=== PATIENT | male | born 1975 | race Caucasian/White ===

== ENCOUNTER 2017-02-19 14:55 | Emergency (ER) | payer OTHER ==
--- NOTE | 2017-02-19 15:26 | ED ---
General Adult HPI - General Chief complaint: Psychiatric Symptoms Stated complaint: mental health Time Seen by Provider: 02/19/17 15:09 Source: patient, police, RN notes reviewed Mode of arrival: ambulatory Limitations: no limitations - History of Present Illness Initial comments: Patient is a 41-year-old male who presents emergency room today in the custody of the [place] [employer]. Patient does admit that he was trying to hurt himself earlier. He states he was trying to jump in front of car. He states he was upset because he missed his mother and his brother. States his brother . He states mother in another town. States that he was upset earlier today after no one wanted to play pool with him. Patient denies any other complaints. Denies any thoughts of hurting anyone else. States currently not having thoughts of hurting himself. Patient denies any recent fever, chills, shortness of breath, chest pain, back pain, abdominal pain, nausea or vomiting, numbness or tingling, dysuria or hematuria, constipation or diarrhea, headaches or visual changes, or any other complaints. - Related Data Home Medications Medication Instructions Recorded Confirmed Loratadine [Claritin] 10 mg PO DAILY 08/08/14 02/19/17 Simvastatin [Zocor] 20 mg PO HS 08/08/14 02/19/17 metFORMIN HCL [Glucophage] 500 mg PO BID 08/08/14 02/19/17 Benztropine Mesylate [Cogentin] 2 mg PO BID 02/19/17 02/19/17 Chlorthalidone [Hygroton] 25 mg PO DAILY 02/19/17 02/19/17 Cholecalciferol [Vitamin D3] 2,000 unit PO DAILY 02/19/17 02/19/17 Cyanocobalamin (Vitamin B-12) 1,000 mcg PO DAILY 02/19/17 02/19/17 [Vitamin B-12] Divalproex ER [Depakote ER] 1,000 mg PO BID 02/19/17 02/19/17 Glimepiride [Amaryl] 1 mg PO DAILY 02/19/17 02/19/17 Levothyroxine Sodium [Synthroid] 100 mcg PO DAILY 02/19/17 02/19/17 Lisinopril 30 mg PO DAILY 02/19/17 02/19/17 Sertraline [Zoloft] 200 mg PO DAILY 02/19/17 02/19/17 fluPHENAZine DECANOATE [Prolixin 25 mg IM Q7D 02/19/17 02/19/17 Decanoate] traZODone HCL [Desyrel] 200 mg PO HS 02/19/17 02/19/17 Allergies Allergy/AdvReac Type Severity Reaction Status Date / Time diphenhydramine HCl Allergy Rash/Hives Verified 02/19/17 15:35 [From Benadryl] Review of Systems ROS Statement: Those systems with pertinent positive or pertinent negative responses have been documented in the HPI. ROS Other: All systems not noted in ROS Statement are negative. Past Medical History Past Medical History: Diabetes Mellitus, Seizure Disorder History of Any Multi-Drug Resistant Organisms: None Reported Past Surgical History: Orthopedic Surgery Additional Past Surgical History / Comment(s): right ankle Past Psychological History: Bipolar, Depression Smoking Status: Current every day smoker Past Alcohol Use History: None Reported Past Drug Use History: None Reported General Exam - General Exam Comments Initial Comments: General: The patient is awake and alert, in no distress, and does not appear acutely ill. Eye: Pupils are equal, round and reactive to light, extra-ocular movements are intact. No nystagmus. There is normal conjunctiva bilaterally. No signs of icterus. Ears, nose, mouth and throat: There are moist mucous membranes and no oral lesions. Neck: The neck is supple, there is no tenderness or JVD. Cardiovascular: There is a regular rate and rhythm. No murmur, rub or gallop is appreciated. Respiratory: Lungs are clear to auscultation, respirations are non-labored, breath sounds are equal. No wheezes, stridor, rales, or rhonchi. Musculoskeletal: Normal ROM, no tenderness. Strength 5/5. Sensation intact. Pulses equal bilaterally 2+. Neurological: A&O x 3. CN II-XII intact, There are no obvious motor or sensory deficits. Coordination appears grossly intact. Speech is normal. Skin: Skin is warm and dry and no rashes or lesions are noted. Psychiatric: Cooperative, appropriate mood & affect, normal judgment. Limitations: no limitations Course Vital Signs 02/19/17 02/19/17 15:02 16:13 Temperature 97.3 F L 97.0 F L Pulse Rate 67 58 L Respiratory 18 16 Rate Blood Pressure 156/92 119/69 O2 Sat by Pulse 97 96 Oximetry Medical Decision Making - Medical Decision Making Patient has been seen here in the emergency room by mental health. Patient denies any thoughts of homicidal or suicidal thoughts. Patient states he has no intentions of hurting himself. Mental health discussed with guardian who states feels comfortable taking patient home. They state they'll be able to follow up with an outpatient. Is also agreement with this plan at bedside. - Lab Data Lab Results 02/19/17 Range/Units 15:33 Urine Opiates Screen Not Detected (NotDetected) Ur Oxycodone Screen Not Detected (NotDetected) Urine Methadone Screen Not Detected (NotDetected) Ur Propoxyphene Screen Not Detected (NotDetected) Ur Barbiturates Screen Not Detected (NotDetected) U Tricyclic Antidepress Not Detected (NotDetected) Ur Phencyclidine Scrn Not Detected (NotDetected) Ur Amphetamines Screen Not Detected (NotDetected) U Methamphetamines Scrn Not Detected (NotDetected) U Benzodiazepines Scrn Not Detected (NotDetected) Urine Cocaine Screen Not Detected (NotDetected) U Marijuana (THC) Screen Not Detected (NotDetected) Disposition Clinical Impression: Depression Disposition: HOME SELF-CARE Condition: Stable Instructions: Depression (ED) Additional Instructions: Please follow-up mental health outpatient as discussed here in the emergency room. Please return to emergency room if any symptoms increase. Concerns. Time of Disposition: 17:23
[2017-02-19 16:15] VITALS: RESP 16
[2017-02-19 17:40] VITALS: BP 144/76; PULSE 67; TEMP 97.9
== END 2017-02-19 17:49 | disposition home or self-care (01) ==
LOC: EC 14:55
DX: F32.9 Major depressive disorder, single episode, unspecified (principal); E11.9 Type 2 diabetes mellitus without complications; G40.909 Epilepsy, unspecified, not intractable, without status epilepticus; Z79.84 Long term (current) use of oral hypoglycemic drugs; Z79.899 Other long term (current) drug therapy; Z88.8 Allergy status to other drugs, medicaments and biological substances
CPT/HCPCS: 80306; 82075; 99284

== ENCOUNTER 2017-07-17 20:43 | Observation (INO) | payer OTHER ==
[2017-07-17 21:00] VITALS: RESP 18
[2017-07-17 21:27] LABS: Basophils # (A) 0.1 k/uL (0-0.2); Basophils % (A) 1 %; CH 30.9; CHCM 36.3; Eosinophils # (A) 0.1 k/uL (0-0.7); Eosinophils % (A) 1 %; HCT 45.2 % (39.0-53.0); HDW 2.92; HGB 15.3 gm/dL (13.0-17.5); Luc % (Auto) 1; Lymphocytes # (A) 2.8 k/uL (1.0-4.8); Lymphocytes % (A) 34 %; MCH 28.9 pg (25.0-35.0); MCHC 33.9 g/dL (31.0-37.0); MCV 85.3 fL (80.0-100.0); Mean Platelet Volume 7.7; Monocytes # (A) 0.4 k/uL (0-1.0); Monocytes % (A) 5 %; Neutrophils # (A) 4.9 k/uL (1.3-7.7); Neutrophils % (A) 59 %; RDW 15.4 % (11.5-15.5); WBC 8.4 k/uL (3.8-10.6); WBC (Perox) 7.99
[2017-07-17] MEDS ORDERED: NITROGLYCERIN OINT 1 INCH/GM PACKET TOPICAL STA (21:39)
[2017-07-17] MEDS ORDERED: ASPIRIN 81 MG PO STA (21:39)
[2017-07-17 21:41] LABS: INR 1.2 (<1.2); Partial Thromboplastin Time 26.2 sec (22.0-30.0); Prothrombin Time 12.3 sec (9.0-12.0)
--- NOTE | 2017-07-17 21:43 | ED ---
General Adult HPI - General Chief complaint: Chest Pain Stated complaint: Chest Pain Time Seen by Provider: 07/17/17 21:22 Source: patient, EMS, RN notes reviewed Mode of arrival: EMS Limitations: no limitations, physical limitation - History of Present Illness Initial comments: Patient is a pleasant 41-year-old male presenting to the emergency department complaining of chest discomfort. Onset of symptoms was around 745. Discomfort was moderate. Discomfort is somewhat improved with aspirin and nitroglycerin by EMS. Discomfort feels sharp. Discomfort is midsternal. No history of similar symptoms previously. No shortness of breath, nausea, or diaphoresis. No leg pain or swelling. No radiation of pain. - Related Data Home Medications Medication Instructions Recorded Confirmed Loratadine [Claritin] 10 mg PO DAILY 08/08/14 07/17/17 Simvastatin [Zocor] 20 mg PO HS 08/08/14 07/17/17 metFORMIN HCL [Glucophage] 500 mg PO BID 08/08/14 07/17/17 Benztropine Mesylate [Cogentin] 2 mg PO BID 02/19/17 07/17/17 Chlorthalidone [Hygroton] 25 mg PO DAILY 02/19/17 07/17/17 Cholecalciferol [Vitamin D3] 2,000 unit PO DAILY 02/19/17 07/17/17 Divalproex ER [Depakote ER] 1,000 mg PO BID 02/19/17 07/17/17 Glimepiride [Amaryl] 1 mg PO DAILY 02/19/17 07/17/17 Levothyroxine Sodium [Synthroid] 100 mcg PO DAILY 02/19/17 07/17/17 Lisinopril 30 mg PO DAILY 02/19/17 07/17/17 Sertraline [Zoloft] 200 mg PO DAILY 02/19/17 07/17/17 fluPHENAZine DECANOATE [Prolixin 25 mg IM Q14D 02/19/17 07/17/17 Decanoate] traZODone HCL [Desyrel] 200 mg PO HS 02/19/17 07/17/17 Allergies Allergy/AdvReac Type Severity Reaction Status Date / Time diphenhydramine HCl Allergy Rash/Hives Verified 07/17/17 21:18 [From [place]it] Review of Systems ROS Statement: Those systems with pertinent positive or pertinent negative responses have been documented in the HPI. ROS Other: All systems not noted in ROS Statement are negative. Constitutional: Denies: fever Eyes: Denies: eye pain ENT: Denies: ear pain Respiratory: Denies: cough, dyspnea Cardiovascular: Reports: chest pain. Denies: palpitations Endocrine: Denies: fatigue Gastrointestinal: Denies: abdominal pain Genitourinary: Denies: urgency Musculoskeletal: Denies: back pain Skin: Denies: rash Neurological: Denies: weakness Past Medical History Past Medical History: Diabetes Mellitus, Hypertension, Seizure Disorder History of Any Multi-Drug Resistant Organisms: None Reported Past Surgical History: Orthopedic Surgery Additional Past Surgical History / Comment(s): right ankle Past Psychological History: Bipolar, Depression Smoking Status: Current every day smoker Past Alcohol Use History: None Reported Past Drug Use History: None Reported General Exam Limitations: no limitations, physical limitation General appearance: alert, in no apparent distress Head exam: Present: atraumatic Eye exam: Present: normal appearance, PERRL ENT exam: Present: normal oropharynx Neck exam: Present: normal inspection Respiratory exam: Present: normal lung sounds bilaterally, chest wall tenderness Cardiovascular Exam: Present: regular rate, normal rhythm Expanded Peripheral pulses: 2+: Radial (R), Radial (L), Dorsalis Pedis (R), Dorsalis Pedis (L) GI/Abdominal exam: Present: soft. Absent: tenderness Extremities exam: Present: normal inspection. Absent: pedal edema, calf tenderness Neurological exam: Present: alert Psychiatric exam: Present: normal affect, normal mood Skin exam: Present: normal color Course Vital Signs 07/17/17 07/17/17 07/17/17 20:54 21:05 21:57 Temperature 99.1 F Pulse Rate 58 L 57 L Pulse Rate [ 59 L [employer] ] Respiratory 18 18 Rate Blood Pressure 149/73 138/80 O2 Sat by Pulse 99 97 Oximetry EKG Findings - EKG Comments: EKG Findings:: Normal sinus rhythm 63. NM 164. QRS 88. QT 386. QTc 395. Left axis. Normal QRS. No acute ST change. Medical Decision Making - Medical Decision Making Patient reevaluated and improved however not completely resolved. Patient and friend were updated on results and plan. Case was discussed with practitioner Katherine ortiz who will admit for Dr. Mosley, covering for hospital call. - Lab Data Result diagrams: 07/17/17 21:15 07/17/17 21:15 Lab Results 07/17/17 07/17/17 07/17/17 Range/Units 21:15 21:15 21:15 WBC 8.4 (3.8-10.6) k/uL RBC 5.30 (4.30-5.90) m/uL Hgb 15.3 (13.0-17.5) gm/dL Hct 45.2 (39.0-53.0) % MCV 85.3 (80.0-100.0) fL MCH 28.9 (25.0-35.0) pg MCHC 33.9 (31.0-37.0) g/dL RDW 15.4 (11.5-15.5) % Plt Count 205 (150-450) k/uL Neutrophils % 59 % Lymphocytes % 34 % Monocytes % 5 % Eosinophils % 1 % Basophils % 1 % Neutrophils # 4.9 (1.3-7.7) k/uL Lymphocytes # 2.8 (1.0-4.8) k/uL Monocytes # 0.4 (0-1.0) k/uL Eosinophils # 0.1 (0-0.7) k/uL Basophils # 0.1 (0-0.2) k/uL PT (9.0-12.0) sec INR (<1.2) APTT (22.0-30.0) sec Sodium 137 (137-145) mmol/L Potassium 4.0 (3.5-5.1) mmol/L Chloride 104 (98-107) mmol/L Carbon Dioxide 23 (22-30) mmol/L Anion Gap 10 mmol/L BUN 13 (9-20) mg/dL Creatinine 0.60 L (0.66-1.25) mg/dL Est GFR (MDRD) Af Amer >60 (>60 ml/min/1.73 sqM) Est GFR (MDRD) Non-Af >60 (>60 ml/min/1.73 sqM) Glucose 119 H (74-99) mg/dL Calcium 9.2 (8.4-10.2) mg/dL Magnesium 1.5 L (1.6-2.3) mg/dL Total Bilirubin 0.3 (0.2-1.3) mg/dL AST 16 L (17-59) U/L ALT 37 (21-72) U/L Alkaline Phosphatase 100 (38-126) U/L Total Creatine Kinase 47 L (55-170) U/L CK-MB (CK-2) 0.6 (0.0-2.4) ng/mL CK-MB (CK-2) Rel Index 1.3 Troponin I <0.012 (0.000-0.034) ng/mL Total Protein 6.4 (6.3-8.2) g/dL Albumin 4.2 (3.5-5.0) g/dL 07/17/17 Range/Units 21:15 WBC (3.8-10.6) k/uL RBC (4.30-5.90) m/uL Hgb (13.0-17.5) gm/dL Hct (39.0-53.0) % MCV (80.0-100.0) fL MCH (25.0-35.0) pg MCHC (31.0-37.0) g/dL RDW (11.5-15.5) % Plt Count (150-450) k/uL Neutrophils % % Lymphocytes % % Monocytes % % Eosinophils % % Basophils % % Neutrophils # (1.3-7.7) k/uL Lymphocytes # (1.0-4.8) k/uL Monocytes # (0-1.0) k/uL Eosinophils # (0-0.7) k/uL Basophils # (0-0.2) k/uL PT 12.3 H (9.0-12.0) sec INR 1.2 H (<1.2) APTT 26.2 (22.0-30.0) sec Sodium (137-145) mmol/L Potassium (3.5-5.1) mmol/L Chloride (98-107) mmol/L Carbon Dioxide (22-30) mmol/L Anion Gap mmol/L BUN (9-20) mg/dL Creatinine (0.66-1.25) mg/dL Est GFR (MDRD) Af Amer (>60 ml/min/1.73 sqM) Est GFR (MDRD) Non-Af (>60 ml/min/1.73 sqM) Glucose (74-99) mg/dL Calcium (8.4-10.2) mg/dL Magnesium (1.6-2.3) mg/dL Total Bilirubin (0.2-1.3) mg/dL AST (17-59) U/L ALT (21-72) U/L Alkaline Phosphatase (38-126) U/L Total Creatine Kinase (55-170) U/L CK-MB (CK-2) (0.0-2.4) ng/mL CK-MB (CK-2) Rel Index Troponin I (0.000-0.034) ng/mL Total Protein (6.3-8.2) g/dL Albumin (3.5-5.0) g/dL - Radiology Data Radiology results: image reviewed (Chest x-ray shows no acute process) Disposition Clinical Impression: Chest pain Disposition: ADMITTED IP TO THIS [facility] Referrals: None,Stated [Primary Care Provider] - 1-2 days Decision Time: 22:25
[2017-07-17 21:45] LABS: ALT 37 U/L (21-72); AST 16 U/L (17-59); Alkaline Phosphatase 100 U/L (38-126); Anion Gap 10 mmol/L; Blood Urea Nitrogen 13 mg/dL (9-20); Calcium 9.2 mg/dL (8.4-10.2); Carbon Dioxide 23 mmol/L (22-30); Chloride 104 mmol/L (98-107); Glucose 119 mg/dL (74-99); Magnesium 1.5 mg/dL (1.6-2.3); Non-African American GFR(MDRD) >60 (>60 ml/min/1.73 sqM); Sodium 137 mmol/L (137-145); Total Bilirubin 0.3 mg/dL (0.2-1.3); Total Protein 6.4 g/dL (6.3-8.2)
[2017-07-17 21:48] LABS: Creatine Kinase 47 U/L (55-170)
[2017-07-17 21:58] VITALS: TEMP 99.1
--- NOTE | 2017-07-17 21:59 | XR ---
EXAMINATION TYPE: XR chest 2V DATE OF EXAM: 07/17/2017 COMPARISON: 02/06/2015 HISTORY: Pain TECHNIQUE: Frontal and lateral views of the chest are obtained. FINDINGS: There is no focal air space opacity, pleural effusion, or pneumothorax seen. The cardiac silhouette size is within normal limits. The osseous structures are intact. IMPRESSION: No acute cardiopulmonary process.
[2017-07-17 22:00] LABS: Creatine Kinase MB 0.6 ng/mL (0.0-2.4); Troponin I <0.012 ng/mL (0.000-0.034)
[2017-07-17] MEDS ORDERED: MAGNESIUM OXIDE 400 MG TAB PO STA (22:05)
[2017-07-17] MEDS ORDERED: NITROGLYCERIN SL TABS 0.4 MG TAB SUBLINGUAL PRN (22:25)
[2017-07-18 03:57] LABS: Cholesterol 120 mg/dL (<200); HDL Cholesterol 27 mg/dL (40-60)
[2017-07-18 04:07] LABS: Creatine Kinase 33 U/L (55-170)
[2017-07-18 04:20] LABS: Creatine Kinase MB 0.4 ng/mL (0.0-2.4); Troponin I <0.012 ng/mL (0.000-0.034)
[2017-07-18] MEDS ORDERED: NITROGLYCERIN OINT 1 INCH/GM PACKET TOPICAL SCH (06:00)
[2017-07-18 06:56] VITALS: BP 121/75; PULSE 54
[2017-07-18] MEDS ORDERED: ASPIRIN 325 MG TAB PO SCH (09:00)
[2017-07-18] MEDS ORDERED: LISINOPRIL 10 MG TAB PO SCH (09:00)
[2017-07-18 09:37] LABS: Creatine Kinase 27 U/L (55-170)
[2017-07-18 09:50] LABS: Creatine Kinase MB 0.3 ng/mL (0.0-2.4); Troponin I <0.012 ng/mL (0.000-0.034)
--- NOTE | 2017-07-18 12:32 | ECHOS ---
STRESS ECHOCARDIOGRAM INDICATIONS:: Chest pain. MEDICATIONS:: - BASELINE HEART RATE:: 46 BASELINE BLOOD PRESSURE:: 121/60 MAXIMUM HEART RATE:: 110 MAXIMUM BLOOD PRESSURE:: 174/64 85% MPHR:: 154 100% MPHR:: 181 METS:: 7.0 MAXIMUM STAGE REACHED:: 2 TOTAL EXERCISE TIME:: 5:00 CLINICAL INFORMATION:: Baseline EKG revealed a normal sinus rhythm, without significant ST-T changes. Patient walked for 5 minutes on standard Guicho protocol, developed fatigue and shortness of breath. His maximal heart rate was 110 beats per minute. The stress test was stopped because of fatigue. He did not have any angina, there were no EKG changes to indicate ischemia. This is an inconclusive stress test with limited exercise capacity. Baseline echo images revealed normal wall motion, wall thickening of all segments. At peak exercise, at a heart rate of 110 beats per minute, which is less than 85% of predicted maximum, there was good augmentation of left ventricular wall motion and wall thickening of all segments suggesting that there is no evidence of stress-induced ischemia on this study. However, the stress test is inconclusive given the adequate chronotropic response. FINAL IMPRESSION: Limited exercise capacity with inconclusive stress test by EKG criteria AND inconclusive stress echocardiogram but at the above-mentioned heart rate, there was no evidence of ischemia. MMODL / IJN: [id number] /
--- NOTE | 2017-07-18 12:55 | P.CRDCN ---
History of Present Illness Consult date: 07/18/17 History of present illness: This is a 41-year-old male. Past medical history significant for diabetes mellitus, hypertension and seizure disorder. Patient presents with complaints of midsternal chest pain described as sharp and stabbing. This pain came on while he was sleeping and woke him up out of asleep. He states that the pain persisted all night long and subsided on its own early this morning. He denies any radiation of the pain to his neck jaw shoulders back or arms. He denies any associated shortness of breath, palpitations, diaphoresis, dizziness , nausea or vomiting. The pain has subsided at this time. But he states earlier in the evening when he was having this pain and was worse with palpation and movement. Patient states he has never seen a tool rental technician for any reason. He denies any history of coronary artery disease or myocardial infarction. He states he follows regularly with [facility] for his prescription refills. Home medications include Zocor 20 mg and lisinopril 30 mg daily. EKG done shows normal sinus mechanism, rate of 63 beats per minute with no T- wave abnormality. When compared with old EKG this appears consistent. Troponins are normal x 2. Magnesium 1.5 on admission was replaced. Potassium 4.0, BUS and 13, creatinine 0.60, hemoglobin 15.3, total cholesterol 120, LDL 64 , HDL 27 and triglycerides 145. Chest x-ray showed no acute cardiopulmonary process. The patient had a regular walking exercise stress test 08/2016 that was suboptimal due to poor exercise tolerance but was essentially negative for ischemic changes on ekg and pt was asymptomatic. Review of Systems Extensive review of systems performed, negative except mentioned in HPI. Past Medical History Past Medical History: Diabetes Mellitus, Hypertension, Seizure Disorder History of Any Multi-Drug Resistant Organisms: None Reported Past Surgical History: Orthopedic Surgery Additional Past Surgical History / Comment(s): right ankle Past Psychological History: Bipolar, Depression Smoking Status: Current every day smoker Past Alcohol Use History: None Reported Past Drug Use History: None Reported Medications and Allergies Home Medications Medication Instructions Recorded Confirmed Type Loratadine [Claritin] 10 mg PO DAILY 08/08/14 07/17/17 History Simvastatin [Zocor] 20 mg PO HS 08/08/14 07/17/17 History metFORMIN HCL [Glucophage] 500 mg PO BID 08/08/14 07/17/17 History Benztropine Mesylate [Cogentin] 2 mg PO BID 02/19/17 07/17/17 History Chlorthalidone [Hygroton] 25 mg PO DAILY 02/19/17 07/17/17 History Cholecalciferol [Vitamin D3] 2,000 unit PO DAILY 02/19/17 07/17/17 History Divalproex ER [Depakote ER] 1,000 mg PO BID 02/19/17 07/17/17 History Glimepiride [Amaryl] 1 mg PO DAILY 02/19/17 07/17/17 History Levothyroxine Sodium [Synthroid] 100 mcg PO DAILY 02/19/17 07/17/17 History Lisinopril 30 mg PO DAILY 02/19/17 07/17/17 History Sertraline [Zoloft] 200 mg PO DAILY 02/19/17 07/17/17 History fluPHENAZine DECANOATE [Prolixin 25 mg IM Q14D 02/19/17 07/17/17 History Decanoate] traZODone HCL [Desyrel] 200 mg PO HS 02/19/17 07/17/17 History Allergies Allergy/AdvReac Type Severity Reaction Status Date / Time diphenhydramine HCl Allergy Rash/Hives Verified 07/17/17 21:18 [From [place]] Physical Exam Vitals: Vital Signs Temp Pulse Pulse Resp BP Pulse Ox 07/18/17 06:55 54 L 18 121/75 95 07/18/17 05:55 55 L 18 111/64 95 07/18/17 03:55 67 18 117/72 07/18/17 02:55 66 18 108/55 96 07/18/17 00:55 72 18 112/68 95 07/17/17 23:55 58 L 18 125/72 96 07/17/17 22:54 52 L 18 130/74 96 07/17/17 21:57 99.1 F 57 L 18 138/80 97 07/17/17 21:05 59 L 07/17/17 20:54 58 L 18 149/73 99 Intake and Output 07/17/17 07/18/17 07/18/17 22:59 06:59 14:59 Other: Weight 106.594 kg GENERAL: This is a 41-year-old male in no apparent distress at the time of my examination. Obese. HEENT: Head is atraumatic, normocephalic. Pupils are equal, round. Sclerae anicteric. Conjunctivae are clear. Mucous membranes of the mouth are moist. Neck is supple. There is no jugular venous distention. No carotid bruit is heard. LUNGS: Clear to auscultation no wheezes, rales or rhonchi. No chest wall tenderness is noted on palpation or with deep breathing. HEART: Regular rate and rhythm without murmurs, rubs or gallops. S1 and S2 heard. ABDOMEN: Soft, nontender. Bowel sounds are heard. No organomegaly noted. EXTREMITIES: 2+ peripheral pulses with no evidence of peripheral edema and no calf tenderness noted. NEUROLOGIC: Patient is awake, alert and oriented x3. Results 07/17/17 21:15 07/17/17 21:15 Cardiac Enzymes 07/17/17 07/17/17 07/18/17 Range/Units 21:15 21:15 03:06 AST 16 L (17-59) U/L CK-MB (CK-2) 0.6 0.4 (0.0-2.4) ng/mL Troponin I <0.012 <0.012 (0.000-0.034) ng/mL Coagulation 07/17/17 Range/Units 21:15 PT 12.3 H (9.0-12.0) sec APTT 26.2 (22.0-30.0) sec Lipids 07/18/17 Range/Units 03:06 Triglycerides 145 (<150) mg/dL Cholesterol 120 (<200) mg/dL HDL Cholesterol 27 L (40-60) mg/dL CBC 07/17/17 Range/Units 21:15 WBC 8.4 (3.8-10.6) k/uL RBC 5.30 (4.30-5.90) m/uL Hgb 15.3 (13.0-17.5) gm/dL Hct 45.2 (39.0-53.0) % Plt Count 205 (150-450) k/uL Comprehensive Metabolic Panel 07/17/17 Range/Units 21:15 Sodium 137 (137-145) mmol/L Potassium 4.0 (3.5-5.1) mmol/L Chloride 104 (98-107) mmol/L Carbon Dioxide 23 (22-30) mmol/L BUN 13 (9-20) mg/dL Creatinine 0.60 L (0.66-1.25) mg/dL Glucose 119 H (74-99) mg/dL Calcium 9.2 (8.4-10.2) mg/dL AST 16 L (17-59) U/L ALT 37 (21-72) U/L Alkaline Phosphatase 100 (38-126) U/L Total Protein 6.4 (6.3-8.2) g/dL Albumin 4.2 (3.5-5.0) g/dL Current Medications Generic Name Dose Route Start Last Admin Trade Name Freq PRN Reason Stop Dose Admin Aspirin 325 mg 07/18/17 09:00 Aspirin PO DAILY VELMA Atorvastatin Calcium 10 mg 07/18/17 21:00 Lipitor PO HS VELMA Lisinopril 30 mg 07/18/17 09:00 Zestril PO DAILY VELMA Nitroglycerin 1 inch 07/18/17 06:00 07/18/17 06:49 Nitro-Bid Oint TOPICAL 1 inch Q6HR VELMA Administration Nitroglycerin 0.4 mg 07/17/17 22:25 Nitrostat SUBLINGUAL Q5M PRN Chest Pain Sodium Chloride 10 ml 07/18/17 09:00 Saline Flush IV BID VELMA Intake and Output 07/17/17 07/18/17 07/18/17 22:59 06:59 14:59 Other: Weight 106.594 kg 07/17/17 21:15 07/17/17 21:15 EKG Interpretations (text) EKG indicates a normal sinus mechanism with no acute ST or T-wave abnormalities. Assessment and Plan Plan: ASSESSMENT 1. Chest pain, atypical. Musculoskeletal in nature. 2. Hypertension 3. Dyslipidemia 4. Diabetes mellitus PLAN Stress echocardiogram ordered and completed. Although it was ultimately inconclusive due to poor exercise tolerance, given the clinical presentation the pt is stable for discharge home from a cardiac standpoint. He should follow up with his PCP. Thank you kindly for this consultation. Nurse Practitioner note has been reviewed, I agree with a documented findings and plan of care. Patient was seen and examined.
--- NOTE | 2017-07-18 19:27 | P.HPIM ---
History of Present Illness H&P Date: 07/18/17 (dc summary as well) Chief Complaint: Chest pain 1 this is a 41-year-old gentleman with some developmental disorder and underlying psychiatric illness comes in the hospital with sudden onset chest in the local up at night. Patient stated that the chest pain is midsternal radiated to his shoulders and arms. The pain lasted the for short period of time hence came in to the hospital for further evaluation Patient name emergency room was noted to have an EKG with the sinus rhythm without any ST-T wave changes and no conduction delays Cardiac enzymes 3 have been negative Patient currently has had a stress test in the past in 2016 without any reproducible ischemia that was noted At the time of admission patient blood pressure was stable Patient's symptoms were resolved during my evaluation Patient denies having any headaches blurry vision nausea vomiting chest pain difficulty breathing abdominal pain diarrhea This is a 14 point review of systems was done nonpertinent all as mentioned above Physical exam Gen. appearance oriented 3 in no distress Neck is supple no JVD Lungs good air entry clear to auscultation no rhonchi or wheezing Heart S1-S2 heard regular rate and rhythm no murmurs appreciated Abdomen is soft nontender no organomegaly bowel sounds are intact Neurologically cranial nerves II-12 grossly intact no focal motor or sensory deficits noted Skin no abnormalities appreciated #1 atypical chest pain ACS is ruled out negative stress test #2 diabetes most type II #3 essential hypertension #4 hypothyroidism. #5 developmental disorder #6 underlying psychiatric illness. #7 dyslipidemia Plan Patient underwent a stress is which is negative is discharged home in stable condition patient is recommended to continue monitoring his blood pressures Follow-up with cardiology No change in medications home medications were all continued Past Medical History Past Medical History: Diabetes Mellitus, Hypertension, Seizure Disorder History of Any Multi-Drug Resistant Organisms: None Reported Past Surgical History: Orthopedic Surgery Additional Past Surgical History / Comment(s): right ankle Past Psychological History: Bipolar, Depression Smoking Status: Current every day smoker Past Alcohol Use History: None Reported Past Drug Use History: None Reported Medications and Allergies Home Medications Medication Instructions Recorded Confirmed Type Loratadine [Claritin] 10 mg PO DAILY 08/08/14 07/17/17 History Simvastatin [Zocor] 20 mg PO HS 08/08/14 07/17/17 History metFORMIN HCL [Glucophage] 500 mg PO BID 08/08/14 07/17/17 History Benztropine Mesylate [Cogentin] 2 mg PO BID 02/19/17 07/17/17 History Chlorthalidone [Hygroton] 25 mg PO DAILY 02/19/17 07/17/17 History Cholecalciferol [Vitamin D3] 2,000 unit PO DAILY 02/19/17 07/17/17 History Divalproex ER [Depakote ER] 1,000 mg PO BID 02/19/17 07/17/17 History Glimepiride [Amaryl] 1 mg PO DAILY 02/19/17 07/17/17 History Levothyroxine Sodium [Synthroid] 100 mcg PO DAILY 02/19/17 07/17/17 History Lisinopril 30 mg PO DAILY 02/19/17 07/17/17 History Sertraline [Zoloft] 200 mg PO DAILY 02/19/17 07/17/17 History fluPHENAZine DECANOATE [Prolixin 25 mg IM Q14D 02/19/17 07/17/17 History Decanoate] traZODone HCL [Desyrel] 200 mg PO HS 02/19/17 07/17/17 History Allergies Allergy/AdvReac Type Severity Reaction Status Date / Time diphenhydramine HCl Allergy Rash/Hives Verified 07/17/17 21:18 [From Dawit] Physical Exam Vitals: Vital Signs Temp Pulse Pulse Resp BP Pulse Ox 07/18/17 06:55 54 L 18 121/75 95 07/18/17 05:55 55 L 18 111/64 95 07/18/17 03:55 67 18 117/72 07/18/17 02:55 66 18 108/55 96 07/18/17 00:55 72 18 112/68 07/17/17 23:55 58 L 18 125/72 96 07/17/17 22:54 52 L 18 130/74 96 07/17/17 21:57 99.1 F 57 L 18 138/80 97 07/17/17 21:05 59 L 07/17/17 20:54 58 L 18 149/73 99 Results CBC & Chem 7: 07/17/17 21:15 07/17/17 21:15 Labs: Abnormal Lab Results - Last 24 Hours (Table) 07/17/17 07/17/17 07/17/17 Range/Units 21:15 21:15 21:15 PT 12.3 H (9.0-12.0) sec INR 1.2 H (<1.2) Creatinine 0.60 L (0.66-1.25) mg/dL Glucose 119 H (74-99) mg/dL Magnesium 1.5 L (1.6-2.3) mg/dL AST 16 L (17-59) U/L Total Creatine Kinase 47 L (55-170) U/L HDL Cholesterol (40-60) mg/dL 07/18/17 07/18/17 07/18/17 Range/Units 03:06 03:06 09:00 PT (9.0-12.0) sec INR (<1.2) Creatinine (0.66-1.25) mg/dL Glucose (74-99) mg/dL Magnesium (1.6-2.3) mg/dL AST (17-59) U/L Total Creatine Kinase 33 L 27 L (55-170) U/L HDL Cholesterol 27 L (40-60) mg/dL
[2017-07-18] MEDS ORDERED: ATORVASTATIN 10 MG TAB PO SCH (21:00)
== END 2017-07-18 14:16 | disposition home or self-care (01) ==
LOC: EC 20:43 → 3OBS 22:25
PROVIDERS: ADMIT Hospitalist; ATTEND Hospitalist
DX: R07.89 Other chest pain (principal); R07.2 Precordial pain; E11.9 Type 2 diabetes mellitus without complications; I10 Essential (primary) hypertension; E03.9 Hypothyroidism, unspecified; E78.5 Hyperlipidemia, unspecified; F89 Unspecified disorder of psychological development; F31.9 Bipolar disorder, unspecified; G40.909 Epilepsy, unspecified, not intractable, without status epilepticus; F17.200 Nicotine dependence, unspecified, uncomplicated; Z79.899 Other long term (current) drug therapy; Z79.84 Long term (current) use of oral hypoglycemic drugs; Z88.8 Allergy status to other drugs, medicaments and biological substances
CPT/HCPCS: 99285; 36415; 93005 ×2; 93017; 93350; 80061; 80053; 82550 ×2; 82553 ×2; 83735; 84484 ×2; 85025; 85610; 85730; 71020; G0378 ×2

== ENCOUNTER 2017-08-07 20:00 | Emergency (ER) | payer OTHER ==
[2017-08-07] MEDS ORDERED: ONDANSETRON 4 MG/2 ML VIAL IVP STA (20:20)
[2017-08-07] MEDS ORDERED: KETOROLAC 30 MG/ML 1 ML VIAL IVP STA (20:20)
[2017-08-07] MEDS ORDERED: SODIUM CHLORIDE 0.9% 1,000 ML IV STA ×2 (20:20)
--- NOTE | 2017-08-07 20:27 | ED ---
Chest Pain HPI - General Chief Complaint: Chest Pain Stated Complaint: chest pains Time Seen by Provider: 08/07/17 20:12 Source: patient, EMS, RN notes reviewed, old records reviewed Mode of arrival: EMS Limitations: no limitations - History of Present Illness Initial Comments: Physical 41-year-old male presenting to emergency Department via EMS chief complaint of chest pain for the past hour and a half. He reports it started at 7 PM. Patient reports he feels like elephant sitting on his chest. Patient was evaluated earlier in the month for similar complaints. Patient states that he also has a difficulty taking a deep breath. Denies any coughing. Denies any abdominal pain or nausea. Denies any headache, changes in vision, shortness of breath. Denies any diaphoresis. Patient reports that he was evaluated one month ago and all of his stress test were normal at that time. - Related Data Home Medications Medication Instructions Recorded Confirmed Loratadine [Claritin] 10 mg PO DAILY 08/08/14 08/07/17 Simvastatin [Zocor] 20 mg PO HS 08/08/14 08/07/17 metFORMIN HCL [Glucophage] 500 mg PO BID 08/08/14 08/07/17 Benztropine Mesylate [Cogentin] 2 mg PO BID 02/19/17 08/07/17 Chlorthalidone [Hygroton] 25 mg PO DAILY 02/19/17 08/07/17 Cholecalciferol [Vitamin D3] 2,000 unit PO DAILY 02/19/17 08/07/17 Divalproex ER [Depakote ER] 1,000 mg PO BID 02/19/17 08/07/17 Glimepiride [Amaryl] 1 mg PO DAILY 02/19/17 08/07/17 Levothyroxine Sodium [Synthroid] 100 mcg PO DAILY 02/19/17 08/07/17 Lisinopril 30 mg PO DAILY 02/19/17 08/07/17 Sertraline [Zoloft] 200 mg PO AC-BRKFST 02/19/17 08/07/17 fluPHENAZine DECANOATE [Prolixin 25 mg IM Q14D 02/19/17 08/07/17 Decanoate] traZODone HCL [Desyrel] 200 mg PO HS 02/19/17 08/07/17 Cyanocobalamin [Vitamin B-12] 500 mcg PO DAILY 08/07/17 08/07/17 Allergies Allergy/AdvReac Type Severity Reaction Status Date / Time diphenhydramine HCl Allergy Rash/Hives Verified 08/07/17 20:53 [From Benadryl] Review of Systems ROS Statement: Those systems with pertinent positive or pertinent negative responses have been documented in the HPI. ROS Other: All systems not noted in ROS Statement are negative. EKG Findings - EKG Comments: EKG Findings:: EKG shows normal sinus rhythm. Ventricular rate 79 bpm. DC interval 166 most seconds. QRS duration 92 ms. QT QTc is 360/412 ms. No evidence of ST elevation or T-wave inversion. No evidence of intraventricular of this. Past Medical History Past Medical History: Diabetes Mellitus, Hypertension, Seizure Disorder History of Any Multi-Drug Resistant Organisms: None Reported Past Surgical History: Orthopedic Surgery Additional Past Surgical History / Comment(s): right ankle Past Psychological History: Bipolar, Depression Smoking Status: Never smoker Past Alcohol Use History: None Reported Past Drug Use History: None Reported General Exam - General Exam Comments Initial Comments: 41-year-old male. Patient is laughing in the exam. No acute distress. Limitations: no limitations General appearance: alert, in no apparent distress Head exam: Present: atraumatic, normocephalic, normal inspection Eye exam: Present: normal appearance, PERRL, EOMI. Absent: scleral icterus, conjunctival injection, periorbital swelling ENT exam: Present: normal exam, normal oropharynx, mucous membranes moist Neck exam: Present: normal inspection. Absent: tenderness, meningismus, lymphadenopathy Respiratory exam: Present: normal lung sounds bilaterally. Absent: respiratory distress, wheezes, rales, rhonchi, stridor Cardiovascular Exam: Present: regular rate, normal rhythm, normal heart sounds. Absent: systolic murmur, diastolic murmur, rubs, gallop, clicks GI/Abdominal exam: Present: soft, normal bowel sounds. Absent: distended, guarding, rebound, rigid Extremities exam: Present: normal inspection, full ROM, normal capillary refill. Absent: tenderness, pedal edema, joint swelling, calf tenderness Back exam: Present: normal inspection Neurological exam: Present: alert, oriented X3, CN II-XII intact Psychiatric exam: Present: normal affect, normal mood Skin exam: Present: warm, dry, intact, normal color. Absent: rash Course Vital Signs 08/07/17 20:03 Temperature 98.1 F Pulse Rate 66 Respiratory 18 Rate Blood Pressure 119/62 O2 Sat by Pulse 94 L Oximetry - Reevaluation(s) Reevaluation #1: 08/07/17 21:51 Patient was reevaluated and is resting Fairly Bed. Patient Is Laughing and Smiling. He Does Not Appear to Be in Any Distress. Patient Reports That He Does Not Have Any Chest Pain at This Time. Patient Reports That It Got Better after Toradol. Chest Pain MDM - MDM Is a 41-year-old male presents emergency Department chief complaint of chest pain. It was reproducible on exam. Patient's EKG was reviewed and negative for any acute process. Cardiac enzymes and all of his labs were within normal limits except a mildly elevated lipase. Discussed that he had no abdominal tenderness as well and this could be chronic. We have no previous lipases to compare to. Patient's guardian was informed of this. Patient advised to follow -up with primary care provider. Discussed that I think his chest pain is muscular skeletal origin as it was reproducible. His x-ray was reviewed and was negative for any acute process. Patient will be discharged at this time with close follow-up. Return parameters were discussed. Chest x-ray was reviewed and shows normal chest. No acute changes. Diaphragm is normal. Pharynx appears normal. Disposition Clinical Impression: Atypical chest pain, Costochondral chest pain Disposition: HOME SELF-CARE Condition: Good Instructions: Costochondritis (ED) Additional Instructions: Patient advised a take Motrin Tylenol for further pain. Follow-up with your primary care provider. Return to emergency department if any alarming signs or symptoms occur. Referrals: Sandee Mendez MD [Primary Care Provider] - 1-2 days Time of Disposition: 21:53
[2017-08-07 20:45] LABS: Basophils # (A) 0.1 k/uL (0-0.2); Basophils % (A) 1 %; CH 30.5; CHCM 35.3; Eosinophils # (A) 0.1 k/uL (0-0.7); Eosinophils % (A) 1 %; HCT 46.8 % (39.0-53.0); HDW 2.79; HGB 15.9 gm/dL (13.0-17.5); Luc % (Auto) 2; Lymphocytes # (A) 2.6 k/uL (1.0-4.8); Lymphocytes % (A) 42 %; MCH 29.4 pg (25.0-35.0); MCHC 33.9 g/dL (31.0-37.0); MCV 86.8 fL (80.0-100.0); Mean Platelet Volume 7.9; Monocytes # (A) 0.4 k/uL (0-1.0); Monocytes % (A) 6 %; Neutrophils % (A) 49 %; RBC 5.39 m/uL (4.30-5.90); WBC 6.1 k/uL (3.8-10.6); WBC (Perox) 5.91
[2017-08-07 20:57] LABS: Creatine Kinase 41 U/L (55-170); INR 1.3 (<1.2); Partial Thromboplastin Time 27.2 sec (22.0-30.0); Prothrombin Time 12.6 sec (9.0-12.0)
[2017-08-07 20:58] LABS: ALT 33 U/L (21-72); AST 19 U/L (17-59); Alkaline Phosphatase 104 U/L (38-126); Anion Gap 12 mmol/L; Blood Urea Nitrogen 13 mg/dL (9-20); Calcium 9.2 mg/dL (8.4-10.2); Carbon Dioxide 22 mmol/L (22-30); Chloride 105 mmol/L (98-107); Glucose 113 mg/dL (74-99); Magnesium 1.5 mg/dL (1.6-2.3); Non-African American GFR(MDRD) >60 (>60 ml/min/1.73 sqM); Sodium 139 mmol/L (137-145); Total Bilirubin 0.2 mg/dL (0.2-1.3); Total Protein 6.1 g/dL (6.3-8.2)
--- NOTE | 2017-08-07 21:02 | XR ---
EXAMINATION TYPE: XR chest 2V DATE OF EXAM: 08/07/2017 COMPARISON: NONE HISTORY: Chest pain TECHNIQUE: Frontal and lateral views of the chest are obtained. FINDINGS: Heart and mediastinum are normal. Lungs are clear. Diaphragm is normal. Bony thorax appear s normal. IMPRESSION: Normal chest. No change.
[2017-08-07 21:11] LABS: Creatine Kinase MB 0.5 ng/mL (0.0-2.4); Troponin I <0.012 ng/mL (0.000-0.034)
[2017-08-07 22:14] VITALS: BP 117/67; PULSE 61; RESP 19; TEMP 98.6
== END 2017-08-07 22:14 | disposition home or self-care (01) ==
LOC: EC 20:00
DX: R07.1 Chest pain on breathing (principal); R74.8 Abnormal levels of other serum enzymes; E11.9 Type 2 diabetes mellitus without complications; I10 Essential (primary) hypertension; G40.909 Epilepsy, unspecified, not intractable, without status epilepticus; F31.9 Bipolar disorder, unspecified; Z88.8 Allergy status to other drugs, medicaments and biological substances; Z79.84 Long term (current) use of oral hypoglycemic drugs; Z79.899 Other long term (current) drug therapy
CPT/HCPCS: 36415; 93005; 85379; 83880; 80053; 82550; 82553; 83690; 83735; 84484; 85025; 85610; 85730; 71020; 99285; 96374; 96375; 96361; J2405; J1885

== ENCOUNTER 2017-09-03 00:36 | Emergency (ER) | payer OTHER ==
[2017-09-03 00:41] VITALS: RESP 18
[2017-09-03] MEDS ORDERED: KETOROLAC 30 MG/ML 1 ML VIAL IVP STA (00:45)
[2017-09-03 00:56] LABS: Basophils % (A) 1 %; CH 29.2; CHCM 34.2; Eosinophils # (A) 0.1 k/uL (0-0.7); Eosinophils % (A) 1 %; HCT 45.3 % (39.0-53.0); HDW 2.82; HGB 15.1 gm/dL (13.0-17.5); Luc # (Auto) 0.09; Luc % (Auto) 1; Lymphocytes # (A) 2.7 k/uL (1.0-4.8); Lymphocytes % (A) 40 %; MCH 28.7 pg (25.0-35.0); MCHC 33.4 g/dL (31.0-37.0); MCV 85.9 fL (80.0-100.0); Monocytes # (A) 0.4 k/uL (0-1.0); Monocytes % (A) 6 %; Neutrophils # (A) 3.4 k/uL (1.3-7.7); Neutrophils % (A) 51 %; RBC 5.28 m/uL (4.30-5.90); RDW 15.1 % (11.5-15.5); WBC 6.7 k/uL (3.8-10.6); WBC (Perox) 6.66
[2017-09-03 01:05] LABS: ALT 39 U/L (21-72); AST 24 U/L (17-59); Alkaline Phosphatase 94 U/L (38-126); Anion Gap 13 mmol/L; Blood Urea Nitrogen 15 mg/dL (9-20); Calcium 9.2 mg/dL (8.4-10.2); Carbon Dioxide 22 mmol/L (22-30); Chloride 105 mmol/L (98-107); Glucose 113 mg/dL (74-99); Magnesium 1.6 mg/dL (1.6-2.3); Non-African American GFR(MDRD) >60 (>60 ml/min/1.73 sqM); Potassium 4.1 mmol/L (3.5-5.1); Sodium 140 mmol/L (137-145); Total Bilirubin 0.4 mg/dL (0.2-1.3); Total Protein 6.6 g/dL (6.3-8.2)
--- NOTE | 2017-09-03 01:07 | ED ---
Chest Pain HPI - General Chief Complaint: Chest Pain Stated Complaint: Chest Pains Time Seen by Provider: 09/03/17 00:36 Source: patient, RN notes reviewed Mode of arrival: EMS Limitations: no limitations - History of Present Illness Initial Comments: This is a 40-year-old male who presents with complaints of chest pain it started just around 2130 tonight. He states that sharp right-sided chest pain raises right arm increases with deep breathing he denies any fevers chills nausea vomiting sweats or other symptoms. He was brought in by EMS. MD Complaint: chest pain - Related Data Home Medications Medication Instructions Recorded Confirmed Loratadine [Claritin] 10 mg PO DAILY 08/08/14 08/07/17 Simvastatin [Zocor] 20 mg PO HS 08/08/14 08/07/17 metFORMIN HCL [Glucophage] 500 mg PO BID 08/08/14 08/07/17 Benztropine Mesylate [Cogentin] 2 mg PO BID 02/19/17 08/07/17 Chlorthalidone [Hygroton] 25 mg PO DAILY 02/19/17 08/07/17 Cholecalciferol [Vitamin D3] 2,000 unit PO DAILY 02/19/17 08/07/17 Divalproex ER [Depakote ER] 1,000 mg PO BID 02/19/17 08/07/17 Glimepiride [Amaryl] 1 mg PO DAILY 02/19/17 08/07/17 Levothyroxine Sodium [Synthroid] 100 mcg PO DAILY 02/19/17 08/07/17 Lisinopril 30 mg PO DAILY 02/19/17 08/07/17 Sertraline [Zoloft] 200 mg PO AC-BRKFST 02/19/17 08/07/17 fluPHENAZine DECANOATE [Prolixin 25 mg IM Q14D 02/19/17 08/07/17 Decanoate] traZODone HCL [Desyrel] 200 mg PO HS 02/19/17 08/07/17 Cyanocobalamin [Vitamin B-12] 500 mcg PO DAILY 08/07/17 08/07/17 Previous Rx's Medication Instructions Recorded Ibuprofen 800 mg PO Q6HR PRN #20 tablet 09/03/17 Allergies Allergy/AdvReac Type Severity Reaction Status Date / Time diphenhydramine HCl Allergy Rash/Hives Verified 09/03/17 00:38 [From Benadryl] Review of Systems ROS Statement: Those systems with pertinent positive or pertinent negative responses have been documented in the HPI. ROS Other: All systems not noted in ROS Statement are negative. EKG Findings - EKG Results: EKG: interpreted by SUKHWINDER, sinus rhythm (Normal sinus rhythm rate 82. Interval 166 QRS 86 daily since QTC of 360/420 this is a normal-appearing EKG.) Past Medical History Past Medical History: Diabetes Mellitus, Hypertension, Seizure Disorder History of Any Multi-Drug Resistant Organisms: None Reported Past Surgical History: Orthopedic Surgery Additional Past Surgical History / Comment(s): right ankle Past Psychological History: Bipolar, Depression Smoking Status: Never smoker Past Alcohol Use History: None Reported Past Drug Use History: None Reported General Exam - General Exam Comments Initial Comments: This is a well-developed well-nourished awake alert oriented 3 male Limitations: no limitations General appearance: alert, in no apparent distress Head exam: Present: atraumatic, normocephalic, normal inspection Eye exam: Present: normal appearance, PERRL, EOMI. Absent: scleral icterus, conjunctival injection, periorbital swelling ENT exam: Present: normal exam, mucous membranes moist Neck exam: Present: normal inspection. Absent: tenderness, meningismus, lymphadenopathy Respiratory exam: Present: normal lung sounds bilaterally, chest wall tenderness (Reproducible tenderness palpation along the costosternal margin especially on the right.). Absent: respiratory distress, wheezes, rales, rhonchi, stridor Cardiovascular Exam: Present: regular rate, normal rhythm, normal heart sounds. Absent: systolic murmur, diastolic murmur, rubs, gallop, clicks GI/Abdominal exam: Present: soft, normal bowel sounds. Absent: distended, tenderness, guarding, rebound, rigid Extremities exam: Present: normal inspection, full ROM, normal capillary refill. Absent: tenderness, pedal edema, joint swelling, calf tenderness Back exam: Present: normal inspection Neurological exam: Present: alert, oriented X3, CN II-XII intact Psychiatric exam: Present: normal affect, normal mood Skin exam: Present: warm, dry, intact, normal color. Absent: rash Course Vital Signs 09/03/17 09/03/17 00:38 01:54 Temperature 98.4 F 98.5 F Pulse Rate 89 62 Respiratory 18 18 Rate Blood Pressure 155/76 127/78 O2 Sat by Pulse 95 98 Oximetry Chest Pain MDM - MDM Review the x-ray and report no acute findings. Patient's pain is improved the presentation is consistent with costochondritis. I did discuss the findings with the patient's family member. He will be discharged on appropriate anti- inflammatory pain medication Disposition Clinical Impression: Chest wall syndrome, Costalchondritis Disposition: HOME SELF-CARE Condition: Good Instructions: Costochondritis (ED) Prescriptions: Ibuprofen 800 mg PO Q6HR PRN #20 tablet PRN Reason: Pain Referrals: Sandee Mendez MD [Primary Care Provider] - 1-2 days
--- NOTE | 2017-09-03 01:09 | XR ---
EXAMINATION TYPE: XR chest 2V DATE OF EXAM: 09/03/2017 COMPARISON: NONE HISTORY: Chest pain TECHNIQUE: Frontal and lateral views of the chest are obtained. FINDINGS: Heart and mediastinum are normal. Lungs are clear. Diaphragm is normal. Bony thorax is int act. There are chest leads. IMPRESSION: Normal chest. No change.
[2017-09-03 01:11] LABS: INR 1.2 (<1.2); Prothrombin Time 12.2 sec (9.0-12.0)
[2017-09-03 01:19] LABS: Creatine Kinase 57 U/L (55-170)
[2017-09-03 01:32] LABS: Creatine Kinase MB 0.9 ng/mL (0.0-2.4); Troponin I <0.012 ng/mL (0.000-0.034)
[2017-09-03 01:55] VITALS: BP 127/78; PULSE 62; TEMP 98.5
== END 2017-09-03 02:09 | disposition home or self-care (01) ==
LOC: EC 00:36
DX: M94.0 Chondrocostal junction syndrome [Tietze] (principal); E11.9 Type 2 diabetes mellitus without complications; I10 Essential (primary) hypertension; F31.9 Bipolar disorder, unspecified; Z88.8 Allergy status to other drugs, medicaments and biological substances; Z79.84 Long term (current) use of oral hypoglycemic drugs; Z79.899 Other long term (current) drug therapy
CPT/HCPCS: 36415; 93005; 85379; 80053; 82550; 82553; 83735; 84484; 85025; 85610; 85730; 71020; 99285; 96374; J1885

== ENCOUNTER 2017-09-24 19:45 | Emergency (ER) | payer OTHER ==
[2017-09-24 21:25] LABS: Basophils # (A) 0.1 k/uL (0-0.2); Basophils % (A) 1 %; CH 29.4; CHCM 33.9; Eosinophils # (A) 0.1 k/uL (0-0.7); Eosinophils % (A) 1 %; HCT 46.3 % (39.0-53.0); HDW 2.86; HGB 15.4 gm/dL (13.0-17.5); Luc # (Auto) 0.07; Luc % (Auto) 1; Lymphocytes # (A) 2.5 k/uL (1.0-4.8); Lymphocytes % (A) 40 %; MCHC 33.3 g/dL (31.0-37.0); MCV 87.1 fL (80.0-100.0); Mean Platelet Volume 7.9; Monocytes # (A) 0.4 k/uL (0-1.0); Monocytes % (A) 6 %; Neutrophils # (A) 3.2 k/uL (1.3-7.7); Neutrophils % (A) 51 %; RBC 5.32 m/uL (4.30-5.90); RDW 15.1 % (11.5-15.5); WBC 6.2 k/uL (3.8-10.6); WBC (Perox) 6.02
[2017-09-24 21:35] LABS: ALT 33 U/L (21-72); AST 18 U/L (17-59); Alkaline Phosphatase 102 U/L (38-126); Anion Gap 11 mmol/L; Blood Urea Nitrogen 14 mg/dL (9-20); Calcium 9.5 mg/dL (8.4-10.2); Carbon Dioxide 23 mmol/L (22-30); Chloride 105 mmol/L (98-107); Glucose 122 mg/dL (74-99); Non-African American GFR(MDRD) >60 (>60 ml/min/1.73 sqM); Potassium 3.8 mmol/L (3.5-5.1); Sodium 139 mmol/L (137-145); Total Bilirubin 0.2 mg/dL (0.2-1.3); Total Protein 6.2 g/dL (6.3-8.2)
[2017-09-24 21:47] LABS: Creatine Kinase 35 U/L (55-170)
--- NOTE | 2017-09-24 21:48 | XR ---
EXAMINATION TYPE: XR chest 2V DATE OF EXAM: 09/24/2017 COMPARISON: Chest x-ray September 03, 2017. HISTORY: Chest and sternal pain. TECHNIQUE: Frontal and lateral views of the chest are obtained. FINDINGS: There is no focal air space opacity, pleural effusion, or pneumothorax seen. The cardiac silhouette size is within normal limits. The osseous structures are intact. IMPRESSION: No acute cardiopulmonary process. No significant change from prior.
[2017-09-24 22:01] LABS: Creatine Kinase MB 0.6 ng/mL (0.0-2.4); Troponin I <0.012 ng/mL (0.000-0.034)
[2017-09-24] MEDS ORDERED: KETOROLAC 30 MG/ML 1 ML VIAL IVP STA (22:14)
[2017-09-24 22:15] VITALS: BP 138/70; PULSE 54; RESP 18; TEMP 97.9
--- NOTE | 2017-09-24 22:34 | ED ---
General Adult HPI - General Chief complaint: Chest Pain Stated complaint: Chest Pain Time Seen by Provider: 09/24/17 21:22 Source: patient, EMS, RN notes reviewed, old records reviewed Mode of arrival: EMS Limitations: no limitations - History of Present Illness Initial comments: This is a 41-year-old male to the ER for evaluation. Patient's positive by caregiver friend for evaluation of testing. Patient is ER visits in the past for chest. Patient's told to be muscle strain. Patient has no cardiac risk factors to not smoke and no trauma. Patient states this pain started before he went to lay down for bed tonight. He denies recent fevers or cough or congestion. Patient did not take anything for pain. Patient stated this point is without pain in his pain is improved only came to the emergency room today - Related Data Home Medications Medication Instructions Recorded Confirmed Loratadine [Claritin] 10 mg PO DAILY 08/08/14 09/24/17 Simvastatin [Zocor] 20 mg PO HS 08/08/14 09/24/17 metFORMIN HCL [Glucophage] 500 mg PO BID 08/08/14 09/24/17 Benztropine Mesylate [Cogentin] 2 mg PO BID 02/19/17 09/24/17 Chlorthalidone [Hygroton] 25 mg PO DAILY 02/19/17 09/24/17 Cholecalciferol [Vitamin D3] 2,000 unit PO DAILY 02/19/17 09/24/17 Divalproex ER [Depakote ER] 1,000 mg PO BID 02/19/17 09/24/17 Glimepiride [Amaryl] 1 mg PO DAILY 02/19/17 09/24/17 Levothyroxine Sodium [Synthroid] 100 mcg PO DAILY 02/19/17 09/24/17 Lisinopril 30 mg PO DAILY 02/19/17 09/24/17 Sertraline [Zoloft] 200 mg PO AC-BRKFST 02/19/17 09/24/17 fluPHENAZine DECANOATE [Prolixin 25 mg IM Q14D 02/19/17 09/24/17 Decanoate] traZODone HCL [Desyrel] 200 mg PO HS 02/19/17 09/24/17 Cyanocobalamin [Vitamin B-12] 500 mcg PO DAILY 08/07/17 09/24/17 Allergies Allergy/AdvReac Type Severity Reaction Status Date / Time diphenhydramine HCl Allergy Rash/Hives Verified 09/24/17 20:13 [From Benadryl] Review of Systems ROS Statement: Those systems with pertinent positive or pertinent negative responses have been documented in the HPI. ROS Other: All systems not noted in ROS Statement are negative. Past Medical History Past Medical History: Diabetes Mellitus, Hypertension, Seizure Disorder History of Any Multi-Drug Resistant Organisms: None Reported Past Surgical History: Orthopedic Surgery Additional Past Surgical History / Comment(s): right ankle Past Psychological History: Bipolar, Depression Smoking Status: Never smoker Past Alcohol Use History: None Reported Past Drug Use History: None Reported General Exam Limitations: no limitations General appearance: alert, in no apparent distress Head exam: Present: atraumatic, normocephalic, normal inspection Eye exam: Present: normal appearance, PERRL, EOMI. Absent: scleral icterus, conjunctival injection, periorbital swelling ENT exam: Present: normal exam, mucous membranes moist Neck exam: Present: normal inspection. Absent: tenderness, meningismus, lymphadenopathy Respiratory exam: Present: normal lung sounds bilaterally. Absent: respiratory distress, wheezes, rales, rhonchi, stridor Cardiovascular Exam: Present: regular rate, normal rhythm, normal heart sounds. Absent: systolic murmur, diastolic murmur, rubs, gallop, clicks GI/Abdominal exam: Present: soft, normal bowel sounds. Absent: distended, tenderness, guarding, rebound, rigid Extremities exam: Present: normal inspection, full ROM, normal capillary refill. Absent: tenderness, pedal edema, joint swelling, calf tenderness Back exam: Present: normal inspection Neurological exam: Present: alert, oriented X3, CN II-XII intact Psychiatric exam: Present: normal affect, normal mood Skin exam: Present: warm, dry, intact, normal color. Absent: rash Course Vital Signs 09/24/17 09/24/17 20:10 22:14 Temperature 98.0 F 97.9 F Pulse Rate 64 54 L Respiratory 16 18 Rate Blood Pressure 136/73 138/70 O2 Sat by Pulse 93 L 99 Oximetry Medical Decision Making - Medical Decision Making 41 male the ER with nonspecific chest pain that further reproducible to touch. EKG chest x-ray labwork is normal. Patient states he feels warm has been without chest pain throughout entire ER stay. Patient will be discharged home - Lab Data Result diagrams: 09/24/17 20:39 09/24/17 20:39 Lab Results 09/24/17 09/24/17 09/24/17 Range/Units 20:39 20:39 20:39 WBC 6.2 (3.8-10.6) k/uL RBC 5.32 (4.30-5.90) m/uL Hgb 15.4 (13.0-17.5) gm/dL Hct 46.3 (39.0-53.0) % MCV 87.1 (80.0-100.0) fL MCH 29.0 (25.0-35.0) pg MCHC 33.3 (31.0-37.0) g/dL RDW 15.1 (11.5-15.5) % Plt Count 195 (150-450) k/uL Neutrophils % 51 % Lymphocytes % 40 % Monocytes % 6 % Eosinophils % 1 % Basophils % 1 % Neutrophils # 3.2 (1.3-7.7) k/uL Lymphocytes # 2.5 (1.0-4.8) k/uL Monocytes # 0.4 (0-1.0) k/uL Eosinophils # 0.1 (0-0.7) k/uL Basophils # 0.1 (0-0.2) k/uL Sodium 139 (137-145) mmol/L Potassium 3.8 (3.5-5.1) mmol/L Chloride 105 (98-107) mmol/L Carbon Dioxide 23 (22-30) mmol/L Anion Gap 11 mmol/L BUN 14 (9-20) mg/dL Creatinine 0.68 (0.66-1.25) mg/dL Est GFR (MDRD) Af Amer >60 (>60 ml/min/1.73 sqM) Est GFR (MDRD) Non-Af >60 (>60 ml/min/1.73 sqM) Glucose 122 H (74-99) mg/dL Calcium 9.5 (8.4-10.2) mg/dL Total Bilirubin 0.2 (0.2-1.3) mg/dL AST 18 (17-59) U/L ALT 33 (21-72) U/L Alkaline Phosphatase 102 (38-126) U/L Total Creatine Kinase 35 L (55-170) U/L CK-MB (CK-2) 0.6 (0.0-2.4) ng/mL CK-MB (CK-2) Rel Index 1.7 Troponin I <0.012 (0.000-0.034) ng/mL Total Protein 6.2 L (6.3-8.2) g/dL Albumin 3.9 (3.5-5.0) g/dL - Radiology Data Radiology results: report reviewed (Chest x-rays negative for acute disease), image reviewed Disposition Clinical Impression: Chest pain, Chest wall syndrome, Costalchondritis Disposition: HOME SELF-CARE Condition: Good Instructions: Costochondritis (ED) Referrals: Sandee Mendez MD [Primary Care Provider] - 1-2 days
== END 2017-09-24 22:49 | disposition home or self-care (01) ==
LOC: EC 19:45
DX: M94.0 Chondrocostal junction syndrome [Tietze] (principal); E11.9 Type 2 diabetes mellitus without complications; I10 Essential (primary) hypertension; F32.9 Major depressive disorder, single episode, unspecified; Z86.69 Personal history of other diseases of the nervous system and sense organs; Z79.84 Long term (current) use of oral hypoglycemic drugs; Z79.899 Other long term (current) drug therapy; Z88.8 Allergy status to other drugs, medicaments and biological substances
CPT/HCPCS: 36415; 71020; 80053; 82550; 82553; 84484; 85025; 93005; 99285

== ENCOUNTER 2018-01-14 22:21 | Emergency (ER) | payer OTHER ==
[2018-01-14 22:27] VITALS: RESP 18
--- NOTE | 2018-01-14 22:53 | ED ---
General Adult HPI - General Chief complaint: Dizziness Stated complaint: Shaky Time Seen by Provider: 01/14/18 22:23 Source: patient Mode of arrival: EMS Limitations: no limitations - History of Present Illness Initial comments: Patient is a 42-year-old man who presents to be evaluated for which she is describing as dizziness. The patient states she is also been feeling shaky. The symptoms came on and it been present for about 2 weeks. He notes that he ran out of some of his medications just prior to the onset of the symptoms. Patient denies any injury or head trauma. He denies syncope. He denies fever or chills, chest pain, dyspnea, diaphoresis. Onset/Timin -: week(s) Consistency: constant Improves with: none Worsens with: none - Related Data Home Medications Medication Instructions Recorded Confirmed Loratadine [Claritin] 10 mg PO DAILY 08/08/14 01/14/18 Simvastatin [Zocor] 20 mg PO HS 08/08/14 01/14/18 metFORMIN HCL [Glucophage] 500 mg PO BID 08/08/14 01/14/18 Benztropine Mesylate [Cogentin] 2 mg PO BID 02/19/17 01/14/18 Chlorthalidone [Hygroton] 25 mg PO DAILY 02/19/17 01/14/18 Cholecalciferol [Vitamin D3] 2,000 unit PO DAILY 02/19/17 01/14/18 Divalproex ER [Depakote ER] 1,000 mg PO BID 02/19/17 01/14/18 Glimepiride [Amaryl] 1 mg PO DAILY 02/19/17 01/14/18 Levothyroxine Sodium [Synthroid] 100 mcg PO DAILY 02/19/17 01/14/18 Lisinopril 30 mg PO DAILY 02/19/17 01/14/18 Sertraline [Zoloft] 200 mg PO AC-BRKFST 02/19/17 01/14/18 fluPHENAZine DECANOATE [Prolixin 25 mg IM Q14D 02/19/17 01/14/18 Decanoate] traZODone HCL [Desyrel] 200 mg PO HS 02/19/17 01/14/18 Cyanocobalamin [Vitamin B-12] 500 mcg PO DAILY 08/07/17 01/14/18 Allergies Allergy/AdvReac Type Severity Reaction Status Date / Time diphenhydramine HCl Allergy Rash/Hives Verified 01/14/18 22:39 [From Benadryl] Review of Systems ROS Statement: Those systems with pertinent positive or pertinent negative responses have been documented in the HPI. ROS Other: All systems not noted in ROS Statement are negative. Constitutional: Denies: fever, chills Eyes: Denies: vision change Respiratory: Denies: cough, dyspnea Cardiovascular: Denies: chest pain, palpitations, edema, syncope Gastrointestinal: Denies: abdominal pain, nausea, vomiting, diarrhea Genitourinary: Denies: dysuria, hematuria Musculoskeletal: Denies: back pain Skin: Denies: rash Neurological: Reports: as per HPI. Denies: headache, weakness, numbness, paresthesias Past Medical History Past Medical History: Diabetes Mellitus, Hypertension, Seizure Disorder History of Any Multi-Drug Resistant Organisms: None Reported Past Surgical History: Orthopedic Surgery Additional Past Surgical History / Comment(s): right ankle Past Psychological History: Bipolar, Depression Smoking Status: Never smoker Past Alcohol Use History: None Reported Past Drug Use History: None Reported General Exam Limitations: no limitations General appearance: alert, in no apparent distress Head exam: Present: atraumatic, normocephalic Eye exam: Present: normal appearance. Absent: scleral icterus, conjunctival injection ENT exam: Present: normal oropharynx Respiratory exam: Present: normal lung sounds bilaterally. Absent: respiratory distress, wheezes, rales, rhonchi, stridor Cardiovascular Exam: Present: regular rate, normal rhythm, normal heart sounds. Absent: systolic murmur, diastolic murmur, rubs, gallop GI/Abdominal exam: Present: soft. Absent: distended, tenderness, guarding, rebound, mass Extremities exam: Present: normal inspection, normal capillary refill. Absent: pedal edema, calf tenderness Neurological exam: Present: alert Skin exam: Present: warm, dry, intact, normal color. Absent: rash Course Vital Signs 01/14/18 01/14/18 22:22 23:21 Temperature 97.9 F Pulse Rate 65 Respiratory 18 Rate Blood Pressure 157/85 Blood Pressure 146/83 [Left Arm Sitting] Blood Pressure 152/88 [Left Arm Standing] Blood Pressure 135/74 [Left Arm Supine] O2 Sat by Pulse 97 Oximetry EKG Findings - EKG Results: EKG: interpreted by ERMD, sinus rhythm (Rate 62 bpm), normal axis, normal ST/T - IA, Pacemaker, Normal: Myocardial infarction: inferior IA (old age indeterminate) (Q wave in leads 3 and aVF consistent with possible old inferior infarct) Medical Decision Making - Lab Data Result diagrams: 01/14/18 23:15 01/14/18 23:15 Lab Results 01/14/18 01/14/18 01/14/18 Range/Units 23:15 23:15 23:15 WBC 7.4 (3.8-10.6) k/uL RBC 5.31 (4.30-5.90) m/uL Hgb 15.2 (13.0-17.5) gm/dL Hct 44.8 (39.0-53.0) % MCV 84.3 (80.0-100.0) fL MCH 28.6 (25.0-35.0) pg MCHC 33.9 (31.0-37.0) g/dL RDW 14.4 (11.5-15.5) % Plt Count 185 (150-450) k/uL Neutrophils % 42 % Lymphocytes % 49 % Monocytes % 5 % Eosinophils % 1 % Basophils % 1 % Neutrophils # 3.1 (1.3-7.7) k/uL Lymphocytes # 3.6 (1.0-4.8) k/uL Monocytes # 0.4 (0-1.0) k/uL Eosinophils # 0.1 (0-0.7) k/uL Basophils # 0.1 (0-0.2) k/uL Sodium 139 (137-145) mmol/L Potassium 3.9 (3.5-5.1) mmol/L Chloride 103 (98-107) mmol/L Carbon Dioxide 25 (22-30) mmol/L Anion Gap 11 mmol/L BUN 12 (9-20) mg/dL Creatinine 0.59 L (0.66-1.25) mg/dL Est GFR (CKD-EPI)AfAm >90 (>60 ml/min/1.73 sqM) Est GFR (CKD-EPI)NonAf >90 (>60 ml/min/1.73 sqM) Glucose 143 H (74-99) mg/dL Calcium 9.2 (8.4-10.2) mg/dL Total Bilirubin 0.3 (0.2-1.3) mg/dL AST 18 (17-59) U/L ALT 35 (21-72) U/L Alkaline Phosphatase 91 (38-126) U/L Troponin I <0.012 (0.000-0.034) ng/mL Total Protein 6.1 L (6.3-8.2) g/dL Albumin 3.9 (3.5-5.0) g/dL Urine Color Urine Appearance (Clear) Urine pH (5.0-8.0) Ur Specific [place] (1.001-1.035) Urine Protein (Negative) Urine Glucose (UA) (Negative) Urine Ketones (Negative) Urine Blood (Negative) Urine Nitrite (Negative) Urine Bilirubin (Negative) Urine Urobilinogen (<2.0) mg/dL Ur Leukocyte Esterase (Negative) 01/14/18 Range/Units 23:15 WBC (3.8-10.6) k/uL RBC (4.30-5.90) m/uL Hgb (13.0-17.5) gm/dL Hct (39.0-53.0) % MCV (80.0-100.0) fL MCH (25.0-35.0) pg MCHC (31.0-37.0) g/dL RDW (11.5-15.5) % Plt Count (150-450) k/uL Neutrophils % % Lymphocytes % % Monocytes % % Eosinophils % % Basophils % % Neutrophils # (1.3-7.7) k/uL Lymphocytes # (1.0-4.8) k/uL Monocytes # (0-1.0) k/uL Eosinophils # (0-0.7) k/uL Basophils # (0-0.2) k/uL Sodium (137-145) mmol/L Potassium (3.5-5.1) mmol/L Chloride (98-107) mmol/L Carbon Dioxide (22-30) mmol/L Anion Gap mmol/L BUN (9-20) mg/dL Creatinine (0.66-1.25) mg/dL Est GFR (CKD-EPI)AfAm (>60 ml/min/1.73 sqM) Est GFR (CKD-EPI)NonAf (>60 ml/min/1.73 sqM) Glucose (74-99) mg/dL Calcium (8.4-10.2) mg/dL Total Bilirubin (0.2-1.3) mg/dL AST (17-59) U/L ALT (21-72) U/L Alkaline Phosphatase (38-126) U/L Troponin I (0.000-0.034) ng/mL Total Protein (6.3-8.2) g/dL Albumin (3.5-5.0) g/dL Urine Color Colorless Urine Appearance Clear (Clear) Urine pH 6.5 (5.0-8.0) Ur Specific [place] 1.002 (1.001-1.035) Urine Protein Negative (Negative) Urine Glucose (UA) Negative (Negative) Urine Ketones Negative (Negative) Urine Blood Negative (Negative) Urine Nitrite Negative (Negative) Urine Bilirubin Negative (Negative) Urine Urobilinogen <2.0 (<2.0) mg/dL Ur Leukocyte Esterase Negative (Negative) Disposition Clinical Impression: Dizziness, Adverse reaction to drug Disposition: HOME SELF-CARE Condition: Good Instructions: Dizziness (ED) Referrals: Ambrose Denton MD [Primary Care Provider] - 1-2 days
[2018-01-14 23:31] LABS: Appearance,Urine Clear (Clear); Bilirubin,Urine Negative (Negative); Blood,Urine Negative (Negative); Color,Urine Colorless; Glucose,Urine (UA) Negative (Negative); Ketones,Urine Negative (Negative); Leukocyte Esterase,Urine Negative (Negative); PH, Urine 6.5 (5.0-8.0); Protein,Urine Negative (Negative); Specific Gravity,Urine 1.002 (1.001-1.035); Urobilinogen,Urine <2.0 mg/dL (<2.0)
[2018-01-14 23:33] LABS: Basophils # (A) 0.1 k/uL (0-0.2); Basophils % (A) 1 %; Eosinophils # (A) 0.1 k/uL (0-0.7); Eosinophils % (A) 1 %; HCT 44.8 % (39.0-53.0); HGB 15.2 gm/dL (13.0-17.5); Lymphocytes # (A) 3.6 k/uL (1.0-4.8); Lymphocytes % (A) 49 %; MCH 28.6 pg (25.0-35.0); MCHC 33.9 g/dL (31.0-37.0); MCV 84.3 fL (80.0-100.0); Mean Platelet Volume 7.7; Monocytes # (A) 0.4 k/uL (0-1.0); Monocytes % (A) 5 %; Neutrophils # (A) 3.1 k/uL (1.3-7.7); Neutrophils % (A) 42 %; Platelet Count 185 k/uL (150-450); RBC 5.31 m/uL (4.30-5.90); RDW 14.4 % (11.5-15.5); WBC 7.4 k/uL (3.8-10.6)
[2018-01-14 23:36] LABS: ALT 35 U/L (21-72); AST 18 U/L (17-59); Albumin 3.9 g/dL (3.5-5.0); Alkaline Phosphatase 91 U/L (38-126); Anion Gap 11 mmol/L; Blood Urea Nitrogen 12 mg/dL (9-20); Calcium 9.2 mg/dL (8.4-10.2); Carbon Dioxide 25 mmol/L (22-30); Chloride 103 mmol/L (98-107); Glucose 143 mg/dL (74-99); Potassium 3.9 mmol/L (3.5-5.1); Sodium 139 mmol/L (137-145); Total Bilirubin 0.3 mg/dL (0.2-1.3); Total Protein 6.1 g/dL (6.3-8.2)
[2018-01-15 00:25] VITALS: BP 152/88; PULSE 66; TEMP 98.2
[2018-01-16 11:13] LABS: Glucose,Whole Blood 119 mg/dL (75-99)
== END 2018-01-15 00:30 | disposition home or self-care (01) ==
LOC: EC 22:21
DX: R42 Dizziness and giddiness (principal); T50.905A Adverse effect of unspecified drugs, medicaments and biological substances, initial encounter; I10 Essential (primary) hypertension; E11.9 Type 2 diabetes mellitus without complications; G40.909 Epilepsy, unspecified, not intractable, without status epilepticus; Z79.84 Long term (current) use of oral hypoglycemic drugs; Z79.899 Other long term (current) drug therapy; Z88.8 Allergy status to other drugs, medicaments and biological substances
CPT/HCPCS: 36415; 80053; 81003; 84484; 85025; 93005; 99284

== ENCOUNTER 2018-02-16 15:46 | Emergency (ER) | payer OTHER ==
[2018-02-16 15:55] VITALS: BP 139/82; PULSE 75; RESP 18; TEMP 98.2
--- NOTE | 2018-02-16 16:35 | ED ---
General Adult HPI - General Chief complaint: Skin/Abscess/Foreign Body Stated complaint: SPIDER BITE LEFT THIGH Time Seen by Provider: 02/16/18 16:21 Source: patient, RN notes reviewed Mode of arrival: ambulatory Limitations: no limitations - History of Present Illness Initial comments: Patient is a 42-year-old male presenting to the emergency room today with a chief complaint of possible spider bite to the left groin. He states he notes that yesterday. It is all swollen red. Patient states it is painful. He denies any other complaints or symptoms. Patient denies any recent fever, chills , shortness of breath, chest pain, back pain, abdominal pain, nausea or vomiting , or any other complaints. - Related Data Home Medications Medication Instructions Recorded Confirmed Loratadine [Claritin] 10 mg PO DAILY 08/08/14 01/14/18 Simvastatin [Zocor] 20 mg PO HS 08/08/14 01/14/18 metFORMIN HCL [Glucophage] 500 mg PO BID 08/08/14 01/14/18 Benztropine Mesylate [Cogentin] 2 mg PO BID 02/19/17 01/14/18 Chlorthalidone [Hygroton] 25 mg PO DAILY 02/19/17 01/14/18 Cholecalciferol [Vitamin D3] 2,000 unit PO DAILY 02/19/17 01/14/18 Divalproex ER [Depakote ER] 1,000 mg PO BID 02/19/17 01/14/18 Glimepiride [Amaryl] 1 mg PO DAILY 02/19/17 01/14/18 Levothyroxine Sodium [Synthroid] 100 mcg PO DAILY 02/19/17 01/14/18 Lisinopril 30 mg PO DAILY 02/19/17 01/14/18 Sertraline [Zoloft] 200 mg PO AC-BRKFST 02/19/17 01/14/18 fluPHENAZine DECANOATE [Prolixin 25 mg IM Q14D 02/19/17 01/14/18 Decanoate] traZODone HCL [Desyrel] 200 mg PO HS 02/19/17 01/14/18 Cyanocobalamin [Vitamin B-12] 500 mcg PO DAILY 08/07/17 01/14/18 Previous Rx's Medication Instructions Recorded Sulfamethox-Tmp 800-160Mg [Bactrim 1 tab PO Q12HR #20 tab 02/16/18 DS 800-160 mg] Allergies Allergy/AdvReac Type Severity Reaction Status Date / Time diphenhydramine HCl Allergy Rash/Hives Verified 02/16/18 15:55 [From Benadryl] Review of Systems ROS Statement: Those systems with pertinent positive or pertinent negative responses have been documented in the HPI. ROS Other: All systems not noted in ROS Statement are negative. Past Medical History Past Medical History: Diabetes Mellitus, Hypertension, Seizure Disorder History of Any Multi-Drug Resistant Organisms: None Reported Past Surgical History: Orthopedic Surgery Additional Past Surgical History / Comment(s): right ankle Past Psychological History: Bipolar, Depression Smoking Status: Current some day smoker Past Alcohol Use History: None Reported Past Drug Use History: None Reported General Exam - General Exam Comments Initial Comments: General: The patient is awake and alert, in no distress, and does not appear acutely ill. Neck: The neck is supple, there is no tenderness or JVD. Musculoskeletal: Full range motion. Sensation intact. Neurological: A&O x 3. CN II-XII intact, There are no obvious motor or sensory deficits. Coordination appears grossly intact. Speech is normal. Skin: Patient does have small abscess to the inside of the left upper thigh. Local redness surrounding the area measures approximately 2 cm across. Psychiatric: Normal mood and affect. Limitations: no limitations Course Vital Signs 02/16/18 15:53 Temperature 98.2 F Pulse Rate 75 Respiratory 18 Rate Blood Pressure 139/82 O2 Sat by Pulse 97 Oximetry Procedures - Procedures Initial comment: Patient did have small white heads centrally in the area of redness. Area was cleaned with ChloraPrep and an 18-gauge needle was used to make small incision. Patient tolerated procedure well. There was some bloody drainage. Disposition Clinical Impression: Abscess Disposition: HOME SELF-CARE Condition: Good Instructions: Abscess (ED) Additional Instructions: Please use warm compresses to the affected area at least 4 times daily for 15- 20 minutes at a time. Please use antibiotic as prescribed. Please return to emergency room for any other concerns Prescriptions: Sulfamethox-Tmp 800-160Mg [Bactrim DS 800-160 mg] 1 tab PO Q12HR #20 tab Referrals: Sandee Mendez MD [Primary Care Provider] - 1-2 days Time of Disposition: 16:35
== END 2018-02-16 16:48 | disposition home or self-care (01) ==
LOC: EC 15:46
DX: L02.416 Cutaneous abscess of left lower limb (principal); F31.9 Bipolar disorder, unspecified; E11.9 Type 2 diabetes mellitus without complications; I10 Essential (primary) hypertension; G40.909 Epilepsy, unspecified, not intractable, without status epilepticus; F17.200 Nicotine dependence, unspecified, uncomplicated; Z79.84 Long term (current) use of oral hypoglycemic drugs; Z79.899 Other long term (current) drug therapy; Z88.8 Allergy status to other drugs, medicaments and biological substances
CPT/HCPCS: 10060; 99282

== ENCOUNTER 2018-02-20 20:03 | Emergency (ER) | payer OTHER ==
[2018-02-20] MEDS ORDERED: NITROGLYCERIN OINT 1 INCH/GM PACKET TOPICAL STA (21:29)
[2018-02-20] MEDS ORDERED: ASPIRIN 81 MG PO STA (21:29)
--- NOTE | 2018-02-20 21:35 | ED ---
General Adult HPI - General Chief complaint: Chest Pain Stated complaint: Chest Pain Time Seen by Provider: 02/20/18 21:00 Source: patient, RN notes reviewed Mode of arrival: EMS - History of Present Illness Initial comments: This is a 42-year-old male who presents emergency Department with left-sided chest pain approximately 2 hours prior to arrival. Patient said it lasted a few seconds. Patient states currently has no chest pain. Patient states the pain was sharp in nature. Patient denies any difficulty breathing or shortness of breat patient denies diaphoresis. patient denies any nausea vomiting diarrhea per patient denies any recent fever chills or cough. Patient states he has had chest pain in the past that was similar to that. Patient states he was admitted before and has been seen multiple times in the past and everything is always normal. Patient is a diabetic with hypertension. Patient denies any abdominal pain. Patient denies any headache patient denies numbness weakness. Patient denies any lightheadedness dizziness or near syncopal episode. - Related Data Home Medications Medication Instructions Recorded Confirmed Loratadine [Claritin] 10 mg PO DAILY 08/08/14 02/20/18 Simvastatin [Zocor] 20 mg PO HS 08/08/14 02/20/18 metFORMIN HCL [Glucophage] 500 mg PO BID 08/08/14 02/20/18 Benztropine Mesylate [Cogentin] 2 mg PO TID 02/19/17 02/20/18 Chlorthalidone [Hygroton] 25 mg PO DAILY 02/19/17 02/20/18 Cholecalciferol [Vitamin D3] 2,000 unit PO DAILY 02/19/17 02/20/18 Divalproex ER [Depakote ER] 1,000 mg PO BID 02/19/17 02/20/18 Glimepiride [Amaryl] 1 mg PO DAILY 02/19/17 02/20/18 Levothyroxine Sodium [Synthroid] 100 mcg PO DAILY 02/19/17 02/20/18 Sertraline [Zoloft] 200 mg PO AC-BRKFST 02/19/17 02/20/18 fluPHENAZine DECANOATE [Prolixin 25 mg IM Q14D 02/19/17 02/20/18 Decanoate] traZODone HCL [Desyrel] 200 mg PO HS 02/19/17 02/20/18 Cyanocobalamin [Vitamin B-12] 500 mcg PO DAILY 08/07/17 02/20/18 Lisinopril 40 mg PO DAILY 02/20/18 02/20/18 Previous Rx's Medication Instructions Recorded Sulfamethox-Tmp 800-160Mg [Bactrim 1 tab PO Q12HR #20 tab 02/16/18 DS 800-160 mg] Allergies Allergy/AdvReac Type Severity Reaction Status Date / Time diphenhydramine HCl Allergy Rash/Hives Verified 02/20/18 21:09 [From Benadryl] Review of Systems ROS Statement: Those systems with pertinent positive or pertinent negative responses have been documented in the HPI. ROS Other: All systems not noted in ROS Statement are negative. Past Medical History Past Medical History: Diabetes Mellitus, Hypertension, Seizure Disorder History of Any Multi-Drug Resistant Organisms: None Reported Past Surgical History: Orthopedic Surgery Additional Past Surgical History / Comment(s): right ankle Past Psychological History: Bipolar, Depression Smoking Status: Current some day smoker Past Alcohol Use History: None Reported Past Drug Use History: None Reported General Exam - General Exam Comments Initial Comments: GENERAL: Patient is well-developed and well-nourished. Patient is nontoxic and well- hydrated and is in no acute distress. ENT: Neck is soft and supple. No significant lymphadenopathy is noted. Oropharynx is clear. Moist mucous membranes. Neck has full range of motion without eliciting any pain. EYES: The sclera were anicteric and conjunctiva were pink and moist. Extraocular movements were intact and pupils were equal round and reactive to light. Eyelids were unremarkable. PULMONARY: Unlabored respirations. Good breath sounds bilaterally. No audible rales rhonchi or wheezing was noted. CARDIOVASCULAR: There is a regular rate and rhythm without any murmurs gallops or rubs. ABDOMEN: Soft and nontender with normal bowel sounds. No palpable organomegaly was noted. There is no palpable pulsatile mass. SKIN: Skin is clear with no lesions or rashes and otherwise unremarkable. NEUROLOGIC: Patient is alert and oriented x3. Cranial nerves II through XII are grossly intact. Motor and sensory are also intact. Normal speech, volume and content. Symmetrical smile. MUSCULOSKELETAL: Normal extremities with adequate strength and full range of motion. LYMPHATICS: No significant lymphadenopathy is noted PSYCHIATRIC: Normal psychiatric evaluation. Course Vital Signs 02/20/18 02/20/18 02/20/18 20:21 21:26 22:00 Temperature 97.5 F L 97.2 F L Pulse Rate 56 L 50 L 62 Respiratory 16 16 18 Rate Blood Pressure 129/79 136/75 130/83 O2 Sat by Pulse 96 97 95 Oximetry Medical Decision Making - Medical Decision Making EKG shows sinus bradycardia 55 bpm WA interval 162 QRS is 112 QTC intervals 32 QTC is 365. Patient's EKG shows no ST segment elevation or depression or T wave abnormalities are noted Patient has had no chest pain in the emergency department. - Lab Data Result diagrams: 02/20/18 20:28 02/20/18 20:28 Lab Results 02/20/18 02/20/18 02/20/18 Range/Units 20:28 20:28 20:28 WBC 6.6 (3.8-10.6) k/uL RBC 5.44 (4.30-5.90) m/uL Hgb 15.4 (13.0-17.5) gm/dL Hct 46.0 (39.0-53.0) % MCV 84.5 (80.0-100.0) fL MCH 28.4 (25.0-35.0) pg MCHC 33.5 (31.0-37.0) g/dL RDW 14.1 (11.5-15.5) % Plt Count 203 (150-450) k/uL Neutrophils % 53 % Lymphocytes % 38 % Monocytes % 6 % Eosinophils % 1 % Basophils % 1 % Neutrophils # 3.5 (1.3-7.7) k/uL Lymphocytes # 2.5 (1.0-4.8) k/uL Monocytes # 0.4 (0-1.0) k/uL Eosinophils # 0.1 (0-0.7) k/uL Basophils # 0.0 (0-0.2) k/uL PT (9.0-12.0) sec INR (<1.2) APTT (22.0-30.0) sec Sodium 140 (137-145) mmol/L Potassium 4.3 (3.5-5.1) mmol/L Chloride 100 (98-107) mmol/L Carbon Dioxide 26 (22-30) mmol/L Anion Gap 14 mmol/L BUN 18 (9-20) mg/dL Creatinine 0.60 L (0.66-1.25) mg/dL Est GFR (CKD-EPI)AfAm >90 (>60 ml/min/1.73 sqM) Est GFR (CKD-EPI)NonAf >90 (>60 ml/min/1.73 sqM) Glucose 102 H (74-99) mg/dL Calcium 9.4 (8.4-10.2) mg/dL Magnesium 1.6 (1.6-2.3) mg/dL Total Bilirubin 0.2 (0.2-1.3) mg/dL AST 19 (17-59) U/L ALT 26 (21-72) U/L Alkaline Phosphatase 92 (38-126) U/L Total Creatine Kinase 50 L (55-170) U/L CK-MB (CK-2) 1.2 (0.0-2.4) ng/mL CK-MB (CK-2) Rel Index 2.4 Troponin I <0.012 (0.000-0.034) ng/mL Total Protein 6.1 L (6.3-8.2) g/dL Albumin 3.9 (3.5-5.0) g/dL 02/20/18 Range/Units 20:28 WBC (3.8-10.6) k/uL RBC (4.30-5.90) m/uL Hgb (13.0-17.5) gm/dL Hct (39.0-53.0) % MCV (80.0-100.0) fL MCH (25.0-35.0) pg MCHC (31.0-37.0) g/dL RDW (11.5-15.5) % Plt Count (150-450) k/uL Neutrophils % % Lymphocytes % % Monocytes % % Eosinophils % % Basophils % % Neutrophils # (1.3-7.7) k/uL Lymphocytes # (1.0-4.8) k/uL Monocytes # (0-1.0) k/uL Eosinophils # (0-0.7) k/uL Basophils # (0-0.2) k/uL PT 11.4 (9.0-12.0) sec INR 1.2 H (<1.2) APTT 25.6 (22.0-30.0) sec Sodium (137-145) mmol/L Potassium (3.5-5.1) mmol/L Chloride (98-107) mmol/L Carbon Dioxide (22-30) mmol/L Anion Gap mmol/L BUN (9-20) mg/dL Creatinine (0.66-1.25) mg/dL Est GFR (CKD-EPI)AfAm (>60 ml/min/1.73 sqM) Est GFR (CKD-EPI)NonAf (>60 ml/min/1.73 sqM) Glucose (74-99) mg/dL Calcium (8.4-10.2) mg/dL Magnesium (1.6-2.3) mg/dL Total Bilirubin (0.2-1.3) mg/dL AST (17-59) U/L ALT (21-72) U/L Alkaline Phosphatase (38-126) U/L Total Creatine Kinase (55-170) U/L CK-MB (CK-2) (0.0-2.4) ng/mL CK-MB (CK-2) Rel Index Troponin I (0.000-0.034) ng/mL Total Protein (6.3-8.2) g/dL Albumin (3.5-5.0) g/dL Disposition Clinical Impression: Chest pain Disposition: HOME SELF-CARE Instructions: Chest Pain (ED) Referrals: Sandee Mendez MD [Primary Care Provider] - 1-2 days Time of Disposition: 22:35
[2018-02-20 21:42] LABS: Basophils % (A) 1 %; Eosinophils # (A) 0.1 k/uL (0-0.7); Eosinophils % (A) 1 %; HGB 15.4 gm/dL (13.0-17.5); Lymphocytes # (A) 2.5 k/uL (1.0-4.8); Lymphocytes % (A) 38 %; MCH 28.4 pg (25.0-35.0); MCHC 33.5 g/dL (31.0-37.0); MCV 84.5 fL (80.0-100.0); Mean Platelet Volume 7.8; Monocytes # (A) 0.4 k/uL (0-1.0); Monocytes % (A) 6 %; Neutrophils # (A) 3.5 k/uL (1.3-7.7); Neutrophils % (A) 53 %; Platelet Count 203 k/uL (150-450); RBC 5.44 m/uL (4.30-5.90); RDW 14.1 % (11.5-15.5); WBC 6.6 k/uL (3.8-10.6)
[2018-02-20 21:50] VITALS: TEMP 97.2
[2018-02-20 21:51] LABS: ALT 26 U/L (21-72); AST 19 U/L (17-59); Albumin 3.9 g/dL (3.5-5.0); Alkaline Phosphatase 92 U/L (38-126); Anion Gap 14 mmol/L; Blood Urea Nitrogen 18 mg/dL (9-20); Calcium 9.4 mg/dL (8.4-10.2); Carbon Dioxide 26 mmol/L (22-30); Chloride 100 mmol/L (98-107); Glucose 102 mg/dL (74-99); Magnesium 1.6 mg/dL (1.6-2.3); Potassium 4.3 mmol/L (3.5-5.1); Sodium 140 mmol/L (137-145); Total Bilirubin 0.2 mg/dL (0.2-1.3); Total Protein 6.1 g/dL (6.3-8.2)
[2018-02-20 21:52] LABS: INR 1.2 (<1.2); Partial Thromboplastin Time 25.6 sec (22.0-30.0); Prothrombin Time 11.4 sec (9.0-12.0)
--- NOTE | 2018-02-20 21:56 | XR ---
EXAMINATION TYPE: XR chest 2V DATE OF EXAM: 02/20/2018 COMPARISON: 09/24/2017 HISTORY: Chest pain TECHNIQUE: Frontal and lateral views of the chest are obtained. FINDINGS: Heart and mediastinum are normal. Lungs are clear. Diaphragm is normal. There are chest le ads. Bony thorax is intact. IMPRESSION: Normal chest. No change.
[2018-02-20 22:03] LABS: Creatine Kinase 50 U/L (55-170)
[2018-02-20 22:12] VITALS: BP 130/83
[2018-02-20 22:16] LABS: Creatine Kinase MB 1.2 ng/mL (0.0-2.4); Troponin I <0.012 ng/mL (0.000-0.034)
[2018-02-20 22:52] VITALS: PULSE 79; RESP 19
== END 2018-02-20 22:53 | disposition home or self-care (01) ==
LOC: EC 20:03
DX: R07.9 Chest pain, unspecified (principal); E11.9 Type 2 diabetes mellitus without complications; I10 Essential (primary) hypertension; G40.909 Epilepsy, unspecified, not intractable, without status epilepticus; F32.9 Major depressive disorder, single episode, unspecified; F17.200 Nicotine dependence, unspecified, uncomplicated; Z79.84 Long term (current) use of oral hypoglycemic drugs; Z79.899 Other long term (current) drug therapy; Z88.8 Allergy status to other drugs, medicaments and biological substances
CPT/HCPCS: 36415; 71046; 80053; 82550; 82553; 83735; 84484; 85025; 85610; 85730; 93005; 99285

== ENCOUNTER 2018-04-08 20:06 | Emergency (ER) | payer OTHER ==
[2018-04-08 20:20] VITALS: BP 146/85; PULSE 87; RESP 20; TEMP 97.8
[2018-04-08] MEDS ORDERED: ACETAMINOPHEN TAB 500 MG TAB PO STA (20:36)
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
--- NOTE | 2018-04-08 21:14 | XR ---
EXAMINATION TYPE: XR shoulder complete LT DATE OF EXAM: 04/08/2018 COMPARISON: NONE HISTORY: Pain TECHNIQUE: Shoulder examined in 3 views FINDINGS: The humeral head articulates with the glenoid. The acromio-clavicular junction is normal. No acute fractures or dislocations are evident. A follow up study can be performed 7-10 days from acute trauma for continued pain. IMPRESSION: 1. Normal Shoulder
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
[2018-04-08] MEDS ORDERED: DIPH,PERTUS(ACELL)TETVAC-LF 0.5 ML VIAL IM ONE (21:33)
== END 2018-04-08 22:15 | disposition home or self-care (01) ==
LOC: EC 20:06
DX: S40.012A Contusion of left shoulder, initial encounter (principal); S00.211A Abrasion of right eyelid and periocular area, initial encounter; S80.211A Abrasion, right knee, initial encounter; E11.9 Type 2 diabetes mellitus without complications; I10 Essential (primary) hypertension; G40.909 Epilepsy, unspecified, not intractable, without status epilepticus; F31.9 Bipolar disorder, unspecified; F17.200 Nicotine dependence, unspecified, uncomplicated; Z23 Encounter for immunization; Z79.84 Long term (current) use of oral hypoglycemic drugs; Z79.899 Other long term (current) drug therapy; V17.0XXA Pedal cycle driver injured in collision with fixed or stationary object in nontraffic accident, initial encounter; Y93.89 Activity, other specified; Y92.69 Other specified industrial and construction area as the place of occurrence of the external cause
CPT/HCPCS: 70200; 90471; 90715; 99284

== ENCOUNTER 2018-04-27 | Observation (INO) | payer OTHER ==
[2018-04-27 00:18] LABS: Basophils % (A) 1 %; Eosinophils # (A) 0.1 k/uL (0-0.7); Eosinophils % (A) 1 %; HCT 46.1 % (39.0-53.0); HGB 15.5 gm/dL (13.0-17.5); Lymphocytes # (A) 3.3 k/uL (1.0-4.8); Lymphocytes % (A) 43 %; MCH 28.3 pg (25.0-35.0); MCHC 33.6 g/dL (31.0-37.0); MCV 84.1 fL (80.0-100.0); Mean Platelet Volume 7.3; Monocytes # (A) 0.4 k/uL (0-1.0); Monocytes % (A) 5 %; Neutrophils # (A) 3.7 k/uL (1.3-7.7); Neutrophils % (A) 49 %; Platelet Count 218 k/uL (150-450); RBC 5.48 m/uL (4.30-5.90); RDW 14.1 % (11.5-15.5); WBC 7.5 k/uL (3.8-10.6)
[2018-04-27 00:39] LABS: D-Dimer <0.17 mg/L FEU (<0.60); INR 1.2 (<1.2); Prothrombin Time 11.8 sec (9.0-12.0)
--- NOTE | 2018-04-27 00:41 | ED ---
Syncope HPI - General Source: patient Mode of arrival: EMS Limitations: no limitations - History of Present Illness MD Complaint: felt faint, almost passed out -: minutes(s) Prodromal Symptoms: lightheaded -: second(s) Witnessed: yes - by bystander Injuries Sustained Associated with Event: None Current Symptoms: lightheaded Context: standing up Treatments Prior to Arrival: none <Michael Pittman - Last Filed: 04/27/18 00:49> <Salomon Reyes - Last Filed: 04/27/18 03:50> - General Chief Complaint: Syncope Stated Complaint: Syncope Time Seen by Provider: 04/27/18 00:08 - History of Present Illness Initial Comments: This patient is a 42-year-old man who presents after having become lightheaded and having a near syncopal episode. The patient states that he had gotten up to use the bathroom and was feeling very lightheaded. He states that he did go down to the ground but did not actually lose consciousness or collapse. He was feeling too lightheaded to stand for number seconds, and then was a little bit better. He is not however back to baseline, continued feel lightheaded and a little bit weak. The patient notes that he had not been taking much in way of fluids and that his place residence was very hot today. (Michael Pittman) - Related Data Home Medications Medication Instructions Recorded Confirmed Loratadine [Claritin] 10 mg PO DAILY 08/08/14 04/27/18 Simvastatin [Zocor] 20 mg PO HS 08/08/14 04/27/18 metFORMIN HCL [Glucophage] 500 mg PO BID 08/08/14 04/27/18 Benztropine Mesylate [Cogentin] 2 mg PO TID 02/19/17 04/27/18 Chlorthalidone [Hygroton] 25 mg PO DAILY 02/19/17 04/27/18 Cholecalciferol [Vitamin D3] 2,000 unit PO DAILY 02/19/17 04/27/18 Divalproex ER [Depakote ER] 1,000 mg PO BID 02/19/17 04/27/18 Glimepiride [Amaryl] 1 mg PO DAILY 02/19/17 04/27/18 Levothyroxine Sodium [Synthroid] 100 mcg PO DAILY 02/19/17 04/27/18 Sertraline [Zoloft] 200 mg PO AC-BRKFST 02/19/17 04/27/18 fluPHENAZine DECANOATE [Prolixin 25 mg IM Q14D 02/19/17 04/27/18 Decanoate] traZODone HCL [Desyrel] 200 mg PO HS 02/19/17 04/27/18 Cyanocobalamin [Vitamin B-12] 500 mcg PO DAILY 08/07/17 04/27/18 Lisinopril 40 mg PO DAILY 02/20/18 04/27/18 Allergies Allergy/AdvReac Type Severity Reaction Status Date / Time diphenhydramine HCl Allergy Rash/Hives Verified 04/08/18 20:15 [From Benadryl] Review of Systems ROS Other: All systems not noted in ROS Statement are negative. Constitutional: Reports: weakness. Denies: fever, chills Eyes: Denies: vision change Respiratory: Denies: cough, dyspnea Cardiovascular: Reports: syncope (Near syncope). Denies: chest pain, palpitations, orthopnea, edema Gastrointestinal: Denies: abdominal pain, vomiting, diarrhea Genitourinary: Denies: dysuria, hematuria Musculoskeletal: Denies: back pain Skin: Denies: rash Neurological: Denies: headache, weakness, numbness, paresthesias <Michael Pittman - Last Filed: 04/27/18 00:49> ROS Other: All systems not noted in ROS Statement are negative. <Salomon Reyes - Last Filed: 04/27/18 03:50> ROS Statement: Those systems with pertinent positive or pertinent negative responses have been documented in the HPI. Past Medical History Past Medical History: Diabetes Mellitus, Hypertension, Seizure Disorder History of Any Multi-Drug Resistant Organisms: None Reported Past Surgical History: Orthopedic Surgery Additional Past Surgical History / Comment(s): right ankle Past Psychological History: Bipolar, Depression Smoking Status: Current some day smoker Past Alcohol Use History: None Reported Past Drug Use History: None Reported <Michael Pittman - Last Filed: 04/27/18 00:49> General Exam Limitations: no limitations General appearance: alert, in no apparent distress Head exam: Present: atraumatic, normocephalic Eye exam: Present: normal appearance. Absent: scleral icterus, conjunctival injection ENT exam: Present: mucous membranes dry Neck exam: Present: normal inspection, full ROM Respiratory exam: Present: normal lung sounds bilaterally. Absent: respiratory distress, wheezes, rales, rhonchi, stridor Cardiovascular Exam: Present: regular rate, normal rhythm, normal heart sounds. Absent: systolic murmur, diastolic murmur, rubs, gallop GI/Abdominal exam: Present: soft. Absent: distended, tenderness, guarding, rebound, mass Extremities exam: Present: normal inspection, normal capillary refill. Absent: pedal edema, calf tenderness Back exam: Present: normal inspection. Absent: CVA tenderness (R), CVA tenderness (L) Neurological exam: Present: alert Skin exam: Present: warm, dry, intact, normal color. Absent: rash <Michael Pittman - Last Filed: 04/27/18 00:49> Vital Signs 04/27/18 04/27/18 04/27/18 00:03 01:06 01:50 Temperature 97.6 F Pulse Rate 83 87 61 Respiratory 20 20 20 Rate Blood Pressure 87/56 81/47 87/57 O2 Sat by Pulse 91 L 96 Oximetry 04/27/18 04/27/18 02:50 03:10 Temperature Pulse Rate 66 104 H Respiratory 18 20 Rate Blood Pressure 92/52 103/62 O2 Sat by Pulse 99 99 Oximetry EKG Findings - EKG Comments: EKG Findings:: Similar to previous (02/2018) - EKG Results: EKG: interpreted by ERMD, sinus rhythm (Rate 78 bpm), normal axis, normal ST/T <Michael Pittman - Last Filed: 04/27/18 00:49> Medical Decision Making - Lab Data Result diagrams: 04/27/18 00:04 <Michael Pittman - Last Filed: 04/27/18 00:49> - Lab Data Result diagrams: 04/27/18 00:04 04/27/18 00:04 <Salomon Reyes - Last Filed: 04/27/18 03:50> - Medical Decision Making Patient remained hypotensive throughout his stay even after 3 L of fluid though he stopped having symptoms his blood pressure was to load him go home. (Salomon Reyes) - Lab Data Lab Results 04/27/18 04/27/18 04/27/18 Range/Units 00:04 00:04 00:04 WBC 7.5 (3.8-10.6) k/uL RBC 5.48 (4.30-5.90) m/uL Hgb 15.5 (13.0-17.5) gm/dL Hct 46.1 (39.0-53.0) % MCV 84.1 (80.0-100.0) fL MCH 28.3 (25.0-35.0) pg MCHC 33.6 (31.0-37.0) g/dL RDW 14.1 (11.5-15.5) % Plt Count 218 (150-450) k/uL Neutrophils % 49 % Lymphocytes % 43 % Monocytes % 5 % Eosinophils % 1 % Basophils % 1 % Neutrophils # 3.7 (1.3-7.7) k/uL Lymphocytes # 3.3 (1.0-4.8) k/uL Monocytes # 0.4 (0-1.0) k/uL Eosinophils # 0.1 (0-0.7) k/uL Basophils # 0.0 (0-0.2) k/uL PT (9.0-12.0) sec INR (<1.2) APTT (22.0-30.0) sec D-Dimer (<0.60) mg/L FEU Sodium 142 (137-145) mmol/L Potassium 4.4 (3.5-5.1) mmol/L Chloride 104 (98-107) mmol/L Carbon Dioxide 24 (22-30) mmol/L Anion Gap 14 mmol/L BUN 17 (9-20) mg/dL Creatinine 1.00 (0.66-1.25) mg/dL Est GFR (CKD-EPI)AfAm >90 (>60 ml/min/1.73 sqM) Est GFR (CKD-EPI)NonAf >90 (>60 ml/min/1.73 sqM) Glucose 108 H (74-99) mg/dL Calcium 8.9 (8.4-10.2) mg/dL Total Bilirubin 0.3 (0.2-1.3) mg/dL AST 26 (17-59) U/L ALT 43 (21-72) U/L Alkaline Phosphatase 99 (38-126) U/L Total Creatine Kinase 53 L (55-170) U/L CK-MB (CK-2) 0.7 (0.0-2.4) ng/mL CK-MB (CK-2) Rel Index 1.3 Troponin I <0.012 (0.000-0.034) ng/mL Total Protein 6.0 L (6.3-8.2) g/dL Albumin 3.8 (3.5-5.0) g/dL Urine Color Urine Appearance (Clear) Urine pH (5.0-8.0) Ur Specific [place] (1.001-1.035) Urine Protein (Negative) Urine Glucose (UA) (Negative) Urine Ketones (Negative) Urine Blood (Negative) Urine Nitrite (Negative) Urine Bilirubin (Negative) Urine Urobilinogen (<2.0) mg/dL Ur Leukocyte Esterase (Negative) Urine WBC (0-5) /hpf Hyaline Casts (0-2) /lpf Granular Casts (0) /lpf Urine Mucus (None) /hpf Urine Opiates Screen (NotDetected) Ur Oxycodone Screen (NotDetected) Urine Methadone Screen (NotDetected) Ur Propoxyphene Screen (NotDetected) Ur Barbiturates Screen (NotDetected) Valproic Acid ug/mL U Tricyclic Antidepress (NotDetected) Ur Phencyclidine Scrn (NotDetected) Ur Amphetamines Screen (NotDetected) U Methamphetamines Scrn (NotDetected) U Benzodiazepines Scrn (NotDetected) Urine Cocaine Screen (NotDetected) U Marijuana (THC) Screen (NotDetected) 04/27/18 04/27/18 04/27/18 Range/Units 00:04 00:04 01:01 WBC (3.8-10.6) k/uL RBC (4.30-5.90) m/uL Hgb (13.0-17.5) gm/dL Hct (39.0-53.0) % MCV (80.0-100.0) fL MCH (25.0-35.0) pg MCHC (31.0-37.0) g/dL RDW (11.5-15.5) % Plt Count (150-450) k/uL Neutrophils % % Lymphocytes % % Monocytes % % Eosinophils % % Basophils % % Neutrophils # (1.3-7.7) k/uL Lymphocytes # (1.0-4.8) k/uL Monocytes # (0-1.0) k/uL Eosinophils # (0-0.7) k/uL Basophils # (0-0.2) k/uL PT 11.8 (9.0-12.0) sec INR 1.2 H (<1.2) APTT 22.0 (22.0-30.0) sec D-Dimer <0.17 (<0.60) mg/L FEU Sodium (137-145) mmol/L Potassium (3.5-5.1) mmol/L Chloride (98-107) mmol/L Carbon Dioxide (22-30) mmol/L Anion Gap mmol/L BUN (9-20) mg/dL Creatinine (0.66-1.25) mg/dL Est GFR (CKD-EPI)AfAm (>60 ml/min/1.73 sqM) Est GFR (CKD-EPI)NonAf (>60 ml/min/1.73 sqM) Glucose (74-99) mg/dL Calcium (8.4-10.2) mg/dL Total Bilirubin (0.2-1.3) mg/dL AST (17-59) U/L ALT (21-72) U/L Alkaline Phosphatase (38-126) U/L Total Creatine Kinase (55-170) U/L CK-MB (CK-2) (0.0-2.4) ng/mL CK-MB (CK-2) Rel Index Troponin I (0.000-0.034) ng/mL Total Protein (6.3-8.2) g/dL Albumin (3.5-5.0) g/dL Urine Color Yellow Urine Appearance Cloudy (Clear) Urine pH 5.5 (5.0-8.0) Ur Specific [place] 1.026 (1.001-1.035) Urine Protein 1+ H (Negative) Urine Glucose (UA) Negative (Negative) Urine Ketones 1+ H (Negative) Urine Blood Negative (Negative) Urine Nitrite Negative (Negative) Urine Bilirubin 1+ H (Negative) Urine Urobilinogen 3.0 (<2.0) mg/dL Ur Leukocyte Esterase Negative (Negative) Urine WBC 1 (0-5) /hpf Hyaline Casts 17 H (0-2) /lpf Granular Casts 4 (0) /lpf Urine Mucus Many H (None) /hpf Urine Opiates Screen (NotDetected) Ur Oxycodone Screen (NotDetected) Urine Methadone Screen (NotDetected) Ur Propoxyphene Screen (NotDetected) Ur Barbiturates Screen (NotDetected) Valproic Acid 41.0 ug/mL U Tricyclic Antidepress (NotDetected) Ur Phencyclidine Scrn (NotDetected) Ur Amphetamines Screen (NotDetected) U Methamphetamines Scrn (NotDetected) U Benzodiazepines Scrn (NotDetected) Urine Cocaine Screen (NotDetected) U Marijuana (THC) Screen (NotDetected) 04/27/18 Range/Units 01:01 WBC (3.8-10.6) k/uL RBC (4.30-5.90) m/uL Hgb (13.0-17.5) gm/dL Hct (39.0-53.0) % MCV (80.0-100.0) fL MCH (25.0-35.0) pg MCHC (31.0-37.0) g/dL RDW (11.5-15.5) % Plt Count (150-450) k/uL Neutrophils % % Lymphocytes % % Monocytes % % Eosinophils % % Basophils % % Neutrophils # (1.3-7.7) k/uL Lymphocytes # (1.0-4.8) k/uL Monocytes # (0-1.0) k/uL Eosinophils # (0-0.7) k/uL Basophils # (0-0.2) k/uL PT (9.0-12.0) sec INR (<1.2) APTT (22.0-30.0) sec D-Dimer (<0.60) mg/L FEU Sodium (137-145) mmol/L Potassium (3.5-5.1) mmol/L Chloride (98-107) mmol/L Carbon Dioxide (22-30) mmol/L Anion Gap mmol/L BUN (9-20) mg/dL Creatinine (0.66-1.25) mg/dL Est GFR (CKD-EPI)AfAm (>60 ml/min/1.73 sqM) Est GFR (CKD-EPI)NonAf (>60 ml/min/1.73 sqM) Glucose (74-99) mg/dL Calcium (8.4-10.2) mg/dL Total Bilirubin (0.2-1.3) mg/dL AST (17-59) U/L ALT (21-72) U/L Alkaline Phosphatase (38-126) U/L Total Creatine Kinase (55-170) U/L CK-MB (CK-2) (0.0-2.4) ng/mL CK-MB (CK-2) Rel Index Troponin I (0.000-0.034) ng/mL Total Protein (6.3-8.2) g/dL Albumin (3.5-5.0) g/dL Urine Color Urine Appearance (Clear) Urine pH (5.0-8.0) Ur Specific [place] (1.001-1.035) Urine Protein (Negative) Urine Glucose (UA) (Negative) Urine Ketones (Negative) Urine Blood (Negative) Urine Nitrite (Negative) Urine Bilirubin (Negative) Urine Urobilinogen (<2.0) mg/dL Ur Leukocyte Esterase (Negative) Urine WBC (0-5) /hpf Hyaline Casts (0-2) /lpf Granular Casts (0) /lpf Urine Mucus (None) /hpf Urine Opiates Screen Not Detected (NotDetected) Ur Oxycodone Screen Not Detected (NotDetected) Urine Methadone Screen Not Detected (NotDetected) Ur Propoxyphene Screen Not Detected (NotDetected) Ur Barbiturates Screen Not Detected (NotDetected) Valproic Acid ug/mL U Tricyclic Antidepress Not Detected (NotDetected) Ur Phencyclidine Scrn Not Detected (NotDetected) Ur Amphetamines Screen Not Detected (NotDetected) U Methamphetamines Scrn Not Detected (NotDetected) U Benzodiazepines Scrn Not Detected (NotDetected) Urine Cocaine Screen Not Detected (NotDetected) U Marijuana (THC) Screen Not Detected (NotDetected) Disposition <Michael Pittman - Last Filed: 04/27/18 00:49> Time of Disposition: 03:50 <Salomon Reyes - Last Filed: 04/27/18 03:50> Clinical Impression: Syncope and collapse, Hypotension Disposition: ADMITTED IP TO THIS HOSP Referrals: Sandee Mendez MD [Primary Care Provider] - 1-2 days
[2018-04-27] MEDS: SODIUM CHLORIDE 0.9% 1,000 ML IV ONE ×2 (00:45→01:40)
[2018-04-27 00:47] LABS: Albumin 3.8 g/dL (3.5-5.0); Anion Gap 14 mmol/L; Calcium 8.9 mg/dL (8.4-10.2); Carbon Dioxide 24 mmol/L (22-30); Chloride 104 mmol/L (98-107); Glucose 108 mg/dL (74-99); Sodium 142 mmol/L (137-145); Total Bilirubin 0.3 mg/dL (0.2-1.3)
--- NOTE | 2018-04-27 00:49 | XR ---
EXAMINATION TYPE: XR chest 1V portable DATE OF EXAM: 04/27/2018 COMPARISON: 02/20/2018 HISTORY: Dizziness TECHNIQUE: Single frontal view of the chest is obtained. FINDINGS: Heart and mediastinum are normal. Lungs are clear. Diaphragm is normal. There are chest le ads. Bony thorax appears normal. IMPRESSION: Normal chest. No change.
[2018-04-27 00:50] LABS: Creatine Kinase 53 U/L (55-170)
[2018-04-27 00:54] LABS: ALT 43 U/L (21-72); AST 26 U/L (17-59); Alkaline Phosphatase 99 U/L (38-126); Blood Urea Nitrogen 17 mg/dL (9-20); Potassium 4.4 mmol/L (3.5-5.1)
[2018-04-27 01:03] LABS: Creatine Kinase MB 0.7 ng/mL (0.0-2.4); Troponin I <0.012 ng/mL (0.000-0.034)
[2018-04-27 01:32] LABS: Amphetamine Screen,Urine Not Detected (NotDetected); Barbiturate Screen,Urine Not Detected (NotDetected); Benzodiazepines Screen,Urine Not Detected (NotDetected); Cocaine Screen,Urine Not Detected (NotDetected); Methadone Screen, Urine Not Detected (NotDetected); Opiate Screen,Urine Not Detected (NotDetected); Oxycodone Screen, Urine Not Detected (NotDetected); Phencyclidine Screen,Urine Not Detected (NotDetected); Tricyclic Antidepressant,Urine Not Detected (NotDetected); Urn Cannabinoid Scrn Not Detected (NotDetected)
[2018-04-27 01:44] LABS: Appearance,Urine Cloudy (Clear); Bilirubin,Urine 1+ (Negative); Blood,Urine Negative (Negative); Color,Urine Yellow; Glucose,Urine (UA) Negative (Negative); Granular Casts,Urine 4 /lpf (0); Hyaline Casts,Urine 17 /lpf (0-2); Ketones,Urine 1+ (Negative); Leukocyte Esterase,Urine Negative (Negative); Mucus,Urine Many /hpf; Nitrite,Urine Negative (Negative); PH, Urine 5.5 (5.0-8.0); Protein,Urine 1+ (Negative); Specific Gravity,Urine 1.026 (1.001-1.035); WBC,Urine 1 /hpf (0-5)
[2018-04-27] MEDS ORDERED: SODIUM CHLORIDE 0.9% 1,000 ML IV ONE ×2 (02:24→03:50)
[2018-04-27 04:56] VITALS: BMI 29.5
[2018-04-27 09:06] VITALS: RESP 16; TEMP 97
[2018-04-27 09:51] LABS: Cholesterol 117 mg/dL (<200); HDL Cholesterol 25 mg/dL (40-60); LDL Cholesterol,Calculated 54 mg/dL (0-99); Triglycerides 192 mg/dL (<150)
--- NOTE | 2018-04-27 10:07 | CONS ---
CONSULTATION A 42-year-old male patient who follows with [facility], who presented with being very dizzy, lightheaded and almost collapsed. His blood pressure was found to be quite low in the 80s. His initial blood pressure was about 81 mmHg systolic. He states it was very hot and he had not had anything to drink for about 24 hours. He was fine on Friday. He denied any chest discomfort or breathing trouble or palpitations. Past history of diabetes and he is on medications for this. He has past history of hypertension. He is also on simvastatin. He has not had any heart issues. He states that he went up to go to the bathroom, felt very lightheaded and did collapsed, but did not actually lose consciousness completely. He felt very weak. MEDICATIONS: Medications at home include Claritin, Zocor, Glucophage, Cogentin, chlorthalidone, vitamin D3, Depakote, glimepiride, Synthroid, sertraline, cyanocobalamin, lisinopril. ALLERGIES: A reaction, he gets a rash and hives with BENADRYL. REVIEW OF SYSTEMS: No fever, chills, or rigors. No cough or expectoration. No nausea, vomiting, or diarrhea. No hematuria or dysuria. No recent strokes or seizures. He presented with collapse. PAST MEDICAL HISTORY: Past medical history of diabetes, hypertension, seizure disorder. PAST SURGERIES: Orthopedic surgery in the right ankle. SOCIAL HISTORY: Current smoker. No alcohol use. PHYSICAL EXAMINATION: On examination, his blood pressure now is better. After receiving IV fluids, his blood pressure is 115/78 mmHg. He is not orthostatic anymore. Pulse rate in the 50s to 70s beats per minute. No bradyarrhythmias on the monitor. He is afebrile, 97 degree Fahrenheit, pulse ox 94% on room air. Head and neck examination is normal. Heart sounds S1, S2 are normal. No murmurs, no gallops, no rub. Breath sounds are clear. No rhonchi, no crackles. Abdomen is soft, nontender. Extremities are warm. No edema. A 12-lead ECG shows sinus rhythm with normal ID and normal QRS and normal ST segments. LABS: Labs are reviewed. White count is normal. Hemoglobin is 15.5. D-dimer is normal. Electrolytes are normal. Renal function was normal. IMPRESSION: 1. Episode of presyncope associated with hypotension, probably from heat exhaustion. 2. Known diabetes on medication. 3. Hypertension on medication. 4. Dyslipidemia, on statins. SUGGEST: IV fluids and once his blood pressure is better, restart his home medications and consider a 2D echo and Doppler study. Tilt-table test not indicated. MMODL / IJN: [id number] /
[2018-04-27 11:37] LABS: Glucose,Whole Blood 98 mg/dL (75-99)
--- NOTE | 2018-04-27 12:08 | P.DS ---
Providers Date of admission: 04/27/18 03:50 Attending physician: Grabiel Mosley Consults: 04/27/18 03:50 Consult Physician Urgent Consulting Provider: [facility] Reason/Comments: Syncope, hypotension Do you want consulting provider notified?: Yes Primary care physician: Sandee [place] [facility] Course: Please refer to my HPI Plan - Discharge Summary New Discharge Prescriptions: New Lisinopril [Zestril] 10 mg PO DAILY #30 tab Continue Simvastatin [Zocor] 20 mg PO HS metFORMIN HCL [Glucophage] 500 mg PO BID Loratadine [Claritin] 10 mg PO DAILY Cholecalciferol [Vitamin D3] 2,000 unit PO DAILY traZODone HCL [Desyrel] 200 mg PO HS Benztropine Mesylate [Cogentin] 2 mg PO TID fluPHENAZine DECANOATE [Prolixin Decanoate] 25 mg IM Q14D Glimepiride [Amaryl] 1 mg PO DAILY Divalproex ER [Depakote ER] 1,000 mg PO BID Sertraline [Zoloft] 200 mg PO AC-BRKFST Levothyroxine Sodium [Synthroid] 100 mcg PO DAILY Cyanocobalamin [Vitamin B-12] 500 mcg PO DAILY Discontinued Chlorthalidone [Hygroton] 25 mg PO DAILY Lisinopril 40 mg PO DAILY Discharge Medication List Loratadine [Claritin] 10 mg PO DAILY 08/08/14 [History] Simvastatin [Zocor] 20 mg PO HS 08/08/14 [History] metFORMIN HCL [Glucophage] 500 mg PO BID 08/08/14 [History] Benztropine Mesylate [Cogentin] 2 mg PO TID 02/19/17 [History] Cholecalciferol [Vitamin D3] 2,000 unit PO DAILY 02/19/17 [History] Divalproex ER [Depakote ER] 1,000 mg PO BID 02/19/17 [History] Glimepiride [Amaryl] 1 mg PO DAILY 02/19/17 [History] Levothyroxine Sodium [Synthroid] 100 mcg PO DAILY 02/19/17 [History] Sertraline [Zoloft] 200 mg PO AC-BRKFST 02/19/17 [History] fluPHENAZine DECANOATE [Prolixin Decanoate] 25 mg IM Q14D 02/19/17 [History] traZODone HCL [Desyrel] 200 mg PO HS 02/19/17 [History] Cyanocobalamin [Vitamin B-12] 500 mcg PO DAILY 08/07/17 [History] Lisinopril [Zestril] 10 mg PO DAILY #30 tab 04/27/18 [Rx] Follow up Appointment(s)/Referral(s): [facility] [NON-STAFF] - 05/05/18 1:00 pm (Please keep previous follow up appointment.) Patient Instructions/Handouts: Dehydration (DC), Syncope (DC), Hypotension (DC) Discharge Disposition: HOME SELF-CARE
--- NOTE | 2018-04-27 12:08 | P.HPIM ---
History of Present Illness 42-year-old pleasant gentleman came in with the severe dizziness and near syncopal episode and patient is found to have orthostatic hypotension on admission. Patient received 2 L of IV fluid and receiving the third liter and it is in 100 mL of normal saline. Patient has been in he then has been drinking beer all day yesterday. Which led to dehydration. Echocardiac exam is being obtained patient was monitored overnight on phototypesetting equipment monitor. Patient 's EKG did not show any acute ST-T wave changes. Patient is on chlorthalidone which will be discontinued upon discharge patient is also on 40 mg of lisinopril which will be changed to 10 mg and will ask him to take that medication tomorrow morning if his blood pressures stay stable 1 30 x 90. Patient will be discharged once we get the echocardiogram results. Patient denied any fever chills patient and dysuria cough runny nose. Review of Systems REVIEW OF SYSTEMS: CONSTITUTIONAL: No fever, no malaise, no fatigue. HEENT: No recent visual problems or hearing problems. Denied any sore throat. CARDIOVASCULAR: No chest pain, orthopnea, PND, no palpitations, no syncope. PULMONARY: No shortness of breath, no cough, no hemoptysis. GASTROINTESTINAL: No diarrhea, no nausea, no vomiting, no abdominal pain. Normoactive bowel sounds. NEUROLOGICAL: No headaches, no weakness, no numbness. HEMATOLOGICAL: Denies any bleeding or petechiae. GENITOURINARY: Denies any burning micturition, frequency, or urgency. MUSCULOSKELETAL/RHEUMATOLOGICAL: Denies any joint pain, swelling, or any muscle pain. ENDOCRINE: Denies any polyuria or polydipsia. The rest of the 14-point review of systems is negative. Past Medical History Past Medical History: Diabetes Mellitus, Hypertension, Seizure Disorder History of Any Multi-Drug Resistant Organisms: None Reported Past Surgical History: Orthopedic Surgery Additional Past Surgical History / Comment(s): right ankle Past Psychological History: Bipolar, Depression Smoking Status: Never smoker Past Alcohol Use History: None Reported Past Drug Use History: None Reported Medications and Allergies Home Medications Medication Instructions Recorded Confirmed Type Loratadine [Claritin] 10 mg PO DAILY 08/08/14 04/27/18 History Simvastatin [Zocor] 20 mg PO HS 08/08/14 04/27/18 History metFORMIN HCL [Glucophage] 500 mg PO BID 08/08/14 04/27/18 History Benztropine Mesylate [Cogentin] 2 mg PO TID 02/19/17 04/27/18 History Cholecalciferol [Vitamin D3] 2,000 unit PO DAILY 02/19/17 04/27/18 History Divalproex ER [Depakote ER] 1,000 mg PO BID 02/19/17 04/27/18 History Glimepiride [Amaryl] 1 mg PO DAILY 02/19/17 04/27/18 History Levothyroxine Sodium [Synthroid] 100 mcg PO DAILY 02/19/17 04/27/18 History Sertraline [Zoloft] 200 mg PO AC-BRKFST 02/19/17 04/27/18 History fluPHENAZine DECANOATE [Prolixin 25 mg IM Q14D 02/19/17 04/27/18 History Decanoate] traZODone HCL [Desyrel] 200 mg PO HS 02/19/17 04/27/18 History Cyanocobalamin [Vitamin B-12] 500 mcg PO DAILY 08/07/17 04/27/18 History Lisinopril [Zestril] 10 mg PO DAILY #30 tab 04/27/18 Rx Allergies Allergy/AdvReac Type Severity Reaction Status Date / Time diphenhydramine HCl Allergy Rash/Hives Verified 04/08/18 20:15 [From Benadryl] Physical Exam Vitals: Vital Signs Temp Pulse Pulse Resp BP BP BP 04/27/18 09:21 115/78 117/77 04/27/18 08:00 97 F L 57 L 16 04/27/18 04:35 97.3 F L 55 L 20 04/27/18 04:09 68 20 88/52 04/27/18 03:51 83 20 103/72 04/27/18 03:10 104 H 20 103/62 04/27/18 02:50 66 18 92/52 04/27/18 01:50 61 20 87/57 04/27/18 01:06 87 20 81/47 04/27/18 00:03 97.6 F 83 20 87/56 BP BP Pulse Ox 04/27/18 09:21 110/62 04/27/18 08:00 102/64 94 L 04/27/18 04:35 112/67 96 04/27/18 04:09 98 04/27/18 03:51 98 04/27/18 03:10 99 04/27/18 02:50 99 04/27/18 01:50 96 04/27/18 01:06 04/27/18 00:03 91 L Intake and Output 04/26/18 04/27/18 04/27/18 22:59 06:59 14:59 Intake Total 3050 320 Balance 3050 320 Intake: Amount of Fluid Infused ( 3050 ml) Intake, IV Titration 200 Amount Sodium Chloride 0.9% 1, 200 000 ml @ 100 mls/hr IV . Q10H ONE Rx#:[id number] Oral 120 Other: # Voids 0 Weight 110.4 kg PHYSICAL EXAMINATION: GENERAL: The patient is alert and oriented x3, not in any acute distress. Well developed, well nourished. HEENT: Pupils are round and equally reacting to light. EOMI. No scleral icterus. No conjunctival pallor. Normocephalic, atraumatic. No pharyngeal erythema. No thyromegaly. CARDIOVASCULAR: S1 and S2 present. No murmurs, rubs, or gallops. PULMONARY: Chest is clear to auscultation, no wheezing or crackles. ABDOMEN: Soft, nontender, nondistended, normoactive bowel sounds. No palpable organomegaly. MUSCULOSKELETAL: No joint swelling or deformity. EXTREMITIES: No cyanosis, clubbing, or pedal edema. NEUROLOGICAL: Gross neurological examination did not reveal any focal deficits. SKIN: No rashes. Results CBC & Chem 7: 04/27/18 00:04 04/27/18 00:04 Labs: Abnormal Lab Results - Last 24 Hours (Table) 04/27/18 04/27/18 04/27/18 Range/Units 00:04 00:04 00:04 INR 1.2 H (<1.2) Glucose 108 H (74-99) mg/dL Total Creatine Kinase 53 L (55-170) U/L Total Protein 6.0 L (6.3-8.2) g/dL Triglycerides (<150) mg/dL HDL Cholesterol (40-60) mg/dL Urine Protein (Negative) Urine Ketones (Negative) Urine Bilirubin (Negative) Hyaline Casts (0-2) /lpf Urine Mucus (None) /hpf 04/27/18 04/27/18 Range/Units 00:04 01:01 INR (<1.2) Glucose (74-99) mg/dL Total Creatine Kinase (55-170) U/L Total Protein (6.3-8.2) g/dL Triglycerides 192 H (<150) mg/dL HDL Cholesterol 25 L (40-60) mg/dL Urine Protein 1+ H (Negative) Urine Ketones 1+ H (Negative) Urine Bilirubin 1+ H (Negative) Hyaline Casts 17 H (0-2) /lpf Urine Mucus Many H (None) /hpf Assessment and Plan Plan: -Lightheadedness, near syncopal episode: Patient is severely dehydrated and had a comment of heat exhaustion because of which patient received IV fluids and patient will be discharged today later in the day. Patient lightheadedness computed resolved now. -Hypertension further management as mentioned in HPI -Type 2 diabetes mellitus since the patient is well-hydrated can resume on his metformin. -Seizure disorder: Valproic acid levels are within normal limits -Bipolar and depression
[2018-04-27] MEDS ORDERED: DIVALPROEX 500 MG TABLET.DR PO STA (12:21)
[2018-04-27] MEDS ORDERED: DIVALPROEX ER 500 MG TAB.ER.24H PO SCH (12:30)
[2018-04-27 12:46] VITALS: BP 119/77; PULSE 70
[2018-04-27] MEDS ORDERED: BENZTROPINE MESYLATE 1 MG TAB PO SCH (16:00)
[2018-04-27 18:33] LABS: Hemoglobin A1C 5.9 % (4.0-6.0)
[2018-04-27] MEDS ORDERED: ATORVASTATIN 10 MG TAB PO SCH (21:00)
[2018-04-28] MEDS ORDERED: LEVOTHYROXINE 100 MCG TAB PO SCH (06:30)
[2018-04-28] MEDS ORDERED: SERTRALINE 100 MG TAB PO SCH (07:30)
[2018-04-28] MEDS ORDERED: GLIMEPIRIDE 1 MG TAB PO SCH (09:00)
--- NOTE | 2018-04-28 13:17 | ECHOF ---
Referral Reason:near syncope MEASUREMENTS -------- HEIGHT: 188.0 cm WEIGHT: 110.2 kg BP: RVIDd: 2.2 cm (< 3.3) IVSd: 1.1 cm (0.6 - 1.1) LVIDd: 5.0 cm (3.9 - 5.3) LVPWd: 1.0 cm (0.6 - 1.1) IVSs: 1.7 cm LVIDs: 2.7 cm LVPWs: 1.5 cm LAESV Index (A-L): 24.24 ml/m Ao Diam: 3.4 cm (2.0 - 3.7) AV Cusp: 2.2 cm (1.5 - 2.6) LA Diam: 3.0 cm (2.7 - 3.8) EPSS: 0.3 cm MV E Reuben: 0.66 m/s MV DecT: 125 ms MV A Reuben: 0.52 m/s MV E/A Ratio: 1.28 RAP: 5.00 mmHg RVSP: 9.63 mmHg MV EF SLOPE: 143.57 mm/s (70 - 150) MV EXCURSION: 2.35 cm (> 18.000) FINDINGS -------- Sinus rhythm. This was a technically adequate study. The left ventricular size is normal. Left ventricular wall thickness is normal. Overall left vent ricular systolic function is normal with, an EF between 55 - 60 %. The right ventricle is normal in size and function. Normal LA size by volume 22+/-6 ml/m2. The right atrium is normal in size. The aortic valve is trileaflet, and appears structurally normal. No aortic stenosis or regurgitation. The mitral valve is normal. There is trace mitral regurgitation. Trace tricuspid regurgitation present. Right ventricular systolic pressure is normal at < 35 mmHg. There is no evidence of pulmonary hypertension. Trace/mild (physiologic) pulmonic regurgitation. The aortic root size is normal. Normal inferior vena cava with normal inspiratory collapse consistent with estimated right atrial pre ssure of 5 mmHg. There is no pericardial effusion. CONCLUSIONS -------- 1. Sinus rhythm. 2. This was a technically adequate study. 3. The left ventricular size is normal. 4. Left ventricular wall thickness is normal. 5. Overall left ventricular systolic function is normal with, an EF between 55 - 60 %. 6. Normal LA size by volume 22+/-6 ml/m2. 7. The aortic valve is trileaflet, and appears structurally normal. No aortic stenosis or regurgitati on. 8. There is trace mitral regurgitation. 9. Trace tricuspid regurgitation present. 10. Right ventricular systolic pressure is normal at < 35 mmHg. 11. There is no evidence of pulmonary hypertension. 12. Trace/mild (physiologic) pulmonic regurgitation. 13. The aortic root size is normal. 14. There is no pericardial effusion. PUBLIC ADDRESS SYSTEM OPERATOR: Earl May RDCS
[2018-05-07] MEDS ORDERED: fluPHENAZine DECANOATE 25 MG/ML 5ML MDV IM SCH (09:00)
== END 2018-04-27 15:45 | disposition home or self-care (01) ==
LOC: EC → 6SEL 03:50 → INTOOBSV 03:50 → UNDODISIN 15:45
PROVIDERS: ADMIT Hospitalist; ATTEND Hospitalist
DX: I95.1 Orthostatic hypotension (principal); E86.0 Dehydration; E11.9 Type 2 diabetes mellitus without complications; F17.200 Nicotine dependence, unspecified, uncomplicated; G40.909 Epilepsy, unspecified, not intractable, without status epilepticus; I10 Essential (primary) hypertension; E78.5 Hyperlipidemia, unspecified; F31.9 Bipolar disorder, unspecified; T67.5XXA Heat exhaustion, unspecified, initial encounter; X30.XXXA Exposure to excessive natural heat, initial encounter; Z79.84 Long term (current) use of oral hypoglycemic drugs; Z79.890 Hormone replacement therapy; Z79.899 Other long term (current) drug therapy; Z88.8 Allergy status to other drugs, medicaments and biological substances
CPT/HCPCS: 96360; 96361; 99285; 36415; 93005; 93306; 85379; 80164; 80053; 80061; 82550; 82553; 84484; 85025; 85610; 85730; 81001; 80306; 83036; 71045; G0378

== ENCOUNTER 2018-06-03 20:39 | Emergency (ER) | payer OTHER ==
[2018-06-03 21:17] VITALS: BP 114/72; PULSE 68; RESP 18; TEMP 99.3
[2018-06-03] MEDS ORDERED: SODIUM CHLORIDE 0.9% 1,000 ML BAG ONE (23:00)
[2018-06-03] MEDS ORDERED: SODIUM CHLORIDE 0.9% 500 ML BAG ONE (23:00)
[2018-06-04 06:28] LABS: ALT 33 U/L (21-72); AST 19 U/L (17-59); Albumin 4.1 g/dL (3.5-5.0); Alkaline Phosphatase 87 U/L (38-126); Anion Gap 11 mmol/L; Blood Urea Nitrogen 12 mg/dL (9-20); Calcium 9.4 mg/dL (8.4-10.2); Carbon Dioxide 29 mmol/L (22-30); Chloride 97 mmol/L (98-107); Glucose 102 mg/dL (74-99); Magnesium 1.7 mg/dL (1.6-2.3); Potassium 3.7 mmol/L (3.5-5.1); Sodium 137 mmol/L (137-145); T4, Free (Free Thyroxine) 1.02 ng/dL (0.78-2.19); Total Bilirubin 0.2 mg/dL (0.2-1.3); Total Protein 6.3 g/dL (6.3-8.2)
[2018-06-04 06:35] LABS: Basophils % (A) 1 %; Eosinophils # (A) 0.1 k/uL (0-0.7); Eosinophils % (A) 1 %; HCT 47.4 % (39.0-53.0); Lymphocytes # (A) 2.9 k/uL (1.0-4.8); Lymphocytes % (A) 40 %; MCH 27.9 pg (25.0-35.0); MCHC 33.7 g/dL (31.0-37.0); MCV 82.8 fL (80.0-100.0); Mean Platelet Volume 7.2; Monocytes # (A) 0.5 k/uL (0-1.0); Monocytes % (A) 6 %; Neutrophils # (A) 3.6 k/uL (1.3-7.7); Neutrophils % (A) 50 %; Platelet Count 197 k/uL (150-450); RBC 5.73 m/uL (4.30-5.90); RDW 14.1 % (11.5-15.5); WBC 7.2 k/uL (3.8-10.6)
--- NOTE | 2018-06-05 08:28 | CDI ---
Documentation Clarification OP Dear Cl West D, DO Please do addendum to ED report that provides Need Clinical impression for visit. Thank you, Irene Hubbard Supervisor [employer] If you have any questions, please contact Conference Planning Manager at [phone] [facility]
== END 2018-06-04 01:30 | disposition home or self-care (01) ==
LOC: EC 20:39
DX: G25.0 Essential tremor (principal)
CPT/HCPCS: 36415; 80053; 83735; 84439; 84443; 85025; 93005; 99284

== ENCOUNTER 2018-06-10 13:28 | Emergency (ER) | payer OTHER ==
[2018-06-10 13:34] VITALS: PULSE 89
--- NOTE | 2018-06-10 13:49 | ED ---
General Adult HPI - General Chief complaint: Psychiatric Symptoms Stated complaint: Mental Health Time Seen by Provider: 06/10/18 13:37 Source: patient, EMS, RN notes reviewed Mode of arrival: EMS Limitations: no limitations - History of Present Illness Initial comments: Patient 42-year-old male presented to the emergency room today with a chief complaint of needing a mental health evaluation. Patient was seen at [facility] earlier today and advised compared to the emergency room. Patient does admit that he is having suicidal thoughts. He states he thought about jumping in front of a train, hanging himself, or cutting his throat. He does admit that his had thoughts in the past has after once in the past by running out into traffic. Patient denies any homicidal thoughts or plans. Denies any visual auditory hallucinations. Patient does admit that over the last week he has not been taking his medications. He states he stopped taking them because he feels that they do not work. Patient denies any other complaints. - Related Data Home Medications Medication Instructions Recorded Confirmed Loratadine [Claritin] 10 mg PO DAILY 08/08/14 06/10/18 Simvastatin [Zocor] 20 mg PO HS 08/08/14 06/10/18 Benztropine Mesylate [Cogentin] 2 mg PO TID 02/19/17 06/10/18 Cholecalciferol [Vitamin D3] 5,000 unit PO DAILY 02/19/17 06/10/18 Glimepiride [Amaryl] 1 mg PO DAILY 02/19/17 06/10/18 Levothyroxine Sodium [Synthroid] 100 mcg PO DAILY 02/19/17 06/10/18 Sertraline [Zoloft] 200 mg PO AC-BRKFST 02/19/17 06/10/18 fluPHENAZine DECANOATE [Prolixin 25 mg IM Q14D 02/19/17 06/10/18 Decanoate] traZODone HCL [Desyrel] 200 mg PO HS 02/19/17 06/10/18 Chlorthalidone 25 mg PO DAILY 06/10/18 06/10/18 Divalproex ER [Depakote ER] 1,000 mg PO BID 06/10/18 06/10/18 Lisinopril [Zestril] 20 mg PO DAILY 06/10/18 06/10/18 metFORMIN HCL [Glucophage] 1,000 mg PO BID 06/10/18 06/10/18 Allergies Allergy/AdvReac Type Severity Reaction Status Date / Time diphenhydramine HCl Allergy Rash/Hives Verified 06/10/18 13:53 [From Bentirsol] Review of Systems ROS Statement: Those systems with pertinent positive or pertinent negative responses have been documented in the HPI. ROS Other: All systems not noted in ROS Statement are negative. Past Medical History Past Medical History: Diabetes Mellitus, Hypertension, Seizure Disorder History of Any Multi-Drug Resistant Organisms: None Reported Past Surgical History: Orthopedic Surgery Additional Past Surgical History / Comment(s): right ankle Past Psychological History: Bipolar, Depression Smoking Status: Current every day smoker Past Alcohol Use History: Occasional Past Drug Use History: None Reported General Exam - General Exam Comments Initial Comments: General: The patient is awake and alert, in no distress, and does not appear acutely ill. Eye: Pupils are equal, round and reactive to light, extra-ocular movements are intact. No nystagmus. There is normal conjunctiva bilaterally. No signs of icterus. Ears, nose, mouth and throat: There are moist mucous membranes and no oral lesions. Neck: The neck is supple, there is no tenderness or JVD. Cardiovascular: There is a regular rate and rhythm. No murmur, rub or gallop is appreciated. Respiratory: Lungs are clear to auscultation, respirations are non-labored, breath sounds are equal. No wheezes, stridor, rales, or rhonchi. Musculoskeletal: Normal ROM, no tenderness. Strength 5/5. Sensation intact. Neurological: A&O x 3. CN II-XII intact, There are no obvious motor or sensory deficits. Coordination appears grossly intact. Speech is normal. Skin: Skin is warm and dry and no rashes or lesions are noted. Psychiatric: Cooperative Limitations: no limitations Course Vital Signs 06/10/18 13:31 Temperature 98.5 F Pulse Rate 89 Respiratory 16 Rate Blood Pressure 131/66 O2 Sat by Pulse 95 Oximetry Medical Decision Making - Medical Decision Making Patient's been seen here the emergency room by [facility]. There has evaluated and talked to his deck cadet over at [facility]. Patient was not seen at [facility] she was outside of the building and became upset when some friends were there. Magnetic Doctor states that he is very behavioral attitude. This that the visual field to see him in the office today. Patient contracts for safety stating that he has no intentions of hurting himself at this time. Patient will be discharged going to [facility] for his evaluation and medications. - Lab Data Lab Results 06/10/18 Range/Units 15:26 Urine Opiates Screen Not Detected (NotDetected) Ur Oxycodone Screen Not Detected (NotDetected) Urine Methadone Screen Not Detected (NotDetected) Ur Propoxyphene Screen Not Detected (NotDetected) Ur Barbiturates Screen Not Detected (NotDetected) U Tricyclic Antidepress Not Detected (NotDetected) Ur Phencyclidine Scrn Not Detected (NotDetected) Ur Amphetamines Screen Not Detected (NotDetected) U Methamphetamines Scrn Not Detected (NotDetected) U Benzodiazepines Scrn Not Detected (NotDetected) Urine Cocaine Screen Not Detected (NotDetected) U Marijuana (THC) Screen Not Detected (NotDetected) Disposition Clinical Impression: Depression Disposition: HOME SELF-CARE Condition: Good Instructions: Depression (ED) Additional Instructions: Please go directly to [facility] for evaluation of medications. Please return to emergency room if the symptoms increase or worsen or for any other concerns. Is patient prescribed a controlled substance at d/c from ED?: No Referrals: [facility] [Primary Care Provider] - 1-2 days Time of Disposition: 16:06
[2018-06-10 15:45] LABS: Amphetamine Screen,Urine Not Detected (NotDetected); Barbiturate Screen,Urine Not Detected (NotDetected); Benzodiazepines Screen,Urine Not Detected (NotDetected); Cocaine Screen,Urine Not Detected (NotDetected); Methadone Screen, Urine Not Detected (NotDetected); Opiate Screen,Urine Not Detected (NotDetected); Oxycodone Screen, Urine Not Detected (NotDetected); Phencyclidine Screen,Urine Not Detected (NotDetected); Tricyclic Antidepressant,Urine Not Detected (NotDetected); Urn Cannabinoid Scrn Not Detected (NotDetected)
[2018-06-10 16:12] VITALS: BP 141/60; RESP 18; TEMP 98
== END 2018-06-10 16:11 | disposition home or self-care (01) ==
LOC: EC 13:28
DX: F31.30 Bipolar disorder, current episode depressed, mild or moderate severity, unspecified (principal); R45.851 Suicidal ideations; I10 Essential (primary) hypertension; E11.9 Type 2 diabetes mellitus without complications; G40.909 Epilepsy, unspecified, not intractable, without status epilepticus; F17.200 Nicotine dependence, unspecified, uncomplicated; Z79.84 Long term (current) use of oral hypoglycemic drugs; Z79.899 Other long term (current) drug therapy; Z88.8 Allergy status to other drugs, medicaments and biological substances
CPT/HCPCS: 80306; 82075; 99285

== ENCOUNTER 2018-06-12 00:36 | Emergency (ER) | payer OTHER ==
[2018-06-12 00:45] VITALS: RESP 18
[2018-06-12 01:27] LABS: Basophils % (A) 1 %; Eosinophils # (A) 0.1 k/uL (0-0.7); Eosinophils % (A) 1 %; Lymphocytes # (A) 2.9 k/uL (1.0-4.8); Lymphocytes % (A) 46 %; MCH 28.6 pg (25.0-35.0); MCV 84.1 fL (80.0-100.0); Mean Platelet Volume 6.8; Monocytes # (A) 0.3 k/uL (0-1.0); Monocytes % (A) 5 %; Neutrophils # (A) 2.9 k/uL (1.3-7.7); Neutrophils % (A) 46 %; Platelet Count 188 k/uL (150-450); RBC 5.23 m/uL (4.30-5.90); RDW 14.5 % (11.5-15.5); WBC 6.4 k/uL (3.8-10.6)
[2018-06-12 01:33] LABS: INR 1.3 (<1.2); Partial Thromboplastin Time 26.6 sec (22.0-30.0)
[2018-06-12 01:35] LABS: ALT 34 U/L (21-72); AST 17 U/L (17-59); Alkaline Phosphatase 87 U/L (38-126); Anion Gap 11 mmol/L; Blood Urea Nitrogen 13 mg/dL (9-20); Calcium 8.9 mg/dL (8.4-10.2); Carbon Dioxide 24 mmol/L (22-30); Chloride 106 mmol/L (98-107); Glucose 95 mg/dL (74-99); Magnesium 1.5 mg/dL (1.6-2.3); Sodium 141 mmol/L (137-145); Total Bilirubin 0.3 mg/dL (0.2-1.3); Total Protein 6.1 g/dL (6.3-8.2)
[2018-06-12 01:44] LABS: Creatine Kinase 57 U/L (55-170)
--- NOTE | 2018-06-12 01:53 | XR ---
EXAMINATION TYPE: XR chest 2V DATE OF EXAM: 06/12/2018 COMPARISON: 04/27/2018 HISTORY: Chest pain TECHNIQUE: Frontal and lateral views of the chest are obtained. FINDINGS: Heart and mediastinum are normal. Lungs are clear. Diaphragm is normal. There is mild thor acic dextroscoliosis. There are chest leads. IMPRESSION: No active cardiopulmonary disease. Heart and lungs unchanged compared to old exam.
[2018-06-12 01:57] LABS: Creatine Kinase MB 0.6 ng/mL (0.0-2.4); Troponin I <0.012 ng/mL (0.000-0.034)
[2018-06-12] MEDS ORDERED: MAGNESIUM OXIDE 400 MG TAB PO STA (02:42)
--- NOTE | 2018-06-12 02:43 | ED ---
General Adult HPI - General Chief complaint: Chest Pain Stated complaint: Chest Pain Time Seen by Provider: 06/12/18 00:51 Source: patient Mode of arrival: EMS Limitations: no limitations - History of Present Illness Initial comments: Zaid Carlson is a pleasant 42-year-old gentleman with past medical history listed below who presents the ED today via EMS for evaluation of chest pain. Patient reports that he is currently homeless, today he missed dinner at the [employer] kitchen. He spent the evening visiting with a friend but didn't have any dinner. He states that he was then walking around town and around midnight he began to feel some discomfort in his epigastrium so he called 911. Patient denies any exertional symptoms, palpitations, lightheadedness or near-syncope. He's been evaluated in the past her chest pain with negative workup. Upon arrival patient states that he feels like it because of the he would feel better. She does have some underlying psychiatric issues as well as some apparent cognitive delay which limits his ability to provide a thorough history however upon arrival he has only complaints of being hungry. - Related Data Home Medications Medication Instructions Recorded Confirmed Loratadine [Claritin] 10 mg PO DAILY 08/08/14 06/10/18 Simvastatin [Zocor] 20 mg PO HS 08/08/14 06/10/18 Benztropine Mesylate [Cogentin] 2 mg PO TID 02/19/17 06/10/18 Cholecalciferol [Vitamin D3] 5,000 unit PO DAILY 02/19/17 06/10/18 Glimepiride [Amaryl] 1 mg PO DAILY 02/19/17 06/10/18 Levothyroxine Sodium [Synthroid] 100 mcg PO DAILY 02/19/17 06/10/18 Sertraline [Zoloft] 200 mg PO AC-BRKFST 02/19/17 06/10/18 fluPHENAZine DECANOATE [Prolixin 25 mg IM Q14D 02/19/17 06/10/18 Decanoate] traZODone HCL [Desyrel] 200 mg PO HS 02/19/17 06/10/18 Chlorthalidone 25 mg PO DAILY 06/10/18 06/10/18 Divalproex ER [Depakote ER] 1,000 mg PO BID 06/10/18 06/10/18 Lisinopril [Zestril] 20 mg PO DAILY 06/10/18 06/10/18 metFORMIN HCL [Glucophage] 1,000 mg PO BID 06/10/18 06/10/18 Allergies Allergy/AdvReac Type Severity Reaction Status Date / Time diphenhydramine HCl Allergy Rash/Hives Verified 06/12/18 00:45 [From Benadryl] Review of Systems ROS Statement: Those systems with pertinent positive or pertinent negative responses have been documented in the HPI. ROS Other: All systems not noted in ROS Statement are negative. Past Medical History Past Medical History: Diabetes Mellitus, Hypertension, Seizure Disorder History of Any Multi-Drug Resistant Organisms: None Reported Past Surgical History: Orthopedic Surgery Additional Past Surgical History / Comment(s): right ankle Past Psychological History: Bipolar, Depression Smoking Status: Current every day smoker Past Alcohol Use History: None Reported Past Drug Use History: None Reported General Exam Limitations: no limitations General appearance: alert, in no apparent distress Head exam: Present: atraumatic, normocephalic Eye exam: Present: normal appearance, PERRL ENT exam: Present: normal exam Neck exam: Present: normal inspection Respiratory exam: Present: normal lung sounds bilaterally. Absent: respiratory distress Cardiovascular Exam: Present: regular rate, normal rhythm GI/Abdominal exam: Present: soft. Absent: distended, tenderness Rectal exam: Present: deferred Extremities exam: Present: normal inspection, full ROM Back exam: Present: normal inspection Neurological exam: Present: alert, oriented X3, normal gait Psychiatric exam: Present: normal mood Skin exam: Present: warm, dry Course Vital Signs 06/12/18 06/12/18 06/12/18 00:42 01:05 01:59 Temperature 98.0 F Pulse Rate 81 80 Pulse Rate [ 95 Traffic Observer ] Respiratory 18 18 Rate Blood Pressure 110/59 101/54 O2 Sat by Pulse 93 L 96 Oximetry 06/12/18 03:15 Temperature 97.8 F Pulse Rate 69 Pulse Rate [ Traffic Observer ] Respiratory 18 Rate Blood Pressure 101/57 O2 Sat by Pulse 97 Oximetry EKG Findings - EKG Comments: EKG Findings:: EKG obtained at 12:54 AM, rate is 82, rhythm is sinus, there is normal axis, intervals, UT is 158, QRS 90, QTC 436, there are no acute ST elevations or depressions. There is no evidence of acute ischemia or infarction. Medical Decision Making - Medical Decision Making The patient was seen and evaluated, history was obtained from the patient and EMS. Patient reportedly called EMS for a period chest pain that occurred while he was walking around the city. Upon arrival patient's primary complaint is that he is hungry. EKG was unremarkable Labs and imaging with no acute findings Patient was given food, he ate and then was sleeping comfortably. I advised the patient of his negative workup. He expressed relief and was eager for discharge home. - Lab Data Result diagrams: 06/12/18 00:50 06/12/18 00:50 Lab Results 06/12/18 06/12/18 06/12/18 Range/Units 00:50 00:50 00:50 WBC 6.4 (3.8-10.6) k/uL RBC 5.23 (4.30-5.90) m/uL Hgb 15.0 (13.0-17.5) gm/dL Hct 44.0 (39.0-53.0) % MCV 84.1 (80.0-100.0) fL MCH 28.6 (25.0-35.0) pg MCHC 34.0 (31.0-37.0) g/dL RDW 14.5 (11.5-15.5) % Plt Count 188 (150-450) k/uL Neutrophils % 46 % Lymphocytes % 46 % Monocytes % 5 % Eosinophils % 1 % Basophils % 1 % Neutrophils # 2.9 (1.3-7.7) k/uL Lymphocytes # 2.9 (1.0-4.8) k/uL Monocytes # 0.3 (0-1.0) k/uL Eosinophils # 0.1 (0-0.7) k/uL Basophils # 0.0 (0-0.2) k/uL PT (9.0-12.0) sec INR (<1.2) APTT (22.0-30.0) sec Sodium 141 (137-145) mmol/L Potassium 4.0 (3.5-5.1) mmol/L Chloride 106 (98-107) mmol/L Carbon Dioxide 24 (22-30) mmol/L Anion Gap 11 mmol/L BUN 13 (9-20) mg/dL Creatinine 0.70 (0.66-1.25) mg/dL Est GFR (CKD-EPI)AfAm >90 (>60 ml/min/1.73 sqM) Est GFR (CKD-EPI)NonAf >90 (>60 ml/min/1.73 sqM) Glucose 95 (74-99) mg/dL Calcium 8.9 (8.4-10.2) mg/dL Magnesium 1.5 L (1.6-2.3) mg/dL Total Bilirubin 0.3 (0.2-1.3) mg/dL AST 17 (17-59) U/L ALT 34 (21-72) U/L Alkaline Phosphatase 87 (38-126) U/L Total Creatine Kinase 57 (55-170) U/L CK-MB (CK-2) 0.6 (0.0-2.4) ng/mL CK-MB (CK-2) Rel Index 1.1 Troponin I <0.012 (0.000-0.034) ng/mL Total Protein 6.1 L (6.3-8.2) g/dL Albumin 4.0 (3.5-5.0) g/dL 06/12/18 Range/Units 00:50 WBC (3.8-10.6) k/uL RBC (4.30-5.90) m/uL Hgb (13.0-17.5) gm/dL Hct (39.0-53.0) % MCV (80.0-100.0) fL MCH (25.0-35.0) pg MCHC (31.0-37.0) g/dL RDW (11.5-15.5) % Plt Count (150-450) k/uL Neutrophils % % Lymphocytes % % Monocytes % % Eosinophils % % Basophils % % Neutrophils # (1.3-7.7) k/uL Lymphocytes # (1.0-4.8) k/uL Monocytes # (0-1.0) k/uL Eosinophils # (0-0.7) k/uL Basophils # (0-0.2) k/uL PT 12.0 (9.0-12.0) sec INR 1.3 H (<1.2) APTT 26.6 (22.0-30.0) sec Sodium (137-145) mmol/L Potassium (3.5-5.1) mmol/L Chloride (98-107) mmol/L Carbon Dioxide (22-30) mmol/L Anion Gap mmol/L BUN (9-20) mg/dL Creatinine (0.66-1.25) mg/dL Est GFR (CKD-EPI)AfAm (>60 ml/min/1.73 sqM) Est GFR (CKD-EPI)NonAf (>60 ml/min/1.73 sqM) Glucose (74-99) mg/dL Calcium (8.4-10.2) mg/dL Magnesium (1.6-2.3) mg/dL Total Bilirubin (0.2-1.3) mg/dL AST (17-59) U/L ALT (21-72) U/L Alkaline Phosphatase (38-126) U/L Total Creatine Kinase (55-170) U/L CK-MB (CK-2) (0.0-2.4) ng/mL CK-MB (CK-2) Rel Index Troponin I (0.000-0.034) ng/mL Total Protein (6.3-8.2) g/dL Albumin (3.5-5.0) g/dL Disposition Clinical Impression: Atypical chest pain Disposition: HOME SELF-CARE Condition: Good Instructions: Costochondritis (ED) Is patient prescribed a controlled substance at d/c from ED?: No Referrals: [facility] [Primary Care Provider] - 1-2 days Time of Disposition: 02:45
[2018-06-12 03:16] VITALS: BP 101/57; PULSE 69; TEMP 97.8
== END 2018-06-12 03:18 | disposition home or self-care (01) ==
LOC: EC 00:36
DX: R07.89 Other chest pain (principal); I10 Essential (primary) hypertension; E11.9 Type 2 diabetes mellitus without complications; G40.909 Epilepsy, unspecified, not intractable, without status epilepticus; F31.9 Bipolar disorder, unspecified; F17.200 Nicotine dependence, unspecified, uncomplicated; Z79.84 Long term (current) use of oral hypoglycemic drugs; Z79.899 Other long term (current) drug therapy; Z88.8 Allergy status to other drugs, medicaments and biological substances; Z59.0 Homelessness
CPT/HCPCS: 36415; 71046; 80053; 82550; 82553; 83735; 84484; 85025; 85610; 85730; 99285

== ENCOUNTER 2018-06-27 18:19 | Emergency (ER) | payer OTHER ==
--- NOTE | 2018-06-27 19:08 | ED ---
General Adult HPI - General Chief complaint: Psychiatric Symptoms Stated complaint: Mental Health Source: patient, police, EMS Mode of arrival: EMS Limitations: no limitations - History of Present Illness Initial comments: Dictation was produced using [employer] dictation software. please excuse any grammatical, word or spelling errors. Chief Complaint: 42-year-old male with past medical history bipolar disease, diabetes and hypertension and seizures presents with suicidal ideation. History of Present Illness: Patient presents here with his friend. He states he 's been feeling suicidal. He has a history of bipolar disease. Patient states he wanted to slit his throat. Denies any suicidal attempts or ideation in the past. Patient is well-known to emergency department for multiple visitations for similar complaints. Patient states he does not have glucometer and hasn't checked his sugar in several months. Patient denies any auditory or visual hallucinations. The ROS documented in this emergency department record has been reviewed and confirmed by me. Those systems with pertinent positive or negative responses have been documented in the HPI. All other systems are other negative and/or noncontributory. - Related Data Home Medications Medication Instructions Recorded Confirmed Loratadine [Claritin] 10 mg PO DAILY 08/08/14 06/10/18 Simvastatin [Zocor] 20 mg PO HS 08/08/14 06/10/18 Benztropine Mesylate [Cogentin] 2 mg PO TID 02/19/17 06/10/18 Cholecalciferol [Vitamin D3] 5,000 unit PO DAILY 02/19/17 06/10/18 Glimepiride [Amaryl] 1 mg PO DAILY 02/19/17 06/10/18 Levothyroxine Sodium [Synthroid] 100 mcg PO DAILY 02/19/17 06/10/18 Sertraline [Zoloft] 200 mg PO AC-BRKFST 02/19/17 06/10/18 fluPHENAZine DECANOATE [Prolixin 25 mg IM Q14D 02/19/17 06/10/18 Decanoate] traZODone HCL [Desyrel] 200 mg PO HS 02/19/17 06/10/18 Chlorthalidone 25 mg PO DAILY 06/10/18 06/10/18 Divalproex ER [Depakote ER] 1,000 mg PO BID 06/10/18 06/10/18 Lisinopril [Zestril] 20 mg PO DAILY 06/10/18 06/10/18 metFORMIN HCL [Glucophage] 1,000 mg PO BID 06/10/18 06/10/18 Allergies Allergy/AdvReac Type Severity Reaction Status Date / Time diphenhydramine HCl Allergy Rash/Hives Verified 06/12/18 00:45 [From Benadryl] Review of Systems ROS Statement: Those systems with pertinent positive or pertinent negative responses have been documented in the HPI. ROS Other: All systems not noted in ROS Statement are negative. Past Medical History Past Medical History: Diabetes Mellitus, Hypertension, Seizure Disorder History of Any Multi-Drug Resistant Organisms: None Reported Past Surgical History: Orthopedic Surgery Additional Past Surgical History / Comment(s): right ankle Past Psychological History: Anxiety, Bipolar, Depression Smoking Status: Current every day smoker Past Alcohol Use History: None Reported Past Drug Use History: None Reported General Exam - General Exam Comments Initial Comments: PHYSICAL EXAM: General Impression: Alert and oriented x3, not in acute distress HEENT: Normocephalic atraumatic, extra-ocular movements intact, pupils equal and reactive to light bilaterally, mucous membranes moist. Cardiovascular: Heart regular rate and rhythm, S1&S2 audible, no murmurs, rubs or gallops Chest: Lungs clear to auscultation bilaterally, no rhonchi, no wheeze, no rales Abdomen: Bowel sounds present, abdomen soft, non-tender, non-distended, no organomegaly Musculoskeletal: Pulses present and equal in all extremities, no peripheral edema Motor: Power 5/5 bilaterally, no focal deficits noted Neurological: CN II-XII grossly intact, no focal motor or sensory deficits noted Skin: Intact with no visualized rashes Psych: Normal affect and mood Limitations: no limitations Course Vital Signs 06/27/18 06/27/18 18:31 19:20 Temperature 97.7 F Pulse Rate 75 Respiratory 16 18 Rate Blood Pressure 141/80 O2 Sat by Pulse 99 Oximetry Medical Decision Making - Medical Decision Making ED course: 42-year-old male with past medical history of psychiatric disease presents with suicidal ideation. As upon arrival are within acceptable limits. Upon my evaluation he states he is not suicidal anymore. He states he is not suicidal because he cares about his friend who is at bedside wearing a pokemon shirt. Breath alcohol test is negative. Blood sugar is normal. Patient cleared for EPS evaluation. Patient evaluated by EPS. Patient in stable condition. He denies denies any suicidal ideation at this time. Patient cleared by EPS for discharge. He is given outpatient resources. She is understandable agreeable to this plan. - Lab Data Lab Results 06/27/18 Range/Units 19:09 POC Glucose (mg/dL) 100 H (75-99) mg/dL POC Glu Piecer Up ID Carissa Zamarripa Disposition Clinical Impression: Depression Disposition: HOME SELF-CARE Condition: Good Instructions: Depression (ED) Is patient prescribed a controlled substance at d/c from ED?: No Referrals: [facility] [Primary Care Provider] - 1-2 days Time of Disposition: 20:22
[2018-06-27 19:14] LABS: Glucose,Whole Blood 100 mg/dL (75-99)
[2018-06-27 20:41] VITALS: BP 140/97; PULSE 66; RESP 17; TEMP 98.2
== END 2018-06-27 20:41 | disposition home or self-care (01) ==
LOC: EC 18:19
DX: F31.9 Bipolar disorder, unspecified (principal); F41.9 Anxiety disorder, unspecified; E11.9 Type 2 diabetes mellitus without complications; I10 Essential (primary) hypertension; G40.909 Epilepsy, unspecified, not intractable, without status epilepticus; F17.200 Nicotine dependence, unspecified, uncomplicated; Z79.84 Long term (current) use of oral hypoglycemic drugs; Z79.899 Other long term (current) drug therapy; Z88.8 Allergy status to other drugs, medicaments and biological substances
CPT/HCPCS: 36415; 82075; 99284

== ENCOUNTER 2018-06-28 21:15 | Emergency (ER) | payer OTHER ==
[2018-06-28 21:29] VITALS: BP 138/89; PULSE 108; RESP 18; TEMP 97.9
[2018-06-28 22:10] LABS: Basophils % (A) 1 %; Eosinophils # (A) 0.1 k/uL (0-0.7); Eosinophils % (A) 1 %; HCT 48.2 % (39.0-53.0); Lymphocytes # (A) 2.7 k/uL (1.0-4.8); Lymphocytes % (A) 43 %; MCH 27.9 pg (25.0-35.0); MCHC 33.2 g/dL (31.0-37.0); MCV 84.2 fL (80.0-100.0); Monocytes # (A) 0.5 k/uL (0-1.0); Monocytes % (A) 9 %; Neutrophils # (A) 2.8 k/uL (1.3-7.7); Neutrophils % (A) 45 %; Platelet Count 213 k/uL (150-450); RBC 5.72 m/uL (4.30-5.90); RDW 14.1 % (11.5-15.5); WBC 6.3 k/uL (3.8-10.6)
[2018-06-28 22:11] LABS: Amphetamine Screen,Urine Not Detected (NotDetected); Barbiturate Screen,Urine Not Detected (NotDetected); Benzodiazepines Screen,Urine Not Detected (NotDetected); Cocaine Screen,Urine Not Detected (NotDetected); Methadone Screen, Urine Not Detected (NotDetected); Opiate Screen,Urine Not Detected (NotDetected); Oxycodone Screen, Urine Not Detected (NotDetected); Phencyclidine Screen,Urine Not Detected (NotDetected); Tricyclic Antidepressant,Urine Not Detected (NotDetected); Urn Cannabinoid Scrn Not Detected (NotDetected)
[2018-06-28 22:27] LABS: Anion Gap 9 mmol/L; Blood Urea Nitrogen 13 mg/dL (9-20); Calcium 9.5 mg/dL (8.4-10.2); Carbon Dioxide 28 mmol/L (22-30); Chloride 101 mmol/L (98-107); Glucose 102 mg/dL (74-99); Potassium 4.6 mmol/L (3.5-5.1); Sodium 138 mmol/L (137-145)
--- NOTE | 2018-06-28 22:34 | ED ---
Psych HPI - General Chief Complaint: Psychiatric Symptoms Stated Complaint: Mental Health Time Seen by Provider: 06/28/18 21:39 Source: patient, police, EMS Mode of arrival: EMS - History of Present Illness Initial Comments: This patient is a 42-year-old man who presents with complaint that he is having worsening of his depression and has been feeling that he needs to speak with a mental health professional. The patient states that he has history of depression and previous suicidal ideation. He is currently compliant with his medications. He states that symptoms have been getting worse over the past week and he is not entirely sure why. MD Complaint: suicidal ideation, feels depressed Onset/Timin -: week(s) Associated Psychiatric Symptoms: depression, suicidal ideation History of same: Yes Quality: getting worse Improves With: none Worsens With: none Associated Symptoms: denies other symptoms - Related Data Home Medications Medication Instructions Recorded Confirmed Loratadine [Claritin] 10 mg PO DAILY 08/08/14 06/10/18 Simvastatin [Zocor] 20 mg PO HS 08/08/14 06/10/18 Benztropine Mesylate [Cogentin] 2 mg PO TID 02/19/17 06/10/18 Cholecalciferol [Vitamin D3] 5,000 unit PO DAILY 02/19/17 06/10/18 Glimepiride [Amaryl] 1 mg PO DAILY 02/19/17 06/10/18 Levothyroxine Sodium [Synthroid] 100 mcg PO DAILY 02/19/17 06/10/18 Sertraline [Zoloft] 200 mg PO AC-BRKFST 02/19/17 06/10/18 fluPHENAZine DECANOATE [Prolixin 25 mg IM Q14D 02/19/17 06/10/18 Decanoate] traZODone HCL [Desyrel] 200 mg PO HS 02/19/17 06/10/18 Chlorthalidone 25 mg PO DAILY 06/10/18 06/10/18 Divalproex ER [Depakote ER] 1,000 mg PO BID 06/10/18 06/10/18 Lisinopril [Zestril] 20 mg PO DAILY 06/10/18 06/10/18 metFORMIN HCL [Glucophage] 1,000 mg PO BID 06/10/18 06/10/18 Allergies Allergy/AdvReac Type Severity Reaction Status Date / Time diphenhydramine HCl Allergy Rash/Hives Verified 06/28/18 21:29 [From Benadryl] Review of Systems ROS Statement: Those systems with pertinent positive or pertinent negative responses have been documented in the HPI. ROS Other: All systems not noted in ROS Statement are negative. Constitutional: Denies: fever Respiratory: Denies: cough, dyspnea Cardiovascular: Denies: chest pain, palpitations Gastrointestinal: Denies: abdominal pain, vomiting, diarrhea Genitourinary: Denies: dysuria, hematuria Musculoskeletal: Denies: back pain Skin: Denies: rash Neurological: Denies: headache Psychiatric: Reports: depression, suicidal thoughts. Denies: auditory hallucinations, visual hallucinations, homicidal thoughts Past Medical History Past Medical History: Diabetes Mellitus, Hypertension, Seizure Disorder History of Any Multi-Drug Resistant Organisms: None Reported Past Surgical History: Orthopedic Surgery Additional Past Surgical History / Comment(s): right ankle Past Psychological History: Anxiety, Bipolar, Depression Smoking Status: Current every day smoker Past Alcohol Use History: None Reported Past Drug Use History: None Reported General Exam Limitations: no limitations General appearance: alert, in no apparent distress Head exam: Present: atraumatic, normocephalic Eye exam: Present: normal appearance. Absent: scleral icterus, conjunctival injection Respiratory exam: Present: normal lung sounds bilaterally. Absent: respiratory distress, wheezes, rales, rhonchi, stridor Cardiovascular Exam: Present: regular rate, normal rhythm, normal heart sounds. Absent: systolic murmur, diastolic murmur, rubs, gallop GI/Abdominal exam: Present: soft. Absent: distended, tenderness, guarding Neurological exam: Present: alert, normal gait Psychiatric exam: Present: depressed, suicidal ideation. Absent: agitated, anxious, flat affect, manic, homicidal ideation Skin exam: Present: warm, dry, intact, normal color Course Vital Signs 06/28/18 21:25 Temperature 97.9 F Pulse Rate 108 H Respiratory 18 Rate Blood Pressure 138/89 O2 Sat by Pulse 96 Oximetry Medical Decision Making - Lab Data Result diagrams: 06/28/18 21:58 06/28/18 21:58 Lab Results 06/28/18 06/28/18 06/28/18 Range/Units 21:23 21:58 21:58 WBC 6.3 (3.8-10.6) k/uL RBC 5.72 (4.30-5.90) m/uL Hgb 16.0 (13.0-17.5) gm/dL Hct 48.2 (39.0-53.0) % MCV 84.2 (80.0-100.0) fL MCH 27.9 (25.0-35.0) pg MCHC 33.2 (31.0-37.0) g/dL RDW 14.1 (11.5-15.5) % Plt Count 213 (150-450) k/uL Neutrophils % 45 % Lymphocytes % 43 % Monocytes % 9 % Eosinophils % 1 % Basophils % 1 % Neutrophils # 2.8 (1.3-7.7) k/uL Lymphocytes # 2.7 (1.0-4.8) k/uL Monocytes # 0.5 (0-1.0) k/uL Eosinophils # 0.1 (0-0.7) k/uL Basophils # 0.0 (0-0.2) k/uL Sodium 138 (137-145) mmol/L Potassium 4.6 (3.5-5.1) mmol/L Chloride 101 (98-107) mmol/L Carbon Dioxide 28 (22-30) mmol/L Anion Gap 9 mmol/L BUN 13 (9-20) mg/dL Creatinine 0.60 L (0.66-1.25) mg/dL Est GFR (CKD-EPI)AfAm >90 (>60 ml/min/1.73 sqM) Est GFR (CKD-EPI)NonAf >90 (>60 ml/min/1.73 sqM) Glucose 102 H (74-99) mg/dL Calcium 9.5 (8.4-10.2) mg/dL Urine Opiates Screen Not Detected (NotDetected) Ur Oxycodone Screen Not Detected (NotDetected) Urine Methadone Screen Not Detected (NotDetected) Ur Propoxyphene Screen Not Detected (NotDetected) Ur Barbiturates Screen Not Detected (NotDetected) U Tricyclic Antidepress Not Detected (NotDetected) Ur Phencyclidine Scrn Not Detected (NotDetected) Ur Amphetamines Screen Not Detected (NotDetected) U Methamphetamines Scrn Not Detected (NotDetected) U Benzodiazepines Scrn Not Detected (NotDetected) Urine Cocaine Screen Not Detected (NotDetected) U Marijuana (THC) Screen Not Detected (NotDetected) Disposition Clinical Impression: Mood disorder Disposition: HOME SELF-CARE Condition: Good Instructions: Mood Disorders (ED) Is patient prescribed a controlled substance at d/c from ED?: No Referrals: [facility] [Primary Care Provider] - 1-2 days
== END 2018-06-29 00:36 | disposition home or self-care (01) ==
LOC: EC 21:15
DX: F39 Unspecified mood [affective] disorder (principal); R45.851 Suicidal ideations; E11.9 Type 2 diabetes mellitus without complications; I10 Essential (primary) hypertension; G40.909 Epilepsy, unspecified, not intractable, without status epilepticus; F31.9 Bipolar disorder, unspecified; F41.9 Anxiety disorder, unspecified; F17.200 Nicotine dependence, unspecified, uncomplicated; Z79.84 Long term (current) use of oral hypoglycemic drugs; Z79.899 Other long term (current) drug therapy; Z88.8 Allergy status to other drugs, medicaments and biological substances
CPT/HCPCS: 36415; 80048; 80306; 82075; 85025; 99284

== ENCOUNTER 2018-07-01 19:20 | Emergency (ER) | payer OTHER ==
[2018-07-01 19:42] VITALS: RESP 18
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
[2018-07-01 22:09] VITALS: BP 127/71; PULSE 75; TEMP 97.4
== END 2018-07-01 22:05 | disposition home or self-care (01) ==
LOC: EC 19:20
DX: F32.9 Major depressive disorder, single episode, unspecified (principal); E11.9 Type 2 diabetes mellitus without complications; I10 Essential (primary) hypertension; G40.909 Epilepsy, unspecified, not intractable, without status epilepticus; F41.9 Anxiety disorder, unspecified; F17.200 Nicotine dependence, unspecified, uncomplicated; Z79.84 Long term (current) use of oral hypoglycemic drugs; Z79.899 Other long term (current) drug therapy
CPT/HCPCS: 82075; 99285

== ENCOUNTER 2018-08-07 13:34 | Emergency (ER) | payer OTHER ==
[2018-08-07 14:07] VITALS: BP 135/89; PULSE 62; RESP 18; TEMP 98.2
[2018-08-07] MEDS ORDERED: LIDOCAINE 1% INJ 10MG/ML (20 ML MDV) SQ ONE (15:28)
--- NOTE | 2018-08-07 16:04 | ED ---
General Adult HPI - General Chief complaint: Wound/Laceration Stated complaint: Cyst on leg Time Seen by Provider: 08/07/18 14:13 Source: patient, RN notes reviewed Mode of arrival: ambulatory Limitations: no limitations - History of Present Illness Initial comments: 42-year-old male presents to the emergency department for a chief complaint of abscess on the right upper leg 3 days. Patient states it is painful. He denies any spreading or streaking redness. He states it is simply red around the abscess. Patient denies any fevers or chills. Patient states he has had an abscess like this before. Patient has no other complaints at this time including shortness of breath, chest pain, abdominal pain, nausea or vomiting, headache, or visual changes. - Related Data Home Medications Medication Instructions Recorded Confirmed Loratadine [Claritin] 10 mg PO DAILY 08/08/14 08/07/18 Simvastatin [Zocor] 20 mg PO HS 08/08/14 08/07/18 Glimepiride [Amaryl] 1 mg PO DAILY 02/19/17 08/07/18 Chlorthalidone 25 mg PO DAILY 06/10/18 08/07/18 Lisinopril [Zestril] 20 mg PO DAILY 06/10/18 08/07/18 Previous Rx's Medication Instructions Recorded Cephalexin [Keflex] 500 mg PO Q8H 10 Days cap 08/07/18 Sulfamethox-Tmp 800-160Mg [Bactrim 1 tab PO Q12HR #20 tab 08/07/18 DS 800-160 mg] Allergies Allergy/AdvReac Type Severity Reaction Status Date / Time diphenhydramine HCl Allergy Rash/Hives Verified 08/07/18 14:32 [From Benadryl] Review of Systems ROS Statement: Those systems with pertinent positive or pertinent negative responses have been documented in the HPI. ROS Other: All systems not noted in ROS Statement are negative. Past Medical History Past Medical History: Diabetes Mellitus, Hypertension, Seizure Disorder History of Any Multi-Drug Resistant Organisms: None Reported Past Surgical History: Orthopedic Surgery Additional Past Surgical History / Comment(s): right ankle Past Psychological History: Anxiety, Bipolar, Depression Smoking Status: Current every day smoker Past Alcohol Use History: None Reported Past Drug Use History: None Reported General Exam Limitations: no limitations General appearance: alert, in no apparent distress Head exam: Present: atraumatic, normocephalic, normal inspection Eye exam: Present: normal appearance, PERRL, EOMI. Absent: scleral icterus, conjunctival injection, periorbital swelling ENT exam: Present: normal exam, mucous membranes moist Neck exam: Present: normal inspection, full ROM. Absent: tenderness, meningismus, lymphadenopathy Respiratory exam: Present: normal lung sounds bilaterally. Absent: respiratory distress, wheezes, rales, rhonchi, stridor Cardiovascular Exam: Present: regular rate, normal rhythm, normal heart sounds. Absent: systolic murmur, diastolic murmur, rubs, gallop, clicks Skin exam: Present: other (Patient has a small 1 cm x 1 cm abscess noted to the right upper medial thigh. There is mild 2 cm x 2 cm surrounding erythema without streaking.) Course Vital Signs 08/07/18 14:04 Temperature 98.2 F Pulse Rate 62 Respiratory 18 Rate Blood Pressure 135/89 O2 Sat by Pulse 100 Oximetry Procedures - Incision & Drainage Consent Obtained: verbal consent Site: other (right medial upper thigh) Anesthetic Used: lidocaine 1% I&D Cleaning Method: Iodine Sterile Field Used?: Yes Scalpel Used: #11 I&D Drainage Obtained: Blood Patient Tolerated Procedure: well, no complications Medical Decision Making - Medical Decision Making 42-year-old male presents to the emergency department for chief complaint of abscess 3 days. There is a 1 cm x 1 m induration with surrounding erythema about 2 cm x 2 cm in size. No streaking redness noted. Area was cleaned with iodine and numbed with lidocaine. Area was incised and drainage was attempted. However no purulent material was released. Patient will be put on Bactrim and Keflex. He will apply warm compresses as I discussed with him. He will follow up with primary care in 1-2 days and return if he has increased spreading redness, streaking, fevers or chills, or any other worsening symptoms. Dr. Mejía also saw the patient Disposition Clinical Impression: Abscess Disposition: HOME SELF-CARE Condition: Good Instructions: Abscess (ED) Additional Instructions: Please apply warm compresses. Please take antibiotics as directed. Return to the emergency department if you have any worsening symptoms or spreading redness. Otherwise follow-up with primary care in 1-2 days. Prescriptions: Cephalexin [Keflex] 500 mg PO Q8H 10 Days cap Sulfamethox-Tmp 800-160Mg [Bactrim DS 800-160 mg] 1 tab PO Q12HR #20 tab Is patient prescribed a controlled substance at d/c from ED?: No Referrals: [facility] [Primary Care Provider] - 1-2 days Time of Disposition: 16:03
[2018-08-07] MEDS ORDERED: SULFAMETHOX-TMP 800-160MG 1 EACH TAB PO STA (16:08)
[2018-08-07] MEDS ORDERED: CEPHALEXIN 500MG STARTER PACK 4 CAP BTL PO STA (16:08)
== END 2018-08-07 16:41 | disposition home or self-care (01) ==
LOC: EC 13:34
DX: L02.415 Cutaneous abscess of right lower limb (principal); E11.9 Type 2 diabetes mellitus without complications; I10 Essential (primary) hypertension; F17.200 Nicotine dependence, unspecified, uncomplicated; Z79.899 Other long term (current) drug therapy; Z79.84 Long term (current) use of oral hypoglycemic drugs; Z88.8 Allergy status to other drugs, medicaments and biological substances
CPT/HCPCS: 10060; 99282

== ENCOUNTER 2018-08-30 17:58 | Emergency (ER) | payer OTHER ==
[2018-08-30 18:13] VITALS: TEMP 98.5
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
[2018-08-30 19:19] LABS: Amphetamine Screen,Urine Not Detected (NotDetected); Barbiturate Screen,Urine Not Detected (NotDetected); Benzodiazepines Screen,Urine Not Detected (NotDetected); Cocaine Screen,Urine Not Detected (NotDetected); Methadone Screen, Urine Not Detected (NotDetected); Opiate Screen,Urine Not Detected (NotDetected); Oxycodone Screen, Urine Not Detected (NotDetected); Phencyclidine Screen,Urine Not Detected (NotDetected); Tricyclic Antidepressant,Urine Not Detected (NotDetected); Urn Cannabinoid Scrn Not Detected (NotDetected)
[2018-08-30 19:28] LABS: Glucose,Whole Blood 123 mg/dL (75-99)
[2018-08-30 21:43] VITALS: BP 140/78; PULSE 86; RESP 16
== END 2018-08-30 21:41 | disposition home or self-care (01) ==
LOC: EC 17:58
DX: F31.9 Bipolar disorder, unspecified (principal); R45.851 Suicidal ideations; E11.9 Type 2 diabetes mellitus without complications; I10 Essential (primary) hypertension; G40.909 Epilepsy, unspecified, not intractable, without status epilepticus; F41.9 Anxiety disorder, unspecified; F17.200 Nicotine dependence, unspecified, uncomplicated; Z79.84 Long term (current) use of oral hypoglycemic drugs; Z79.82 Long term (current) use of aspirin; Z79.899 Other long term (current) drug therapy; Z88.8 Allergy status to other drugs, medicaments and biological substances
CPT/HCPCS: 36415; 80306; 99285

== ENCOUNTER 2019-01-27 15:42 | Inpatient (IN) | payer MEDICAID, OTHER ==
--- NOTE | 2019-01-27 16:17 | ED ---
Psych HPI - General Chief Complaint: Psychiatric Symptoms Stated Complaint: Mental health Time Seen by Provider: 01/27/19 15:57 Source: patient, RN notes reviewed Mode of arrival: ambulatory Limitations: no limitations - History of Present Illness Initial Comments: 43-year-old male presents emergency Department with police for psychiatric evaluation. Patient states he is depressed, suicidal. Patient states he called for help today. Patient is on Zoloft, Depakote and other medications. He states is not helping. Denies any illicit drug use no alcohol abuse. Denies any physical complaints. - Related Data Home Medications Medication Instructions Recorded Confirmed Loratadine [Claritin] 10 mg PO DAILY 08/08/14 01/27/19 Simvastatin [Zocor] 20 mg PO DAILY 08/08/14 01/27/19 Glimepiride [Amaryl] 1 mg PO DAILY 02/19/17 01/27/19 Chlorthalidone 25 mg PO DAILY 06/10/18 01/27/19 Lisinopril [Zestril] 20 mg PO DAILY 06/10/18 01/27/19 Aspirin EC [Ecotrin Low Dose] 81 mg PO DAILY 08/30/18 01/27/19 Benztropine Mesylate [Cogentin] 2 mg PO TID 08/30/18 01/27/19 Cholecalciferol [Vitamin D3] 5,000 unit PO DAILY 08/30/18 01/27/19 Divalproex ER [Depakote ER] 1,000 mg PO BID 08/30/18 01/27/19 Levothyroxine Sodium [Synthroid] 100 mcg PO DAILY 08/30/18 01/27/19 Sertraline [Zoloft] 200 mg PO DAILY 08/30/18 01/27/19 Triamcinolone 0.5% Ointment 1 applic TOPICAL BID PRN 08/30/18 01/27/19 fluPHENAZine DECANOATE [Prolixin 25 mg IM Q14D 08/30/18 01/27/19 Decanoate] metFORMIN HCL 1,000 mg PO BID 08/30/18 01/27/19 traZODone HCL [Desyrel] 200 mg PO HS 08/30/18 01/27/19 Montelukast [Singulair] 10 mg PO HS 01/27/19 01/27/19 Allergies Allergy/AdvReac Type Severity Reaction Status Date / Time diphenhydramine HCl Allergy Rash/Hives Verified 01/27/19 16:47 [From Benadryl] Review of Systems ROS Statement: Those systems with pertinent positive or pertinent negative responses have been documented in the HPI. ROS Other: All systems not noted in ROS Statement are negative. Past Medical History Past Medical History: Diabetes Mellitus, Hypertension, Seizure Disorder History of Any Multi-Drug Resistant Organisms: None Reported Past Surgical History: Orthopedic Surgery Additional Past Surgical History / Comment(s): right ankle Past Psychological History: Anxiety, Bipolar, Depression Smoking Status: Current every day smoker Past Alcohol Use History: None Reported Past Drug Use History: None Reported General Exam Limitations: no limitations General appearance: alert, in no apparent distress Head exam: Present: atraumatic, normocephalic, normal inspection Eye exam: Present: normal appearance, PERRL, EOMI. Absent: scleral icterus, conjunctival injection, periorbital swelling ENT exam: Present: normal exam, normal oropharynx, mucous membranes moist, TM's normal bilaterally Neck exam: Present: normal inspection, full ROM. Absent: tenderness, meningismus, lymphadenopathy Respiratory exam: Present: normal lung sounds bilaterally. Absent: respiratory distress, wheezes, rales, rhonchi, stridor Cardiovascular Exam: Present: regular rate, normal rhythm, normal heart sounds. Absent: systolic murmur, diastolic murmur, rubs, gallop, clicks GI/Abdominal exam: Present: soft, normal bowel sounds. Absent: distended, tenderness, guarding, rebound, rigid Back exam: Absent: CVA tenderness (R), CVA tenderness (L) Neurological exam: Present: alert, oriented X3, CN II-XII intact Psychiatric exam: Present: depressed Skin exam: Present: warm, dry, intact, normal color. Absent: rash Course Vital Signs 01/27/19 15:53 Temperature 98.3 F Pulse Rate 80 Respiratory 18 Rate Blood Pressure 131/79 O2 Sat by Pulse 96 Oximetry Medical Decision Making - Medical Decision Making 43-year-old male presented emergency department for psychiatric evaluation. Patient evaluated by EPS and patient is voluntary admitted for psychiatric evaluation - Lab Data Lab Results 01/27/19 Range/Units 16:23 Urine Opiates Screen Not Detected (NotDetected) Ur Oxycodone Screen Not Detected (NotDetected) Urine Methadone Screen Not Detected (NotDetected) Ur Propoxyphene Screen Not Detected (NotDetected) Ur Barbiturates Screen Not Detected (NotDetected) U Tricyclic Antidepress Not Detected (NotDetected) Ur Phencyclidine Scrn Not Detected (NotDetected) Ur Amphetamines Screen Not Detected (NotDetected) U Methamphetamines Scrn Not Detected (NotDetected) U Benzodiazepines Scrn Not Detected (NotDetected) Urine Cocaine Screen Not Detected (NotDetected) U Marijuana (THC) Screen Not Detected (NotDetected) Disposition Clinical Impression: Depression, Suicidal ideation, Bipolar disorder Disposition: TRANSFER TO PSYCH HOSP/UNIT Referrals: [facility] [Primary Care Provider] - 1-2 days
[2019-01-27 16:38] LABS: Amphetamine Screen,Urine Not Detected (NotDetected); Barbiturate Screen,Urine Not Detected (NotDetected); Benzodiazepines Screen,Urine Not Detected (NotDetected); Cocaine Screen,Urine Not Detected (NotDetected); Methadone Screen, Urine Not Detected (NotDetected); Opiate Screen,Urine Not Detected (NotDetected); Oxycodone Screen, Urine Not Detected (NotDetected); Phencyclidine Screen,Urine Not Detected (NotDetected); Tricyclic Antidepressant,Urine Not Detected (NotDetected); Urn Cannabinoid Scrn Not Detected (NotDetected)
[2019-01-27] MEDS ORDERED: LORazepam 1 MG TAB PO PRN (17:41)
[2019-01-27] MEDS ORDERED: MAGNESIUM HYDROXIDE 2,400 MG/10 ML CUP PO PRN (17:41)
--- NOTE | 2019-01-27 19:01 | P.HPMEDMHU ---
History of Present Illness H&P Date: 01/27/19 Chief Complaint: depression Patient is a 42-year-old male past medical history of developmental delay, seizure disorder, hypertension, and diabetes mellitus type 2 who presented to the emergency department with complaints of depression and suicidal ideation. He has subsequently been admitted to the mental health unit. We have been asked to evaluate him for medical H&P and his diabetes. Patient seen and examined at bedside. He denies any recent cough, cold, fever, flu, nausea, vomiting, dysuria, chest pain, or shortness breath. He states he's been taking his medications regularly. He is seen at the [facility] and he follows with Dr. Perez from [facility]. He denies missing any doses of medications or any recent changes in his medications. He has no other complaints currently. He states his sleep has been well, appetite has been good. He states he is just suffering with depression. He currently lives at a boarding house and speaks to his mother regularly. Review of Systems Pertinent positives and negatives as discussed in HPI, a complete review of systems was performed and all other systems are negative. Past Medical History Past Medical History: Diabetes Mellitus, Hypertension, Seizure Disorder Additional Past Medical History / Comment(s): Hypothyroidism, vitamin D deficiency, dyslipidemia, ALLERGIES, cognitive impairment History of Any Multi-Drug Resistant Organisms: None Reported Past Surgical History: Orthopedic Surgery Additional Past Surgical History / Comment(s): right ankle repair due to fracture Past Psychological History: Anxiety, Bipolar, Depression Smoking Status: Never smoker Past Alcohol Use History: None Reported Past Drug Use History: None Reported Additional History: Lives at a boarding house. Has a court-appointed guardian. - Past Family History Mother Additional Family Medical History / Comment(s): No known medical history. Patient denies any family history of diabetes or hypertension Medications and Allergies Home Medications Medication Instructions Recorded Confirmed Type Loratadine [Claritin] 10 mg PO DAILY 08/08/14 01/27/19 History Simvastatin [Zocor] 20 mg PO DAILY 08/08/14 01/27/19 History Glimepiride [Amaryl] 1 mg PO DAILY 02/19/17 01/27/19 History Chlorthalidone 25 mg PO DAILY 06/10/18 01/27/19 History Lisinopril [Zestril] 20 mg PO DAILY 06/10/18 01/27/19 History Aspirin EC [Ecotrin Low Dose] 81 mg PO DAILY 08/30/18 01/27/19 History Benztropine Mesylate [Cogentin] 2 mg PO TID 08/30/18 01/27/19 History Cholecalciferol [Vitamin D3] 5,000 unit PO DAILY 08/30/18 01/27/19 History Divalproex ER [Depakote ER] 1,000 mg PO BID 08/30/18 01/27/19 History Levothyroxine Sodium [Synthroid] 100 mcg PO DAILY 08/30/18 01/27/19 History Sertraline [Zoloft] 200 mg PO DAILY 08/30/18 01/27/19 History Triamcinolone 0.5% Ointment 1 applic TOPICAL BID PRN 08/30/18 01/27/19 History fluPHENAZine DECANOATE [Prolixin 25 mg IM Q14D 08/30/18 01/27/19 History Decanoate] metFORMIN HCL 1,000 mg PO BID 08/30/18 01/27/19 History traZODone HCL [Desyrel] 200 mg PO HS 08/30/18 01/27/19 History Montelukast [Singulair] 10 mg PO HS 01/27/19 01/27/19 History Allergies Allergy/AdvReac Type Severity Reaction Status Date / Time diphenhydramine HCl Allergy Rash/Hives Verified 01/27/19 16:47 [From Benadryl] Physical Exam Osteopathic Statement: *. No significant issues noted on an osteopathic structural exam other than those noted in the History and Physical/Consult. Vitals: Vital Signs Temp Pulse Pulse Resp BP BP Pulse Ox 01/27/19 18:25 97.4 F L 65 16 125/69 96 01/27/19 17:53 98.0 F 65 18 116/78 100 01/27/19 15:53 98.3 F 80 18 131/79 96 Intake and Output 01/27/19 01/27/19 01/27/19 06:59 14:59 22:59 Other: Weight 110.5 kg General: non toxic, no distress, appears at stated age, normal weight, poor hygiene, disheveled Derm: no unusual rashes/lesions no unusual ecchymoses, warm, dry Head: atraumatic, normocephalic, symmetric Eyes: EOMI, no lid lag, anicteric sclera, pupils equal round reactive to light ENT: Nose and ears atraumatic, no thrush, no pharyngeal erythema Neck: No thyromegaly, no cervical lymphadenopathy, trachea midline, supple Mouth: no lip lesion, mucus membranes moist Cardiovascular: S1S2 reg, no murmur, positive posterior tibial pulse bilateral, no edema, capillary refill less than 2 seconds Lungs: CTA bilateral, no rhonchi, no rales , no accessory muscle use Abdominal: soft, nontender to palpation, no guarding, no appreciable organomegaly, normal bowel sounds Ext: no gross muscle atrophy, muscle strength 5 out of 5 in all 4 extremities grossly, no contractures, Neuro: CN II-XI grossly intact, light touch intact all 4 extremities, finger to nose within normal limits, Psych: Alert, oriented, appropriate affect, slowed thinking Cranial Nerve Examination - Cranial Nerves Cranial Nerve II- Optic: Intact Cranial Nerve III- Oculomotor: Intact Cranial Nerve IV- Trochlear: Intact Cranial Nerve V- Trigeminal: Intact Cranial Nerve - Abducens: Intact Cranial Nerve VII- Facial: Intact Cranial Nerve VIII- Auditory: Intact Cranial Nerve IX- Glossopharyngeal: Intact Cranial Nerve X- Vagus: Intact Cranial Nerve XI- Accessory: Intact Cranial Nerve XII- Hypoglossal: Intact Thrombosis Risk Factor Assmnt - DVT/VTE Prophylaxis DVT/VTE Prophylaxis: Low risk, early ambulation encouraged Assessment and Plan Assessment: Hypertension -Continue with chlorthalidone, lisinopril -Follow blood pressures Diabetes mellitus type 2 -Check hemoglobin A1c -Continue with metformin and Amaryl -Check a.m. fasting glucose daily -Outpatient follow-up with [facility] Dyslipidemia -Check lipid profile -Continue with statin therapy Hypothyroidism -Continue Synthroid -Check TSH History of seizure disorder -Last seizure was at age 15 -Continue with Depakote Depression -Your psych management Thank you for allowing us to participate in the care of this patient. We will follow peripherally. Do not hesitate to contact us with questions. Someone can be reached from the [facility] hospitalist group at all hours of the day at [phone].
[2019-01-27] MEDS: DIVALPROEX ER 500 MG TAB.ER.24H PO SCH (20:46)
[2019-01-27] MEDS: BENZTROPINE MESYLATE 1 MG TAB PO SCH (20:47)
[2019-01-27] MEDS: metFORMIN 500 MG TAB PO SCH (20:47)
[2019-01-27] MEDS: traZODone HCL 100 MG TAB PO SCH (20:47)
[2019-01-27] MEDS: MONTELUKAST 10 MG TAB PO SCH (20:47)
[2019-01-28] MEDS: LEVOTHYROXINE 100 MCG TAB PO SCH (06:36)
[2019-01-28 07:30] LABS: Glucose,Whole Blood 96 mg/dL (75-99)
[2019-01-28] MEDS: CHOLECALCIFEROL 1,000 UNIT TAB PO SCH (08:59)
[2019-01-28] MEDS: GLIMEPIRIDE 1 MG TAB PO SCH (09:00)
[2019-01-28] MEDS: CHLORTHALIDONE 25 MG TAB PO SCH (09:00)
[2019-01-28] MEDS: LISINOPRIL 20 MG TAB PO SCH (09:00)
[2019-01-28] MEDS: SERTRALINE 100 MG TAB PO SCH (09:00)
[2019-01-28] MEDS: metFORMIN 500 MG TAB PO SCH ×2 (09:00→20:11)
[2019-01-28] MEDS: ASPIRIN 81 MG PO SCH (09:00)
[2019-01-28] MEDS: LORATADINE 10 MG TAB PO SCH (09:00)
[2019-01-28] MEDS: ATORVASTATIN 10 MG TAB PO SCH (09:00)
[2019-01-28] MEDS: DIVALPROEX ER 500 MG TAB.ER.24H PO SCH ×2 (09:00→20:12)
[2019-01-28] MEDS: BENZTROPINE MESYLATE 1 MG TAB PO SCH ×3 (09:00→22:22)
--- NOTE | 2019-01-28 09:58 | P.HP ---
Psychiatric H&P - . H&P Date: 01/28/19 History & Physical: Allergies Allergy/AdvReac Type Severity Reaction Status Date / Time diphenhydramine HCl Allergy Rash/Hives Verified 01/27/19 16:47 [From Benadryl] Vital Signs Temp 97.5 F L 01/28/19 06:46 Pulse 65 01/28/19 06:46 Resp 16 01/28/19 06:46 BP 107/56 01/28/19 06:46 Pulse Ox 96 01/27/19 18:25 Intake & Output 01/27/19 01/28/19 01/28/19 18:59 06:59 18:59 Weight 110.5 kg Laboratory Last Values POC Glucose (mg/dL) 96 mg/dL (75-99) 01/28/19 07:12 POC Glu Director Of Software Engineering ID Isabelle Lima 01/28/19 07:12 Urine Opiates Screen Not Detected (NotDetected) 01/27/19 16:23 Ur Oxycodone Screen Not Detected (NotDetected) 01/27/19 16:23 Urine Methadone Screen Not Detected (NotDetected) 01/27/19 16:23 Ur Propoxyphene Screen Not Detected (NotDetected) 01/27/19 16:23 Ur Barbiturates Screen Not Detected (NotDetected) 01/27/19 16:23 U Tricyclic Antidepress Not Detected (NotDetected) 01/27/19 16:23 Ur Phencyclidine Scrn Not Detected (NotDetected) 01/27/19 16:23 Ur Amphetamines Screen Not Detected (NotDetected) 01/27/19 16:23 U Methamphetamines Scrn Not Detected (NotDetected) 01/27/19 16:23 U Benzodiazepines Scrn Not Detected (NotDetected) 01/27/19 16:23 Urine Cocaine Screen Not Detected (NotDetected) 01/27/19 16:23 U Marijuana (THC) Screen Not Detected (NotDetected) 01/27/19 16:23 Assessment and Plan Assessment: Patient is a 43-year-old male past medical history of developmental delay, seizure disorder, hypertension, and diabetes mellitus type 2 who presented to the emergency department with complaints of depression and suicidal ideation. He has subsequently been admitted to the mental health unit. We have been asked to evaluate him for medical H&P and his diabetes. Patient seen and examined at bedside. He denies any recent cough, cold, fever, flu, nausea, vomiting, dysuria, chest pain, or shortness breath. He states he's been taking his medications regularly. He is seen at the [facility] and he follows with Dr. Perez from [facility]. He denies missing any doses of medications or any recent changes in his medications. He has no other complaints currently. He states his sleep has been well, appetite has been good. He states he is just suffering with depression. He currently lives at a boarding house and speaks to his mother regularly. Past Medical History Past Medical History: Diabetes Mellitus, Hypertension, Seizure Disorder Additional Past Medical History / Comment(s): Hypothyroidism, vitamin D deficiency, dyslipidemia, ALLERGIES, cognitive impairment History of Any Multi-Drug Resistant Organisms: None Reported Past Surgical History: Orthopedic Surgery Additional Past Surgical History / Comment(s): right ankle repair due to fracture Past Psychological History: Anxiety, Bipolar, Depression Smoking Status: Never smoker Past Alcohol Use History: None Reported Past Drug Use History: None Reported Additional History: Lives at a boarding house. Has a court-appointed guardian. - Past Family History Mother Additional Family Medical History / Comment(s): No known medical history. Patient denies any family history of diabetes or hypertension Medications and Allergies Home Medications Medication Instructions Recorded Confirmed Type Loratadine [Claritin] 10 mg PO DAILY 08/08/14 01/27/19 History Simvastatin [Zocor] 20 mg PO DAILY 08/08/14 01/27/19 History Glimepiride [Amaryl] 1 mg PO DAILY 02/19/17 01/27/19 History Chlorthalidone 25 mg PO DAILY 06/10/18 01/27/19 History Lisinopril [Zestril] 20 mg PO DAILY 06/10/18 01/27/19 History Aspirin EC [Ecotrin Low Dose] 81 mg PO DAILY 08/30/18 01/27/19 History Benztropine Mesylate [Cogentin] 2 mg PO TID 08/30/18 01/27/19 History Cholecalciferol [Vitamin D3] 5,000 unit PO DAILY 08/30/18 01/27/19 History Divalproex ER [Depakote ER] 1,000 mg PO BID 08/30/18 01/27/19 History Levothyroxine Sodium [Synthroid] 100 mcg PO DAILY 08/30/18 01/27/19 History Sertraline [Zoloft] 200 mg PO DAILY 08/30/18 01/27/19 History Triamcinolone 0.5% Ointment 1 applic TOPICAL BID PRN 08/30/18 01/27/19 History fluPHENAZine DECANOATE [Prolixin 25 mg IM Q14D 08/30/18 01/27/19 History Decanoate] metFORMIN HCL 1,000 mg PO BID 08/30/18 01/27/19 History traZODone HCL [Desyrel] 200 mg PO HS 08/30/18 01/27/19 History Montelukast [Singulair] 10 mg PO HS 01/27/19 01/27/19 History Allergies Allergy/AdvReac Type Severity Reaction Status Date / Time diphenhydramine HCl Allergy Rash/Hives Verified 01/27/19 16:47 [From Benadryl] Musculoskeletal Examination - Abnormal/Involuntary Movements: [none Strength: [greater than antigravity (greater than/equal to 3/5) in all extremities Muscle Tone: [no impairment Gait: [grossly normal Station: [grossly normal Mental Status Examination - General Appearance: [well groomed Speech/Language: [spontaneous, slow, rapid, slurred, rambled, mumbling, hesitant, halting, monotone, expressive, mute, loud, soft, other] Attitude/Behavior: [cooperative Mood: [ depressed, anxious, Affect: [full range, lively, Orientation: [time, person, place situation] Thought Content: [wnl, Risk Factors: [admits suicidal (ideations, plan), and/or Homicidal (ideations, plan), other] Perception: [wnl Thought Processes: [ concrete, circumstantial, tangential, other] Concentration/Attention Span: [wnl [Per observation and interview with the patient] Recent Memory: , impaired] [0, 1, 2 or 3 out of 3 in 3 minutes] Remote Memory: [wnl,] [past events, as related history] Intelligence: [below average [based on history, based on vocabulary, syntax, grammar, and content] Judgement: [ poor] [per patient's behavior/history of present illness] Insight: [ poor] [understanding severity of illness/history of present illness] Admitting Diagnosis: [Bipolar affective disorder neurocognitive disorder mild] Housing stability: [x] Able to vocalize needs: [x] Values and traditions: [x] Patient Limitations: [medication, non-compliance, pathological/unsupported environment, no interests, intellectual impairment, complicated medical illness, legal issues, lack of social supports, other] Initial Plan of Care: [Formal voluntary was admitted to [address] [place] [address] for camacho icidal ideation. By police and brought to the hospital. He lives in a senior living. He'll be placed on 15 minute checks and continue on his medications as outlined. Disposition (immediately for discharge in 5 days.] Estimated Length of Stay: [5 days Initial Discharge Plan: [[facility] Prognosis: [ guarded] Justification for Inpatient Hospitalization - [Hallucinations, delusions, agitation, anxiety, depression resulting in significant loss of functioning.] [Dangerous to self, others, or property with need for controlled environment.] [Emotional or behavioral conditions and complications requiring 24 hour medical and nursing care.] [Need for special drug therapy, or other therapeutic program requiring continuous hospitalization.] [Failure of social or occupational functioning.] [Inability to meet basic life and health needs.] [Legally mandated admission.] [Patient's occupation presents danger to public safety if they continue to use drugs or alcohol.] [Biomedical conditions and complications requiring 24 hour medical and nursing care.] [Recovery environment includes detrimental family structure, logical impediments to out-patient treatment.] [High relapse potential due to inability to control substance use.] [Needs treatment for acute intoxication or withdrawal.] [Failure of treatment at a lower level of care.] Other: [] (1) Neurocognitive disorder Current Visit: Yes Status: Acute Code(s): R41.9 - UNSP SYMPTOMS AND SIGNS W COGNITIVE FUNCTIONS AND AWARENESS SNOMED Code(s): 683825051 (2) Depression Current Visit: Yes Status: Acute Code(s): F32.9 - MAJOR DEPRESSIVE DISORDER, SINGLE EPISODE, UNSPECIFIED SNOMED Code(s): 86565829 (3) Suicidal ideation Current Visit: Yes Status: Acute Code(s): R45.851 - SUICIDAL IDEATIONS SNOMED Code(s): 1476042 Time with Patient: Less than 30
[2019-01-28 10:06] LABS: Basophils % (A) 1 %; Eosinophils # (A) 0.1 k/uL (0-0.7); Eosinophils % (A) 2 %; HCT 52.3 % (39.0-53.0); HGB 16.7 gm/dL (13.0-17.5); Lymphocytes # (A) 1.6 k/uL (1.0-4.8); Lymphocytes % (A) 31 %; MCH 27.7 pg (25.0-35.0); MCV 86.6 fL (80.0-100.0); Monocytes # (A) 0.4 k/uL (0-1.0); Monocytes % (A) 8 %; Neutrophils # (A) 2.9 k/uL (1.3-7.7); Neutrophils % (A) 56 %; Platelet Count 174 k/uL (150-450); RBC 6.04 m/uL (4.30-5.90); RDW 14.5 % (11.5-15.5); WBC 5.2 k/uL (3.8-10.6)
[2019-01-28 10:24] LABS: ALT 25 U/L (21-72); AST 15 U/L (17-59); Albumin 4.1 g/dL (3.5-5.0); Alkaline Phosphatase 72 U/L (38-126); Anion Gap 10 mmol/L; Bilirubin, Delta 0.1 mg/dL (0.0-0.2); Bilirubin,Unconjugated 0.4 mg/dL (0.0-1.1); Blood Urea Nitrogen 16 mg/dL (9-20); Calcium 9.9 mg/dL (8.4-10.2); Carbon Dioxide 28 mmol/L (22-30); Chloride 100 mmol/L (98-107); Cholesterol 124 mg/dL (<200); Glucose 117 mg/dL (74-99); HDL Cholesterol 34 mg/dL (40-60); LDL Cholesterol,Calculated 58 mg/dL (0-99); Potassium 4.3 mmol/L (3.5-5.1); Sodium 138 mmol/L (137-145); Total Bilirubin 0.5 mg/dL (0.2-1.3); Total Protein 6.5 g/dL (6.3-8.2); Triglycerides 161 mg/dL (<150)
[2019-01-28 10:29] LABS: Valproic Acid (Depakene) 65.2 ug/mL
[2019-01-28] MEDS: MAG HYDROX/AL HYDROX/SIMETH 30 ML CUP PO PRN (17:39)
[2019-01-28] MEDS: traZODone HCL 100 MG TAB PO SCH (20:10)
[2019-01-28] MEDS: MONTELUKAST 10 MG TAB PO SCH (20:10)
[2019-01-29] MEDS: LEVOTHYROXINE 100 MCG TAB PO SCH (06:12)
[2019-01-29 06:41] LABS: Glucose,Whole Blood 166 mg/dL (75-99)
[2019-01-29] MEDS: ATORVASTATIN 10 MG TAB PO SCH (08:20)
[2019-01-29] MEDS: BENZTROPINE MESYLATE 1 MG TAB PO SCH ×3 (08:20→21:15)
[2019-01-29] MEDS: ASPIRIN 81 MG PO SCH (08:20)
[2019-01-29] MEDS: DIVALPROEX ER 500 MG TAB.ER.24H PO SCH ×2 (08:21→21:15)
[2019-01-29] MEDS: LISINOPRIL 20 MG TAB PO SCH (08:21)
[2019-01-29] MEDS: GLIMEPIRIDE 1 MG TAB PO SCH (08:21)
[2019-01-29] MEDS: CHLORTHALIDONE 25 MG TAB PO SCH (08:21)
[2019-01-29] MEDS: LORATADINE 10 MG TAB PO SCH (08:21)
[2019-01-29] MEDS: SERTRALINE 100 MG TAB PO SCH (08:22)
[2019-01-29] MEDS: CHOLECALCIFEROL 1,000 UNIT TAB PO SCH (08:22)
[2019-01-29] MEDS: metFORMIN 500 MG TAB PO SCH ×2 (08:22→21:15)
--- NOTE | 2019-01-29 11:06 | P.PN ---
Subjective Progress Note Date: 01/29/19 Principal diagnosis: Bipolar affective disorder neurocognitive disorder mild 01/29/2019: Chart reviewed and discussed in team today and titrating his medicine. Patient interviewed and still states that he has depression and suicidal thoughts angry irritable and agitated at times but able to participate in [facility] therapeutic environment Objective - Vital Signs Vital signs: Vital Signs Temp 97.9 F 01/29/19 06:52 Pulse 79 01/29/19 08:26 Resp 18 01/29/19 08:26 BP 127/60 01/29/19 08:26 Pulse Ox 96 01/27/19 18:25 - Labs CBC & Chem 7: 01/28/19 09:42 01/28/19 09:42 Labs: Abnormal Lab Results - Last 24 Hours (Table) 01/29/19 Range/Units 06:22 POC Glucose (mg/dL) 166 H (75-99) mg/dL Assessment and Plan Assessment: Patient is a 43-year-old male past medical history of developmental delay, seizure disorder, hypertension, and diabetes mellitus type 2 who presented to the emergency department with complaints of depression and suicidal ideation. He has subsequently been admitted to the mental health unit. We have been asked to evaluate him for medical H&P and his diabetes. Patient seen and examined at bedside. He denies any recent cough, cold, fever, flu, nausea, vomiting, dysuria, chest pain, or shortness breath. He states he's been taking his medications regularly. He is seen at the [facility] and he follows with Dr. Perez from [facility]. He denies missing any doses of medications or any recent changes in his medications. He has no other complaints currently. He states his sleep has been well, appetite has been good. He states he is just suffering with depression. He currently lives at a boarding house and speaks to his mother regularly. Past Medical History Past Medical History: Diabetes Mellitus, Hypertension, Seizure Disorder Additional Past Medical History / Comment(s): Hypothyroidism, vitamin D deficiency, dyslipidemia, ALLERGIES, cognitive impairment History of Any Multi-Drug Resistant Organisms: None Reported Past Surgical History: Orthopedic Surgery Additional Past Surgical History / Comment(s): right ankle repair due to fracture Past Psychological History: Anxiety, Bipolar, Depression Smoking Status: Never smoker Past Alcohol Use History: None Reported Past Drug Use History: None Reported Additional History: Lives at a boarding house. Has a court-appointed guardian. - Past Family History Mother Additional Family Medical History / Comment(s): No known medical history. Patient denies any family history of diabetes or hypertension Medications and Allergies Home Medications Medication Instructions Recorded Confirmed Type Loratadine [Claritin] 10 mg PO DAILY 08/08/14 01/27/19 History Simvastatin [Zocor] 20 mg PO DAILY 08/08/14 01/27/19 History Glimepiride [Amaryl] 1 mg PO DAILY 02/19/17 01/27/19 History Chlorthalidone 25 mg PO DAILY 06/10/18 01/27/19 History Lisinopril [Zestril] 20 mg PO DAILY 06/10/18 01/27/19 History Aspirin EC [Ecotrin Low Dose] 81 mg PO DAILY 08/30/18 01/27/19 History Benztropine Mesylate [Cogentin] 2 mg PO TID 08/30/18 01/27/19 History Cholecalciferol [Vitamin D3] 5,000 unit PO DAILY 08/30/18 01/27/19 History Divalproex ER [Depakote ER] 1,000 mg PO BID 08/30/18 01/27/19 History Levothyroxine Sodium [Synthroid] 100 mcg PO DAILY 08/30/18 01/27/19 History Sertraline [Zoloft] 200 mg PO DAILY 08/30/18 01/27/19 History Triamcinolone 0.5% Ointment 1 applic TOPICAL BID PRN 08/30/18 01/27/19 History fluPHENAZine DECANOATE [Prolixin 25 mg IM Q14D 08/30/18 01/27/19 History Decanoate] metFORMIN HCL 1,000 mg PO BID 08/30/18 01/27/19 History traZODone HCL [Desyrel] 200 mg PO HS 08/30/18 01/27/19 History Montelukast [Singulair] 10 mg PO HS 01/27/19 01/27/19 History Allergies Allergy/AdvReac Type Severity Reaction Status Date / Time diphenhydramine HCl Allergy Rash/Hives Verified 01/27/19 16:47 [From Benadryl] Musculoskeletal Examination - Abnormal/Involuntary Movements: [none Strength: [greater than antigravity (greater than/equal to 3/5) in all extremities Muscle Tone: [no impairment Gait: [grossly normal Station: [grossly normal Mental Status Examination - General Appearance: [well groomed Speech/Language: [spontaneous, slow, rapid, slurred, rambled, mumbling, hesitant, halting, monotone, expressive, mute, loud, soft, other] Attitude/Behavior: [cooperative Mood: [ depressed, anxious, Affect: [full range, lively, Orientation: [time, person, place situation] Thought Content: [wnl, Risk Factors: [admits suicidal (ideations, plan), and/or Homicidal (ideations, plan), other] Perception: [wnl Thought Processes: [ concrete, circumstantial, tangential, other] Concentration/Attention Span: [wnl [Per observation and interview with the patient] Recent Memory: , impaired] [0 out of 3 in 3 minutes] Remote Memory: [wnl,] [past events, as related history] Intelligence: [below average [based on history, based on vocabulary, syntax, grammar, and content] Judgement: [ poor] [per patient's behavior/history of present illness] Insight: [ poor] [understanding severity of illness/history of present illness] Admitting Diagnosis: [Bipolar affective disorder neurocognitive disorder mild] Housing stability: [x] Able to vocalize needs: [x] Values and traditions: [x] Patient Limitations: [medication, non-compliance, pathological/unsupported environment, no interests, intellectual impairment, complicated medical illness, legal issues, lack of social supports, other] Initial Plan of Care: [Formal voluntary was admitted to [address] [place] [address] for suicidal ideation. By police and brought to the hospital. He lives in a [place] [facility]. He'll be placed on 15 minute checks and continue on his medications as outlined. Disposition (immediately for discharge in 5 days. 01/29/2019: Patient be continued on his medications as outlined remain on 15 minute checks and disposition is being planned for discharge either Friday or depending on his suicidal ideation] Estimated Length of Stay: [4 days Initial Discharge Plan: [home, [facility] Prognosis: [ guarded] J (1) Neurocognitive disorder Current Visit: Yes Status: Acute Priority: Medium Code(s): R41.9 - UNSP SYMPTOMS AND SIGNS W COGNITIVE FUNCTIONS AND AWARENESS SNOMED Code(s): 956382246 (2) Depression Current Visit: Yes Status: Acute Priority: Medium Code(s): F32.9 - MAJOR DEPRESSIVE DISORDER, SINGLE EPISODE, UNSPECIFIED SNOMED Code(s): 58331866 (3) Suicidal ideation Current Visit: Yes Status: Acute Priority: Medium Code(s): R45.851 - SUICIDAL IDEATIONS SNOMED Code(s): 9318306 Time with Patient: Less than 30
[2019-01-29] MEDS: traZODone HCL 100 MG TAB PO SCH (21:15)
[2019-01-29] MEDS: MONTELUKAST 10 MG TAB PO SCH (21:15)
[2019-01-30] MEDS: LEVOTHYROXINE 100 MCG TAB PO SCH (06:03)
[2019-01-30 06:19] LABS: Glucose,Whole Blood 102 mg/dL (75-99)
[2019-01-30] MEDS: SERTRALINE 100 MG TAB PO SCH (08:46)
[2019-01-30] MEDS: GLIMEPIRIDE 1 MG TAB PO SCH (08:46)
[2019-01-30] MEDS: DIVALPROEX ER 500 MG TAB.ER.24H PO SCH ×2 (08:46→21:50)
[2019-01-30] MEDS: CHOLECALCIFEROL 1,000 UNIT TAB PO SCH (08:46)
[2019-01-30] MEDS: BENZTROPINE MESYLATE 1 MG TAB PO SCH ×3 (08:47→21:50)
[2019-01-30] MEDS: ATORVASTATIN 10 MG TAB PO SCH (08:47)
[2019-01-30] MEDS: ASPIRIN 81 MG PO SCH (08:47)
[2019-01-30] MEDS: LORATADINE 10 MG TAB PO SCH (08:47)
[2019-01-30] MEDS: metFORMIN 500 MG TAB PO SCH ×2 (08:47→21:50)
[2019-01-30] MEDS: LISINOPRIL 20 MG TAB PO SCH (08:47)
[2019-01-30] MEDS: CHLORTHALIDONE 25 MG TAB PO SCH (08:47)
[2019-01-30] MEDS: MAG HYDROX/AL HYDROX/SIMETH 30 ML CUP PO PRN ×2 (10:57→19:30)
[2019-01-30 11:03] LABS: Glucose,Whole Blood 164 mg/dL (75-99)
--- NOTE | 2019-01-30 16:40 | P.PN ---
Progress Note - Text IDENTIFICATION DATA: Patient is a 43-year-old male with history of developmental delay, seizure disorder, living in a boarding house presented with complaints of depression and suicidal ideations. He follows up with Dr. Perez from [facility]. INTERVAL HISTORY: He reports getting sad from time to time due to thinking about his brother. He says writting down his thoughts helps him. He reports feeling happy today about his mother visiting him today. He denies current suicidal or homicidal ideations. He reports good sleep and appetite. He enjoys going to all his groups. He stated he did not realize how dangerous it was riding a bike in traffic, he thought he was playing chicken with his bike. He currently states he will not do it gain and states he will stay inside his home playing video games. He denies current symptoms of depression. MENTAL STATUS EXAMINATION: Appeared his stated age in fair grooming and hygeine. his speech and thought process goal directed and limited. The patient is alert and oriented 4 and in no apparent distress. Mood is euthymic and affect is constricted.. thought content is negative for suicidal or homicidal ideation. Denies current auditory or visual halluciantions. insight and judgment are limited. ASSESSMENT AND PLAN: Bipolar disorder, depressed Continue current treatment
[2019-01-30] MEDS: MONTELUKAST 10 MG TAB PO SCH (21:50)
[2019-01-30] MEDS: traZODone HCL 100 MG TAB PO SCH (21:50)
[2019-01-30] MEDS: ACETAMINOPHEN TAB 325 MG TAB PO PRN (21:51)
[2019-01-30 23:41] LABS: Glucose,Whole Blood 98 mg/dL (75-99)
[2019-01-30 23:41] LABS: Basophils % (A) 0 %; Eosinophils % (A) 1 %; HCT 48.6 % (39.0-53.0); HGB 15.8 gm/dL (13.0-17.5); Lymphocytes # (A) 0.6 k/uL (1.0-4.8); Lymphocytes % (A) 12 %; MCH 27.5 pg (25.0-35.0); MCHC 32.5 g/dL (31.0-37.0); MCV 84.6 fL (80.0-100.0); Mean Platelet Volume 7.1; Monocytes # (A) 0.3 k/uL (0-1.0); Monocytes % (A) 6 %; Neutrophils # (A) 3.7 k/uL (1.3-7.7); Neutrophils % (A) 80 %; Platelet Count 154 k/uL (150-450); RBC 5.75 m/uL (4.30-5.90); RDW 14.2 % (11.5-15.5); WBC 4.7 k/uL (3.8-10.6)
[2019-01-30 23:55] LABS: Anion Gap 13 mmol/L; Blood Urea Nitrogen 20 mg/dL (9-20); Calcium 9.1 mg/dL (8.4-10.2); Carbon Dioxide 26 mmol/L (22-30); Chloride 91 mmol/L (98-107); Glucose 94 mg/dL (74-99); Potassium 4.1 mmol/L (3.5-5.1); Sodium 130 mmol/L (137-145)
--- NOTE | 2019-01-31 00:03 | XR ---
EXAM: XR Chest, 2 Views CLINICAL HISTORY: ITS.REASON XR Reason: Chest Pain and Diminished Lung Sounds TECHNIQUE: Frontal and lateral views of the chest. COMPARISON: 06/12/18 chest x-ray IMPRESSION: Slightly increased opacity in the left lower lobe may represent infection or atelectasis. Normal heart size. No effusion.
[2019-01-31] MEDS: LEVOTHYROXINE 100 MCG TAB PO SCH (06:00)
[2019-01-31 06:14] LABS: Glucose,Whole Blood 100 mg/dL (75-99)
[2019-01-31] MEDS: CHLORTHALIDONE 25 MG TAB PO SCH (09:23)
[2019-01-31] MEDS: GLIMEPIRIDE 1 MG TAB PO SCH (09:23)
[2019-01-31] MEDS: ATORVASTATIN 10 MG TAB PO SCH (09:24)
[2019-01-31] MEDS: CHOLECALCIFEROL 1,000 UNIT TAB PO SCH (09:24)
[2019-01-31] MEDS: ASPIRIN 81 MG PO SCH (09:24)
[2019-01-31] MEDS: DIVALPROEX ER 500 MG TAB.ER.24H PO SCH ×2 (09:24→21:17)
[2019-01-31] MEDS: LORATADINE 10 MG TAB PO SCH (09:24)
[2019-01-31] MEDS: BENZTROPINE MESYLATE 1 MG TAB PO SCH ×3 (09:25→21:16)
[2019-01-31] MEDS: SERTRALINE 100 MG TAB PO SCH (09:25)
[2019-01-31] MEDS: metFORMIN 500 MG TAB PO SCH ×2 (09:25→21:17)
[2019-01-31] MEDS: LISINOPRIL 20 MG TAB PO SCH (09:25)
[2019-01-31] MEDS: MAG HYDROX/AL HYDROX/SIMETH 30 ML CUP PO PRN (13:20)
--- NOTE | 2019-01-31 15:40 | P.PN ---
Progress Note - Text IDENTIFICATION DATA: Patient is a 43-year-old male with history of developmental delay, seizure disorder, living in a boarding house presented with complaints of depression and suicidal ideations. He follows up with Dr. Perez from [facility]. INTERVAL HISTORY: Patient reports feeling depressed every now and then and writting down his feeling s helps him he says. He currently reports feeling sad about missing his dog and cat and says he likes animals and is eager to home to play with is animals. He reports vomitting and diarrhea since last night and says his current temparature is 99.7. Patien is advised to drink pleanty of fluids and to let staff know if his symptoms worsen. To be evalauted by medicaine if his symptoms doesnt subside. He reports good sleep and appetite. Complaint with treatment. No side effects. MENTAL STATUS EXAMINATION: 43 year old male. Well built and nourished. pleasant and cooperative. Appeared his stated age in fair grooming and hygeine. his speech and thought process goal directed but limited. The patient is alert and oriented 4 and in no apparent distress. Mood is euthymic and affect is constricted.. thought content is negative for suicidal or homicidal ideation. Denies current auditory or visual halluciantions. insight and judgment are improving. ASSESSMENT AND PLAN: Bipolar disorder, depressed Continue current treatment Consult medicine if his symptoms, vomitting, diarrhea and fever worsen
--- NOTE | 2019-01-31 16:32 | P.PN ---
Subjective Progress Note Date: 01/31/19 The patient was seen and examined at the bedside in the mental health unit. The patient reported diarrhea and vomiting since dinner yesterday evening. He also ordered intermittent vague chest pain yesterday which lasted a few hours and then resolved spontaneously with no associated shortness of breath, cough, palpitations, or diaphoresis. He reports no prior episodes of chest pain, and notes that since midnight he hasn't had any additional episodes of pain. The patient reports that his diarrhea and vomiting has slowed down and he has had 2 episodes of each since 8 AM this morning. Otherwise denied fever, chills, calf pain, headache, or dizziness. Objective - Vital Signs Vital signs: Vital Signs Temp 99.4 F 01/31/19 06:41 Pulse 97 01/31/19 09:27 Resp 16 01/31/19 06:41 BP 133/77 01/31/19 09:27 Pulse Ox 92 L 01/30/19 22:30 - Exam General: Non-toxic, in no acute distress, appears stated age, obese HEENT: NC/AT, anicteric sclerae, moist conjunctiva, no lid-lag, PERRLA Cardiovascular: S1/S2 wnl, no murmurs, rubs, or gallops Lungs: Clear to auscultation, normal respiratory effort, no accessory muscle use Abdominal: Soft, non-tender, non-distended, no guarding, rebound, or rigidity Skin: Warm, dry Extremities: No edema or contractures Psychiatric: Alert and oriented to person, place and time Neuro: CN II-XII grossly intact, Strength 5/5 in all 4 extremities, Speech intact, Sensation to light touch grossly intact throughout - Labs CBC & Chem 7: 01/30/19 23:11 01/30/19 23:11 Labs: Abnormal Lab Results - Last 24 Hours (Table) 01/30/19 01/30/19 01/31/19 Range/Units 23:11 23:11 06:06 Lymphocytes # 0.6 L (1.0-4.8) k/uL Sodium 130 L (137-145) mmol/L Chloride 91 L (98-107) mmol/L Creatinine 0.55 L (0.66-1.25) mg/dL POC Glucose (mg/dL) 100 H (75-99) mg/dL Assessment and Plan Plan: Acute viral gastroenteritis -Recommend placing the patient on liquid diet until symptoms subside -Advised oral hydration -Symptomatic management Opacity on chest x-ray, low suspicion for pneumonia -Patient afebrile, with no cough -We'll obtain blood work and if abnormal, will consider a course of antibiotics -EKG reviewed, revealing NSR @ 72 bpm. No ischemic changes noted Hyponatremia -Likely secondary to multiple episodes of diarrhea and vomiting -Supportive measures for now Hypertension -Hold chlorthalidone in setting of hyponatremia -Continue with lisinopril Diabetes mellitus -Very well controlled with A1c of 6 -Continue with metformin and Amaryl Hypothyroidism -Continue with Synthroid -TSH within normal limits Seizure disorder -Continue with Depakote Depression -As per Psychiatry Thank you for allowing us to participate in the care of this patient. We will follow peripherally. Do not hesitate to contact us with questions. Someone can be reached from the [facility] hospitalist group at all hours of the day at [phone].
[2019-01-31 18:32] LABS: HGB 15.5 gm/dL (13.0-17.5); MCH 27.8 pg (25.0-35.0); MCHC 32.9 g/dL (31.0-37.0); MCV 84.5 fL (80.0-100.0); Mean Platelet Volume 7.6; Platelet Count 150 k/uL (150-450); RBC 5.56 m/uL (4.30-5.90); RDW 14.9 % (11.5-15.5); WBC 6.1 k/uL (3.8-10.6)
[2019-01-31 19:01] LABS: Anion Gap 11 mmol/L; Blood Urea Nitrogen 18 mg/dL (9-20); Calcium 8.4 mg/dL (8.4-10.2); Carbon Dioxide 31 mmol/L (22-30); Chloride 90 mmol/L (98-107); Glucose 84 mg/dL (74-99); Potassium 3.9 mmol/L (3.5-5.1); Sodium 132 mmol/L (137-145)
[2019-01-31] MEDS: MONTELUKAST 10 MG TAB PO SCH (21:17)
[2019-01-31] MEDS: traZODone HCL 100 MG TAB PO SCH (21:17)
[2019-02-01] MEDS: LEVOTHYROXINE 100 MCG TAB PO SCH (05:40)
[2019-02-01 05:52] LABS: Glucose,Whole Blood 103 mg/dL (75-99)
[2019-02-01] MEDS: ACETAMINOPHEN TAB 325 MG TAB PO PRN (05:54)
[2019-02-01] MEDS: MAG HYDROX/AL HYDROX/SIMETH 30 ML CUP PO PRN ×2 (05:56→20:29)
[2019-02-01] MEDS: GLIMEPIRIDE 1 MG TAB PO SCH (08:47)
[2019-02-01] MEDS: BENZTROPINE MESYLATE 1 MG TAB PO SCH ×3 (08:50→20:29)
[2019-02-01] MEDS: metFORMIN 500 MG TAB PO SCH ×2 (08:50→20:30)
[2019-02-01] MEDS: ATORVASTATIN 10 MG TAB PO SCH (08:50)
[2019-02-01] MEDS: LORATADINE 10 MG TAB PO SCH (08:50)
[2019-02-01] MEDS: LISINOPRIL 20 MG TAB PO SCH (08:50)
[2019-02-01] MEDS: DIVALPROEX ER 500 MG TAB.ER.24H PO SCH ×2 (08:51→20:29)
[2019-02-01] MEDS: CHOLECALCIFEROL 1,000 UNIT TAB PO SCH (08:52)
[2019-02-01] MEDS: ASPIRIN 81 MG PO SCH (08:52)
[2019-02-01] MEDS: SERTRALINE 100 MG TAB PO SCH (08:52)
[2019-02-01 11:43] LABS: ALT 25 U/L (21-72); AST 20 U/L (17-59); Albumin 4.1 g/dL (3.5-5.0); Alkaline Phosphatase 63 U/L (38-126); Anion Gap 11 mmol/L; Blood Urea Nitrogen 12 mg/dL (9-20); Calcium 8.9 mg/dL (8.4-10.2); Carbon Dioxide 30 mmol/L (22-30); Chloride 91 mmol/L (98-107); Glucose 92 mg/dL (74-99); Sodium 132 mmol/L (137-145); Total Bilirubin 0.5 mg/dL (0.2-1.3); Total Protein 6.4 g/dL (6.3-8.2)
--- NOTE | 2019-02-01 13:57 | P.PN ---
Subjective Progress Note Date: 02/01/19 Principal diagnosis: Bipolar affective disorder neurocognitive disorder mild 01/29/2019: Chart reviewed and discussed in team today and titrating his medicine. Patient interviewed and still states that he has depression and suicidal thoughts angry irritable and agitated at times but able to participate in [facility] 02/01/2019: Chart reviewed and discussed with nursing staff and social work and team this morning. Patient interviewed and still states he has some depression but now denies suicidal thoughts. He is more integrated in the [facility] and he was he came in for treatment. He is states he is grateful for treatment that he is getting Objective - Vital Signs Vital signs: Vital Signs Temp 98.3 F 02/01/19 05:58 Pulse 80 02/01/19 05:58 Resp 16 02/01/19 05:58 BP 136/91 02/01/19 05:58 Pulse Ox 95 02/01/19 05:58 - Labs CBC & Chem 7: 01/31/19 17:18 02/01/19 11:12 Labs: Abnormal Lab Results - Last 24 Hours (Table) 01/31/19 02/01/19 02/01/19 Range/Units 17:18 05:51 11:12 Sodium 132 L 132 L (137-145) mmol/L Chloride 90 L 91 L (98-107) mmol/L Carbon Dioxide 31 H (22-30) mmol/L Creatinine 0.65 L (0.66-1.25) mg/dL POC Glucose (mg/dL) 103 H (75-99) mg/dL Assessment and Plan Assessment: Patient is a 43-year-old male past medical history of developmental delay, seizure disorder, hypertension, and diabetes mellitus type 2 who presented to the emergency department with complaints of depression and suicidal ideation. He has subsequently been admitted to the mental health unit. We have been asked to evaluate him for medical H&P and his diabetes. Patient seen and examined at bedside. He denies any recent cough, cold, fever, flu, nausea, vomiting, dysuria, chest pain, or shortness breath. He states he's been taking his medications regularly. He is seen at the [facility] clinic and he follows with Dr. Perez from [facility]. He denies missing any doses of medications or any recent changes in his medications. He has no other complaints currently. He states his sleep has been well, appetite has been good. He states he is just suffering with depression. He currently lives at a boarding house and speaks to his mother regularly. Past Medical History Past Medical History: Diabetes Mellitus, Hypertension, Seizure Disorder Additional Past Medical History / Comment(s): Hypothyroidism, vitamin D deficiency, dyslipidemia, ALLERGIES, cognitive impairment History of Any Multi-Drug Resistant Organisms: None Reported Past Surgical History: Orthopedic Surgery Additional Past Surgical History / Comment(s): right ankle repair due to fracture Past Psychological History: Anxiety, Bipolar, Depression Smoking Status: Never smoker Past Alcohol Use History: None Reported Past Drug Use History: None Reported Additional History: Lives at a boarding house. Has a court-appointed guardian. - Past Family History Mother Additional Family Medical History / Comment(s): No known medical history. Patient denies any family history of diabetes or hypertension Medications and Allergies Home Medications Medication Instructions Recorded Confirmed Type Loratadine [Claritin] 10 mg PO DAILY 08/08/14 01/27/19 History Simvastatin [Zocor] 20 mg PO DAILY 08/08/14 01/27/19 History Glimepiride [Amaryl] 1 mg PO DAILY 02/19/17 01/27/19 History Chlorthalidone 25 mg PO DAILY 06/10/18 01/27/19 History Lisinopril [Zestril] 20 mg PO DAILY 06/10/18 01/27/19 History Aspirin EC [Ecotrin Low Dose] 81 mg PO DAILY 08/30/18 01/27/19 History Benztropine Mesylate [Cogentin] 2 mg PO TID 08/30/18 01/27/19 History Cholecalciferol [Vitamin D3] 5,000 unit PO DAILY 08/30/18 01/27/19 History Divalproex ER [Depakote ER] 1,000 mg PO BID 08/30/18 01/27/19 History Levothyroxine Sodium [Synthroid] 100 mcg PO DAILY 08/30/18 01/27/19 History Sertraline [Zoloft] 200 mg PO DAILY 08/30/18 01/27/19 History Triamcinolone 0.5% Ointment 1 applic TOPICAL BID PRN 08/30/18 01/27/19 History fluPHENAZine DECANOATE [Prolixin 25 mg IM Q14D 08/30/18 01/27/19 History Decanoate] metFORMIN HCL 1,000 mg PO BID 08/30/18 01/27/19 History traZODone HCL [Desyrel] 200 mg PO HS 08/30/18 01/27/19 History Montelukast [Singulair] 10 mg PO HS 01/27/19 01/27/19 History Allergies Allergy/AdvReac Type Severity Reaction Status Date / Time diphenhydramine HCl Allergy Rash/Hives Verified 01/27/19 16:47 [From Benadryl] Musculoskeletal Examination - Abnormal/Involuntary Movements: [none Strength: [greater than antigravity (greater than/equal to 3/5) in all extremities Muscle Tone: [no impairment Gait: [grossly normal Station: [grossly normal Mental Status Examination - General Appearance: [well groomed Speech/Language: [spontaneous, slow, rapid, slurred, rambled, mumbling, hesit ant, halting, monotone, expressive, mute, loud, soft, other] Attitude/Behavior: [cooperative Mood: [ depressed, anxious, Affect: [full range, lively, Orientation: [time, person, place situation] Thought Content: [wnl, Risk Factors: [admits suicidal (ideations, plan), and/or Homicidal (ideations, plan), other] Perception: [wnl Thought Processes: [ concrete, circumstantial, tangential, other] Concentration/Attention Span: [wnl [Per observation and interview with the patient] Recent Memory: , impaired] [0 out of 3 in 3 minutes] Remote Memory: [wnl,] [past events, as related history] Intelligence: [below average [based on history, based on vocabulary, syntax, grammar, and content] Judgement: [ poor] [per patient's behavior/history of present illness] Insight: [ poor] [understanding severity of illness/history of present illness] Admitting Diagnosis: [Bipolar affective disorder neurocognitive disorder mild] Housing stability: [x] Able to vocalize needs: [x] Values and traditions: [x] Patient Limitations: [medication, non-compliance, pathological/unsupported environment, no interests, intellectual impairment, complicated medical illness, legal issues, lack of social supports, other] Initial Plan of Care: [Formal voluntary was admitted to [address] for suicidal ideation. By police and brought to the hospital. He lives in a alf. He'll be placed on 15 minute checks and continue on his medications as outlined. Disposition (immediately for discharge in 5 days. 01/29/2019: Patient be continued on his medications as outlined remain on 15 minute checks and disposition is being planned for discharge either Friday or Friday depending on his suicidal ideation 02/01/2019: Patient is continued on his medications and 15 minute checks; awaiting placement at the current time] Estimated Length of Stay: [4 days Initial Discharge Plan: [home, [facility] Prognosis: [ guarded] J (1) Neurocognitive disorder Current Visit: Yes Status: Acute Priority: Medium Code(s): R41.9 - UNSP SYMPTOMS AND SIGNS W COGNITIVE FUNCTIONS AND AWARENESS SNOMED Code(s): 337822944 (2) Depression Current Visit: Yes Status: Acute Priority: Medium Code(s): F32.9 - MAJOR DEPRESSIVE DISORDER, SINGLE EPISODE, UNSPECIFIED SNOMED Code(s): 58264346 (3) Suicidal ideation Current Visit: Yes Status: Acute Priority: Medium Code(s): R45.851 - SUICIDAL IDEATIONS SNOMED Code(s): 4479342 Time with Patient: Less than 30
[2019-02-01] MEDS: MONTELUKAST 10 MG TAB PO SCH (20:29)
[2019-02-01] MEDS: traZODone HCL 100 MG TAB PO SCH (20:30)
[2019-02-02] MEDS: LEVOTHYROXINE 100 MCG TAB PO SCH (05:42)
[2019-02-02 06:14] LABS: Glucose,Whole Blood 100 mg/dL (75-99)
[2019-02-02 06:38] VITALS: BP 133/82; PULSE 61; RESP 18; TEMP 97.6
[2019-02-02] MEDS: ATORVASTATIN 10 MG TAB PO SCH (09:00)
[2019-02-02] MEDS: CHOLECALCIFEROL 1,000 UNIT TAB PO SCH (09:00)
[2019-02-02] MEDS: BENZTROPINE MESYLATE 1 MG TAB PO SCH (09:00)
[2019-02-02] MEDS: ASPIRIN 81 MG PO SCH (09:00)
[2019-02-02] MEDS: SERTRALINE 100 MG TAB PO SCH (09:01)
[2019-02-02] MEDS: metFORMIN 500 MG TAB PO SCH (09:01)
[2019-02-02] MEDS: GLIMEPIRIDE 1 MG TAB PO SCH (09:01)
[2019-02-02] MEDS: LORATADINE 10 MG TAB PO SCH (09:01)
[2019-02-02] MEDS: LISINOPRIL 20 MG TAB PO SCH (09:01)
[2019-02-02] MEDS: DIVALPROEX ER 500 MG TAB.ER.24H PO SCH (09:02)
--- NOTE | 2019-02-02 11:21 | P.DS ---
Providers Date of admission: 01/27/19 17:37 Expected date of discharge: 02/02/19 Attending physician: Emory Grace DO Consults: 01/27/19 17:41 Consult Physician Routine Consulting Provider: Debbie Arteaga Consult Reason/Comments: H & P and medical care Do you want consulting provider notified?: Yes Primary care physician: [facility] - Discharge Diagnosis(es) (1) Neurocognitive disorder Allergies Allergy/AdvReac Type Severity Reaction Status Date / Time diphenhydramine HCl Allergy Rash/Hives Verified 01/27/19 16:47 [From Benadryl] Vital Signs Temp 97.5 F L 01/28/19 06:46 Pulse 65 01/28/19 06:46 Resp 16 01/28/19 06:46 BP 107/56 01/28/19 06:46 Pulse Ox 96 01/27/19 18:25 Intake & Output 01/27/19 01/28/19 01/28/19 18:59 06:59 18:59 Weight 110.5 kg Laboratory Last Values POC Glucose (mg/dL) 96 mg/dL (75-99) 01/28/19 07:12 POC Glu Global Safety Officer ID Isabelle Lima 01/28/19 07:12 Urine Opiates Screen Not Detected (NotDetected) 01/27/19 16:23 Ur Oxycodone Screen Not Detected (NotDetected) 01/27/19 16:23 Urine Methadone Screen Not Detected (NotDetected) 01/27/19 16:23 Ur Propoxyphene Screen Not Detected (NotDetected) 01/27/19 16:23 Ur Barbiturates Screen Not Detected (NotDetected) 01/27/19 16:23 U Tricyclic Antidepress Not Detected (NotDetected) 01/27/19 16:23 Ur Phencyclidine Scrn Not Detected (NotDetected) 01/27/19 16:23 Ur Amphetamines Screen Not Detected (NotDetected) 01/27/19 16:23 U Methamphetamines Scrn Not Detected (NotDetected) 01/27/19 16:23 U Benzodiazepines Scrn Not Detected (NotDetected) 01/27/19 16:23 Urine Cocaine Screen Not Detected (NotDetected) 01/27/19 16:23 U Marijuana (THC) Screen Not Detected (NotDetected) 01/27/19 16:23 Assessment and Plan Assessment: Patient is a 43-year-old male past medical history of developmental delay, seizure disorder, hypertension, and diabetes mellitus type 2 who presented to the emergency department with complaints of depression and suicidal ideation. He has subsequently been admitted to the mental health unit. We have been asked to evaluate him for medical H&P and his diabetes. Patient seen and examined at bedside. He denies any recent cough, cold, fever, flu, nausea, vomiting, dysuria, chest pain, or shortness breath. He states he's been taking his medications regularly. He is [facility] at the [facility] and he follows with Dr. Perez from [facility]. He denies missing any doses of medications or any recent changes in his medications. He has no other complaints currently. He states his sleep has been well, appetite has been good. He states he is just suffering with depression. He currently lives at a boarding house and speaks to his mother regularly. Past Medical History Past Medical History: Diabetes Mellitus, Hypertension, Seizure Disorder Additional Past Medical History / Comment(s): Hypothyroidism, vitamin D deficiency, dyslipidemia, ALLERGIES, cognitive impairment History of Any Multi-Drug Resistant Organisms: None Reported Past Surgical History: Orthopedic Surgery Additional Past Surgical History / Comment(s): right ankle repair due to fracture Past Psychological History: Anxiety, Bipolar, Depression Smoking Status: Never smoker Past Alcohol Use History: None Reported Past Drug Use History: None Reported Additional History: Lives at a boarding house. Has a court-appointed guardian. - Past Family History Mother Additional Family Medical History / Comment(s): No known medical history. Patient denies any family history of diabetes or hypertension Medications and Allergies Home Medications Medication Instructions Recorded Confirmed Type Loratadine [Claritin] 10 mg PO DAILY 08/08/14 01/27/19 History Simvastatin [Zocor] 20 mg PO DAILY 08/08/14 01/27/19 History Glimepiride [Amaryl] 1 mg PO DAILY 02/19/17 01/27/19 History Chlorthalidone 25 mg PO DAILY 06/10/18 01/27/19 History Lisinopril [Zestril] 20 mg PO DAILY 06/10/18 01/27/19 History Aspirin EC [Ecotrin Low Dose] 81 mg PO DAILY 08/30/18 01/27/19 History Benztropine Mesylate [Cogentin] 2 mg PO TID 08/30/18 01/27/19 History Cholecalciferol [Vitamin D3] 5,000 unit PO DAILY 08/30/18 01/27/19 History Divalproex ER [Depakote ER] 1,000 mg PO BID 08/30/18 01/27/19 History Levothyroxine Sodium [Synthroid] 100 mcg PO DAILY 08/30/18 01/27/19 History Sertraline [Zoloft] 200 mg PO DAILY 08/30/18 01/27/19 History Triamcinolone 0.5% Ointment 1 applic TOPICAL BID PRN 08/30/18 01/27/19 History fluPHENAZine DECANOATE [Prolixin 25 mg IM Q14D 08/30/18 01/27/19 History Decanoate] metFORMIN HCL 1,000 mg PO BID 08/30/18 01/27/19 History traZODone HCL [Desyrel] 200 mg PO HS 08/30/18 01/27/19 History Montelukast [Singulair] 10 mg PO HS 01/27/19 01/27/19 History Allergies Allergy/AdvReac Type Severity Reaction Status Date / Time diphenhydramine HCl Allergy Rash/Hives Verified 01/27/19 16:47 [From Benadryl] Current Visit: Yes Status: Acute Priority: Low (2) Depression Current Visit: Yes Status: Acute Priority: Low (3) Suicidal ideation Current Visit: Yes Status: Acute Priority: Low Hospital Course: Plan of Care: [Formal voluntary was admitted to [address] [place] [address] for suicidal ideation. By police and brought to the hospital. He lives in a care home. He'll be placed on 15 minute checks and continue on his medications as outlined. Disposition (immediately for discharge in 5 days. 01/29/2019: Patient be continued on his medications as outlined remain on 15 minute checks and disposition is being planned for discharge either Friday or Friday depending on his suicidal ideation 02/01/2019: Patient is continued on his medications and 15 minute checks; awaiting placement at the current time] Mental status examination time of discharge: The patient presents alert, pleasant, and cooperative. There calmly seated without any agitated behavior. [he] reports that [his] mood is good. Affect is congruent and euthymic. [he] deny having any suicidal or homicidal ideation intent or plan. [he] denies any auditory or visual hallucinations. There is no evidence of any delusional thought content. [he has] thought process is linear and goal-directed. [his] speech is fluent and nonpressured. his] memory and concentration is grossly intact for the purposes of this session. 02/02/2019 he were received 25 mg of Prolixin Decanoate today which means in 2 weeks he will be eligible for another injection 02/17/2019 Patient Condition at Discharge: Stable Plan - Discharge Summary Discharge Rx Participant: Yes New Discharge Prescriptions: New Acetaminophen Tab [Tylenol] 650 mg PO Q4HR PRN tab PRN Reason: Pain/Discomfort Continue Loratadine [Claritin] 10 mg PO DAILY Triamcinolone 0.5% Ointment 1 applic TOPICAL BID PRN PRN Reason: Skin Irritation Cholecalciferol [Vitamin D3] 5,000 unit PO DAILY Aspirin EC [Ecotrin Low Dose] 81 mg PO DAILY Montelukast [Singulair] 10 mg PO HS Glimepiride [Amaryl] 1 mg PO DAILY 30 Days #30 tab Chlorthalidone 25 mg PO DAILY 30 Days #30 tablet Benztropine Mesylate [Cogentin] 2 mg PO TID 30 Days #90 tablet Divalproex ER [Depakote ER] 1,000 mg PO BID 30 Days #60 tab.er.24h traZODone HCL [Desyrel] 200 mg PO HS 30 Days #60 tab metFORMIN HCL 1,000 mg PO BID 30 Days #60 tablet fluPHENAZine DECANOATE [Prolixin Decanoate] 25 mg IM Q14D 14 Days #1 ml Levothyroxine Sodium [Synthroid] 100 mcg PO DAILY 30 Days #30 tab Lisinopril [Zestril] 20 mg PO DAILY 30 Days #30 tab Simvastatin [Zocor] 20 mg PO DAILY 30 Days #30 tab Sertraline [Zoloft] 200 mg PO DAILY 30 Days #60 tab Discharge Medication List Loratadine [Claritin] 10 mg PO DAILY 08/08/14 [History] Aspirin EC [Ecotrin Low Dose] 81 mg PO DAILY 08/30/18 [History] Cholecalciferol [Vitamin D3] 5,000 unit PO DAILY 08/30/18 [History] Triamcinolone 0.5% Ointment 1 applic TOPICAL BID PRN 08/30/18 [History] Montelukast [Singulair] 10 mg PO HS 01/27/19 [History] Acetaminophen Tab [Tylenol] 650 mg PO Q4HR PRN tab 02/02/19 [Rx] Benztropine Mesylate [Cogentin] 2 mg PO TID 30 Days #90 tablet 02/02/19 [Rx] Chlorthalidone 25 mg PO DAILY 30 Days #30 tablet 02/02/19 [Rx] Divalproex ER [Depakote ER] 1,000 mg PO BID 30 Days #60 tab.er.24h 02/02/19 [Rx] Glimepiride [Amaryl] 1 mg PO DAILY 30 Days #30 tab 02/02/19 [Rx] Levothyroxine Sodium [Synthroid] 100 mcg PO DAILY 30 Days #30 tab 02/02/19 [Rx] Lisinopril [Zestril] 20 mg PO DAILY 30 Days #30 tab 02/02/19 [Rx] Sertraline [Zoloft] 200 mg PO DAILY 30 Days #60 tab 02/02/19 [Rx] Simvastatin [Zocor] 20 mg PO DAILY 30 Days #30 tab 02/02/19 [Rx] fluPHENAZine DECANOATE [Prolixin Decanoate] 25 mg IM Q14D 14 Days #1 ml 02/02/19 [Rx] metFORMIN HCL 1,000 mg PO BID 30 Days #60 tablet 02/02/19 [Rx] traZODone HCL [Desyrel] 200 mg PO HS 30 Days #60 tab 02/02/19 [Rx] Follow up Appointment(s)/Referral(s): [facility] [Primary Care Provider] - 1-2 days Discharge Disposition: HOME SELF-CARE
[2019-02-02] MEDS ORDERED: fluPHENAZine DECANOATE 25 MG/ML 5ML MDV IM ONE (11:30)
== END 2019-02-02 13:35 | disposition home or self-care (01) | DRG 885 ==
LOC: EC 15:42 → 3MHU 17:37
PROVIDERS: ADMIT Psychiatry & Neurology Psychiatry; ATTEND Psychiatry & Neurology Psychiatry
DX: F31.9 Bipolar disorder, unspecified (principal); R45.851 Suicidal ideations; E87.1 Hypo-osmolality and hyponatremia; E03.9 Hypothyroidism, unspecified; E11.9 Type 2 diabetes mellitus without complications; E78.5 Hyperlipidemia, unspecified; F17.210 Nicotine dependence, cigarettes, uncomplicated; F41.9 Anxiety disorder, unspecified; G40.909 Epilepsy, unspecified, not intractable, without status epilepticus; I10 Essential (primary) hypertension; Z79.82 Long term (current) use of aspirin; Z79.84 Long term (current) use of oral hypoglycemic drugs; Z79.890 Hormone replacement therapy; Z79.899 Other long term (current) drug therapy; Z91.19 Patient's noncompliance with other medical treatment and regimen; F81.9 Developmental disorder of scholastic skills, unspecified; R41.9 Unspecified symptoms and signs involving cognitive functions and awareness; Z88.8 Allergy status to other drugs, medicaments and biological substances; A08.4 Viral intestinal infection, unspecified; E55.9 Vitamin D deficiency, unspecified
CPT/HCPCS: 71046; 80048; 80053; 80061; 80164; 80165; 80306; 82075; 82248; 83036; 84443; 84484; 85025; 85027; 87324; 93005; 99285

== ENCOUNTER 2019-02-11 19:37 | Inpatient (IN) | payer MEDICAID, OTHER ==
--- NOTE | 2019-02-11 20:48 | ED ---
Psych HPI - General Chief Complaint: Psychiatric Symptoms Stated Complaint: PD Petition Time Seen by Provider: 02/11/19 20:05 Source: patient, police, RN notes reviewed, old records reviewed Mode of arrival: ambulatory - History of Present Illness Initial Comments: This is a 43-year-old male the ER for evaluation. Patient is today for evaluation of mental health brought in by PD petition by PD. Patient denies drug or alcohol abuse currently. Patient was playing chicken the road with contacts MD Complaint: suicidal ideation, other (Patient does have developmental to delay) -: minutes(s) Associated Psychiatric Symptoms: depression, racing thoughts History of same: Yes Quality: constant Improves With: none Worsens With: none Associated Symptoms: denies other symptoms Treatments Prior to Arrival: placed on mental health hold If Self Harm: admits thoughts of self harm - Related Data Home Medications Medication Instructions Recorded Confirmed Loratadine [Claritin] 10 mg PO DAILY 08/08/14 02/11/19 Aspirin EC [Ecotrin Low Dose] 81 mg PO DAILY 08/30/18 02/11/19 Cholecalciferol [Vitamin D3] 5,000 unit PO DAILY 08/30/18 02/11/19 Triamcinolone 0.5% Ointment 1 applic TOPICAL BID PRN 08/30/18 02/11/19 Montelukast [Singulair] 10 mg PO HS 01/27/19 02/11/19 Promethazine 6.25MG/5Ml [Phenergan 6.25 mg PO Q8H PRN 02/11/19 02/11/19 Syrup] Previous Rx's Medication Instructions Recorded Benztropine Mesylate [Cogentin] 2 mg PO TID 30 Days #90 tablet 02/02/19 Chlorthalidone 25 mg PO DAILY 30 Days #30 tablet 02/02/19 Divalproex ER [Depakote ER] 1,000 mg PO BID 30 Days #60 02/02/19 tab.er.24h Glimepiride [Amaryl] 1 mg PO DAILY 30 Days #30 tab 02/02/19 Levothyroxine Sodium [Synthroid] 100 mcg PO DAILY 30 Days #30 tab 02/02/19 Lisinopril [Zestril] 20 mg PO DAILY 30 Days #30 tab 02/02/19 Sertraline [Zoloft] 200 mg PO DAILY 30 Days #60 tab 02/02/19 Simvastatin [Zocor] 20 mg PO DAILY 30 Days #30 tab 02/02/19 fluPHENAZine DECANOATE [Prolixin 25 mg IM Q14D 14 Days #1 ml 02/02/19 Decanoate] metFORMIN HCL 1,000 mg PO BID 30 Days #60 tablet 02/02/19 traZODone HCL [Desyrel] 200 mg PO HS 30 Days #60 tab 02/02/19 Allergies Allergy/AdvReac Type Severity Reaction Status Date / Time diphenhydramine HCl Allergy Rash/Hives Verified 02/11/19 20:34 [From Benadryl] Review of Systems ROS Statement: Those systems with pertinent positive or pertinent negative responses have been documented in the HPI. ROS Other: All systems not noted in ROS Statement are negative. Past Medical History Past Medical History: Diabetes Mellitus, Hypertension, Seizure Disorder Additional Past Medical History / Comment(s): Hypothyroidism, vitamin D deficiency, dyslipidemia, ALLERGIES, cognitive impairment History of Any Multi-Drug Resistant Organisms: None Reported Past Surgical History: Orthopedic Surgery Additional Past Surgical History / Comment(s): right ankle repair due to fracture Past Psychological History: Anxiety, Bipolar, Depression Smoking Status: Never smoker Past Alcohol Use History: None Reported Past Drug Use History: None Reported - Past Family History Mother Additional Family Medical History / Comment(s): No known medical history. Patient denies any family history of diabetes or hypertension General Exam Limitations: no limitations General appearance: alert, in no apparent distress Head exam: Present: atraumatic, normocephalic, normal inspection Eye exam: Present: normal appearance, PERRL, EOMI. Absent: scleral icterus, conjunctival injection, periorbital swelling ENT exam: Present: normal exam, mucous membranes moist Neck exam: Present: normal inspection. Absent: tenderness, meningismus, lymphadenopathy Respiratory exam: Present: normal lung sounds bilaterally. Absent: respiratory distress, wheezes, rales, rhonchi, stridor Cardiovascular Exam: Present: regular rate, normal rhythm, normal heart sounds. Absent: systolic murmur, diastolic murmur, rubs, gallop, clicks GI/Abdominal exam: Present: soft, normal bowel sounds. Absent: distended, tenderness, guarding, rebound, rigid Extremities exam: Present: normal inspection, full ROM, normal capillary refill. Absent: tenderness, pedal edema, joint swelling, calf tenderness Back exam: Present: normal inspection Neurological exam: Present: alert, oriented X3, CN II-XII intact Psychiatric exam: Present: normal affect, normal mood Skin exam: Present: warm, dry, intact, normal color. Absent: rash Course Vital Signs 02/11/19 20:05 Temperature 98.4 F Pulse Rate 75 Respiratory 18 Rate Blood Pressure 132/76 O2 Sat by Pulse 97 Oximetry - Reevaluation(s) Reevaluation #1: Medical clear for psychiatric evaluation Medical Decision Making - Medical Decision Making 43 male to be admitted for mental health evaluation and treatment Disposition Clinical Impression: Bipolar disorder, Neurocognitive disorder, Schizoaffective disorder, bipolar type, Depression, Suicidal ideation Disposition: TRANSFER TO PSYCH HOSP/UNIT Condition: Fair Is patient prescribed a controlled substance at d/c from ED?: No
[2019-02-11] MEDS ORDERED: MAG HYDROX/AL HYDROX/SIMETH 30 ML CUP PO PRN (22:57)
[2019-02-11] MEDS ORDERED: MAGNESIUM HYDROXIDE 2,400 MG/10 ML CUP PO PRN (22:57)
[2019-02-11] MEDS: traZODone HCL 100 MG TAB PO SCH (23:45)
[2019-02-11] MEDS: metFORMIN 500 MG TAB PO SCH (23:45)
[2019-02-11] MEDS: MONTELUKAST 10 MG TAB PO SCH (23:45)
[2019-02-11] MEDS: DIVALPROEX ER 500 MG TAB.ER.24H PO SCH (23:45)
[2019-02-11] MEDS: BENZTROPINE MESYLATE 1 MG TAB PO SCH (23:46)
--- NOTE | 2019-02-11 23:48 | P.HPIM ---
History of Present Illness H&P Date: 02/11/19 Patient is a 43-year-old male with a PMH of schizophrenia, diabetes mellitus, development delay, hypertension, and seizure disorder, was brought in under police custody for strange behavior. The patient reports that he was chasing cars and hearing voices. He otherwise denied any active complaints and reports compliance with his medications. He denied chest pain, shortness of breath, nausea, vomiting, diarrhea, abdominal pain, fever, chills, or cough. Review of Systems Pertinent positives and negatives as discussed in HPI, a complete review of systems was performed and all other systems are negative. Past Medical History Past Medical History: Diabetes Mellitus, Hypertension, Seizure Disorder Additional Past Medical History / Comment(s): Hypothyroidism, vitamin D deficiency, dyslipidemia, ALLERGIES, cognitive impairment History of Any Multi-Drug Resistant Organisms: None Reported Past Surgical History: Orthopedic Surgery Additional Past Surgical History / Comment(s): right ankle repair due to fracture Past Psychological History: Anxiety, Bipolar, Depression Smoking Status: Never smoker Past Alcohol Use History: None Reported Past Drug Use History: None Reported - Past Family History Mother Additional Family Medical History / Comment(s): No known medical history. Patient denies any family history of diabetes or hypertension Medications and Allergies Home Medications Medication Instructions Recorded Confirmed Type Loratadine [Claritin] 10 mg PO DAILY 08/08/14 02/11/19 History Aspirin EC [Ecotrin Low Dose] 81 mg PO DAILY 08/30/18 02/11/19 History Cholecalciferol [Vitamin D3] 5,000 unit PO DAILY 08/30/18 02/11/19 History Triamcinolone 0.5% Ointment 1 applic TOPICAL BID PRN 08/30/18 02/11/19 History Montelukast [Singulair] 10 mg PO HS 01/27/19 02/11/19 History Benztropine Mesylate [Cogentin] 2 mg PO TID 30 Days #90 tablet 02/02/19 02/11/19 Rx Chlorthalidone 25 mg PO DAILY 30 Days #30 tablet 02/02/19 02/11/19 Rx Divalproex ER [Depakote ER] 1,000 mg PO BID 30 Days #60 02/02/19 02/11/19 Rx tab.er.24h Glimepiride [Amaryl] 1 mg PO DAILY 30 Days #30 tab 02/02/19 02/11/19 Rx Levothyroxine Sodium [Synthroid] 100 mcg PO DAILY 30 Days #30 tab 02/02/19 02/11/19 Rx Lisinopril [Zestril] 20 mg PO DAILY 30 Days #30 tab 02/02/19 02/11/19 Rx Sertraline [Zoloft] 200 mg PO DAILY 30 Days #60 tab 02/02/19 02/11/19 Rx Simvastatin [Zocor] 20 mg PO DAILY 30 Days #30 tab 02/02/19 02/11/19 Rx fluPHENAZine DECANOATE [Prolixin 25 mg IM Q14D 14 Days #1 ml 02/02/19 02/11/19 Rx Decanoate] metFORMIN HCL 1,000 mg PO BID 30 Days #60 tablet 02/02/19 02/11/19 Rx traZODone HCL [Desyrel] 200 mg PO HS 30 Days #60 tab 02/02/19 02/11/19 Rx Promethazine 6.25MG/5Ml [Phenergan 6.25 mg PO Q8H PRN 02/11/19 02/11/19 History Syrup] Allergies Allergy/AdvReac Type Severity Reaction Status Date / Time diphenhydramine HCl Allergy Rash/Hives Verified 02/11/19 20:34 [From Benadryl] Physical Exam Vitals: Vital Signs Temp Pulse Pulse Resp BP BP Pulse Ox 02/11/19 23:05 97.2 F L 75 20 134/79 02/11/19 22:29 98.6 F 87 18 127/91 97 02/11/19 20:05 98.4 F 75 18 132/76 97 Intake and Output 02/11/19 02/11/19 02/12/19 14:59 22:59 06:59 Other: Weight 238.8 kg General: non toxic, no distress, appears at stated age, normal weight Derm: no unusual rashes/lesions no unusual ecchymoses, warm, dry Head: atraumatic, normocephalic, symmetric Eyes: EOMI, no lid lag, anicteric sclera, pupils equal round reactive to light ENT: Nose and ears atraumatic, no thrush, no pharyngeal erythema Neck: No thyromegaly, no cervical lymphadenopathy, trachea midline, supple Mouth: no lip lesion, mucus membranes moist Cardiovascular: S1S2 reg, no murmur, positive posterior tibial pulse bilateral, no edema, capillary refill less than 2 seconds Lungs: CTA bilateral, no rhonchi, no rales , no accessory muscle use Abdominal: soft, nontender to palpation, no guarding, no appreciable organomegaly, normal bowel sounds Ext: no gross muscle atrophy, muscle strength 5 out of 5 in all 4 extremities grossly, no contractures, Neuro: CN II-XI grossly intact, light touch intact all 4 extremities, finger to nose within normal limits, Psych: Alert, oriented, appropriate affect Assessment and Plan Plan: Diabetes mellitus -Resume home medications: Metformin and Amaryl Seizure disorder -Resume home medications: Depakote Hypertension -Resume home medications: Lisinopril, chlorthalidone Psychosis -As per psychiatry Hypothyroidism -Resume home medications Synthroid 100 mics daily Thank you for allowing us to participate in the care of this patient. We will follow peripherally. Do not hesitate to contact us with questions. Someone can be reached from the [facility] [place] hospitalist group at all hours of the day at [phone].
[2019-02-11] MEDS: ACETAMINOPHEN TAB 325 MG TAB PO PRN (23:49)
[2019-02-12] MEDS ORDERED: PROMETHAZINE HCL 6.25 MG/5 ML CUP PO PRN
[2019-02-12] MEDS: LEVOTHYROXINE 100 MCG TAB PO SCH (07:01)
[2019-02-12] MEDS: CHOLECALCIFEROL 1,000 UNIT TAB PO SCH (07:47)
[2019-02-12] MEDS: ATORVASTATIN 10 MG TAB PO SCH (07:47)
[2019-02-12] MEDS: LISINOPRIL 20 MG TAB PO SCH (07:48)
[2019-02-12] MEDS: SERTRALINE 100 MG TAB PO SCH (07:48)
[2019-02-12] MEDS: metFORMIN 500 MG TAB PO SCH ×2 (07:48→20:35)
[2019-02-12] MEDS: BENZTROPINE MESYLATE 1 MG TAB PO SCH ×3 (07:48→20:35)
[2019-02-12] MEDS: LORATADINE 10 MG TAB PO SCH (07:48)
[2019-02-12] MEDS: CHLORTHALIDONE 25 MG TAB PO SCH (07:48)
[2019-02-12] MEDS: ASPIRIN 81 MG PO SCH (07:48)
[2019-02-12] MEDS: GLIMEPIRIDE 1 MG TAB PO SCH (07:48)
[2019-02-12] MEDS: DIVALPROEX ER 500 MG TAB.ER.24H PO SCH ×2 (07:48→20:35)
[2019-02-12 08:07] LABS: Glucose,Whole Blood 98 mg/dL (75-99)
[2019-02-12] MEDS: ACETAMINOPHEN TAB 325 MG TAB PO PRN ×2 (08:34→20:35)
[2019-02-12 10:25] VITALS: BMI 30.5
[2019-02-12] MEDS ORDERED: fluPHENAZine DECANOATE 25 MG/ML 5ML MDV IM ONE (11:00)
[2019-02-12] MEDS ORDERED: INFLUENZA VACCINE (6 MOS+) 60 MCG/0.5 ML SYRINGE IM ONE (11:00)
[2019-02-12] MEDS: traZODone HCL 100 MG TAB PO SCH (20:35)
[2019-02-12] MEDS: MONTELUKAST 10 MG TAB PO SCH (20:35)
[2019-02-13] MEDS: LEVOTHYROXINE 100 MCG TAB PO SCH (06:33)
[2019-02-13 06:58] LABS: Glucose,Whole Blood 113 mg/dL (75-99)
[2019-02-13] MEDS: ASPIRIN 81 MG PO SCH (08:29)
[2019-02-13] MEDS: ATORVASTATIN 10 MG TAB PO SCH (08:30)
[2019-02-13] MEDS: BENZTROPINE MESYLATE 1 MG TAB PO SCH ×3 (08:30→20:39)
[2019-02-13] MEDS: DIVALPROEX ER 500 MG TAB.ER.24H PO SCH ×2 (08:31→20:39)
[2019-02-13] MEDS: CHOLECALCIFEROL 1,000 UNIT TAB PO SCH (08:31)
[2019-02-13] MEDS: GLIMEPIRIDE 1 MG TAB PO SCH (08:31)
[2019-02-13] MEDS: CHLORTHALIDONE 25 MG TAB PO SCH (08:31)
[2019-02-13] MEDS: metFORMIN 500 MG TAB PO SCH ×2 (08:32→20:39)
[2019-02-13] MEDS: SERTRALINE 100 MG TAB PO SCH (08:32)
[2019-02-13] MEDS: LORATADINE 10 MG TAB PO SCH (08:32)
[2019-02-13] MEDS: LISINOPRIL 20 MG TAB PO SCH (08:32)
[2019-02-13] MEDS: ACETAMINOPHEN TAB 325 MG TAB PO PRN ×2 (08:32→20:39)
[2019-02-13] MEDS: LORazepam 1 MG TAB PO PRN (08:34)
[2019-02-13] MEDS: ZIPRASIDONE 20 MG VIAL IM PRN (08:44)
--- NOTE | 2019-02-13 10:54 | P.PN ---
Progress Note - Text Interval history: The patient's found at the [facility] he follows me to an interview room. Staff reported the patient was mildly agitated earlier this morning but not directed at other individuals. He indicates he feels sad as he wants to be home. We reviewed his psychotropic medications he has no questions regarding those. He has been attending groups. It appears he was recently discharged from the unit and has been readmitted just 2 days ago. Mental status exam: The patient is a tall balding male he is dressed in his own clothing. He is easily directed during the session he is tearful throughout the session. He denies having any suicidal or homicidal thoughts he reports no auditory or visual hallucinations or specific delusions. He perseverates on wanting to go home and feeling sad. He demonstrated no verbal or physical aggressiveness. Intellectually he appears disabled. Insight and judgment are impaired. He demonstrates no tangential thinking loose associations or flight of ideas. Plan: The patient will continue on his current psychotropic medication we will monitor him for safety. He is encouraged to continue participating in the milieu. Vital signs reviewed they're within normal limits.
[2019-02-13] MEDS ORDERED: LORazepam 2 MG/ML INJ IM STA (14:04)
[2019-02-13] MEDS: MONTELUKAST 10 MG TAB PO SCH (20:38)
[2019-02-13] MEDS: traZODone HCL 100 MG TAB PO SCH (20:38)
[2019-02-14] MEDS: LEVOTHYROXINE 100 MCG TAB PO SCH (06:00)
[2019-02-14 06:16] LABS: Glucose,Whole Blood 111 mg/dL (75-99)
[2019-02-14] MEDS: ATORVASTATIN 10 MG TAB PO SCH (08:29)
[2019-02-14] MEDS: CHLORTHALIDONE 25 MG TAB PO SCH (08:29)
[2019-02-14] MEDS: BENZTROPINE MESYLATE 1 MG TAB PO SCH ×3 (08:29→20:05)
[2019-02-14] MEDS: ASPIRIN 81 MG PO SCH (08:29)
[2019-02-14] MEDS: CHOLECALCIFEROL 1,000 UNIT TAB PO SCH (08:29)
[2019-02-14] MEDS: DIVALPROEX ER 500 MG TAB.ER.24H PO SCH ×2 (08:30→20:05)
[2019-02-14] MEDS: metFORMIN 500 MG TAB PO SCH ×2 (08:30→20:05)
[2019-02-14] MEDS: LISINOPRIL 20 MG TAB PO SCH (08:30)
[2019-02-14] MEDS: LORATADINE 10 MG TAB PO SCH (08:30)
[2019-02-14] MEDS: SERTRALINE 100 MG TAB PO SCH (08:30)
[2019-02-14] MEDS: GLIMEPIRIDE 1 MG TAB PO SCH (08:30)
[2019-02-14] MEDS: LORazepam 2 MG/ML INJ IM PRN (08:45)
[2019-02-14] MEDS: ZIPRASIDONE 20 MG VIAL IM PRN ×2 (08:45→12:19)
--- NOTE | 2019-02-14 11:21 | P.PN ---
Progress Note - Text Interval history: The patient is found in the hallway he follows me to an interview room. He indicates his mood is much better today. He was upset yesterday ultimately he ended up receiving an injection for agitation. He states that was helpful and he slept throughout the night. Today he describes future oriented thinking. 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 We reviewed his psychotropic medications he has no questions. He indicates he breakfast this morning and he has been attending groups. Mental status exam: The patient is alert he is dressed in his own clothing he is pleasant cooperative. Affect is brighter he appropriately uses humor during the session. He is reporting no suicidal or homicidal ideation intent or plan. He demonstrates no verbal or physical aggressiveness. Insight and judgment limited. Chronically he has an intellectual disability. He is reporting no auditory or visual hallucinations. He states his brother will talk to him while he sleeping. He feels safe in the hospitalist describing no paranoid thoughts. He demonstrates no involuntary repetitive movements. Plan: The patient will continue on his current psychotropic medication we will monitor his behavior. Vital signs reviewed. He is encouraged to participate in the milieu. He is encouraged to approach staff and discuss any concerns he has rather than act out.
[2019-02-14] MEDS ORDERED: LORazepam 2 MG/ML INJ IM STA (11:42)
[2019-02-14] MEDS: traZODone HCL 100 MG TAB PO SCH (20:05)
[2019-02-14] MEDS: ACETAMINOPHEN TAB 325 MG TAB PO PRN (20:06)
[2019-02-14] MEDS: MONTELUKAST 10 MG TAB PO SCH (20:06)
[2019-02-14] MEDS: LORazepam 1 MG TAB PO PRN (20:19)
[2019-02-15] MEDS: LEVOTHYROXINE 100 MCG TAB PO SCH (06:32)
[2019-02-15 07:02] LABS: Glucose,Whole Blood 108 mg/dL (75-99)
[2019-02-15] MEDS: ZIPRASIDONE 20 MG VIAL IM PRN (07:41)
[2019-02-15] MEDS: LORazepam 2 MG/ML INJ IM PRN ×3 (07:41→22:22)
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
[2019-02-15] MEDS: ASPIRIN 81 MG PO SCH (11:13)
[2019-02-15] MEDS: ATORVASTATIN 10 MG TAB PO SCH (11:13)
[2019-02-15] MEDS: BENZTROPINE MESYLATE 1 MG TAB PO SCH ×5 (11:14→20:42)
[2019-02-15] MEDS: LORATADINE 10 MG TAB PO SCH (11:15)
[2019-02-15] MEDS: metFORMIN 500 MG TAB PO SCH ×2 (11:15→20:42)
[2019-02-15] MEDS: SERTRALINE 100 MG TAB PO SCH (11:15)
[2019-02-15] MEDS: CHLORTHALIDONE 25 MG TAB PO SCH (11:16)
[2019-02-15] MEDS: GLIMEPIRIDE 1 MG TAB PO SCH (11:16)
[2019-02-15] MEDS: DIVALPROEX ER 500 MG TAB.ER.24H PO SCH ×2 (11:17→20:42)
[2019-02-15] MEDS: LISINOPRIL 20 MG TAB PO SCH (11:22)
[2019-02-15] MEDS: CHOLECALCIFEROL 1,000 UNIT TAB PO SCH (11:48)
[2019-02-15] MEDS: LORazepam 1 MG TAB PO PRN (12:19)
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
[2019-02-15] MEDS ORDERED: fluPHENAZine DECANOATE 25 MG/ML 5ML MDV IM ONE (12:28)
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
[2019-02-15] MEDS: flUPHENAZine 2.5 MG/ML (MDV) 10 ML VIAL IM PRN (17:25)
[2019-02-15] MEDS: MONTELUKAST 10 MG TAB PO SCH (20:42)
[2019-02-15] MEDS: traZODone HCL 100 MG TAB PO SCH (20:43)
[2019-02-16] MEDS: LEVOTHYROXINE 100 MCG TAB PO SCH (07:24)
[2019-02-16] MEDS: ASPIRIN 81 MG PO SCH (07:43)
[2019-02-16] MEDS: CHOLECALCIFEROL 1,000 UNIT TAB PO SCH ×2 (07:43→07:44)
[2019-02-16] MEDS: SERTRALINE 100 MG TAB PO SCH (07:43)
[2019-02-16] MEDS: ATORVASTATIN 10 MG TAB PO SCH (07:43)
[2019-02-16] MEDS: LISINOPRIL 20 MG TAB PO SCH (07:43)
[2019-02-16] MEDS: BENZTROPINE MESYLATE 1 MG TAB PO SCH ×3 (07:43→21:35)
[2019-02-16] MEDS: DIVALPROEX ER 500 MG TAB.ER.24H PO SCH ×2 (07:44→21:35)
[2019-02-16] MEDS: LORATADINE 10 MG TAB PO SCH (07:44)
[2019-02-16] MEDS: metFORMIN 500 MG TAB PO SCH ×2 (07:44→21:35)
[2019-02-16] MEDS: CHLORTHALIDONE 25 MG TAB PO SCH (07:45)
[2019-02-16] MEDS: GLIMEPIRIDE 1 MG TAB PO SCH (07:45)
[2019-02-16] MEDS: LORazepam 1 MG TAB PO PRN ×2 (07:46→15:30)
[2019-02-16] MEDS: flUPHENAZine 2.5 MG/ML (MDV) 10 ML VIAL IM PRN (11:11)
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
[2019-02-16] MEDS: traZODone HCL 100 MG TAB PO SCH (21:35)
[2019-02-16] MEDS: MONTELUKAST 10 MG TAB PO SCH (21:35)
[2019-02-17] MEDS: LEVOTHYROXINE 100 MCG TAB PO SCH (06:14)
[2019-02-17] MEDS: ASPIRIN 81 MG PO SCH (07:43)
[2019-02-17] MEDS: DIVALPROEX ER 500 MG TAB.ER.24H PO SCH ×2 (07:43→21:28)
[2019-02-17] MEDS: CHOLECALCIFEROL 1,000 UNIT TAB PO SCH (07:43)
[2019-02-17] MEDS: GLIMEPIRIDE 1 MG TAB PO SCH (07:44)
[2019-02-17] MEDS: ATORVASTATIN 10 MG TAB PO SCH (07:44)
[2019-02-17] MEDS: BENZTROPINE MESYLATE 1 MG TAB PO SCH ×3 (07:44→21:27)
[2019-02-17] MEDS: CHLORTHALIDONE 25 MG TAB PO SCH (07:44)
[2019-02-17] MEDS: SERTRALINE 100 MG TAB PO SCH (07:44)
[2019-02-17] MEDS: metFORMIN 500 MG TAB PO SCH ×2 (07:45→21:28)
[2019-02-17] MEDS: LISINOPRIL 20 MG TAB PO SCH (07:45)
[2019-02-17] MEDS: LORATADINE 10 MG TAB PO SCH (07:45)
[2019-02-17] MEDS: LORazepam 2 MG/ML INJ IM PRN ×2 (08:23→14:40)
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
[2019-02-17 12:53] LABS: Glucose,Whole Blood 130 mg/dL (75-99)
[2019-02-17] MEDS: flUPHENAZine 2.5 MG/ML (MDV) 10 ML VIAL IM PRN (14:40)
[2019-02-17 17:25] LABS: Glucose,Whole Blood 131 mg/dL (75-99)
[2019-02-17] MEDS: traZODone HCL 100 MG TAB PO SCH (21:28)
[2019-02-17] MEDS: MONTELUKAST 10 MG TAB PO SCH (21:28)
[2019-02-18] MEDS: LEVOTHYROXINE 100 MCG TAB PO SCH (06:44)
[2019-02-18 07:12] VITALS: BP 142/75; PULSE 71; RESP 16; TEMP 97.9
[2019-02-18] MEDS: ASPIRIN 81 MG PO SCH (09:40)
[2019-02-18] MEDS: metFORMIN 500 MG TAB PO SCH (09:40)
[2019-02-18] MEDS: BENZTROPINE MESYLATE 1 MG TAB PO SCH ×2 (09:40→16:03)
[2019-02-18] MEDS: ATORVASTATIN 10 MG TAB PO SCH (09:40)
[2019-02-18] MEDS: LORATADINE 10 MG TAB PO SCH (09:41)
[2019-02-18] MEDS: LISINOPRIL 20 MG TAB PO SCH (09:41)
[2019-02-18] MEDS: SERTRALINE 100 MG TAB PO SCH (09:41)
[2019-02-18] MEDS: DIVALPROEX ER 500 MG TAB.ER.24H PO SCH (09:42)
[2019-02-18] MEDS: GLIMEPIRIDE 1 MG TAB PO SCH (10:52)
[2019-02-18] MEDS: CHLORTHALIDONE 25 MG TAB PO SCH (10:52)
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
== END 2019-02-18 16:17 | disposition home or self-care (01) | DRG 885 ==
LOC: EC 19:37 → 3MHU 22:09
PROVIDERS: ADMIT Psychiatry & Neurology Psychiatry; ATTEND Psychiatry & Neurology Psychiatry
DX: F25.0 Schizoaffective disorder, bipolar type (principal); R45.851 Suicidal ideations; E03.9 Hypothyroidism, unspecified; E11.9 Type 2 diabetes mellitus without complications; E78.5 Hyperlipidemia, unspecified; F41.9 Anxiety disorder, unspecified; F79 Unspecified intellectual disabilities; G40.909 Epilepsy, unspecified, not intractable, without status epilepticus; I10 Essential (primary) hypertension; Z78.1 Physical restraint status; Z79.82 Long term (current) use of aspirin; Z79.84 Long term (current) use of oral hypoglycemic drugs; Z79.890 Hormone replacement therapy; Z79.899 Other long term (current) drug therapy; Z88.8 Allergy status to other drugs, medicaments and biological substances; Z65.3 Problems related to other legal circumstances; E55.9 Vitamin D deficiency, unspecified
CPT/HCPCS: 80165; 82075; 90686; 99285

== ENCOUNTER → 2019-03-02 | Outpatient (CLI) | payer OTHER ==
[2019-03-02 07:30] LABS: Basophils # (A) 0.1 k/uL (0-0.2); Basophils % (A) 1 %; Eosinophils # (A) 0.1 k/uL (0-0.7); Eosinophils % (A) 2 %; HCT 53.9 % (39.0-53.0); HGB 17.6 gm/dL (13.0-17.5); Lymphocytes # (A) 2.5 k/uL (1.0-4.8); Lymphocytes % (A) 32 %; MCH 28.2 pg (25.0-35.0); MCHC 32.7 g/dL (31.0-37.0); MCV 86.4 fL (80.0-100.0); Mean Platelet Volume 6.7; Monocytes # (A) 0.4 k/uL (0-1.0); Monocytes % (A) 6 %; Neutrophils # (A) 4.5 k/uL (1.3-7.7); Neutrophils % (A) 59 %; Platelet Count 249 k/uL (150-450); RBC 6.24 m/uL (4.30-5.90); RDW 14.5 % (11.5-15.5); WBC 7.8 k/uL (3.8-10.6)
[2019-03-02 12:12] LABS: ALT 50 U/L (10-49); AST 20 U/L (14-35); Alkaline Phosphatase 102 U/L (41-126); Calcium 10.1 mg/dL (8.7-10.3); Carbon Dioxide 27.3 mmol/L (21.6-31.8); Chloride 99 mmol/L (96-109); Globulin 1.6 g/dL (1.6-3.3); Glucose 105 mg/dL (70-110); Lithium 0.7 mmol/L (1.0-1.2); Potassium 4.7 mmol/L (3.5-5.5); Sodium 137 mmol/L (135-145); Total Bilirubin 0.5 mg/dL (0.3-1.2); Total Protein 6.4 g/dL (6.2-8.2)
[2019-03-02 13:17] LABS: Valproic Acid (Depakene) <3.0 ug/mL (50.0-100.0)
== END | disposition home or self-care (01) ==
LOC: LABWHC1 06:42
PROVIDERS: ATTEND Physician Assistant
DX: Z51.81 Encounter for therapeutic drug level monitoring (principal); E11.9 Type 2 diabetes mellitus without complications; Z79.899 Other long term (current) drug therapy
CPT/HCPCS: 36415; 80053; 80164; 80178; 85025

== ENCOUNTER 2019-05-11 11:27 | Emergency (ER) | payer OTHER ==
[2019-05-11 11:46] VITALS: BP 127/73; PULSE 85; RESP 18; TEMP 98.4
--- NOTE | 2019-05-11 12:13 | XR ---
EXAMINATION TYPE: XR foot complete RT DATE OF EXAM: 05/11/2019 COMPARISON: NONE HISTORY: Pain TECHNIQUE: Three views are submitted. FINDINGS: The osseous structures are intact. There is no acute fracture or dislocation. Joint spaces are p reserved. Postsurgical change involving the distal tibia and fibula. Arthropathy first MTP joint. IMPRESSION: 1. No acute fracture or dislocation. If symptoms persist, follow-up exam in 7 to 10 days could be ob tained.
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
== END 2019-05-11 13:17 | disposition home or self-care (01) ==
LOC: EC 11:27
DX: S90.31XA Contusion of right foot, initial encounter (principal); I10 Essential (primary) hypertension; F31.9 Bipolar disorder, unspecified; F41.9 Anxiety disorder, unspecified; Z79.82 Long term (current) use of aspirin; Z79.899 Other long term (current) drug therapy; Z88.8 Allergy status to other drugs, medicaments and biological substances; W22.8XXA Striking against or struck by other objects, initial encounter; Y93.39 Activity, other involving climbing, rappelling and jumping off; Y93.11 Activity, swimming
CPT/HCPCS: 29515; 99283

== ENCOUNTER 2019-06-02 20:48 | Emergency (ER) | payer OTHER ==
[2019-06-02 21:10] VITALS: TEMP 98.6
[2019-06-02] MEDS ORDERED: ACETAMINOPHEN TAB 325 MG TAB PO STA (21:42)
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
--- NOTE | 2019-06-02 22:10 | XR ---
EXAM: XR Lumbar Spine, 2 or 3 Views CLINICAL HISTORY: Pain TECHNIQUE: Frontal and lateral views of the lumbar spine. COMPARISON: No relevant prior studies available. FINDINGS: Vertebrae: No acute fracture or traumatic malalignment. Disc spaces: Mild degenerative changes of the lumbar spine most pronounced at L4-5 and L5-S1. Soft tissues: Unremarkable. IMPRESSION: No acute findings.
[2019-06-02 23:24] VITALS: BP 126/74; PULSE 64; RESP 18
== END 2019-06-02 23:26 | disposition home or self-care (01) ==
LOC: EC 20:48
DX: M54.5 Low back pain (principal); R23.4 Changes in skin texture; M79.605 Pain in left leg; E55.9 Vitamin D deficiency, unspecified; G31.84 Mild cognitive impairment of uncertain or unknown etiology; F32.9 Major depressive disorder, single episode, unspecified; F41.9 Anxiety disorder, unspecified; Z88.8 Allergy status to other drugs, medicaments and biological substances; Z79.82 Long term (current) use of aspirin; Z79.899 Other long term (current) drug therapy; Z91.09 Other allergy status, other than to drugs and biological substances; V18.9XXA Unspecified pedal cyclist injured in noncollision transport accident in traffic accident, initial encounter
CPT/HCPCS: 72100; 99283

== ENCOUNTER 2019-08-05 13:07 | Emergency (ER) | payer OTHER ==
[2019-08-05 14:05] LABS: Amphetamine Screen,Urine Not Detected (NotDetected); Barbiturate Screen,Urine Not Detected (NotDetected); Benzodiazepines Screen,Urine Not Detected (NotDetected); Cocaine Screen,Urine Not Detected (NotDetected); Methadone Screen, Urine Not Detected (NotDetected); Opiate Screen,Urine Not Detected (NotDetected); Oxycodone Screen, Urine Not Detected (NotDetected); Phencyclidine Screen,Urine Not Detected (NotDetected); Tricyclic Antidepressant,Urine Not Detected (NotDetected); Urn Cannabinoid Scrn Not Detected (NotDetected)
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
[2019-08-05 17:11] VITALS: BP 139/69; PULSE 79; RESP 16; TEMP 97.6
== END 2019-08-05 17:18 | disposition home or self-care (01) ==
LOC: EC 13:07
DX: F43.20 Adjustment disorder, unspecified (principal); R45.851 Suicidal ideations; F41.9 Anxiety disorder, unspecified; F31.9 Bipolar disorder, unspecified; I10 Essential (primary) hypertension; E03.9 Hypothyroidism, unspecified; E78.5 Hyperlipidemia, unspecified; E55.9 Vitamin D deficiency, unspecified; Z79.82 Long term (current) use of aspirin; Z79.899 Other long term (current) drug therapy; Z88.8 Allergy status to other drugs, medicaments and biological substances
CPT/HCPCS: 80306; 82075; 99285

== ENCOUNTER 2019-09-17 16:30 | Emergency (ER) | payer OTHER ==
[2019-09-17] MEDS ORDERED: DIPH,PERTUS(ACELL)TETVAC-LF 0.5 ML VIAL IM ONE (17:48)
--- NOTE | 2019-09-17 17:51 | ED ---
General Adult HPI - General Chief complaint: Psychiatric Symptoms Stated complaint: Mental Health Time Seen by Provider: 09/17/19 16:58 Source: patient, EMS Mode of arrival: EMS Limitations: no limitations - History of Present Illness Initial comments: Dictation was produced using [employer] dictation software. please excuse any grammatical, word or spelling errors. Chief Complaint: 43-year-old male presents after self-inflicted laceration to his left hand History of Present Illness: Patient is a 43-year-old male with past medical history of seizures. Patient presents with self-inflicted laceration to his left hand. Patient states he cut his hand with a razor blade. Patient has had suicidal attempts in the past and has been admitted to inpatient psychiatry before. Patient was consented to be in the emergency department by legal guardian. Patient states he cut himself because he is depressed. States his mother is not doing well. Patient denies any auditory or visual hallucinations. Denies any homicidal ideation. The ROS documented in this emergency department record has been reviewed and confirmed by me. Those systems with pertinent positive or negative responses have been documented in the HPI. All other systems are other negative and/or noncontributory. PHYSICAL EXAM: General Impression: Alert and oriented x3, not in acute distress HEENT: Normocephalic atraumatic, extra-ocular movements intact, pupils equal and reactive to light bilaterally, mucous membranes moist. Cardiovascular: Heart regular rate and rhythm, S1&S2 audible, no murmurs, rubs or gallops Chest: Lungs clear to auscultation bilaterally, no rhonchi, no wheeze, no rales Abdomen: Bowel sounds present, abdomen soft, non-tender, non-distended, no organomegaly Musculoskeletal: Pulses present and equal in all extremities, no peripheral edema Motor: no focal deficits noted Neurological: CN II-XII grossly intact, no focal motor or sensory deficits noted Skin: Very superficial abrasion measuring 1 cm to the dorsum of the left hand overlying the second metacarpal bone Psych: Normal affect and mood ED course: 43-year-old male presents with self-inflicted abrasion to the left hand. Signs upon arrival are within acceptable limits. Physical examination is benign. No indication for laceration repair. Tetanus updated. Patient medically for EPS evaluation. Patient will by EPS recommended discharge to home. - Related Data Home Medications Medication Instructions Recorded Confirmed Loratadine [Claritin] 10 mg PO DAILY 08/08/14 09/17/19 Aspirin EC [Ecotrin Low Dose] 81 mg PO DAILY 08/30/18 09/17/19 Cholecalciferol [Vitamin D3 (25 5,000 unit PO DAILY 08/30/18 09/17/19 Mcg = 1000 Iu)] Montelukast [Singulair] 10 mg PO HS 01/27/19 09/17/19 Benztropine Mesylate [Cogentin] 2 mg PO BID 05/11/19 09/17/19 traZODone HCL [Desyrel] 100 mg PO HS 05/11/19 09/17/19 Ibuprofen [Motrin] 400 mg PO Q8H PRN 06/02/19 09/17/19 Previous Rx's Medication Instructions Recorded Chlorthalidone 25 mg PO DAILY 30 Days #30 tablet 02/18/19 Divalproex ER [Depakote ER] 1,000 mg PO BID 30 Days #60 02/18/19 tab.er.24h Glimepiride [Amaryl] 1 mg PO DAILY 30 Days #30 tab 02/18/19 Levothyroxine Sodium [Synthroid] 100 mcg PO DAILY 30 Days #30 tab 02/18/19 Lisinopril [Zestril] 20 mg PO DAILY 30 Days #30 tab 02/18/19 Sertraline [Zoloft] 200 mg PO DAILY 30 Days #60 tab 02/18/19 Simvastatin [Zocor] 20 mg PO DAILY 30 Days #30 tab 02/18/19 fluPHENAZine DECANOATE [Prolixin 25 mg IM Q14D 14 Days #1 ml 02/18/19 Decanoate] metFORMIN HCL 1,000 mg PO BID 30 Days #60 tablet 02/18/19 Allergies Allergy/AdvReac Type Severity Reaction Status Date / Time diphenhydramine HCl Allergy Rash/Hives Verified 09/17/19 17:47 [From Benadryl] Review of Systems ROS Statement: Those systems with pertinent positive or pertinent negative responses have been documented in the HPI. ROS Other: All systems not noted in ROS Statement are negative. Past Medical History Past Medical History: Diabetes Mellitus, Hypertension, Seizure Disorder Additional Past Medical History / Comment(s): Hypothyroidism, vitamin D deficiency, dyslipidemia, ALLERGIES, cognitive impairment History of Any Multi-Drug Resistant Organisms: None Reported Past Surgical History: Orthopedic Surgery Additional Past Surgical History / Comment(s): right ankle repair due to fracture Past Anesthesia/Blood Transfusion Reactions: No Reported Reaction Past Psychological History: Anxiety, Bipolar, Depression Smoking Status: Never smoker Past Alcohol Use History: None Reported Past Drug Use History: None Reported - Past Family History Mother Additional Family Medical History / Comment(s): No known medical history. Patient denies any family history of diabetes or hypertension General Exam Limitations: no limitations Course Vital Signs 09/17/19 16:36 Temperature 98.1 F Pulse Rate 77 Respiratory 18 Rate Blood Pressure 124/78 O2 Sat by Pulse 99 Oximetry Disposition Clinical Impression: Self-inflicted injury, Depression Disposition: HOME SELF-CARE Condition: Good Instructions (If sedation given, give patient instructions): Help Prevent Suicide (ED) Is patient prescribed a controlled substance at d/c from ED?: No Referrals: None,Stated [Primary Care Provider] - 1-2 days Time of Disposition: 18:33
[2019-09-17 18:35] VITALS: BP 111/71; PULSE 90; RESP 19; TEMP 98.4
== END 2019-09-17 18:41 | disposition home or self-care (01) ==
LOC: EC 16:30 → EEVIPCON 16:30 → EC 18:41
DX: S60.512A Abrasion of left hand, initial encounter (principal); F32.9 Major depressive disorder, single episode, unspecified; Z23 Encounter for immunization; I10 Essential (primary) hypertension; E11.9 Type 2 diabetes mellitus without complications; Z79.82 Long term (current) use of aspirin; Z79.899 Other long term (current) drug therapy; Z88.8 Allergy status to other drugs, medicaments and biological substances
CPT/HCPCS: 82075; 90471; 90715; 99284

== ENCOUNTER 2019-11-08 19:49 | Emergency (ER) | payer OTHER ==
[2019-11-08 21:02] VITALS: BP 136/79; PULSE 84; RESP 20; TEMP 98.2
--- NOTE | 2019-11-08 21:34 | XR ---
EXAMINATION TYPE: XR wrist complete RT DATE OF EXAM: 11/08/2019 COMPARISON: NONE HISTORY: Wrist pain and swelling TECHNIQUE: 4 views FINDINGS: I see no fracture nor dislocation. Joint spaces are normal. There are no pathologic calcifi cations. There is minor spurring at the first carpometacarpal joint. IMPRESSION: Minimal spurring at the base of the thumb. No fracture seen.
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
== END 2019-11-08 22:16 | disposition home or self-care (01) ==
LOC: EC 19:49
DX: S69.91XA Unspecified injury of right wrist, hand and finger(s), initial encounter (principal); I10 Essential (primary) hypertension; E55.9 Vitamin D deficiency, unspecified; G31.84 Mild cognitive impairment of uncertain or unknown etiology; F31.9 Bipolar disorder, unspecified; F41.9 Anxiety disorder, unspecified; Z88.8 Allergy status to other drugs, medicaments and biological substances; Z79.82 Long term (current) use of aspirin; Z79.899 Other long term (current) drug therapy; Z91.048 Other nonmedicinal substance allergy status; V18.0XXA Pedal cycle driver injured in noncollision transport accident in nontraffic accident, initial encounter; Y92.89 Other specified places as the place of occurrence of the external cause
CPT/HCPCS: 29125; 99283

== ENCOUNTER 2019-11-12 04:42 | Emergency (ER) | payer OTHER ==
[2019-11-12] MEDS ORDERED: LIDOCAINE 1% INJ 10MG/ML (20 ML MDV) SQ ONE (04:49)
[2019-11-12] MEDS ORDERED: DIPH,PERTUS(ACELL)TETVAC-LF 0.5 ML VIAL IM ONE (04:50)
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
[2019-11-12 05:55] LABS: Basophils # (A) 0.1 k/uL (0-0.2); Basophils % (A) 1 %; Eosinophils # (A) 0.1 k/uL (0-0.7); Eosinophils % (A) 1 %; HCT 43.9 % (39.0-53.0); HGB 15.1 gm/dL (13.0-17.5); Lymphocytes # (A) 1.7 k/uL (1.0-4.8); Lymphocytes % (A) 29 %; MCH 29.5 pg (25.0-35.0); MCHC 34.5 g/dL (31.0-37.0); MCV 85.5 fL (80.0-100.0); Monocytes # (A) 0.4 k/uL (0-1.0); Monocytes % (A) 7 %; Neutrophils # (A) 3.6 k/uL (1.3-7.7); Neutrophils % (A) 61 %; Platelet Count 226 k/uL (150-450); RBC 5.13 m/uL (4.30-5.90); RDW 13.6 % (11.5-15.5); WBC 5.9 k/uL (3.8-10.6)
[2019-11-12 05:58] VITALS: RESP 16
[2019-11-12 06:05] VITALS: BP 138/85; PULSE 71; TEMP 98.3
[2019-11-12 06:06] LABS: ALT 26 U/L (4-49); AST 20 U/L (17-59); African American GFR (CKD) >90 (>60 ml/min/1.73 sqM); Albumin 3.9 g/dL (3.5-5.0); Alcohol <10 mg/dL; Alkaline Phosphatase 106 U/L (38-126); Anion Gap 8 mmol/L; Blood Urea Nitrogen 13 mg/dL (9-20); Calcium 9.3 mg/dL (8.4-10.2); Carbon Dioxide 29 mmol/L (22-30); Chloride 100 mmol/L (98-107); Glucose 123 mg/dL (74-99); Non-African American GFR(CKD) >90 (>60 ml/min/1.73 sqM); Potassium 3.9 mmol/L (3.5-5.1); Sodium 137 mmol/L (137-145); Total Bilirubin 0.4 mg/dL (0.2-1.3); Total Protein 6.2 g/dL (6.3-8.2)
[2019-11-12 06:10] LABS: INR 1.1 (<1.2); Partial Thromboplastin Time 25.6 sec (22.0-30.0); Prothrombin Time 11.8 sec (9.0-12.0)
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
== END 2019-11-12 06:15 | disposition short-term general hospital (02) ==
LOC: MERGE 04:42 → EEVIPCON 04:42 → EC 04:42
DX: S06.6X0A Traumatic subarachnoid hemorrhage without loss of consciousness, initial encounter (principal); S01.81XA Laceration without foreign body of other part of head, initial encounter; M79.89 Other specified soft tissue disorders; Z88.8 Allergy status to other drugs, medicaments and biological substances; Z23 Encounter for immunization; V27.4XXA Motorcycle driver injured in collision with fixed or stationary object in traffic accident, initial encounter; Y92.89 Other specified places as the place of occurrence of the external cause
CPT/HCPCS: 36415; 93005; 86900; 86901; 80053; 85025; 85610; 85730; 86850; 73130; 72125; 70450; 90715; 99285; 12013; 90471; G0480; J2001; 80320

== ENCOUNTER 2019-11-28 11:16 | Emergency (ER) | payer OTHER ==
[2019-11-28 11:27] VITALS: BP 160/104; PULSE 80; RESP 16; TEMP 97.8
--- NOTE | 2019-11-28 12:20 | ED ---
General Adult HPI - General Chief complaint: Psychiatric Symptoms Stated complaint: mental health Source: patient, police, RN notes reviewed, old records reviewed Mode of arrival: ambulatory Limitations: no limitations - History of Present Illness Initial comments: This is a 44-year-old male who has a guardian. Patient states he did methamphetamines today and then he was feeling suicidal because he is not allowed to have children because he lives in a long term. Patient states he doesn't feel suicidal anymore he states he just was upset and now he just wants go back to his long term. Patient denies any drinking. Patient denies any physical complaints today. Patient states he did not take any pills or anything to harm himself today. - Related Data Home Medications Medication Instructions Recorded Confirmed Loratadine [Claritin] 10 mg PO DAILY 08/08/14 09/17/19 Aspirin EC [Ecotrin Low Dose] 81 mg PO DAILY 08/30/18 09/17/19 Cholecalciferol [Vitamin D3 (25 5,000 unit PO DAILY 08/30/18 09/17/19 Mcg = 1000 Iu)] Montelukast [Singulair] 10 mg PO HS 01/27/19 09/17/19 Benztropine Mesylate [Cogentin] 2 mg PO BID 05/11/19 09/17/19 traZODone HCL [Desyrel] 100 mg PO HS 05/11/19 09/17/19 Ibuprofen [Motrin] 400 mg PO Q8H PRN 06/02/19 09/17/19 Previous Rx's Medication Instructions Recorded Chlorthalidone 25 mg PO DAILY 30 Days #30 tablet 02/18/19 Divalproex ER [Depakote ER] 1,000 mg PO BID 30 Days #60 02/18/19 tab.er.24h Glimepiride [Amaryl] 1 mg PO DAILY 30 Days #30 tab 02/18/19 Levothyroxine Sodium [Synthroid] 100 mcg PO DAILY 30 Days #30 tab 02/18/19 Lisinopril [Zestril] 20 mg PO DAILY 30 Days #30 tab 02/18/19 Sertraline [Zoloft] 200 mg PO DAILY 30 Days #60 tab 02/18/19 Simvastatin [Zocor] 20 mg PO DAILY 30 Days #30 tab 02/18/19 fluPHENAZine DECANOATE [Prolixin 25 mg IM Q14D 14 Days #1 ml 02/18/19 Decanoate] metFORMIN HCL 1,000 mg PO BID 30 Days #60 tablet 02/18/19 Allergies Allergy/AdvReac Type Severity Reaction Status Date / Time diphenhydramine Allergy Rash/Hives Verified 11/28/19 11:27 [From Benadryl] diphenhydramine HCl Allergy Rash/Hives Verified 11/28/19 11:27 [From Benadryl] Review of Systems ROS Statement: Those systems with pertinent positive or pertinent negative responses have been documented in the HPI. ROS Other: All systems not noted in ROS Statement are negative. Past Medical History Past Medical History: Diabetes Mellitus, Hypertension, Seizure Disorder, Thyroid Disorder Additional Past Medical History / Comment(s): Hypothyroidism, vitamin D deficiency, dyslipidemia, ALLERGIES, cognitive impairment History of Any Multi-Drug Resistant Organisms: None Reported Past Surgical History: Orthopedic Surgery Additional Past Surgical History / Comment(s): right ankle Past Anesthesia/Blood Transfusion Reactions: No Reported Reaction Past Psychological History: Anxiety, Bipolar, Depression Smoking Status: Never smoker Past Alcohol Use History: None Reported Past Drug Use History: None Reported - Past Family History Mother Additional Family Medical History / Comment(s): No known medical history. Patient denies any family history of diabetes or hypertension General Exam - General Exam Comments Initial Comments: GENERAL: Patient is well-developed and well-nourished. Patient is nontoxic and well- hydrated and is in no acute distress. ENT: Neck is soft and supple. No significant lymphadenopathy is noted. Oropharynx is clear. Moist mucous membranes. Neck has full range of motion without eliciting any pain. EYES: The sclera were anicteric and conjunctiva were pink and moist. Extraocular movements were intact and pupils were equal round and reactive to light. Eyelids were unremarkable. PULMONARY: Unlabored respirations. Good breath sounds bilaterally. No audible rales rhonchi or wheezing was noted. CARDIOVASCULAR: There is a regular rate and rhythm without any murmurs gallops or rubs. ABDOMEN: Soft and nontender with normal bowel sounds. SKIN: Skin is clear with no lesions or rashes and otherwise unremarkable. NEUROLOGIC: Patient is alert and oriented 2. Cranial nerves II through XII are grossly intact. Motor and sensory are also intact. Normal speech, volume and content. Symmetrical smile. MUSCULOSKELETAL: Normal extremities with adequate strength and full range of motion. LYMPHATICS: No significant lymphadenopathy is noted PSYCHIATRIC: Patient states he did say he was suicidal earlier but is not feeling suicidal currently. Limitations: no limitations Course Vital Signs 11/28/19 11:24 Temperature 97.8 F Pulse Rate 80 Respiratory 16 Rate Blood Pressure 160/104 O2 Sat by Pulse 98 Oximetry Medical Decision Making - Medical Decision Making EPS spoke with the patient regarding determined the patient was safe to go home and according was sent transportation for the patient. Disposition Clinical Impression: Situational depression, Methamphetamine abuse Disposition: HOME SELF-CARE Condition: Good Instructions (If sedation given, give patient instructions): Depression (ED), Methamphetamine Abuse (ED) Is patient prescribed a controlled substance at d/c from ED?: No Referrals: Ambrose Denton MD [Primary Care Provider] - 1-2 days Time of Disposition: 12:45
== END 2019-11-28 12:51 | disposition home or self-care (01) ==
LOC: EC 11:16
DX: F43.21 Adjustment disorder with depressed mood (principal); F15.10 Other stimulant abuse, uncomplicated; I10 Essential (primary) hypertension; E11.9 Type 2 diabetes mellitus without complications; F41.9 Anxiety disorder, unspecified; F31.9 Bipolar disorder, unspecified; Z79.82 Long term (current) use of aspirin; Z79.899 Other long term (current) drug therapy; Z88.8 Allergy status to other drugs, medicaments and biological substances
CPT/HCPCS: 82075; 99285

== ENCOUNTER 2020-01-26 13:00 | Inpatient (IN) | payer MEDICAID, OTHER ==
[2020-01-26 15:14] LABS: Amphetamine Screen,Urine Not Detected (NotDetected); Barbiturate Screen,Urine Not Detected (NotDetected); Benzodiazepines Screen,Urine Not Detected (NotDetected); Cocaine Screen,Urine Not Detected (NotDetected); Methadone Screen, Urine Not Detected (NotDetected); Opiate Screen,Urine Not Detected (NotDetected); Oxycodone Screen, Urine Not Detected (NotDetected); Phencyclidine Screen,Urine Not Detected (NotDetected); Tricyclic Antidepressant,Urine Not Detected (NotDetected); Urn Cannabinoid Scrn Not Detected (NotDetected)
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
[2020-01-26] MEDS ORDERED: ACETAMINOPHEN TAB 325 MG TAB PO PRN (17:21)
[2020-01-26] MEDS ORDERED: ZIPRASIDONE 20 MG VIAL IM PRN (17:21)
[2020-01-26] MEDS ORDERED: MAG HYDROX/AL HYDROX/SIMETH 30 ML CUP PO PRN (17:21)
[2020-01-26] MEDS ORDERED: MAGNESIUM HYDROXIDE 2,400 MG/10 ML CUP PO PRN (17:21)
[2020-01-26] MEDS ORDERED: LORazepam 1 MG TAB PO PRN (17:21)
[2020-01-26] MEDS ORDERED: IBUPROFEN 400 MG TAB PO PRN (17:26)
[2020-01-26 17:39] LABS: Appearance,Urine Clear (Clear); Bilirubin,Urine Negative (Negative); Blood,Urine Negative (Negative); Color,Urine Yellow; Glucose,Urine (UA) Negative (Negative); Ketones,Urine Negative (Negative); Leukocyte Esterase,Urine Negative (Negative); Nitrite,Urine Negative (Negative); PH, Urine 7.5 (5.0-8.0); Protein,Urine Trace (Negative); Specific Gravity,Urine 1.021 (1.001-1.035); Urobilinogen,Urine <2.0 mg/dL (<2.0)
[2020-01-26 18:31] VITALS: PULSE 79; TEMP 97.8
[2020-01-26] MEDS: BENZTROPINE MESYLATE 1 MG TAB PO SCH (20:17)
[2020-01-26] MEDS ORDERED: MONTELUKAST 10 MG TAB PO SCH (21:00)
[2020-01-26] MEDS ORDERED: traZODone HCL 100 MG TAB PO SCH (21:00)
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
[2020-01-27] MEDS ORDERED: LEVOTHYROXINE 100 MCG TAB PO SCH (06:30)
[2020-01-27 07:50] LABS: Glucose,Whole Blood 115 mg/dL (75-99)
[2020-01-27] MEDS: BENZTROPINE MESYLATE 1 MG TAB PO SCH (08:30)
[2020-01-27] MEDS ORDERED: CHOLECALCIFEROL 1,000 UNIT TAB PO SCH (09:00)
[2020-01-27] MEDS ORDERED: LORATADINE 10 MG TAB PO SCH (09:00)
[2020-01-27] MEDS ORDERED: CHLORTHALIDONE 25 MG TAB PO SCH (09:00)
[2020-01-27] MEDS ORDERED: LISINOPRIL 20 MG TAB PO SCH (09:00)
[2020-01-27] MEDS ORDERED: SERTRALINE 100 MG TAB PO SCH (09:00)
[2020-01-27] MEDS ORDERED: ATORVASTATIN 10 MG TAB PO SCH (09:00)
[2020-01-27] MEDS ORDERED: GLIMEPIRIDE 1 MG TAB PO SCH (09:00)
[2020-01-27 09:44] LABS: ALT 26 U/L (4-49); AST 24 U/L (17-59); African American GFR (CKD) >90 (>60 ml/min/1.73 sqM); Albumin 4.4 g/dL (3.5-5.0); Alkaline Phosphatase 82 U/L (38-126); Anion Gap 11 mmol/L; Blood Urea Nitrogen 11 mg/dL (9-20); Calcium 9.4 mg/dL (8.4-10.2); Carbon Dioxide 31 mmol/L (22-30); Chloride 92 mmol/L (98-107); Cholesterol 156 mg/dL (<200); Glucose 104 mg/dL (74-99); HDL Cholesterol 33 mg/dL (40-60); LDL Cholesterol,Calculated 78 mg/dL (0-99); Non-African American GFR(CKD) >90 (>60 ml/min/1.73 sqM); Potassium 4.1 mmol/L (3.5-5.1); Sodium 134 mmol/L (137-145); Total Bilirubin 0.3 mg/dL (0.2-1.3); Total Protein 6.8 g/dL (6.3-8.2); Triglycerides 226 mg/dL (<150)
[2020-01-27 09:46] LABS: Basophils % (A) 0 %; Eosinophils # (A) 0.1 k/uL (0-0.7); Eosinophils % (A) 1 %; HCT 48.9 % (39.0-53.0); HGB 16.5 gm/dL (13.0-17.5); Lymphocytes # (A) 1.8 k/uL (1.0-4.8); Lymphocytes % (A) 34 %; MCH 28.4 pg (25.0-35.0); MCHC 33.7 g/dL (31.0-37.0); MCV 84.2 fL (80.0-100.0); Mean Platelet Volume 7.6; Monocytes # (A) 0.5 k/uL (0-1.0); Monocytes % (A) 9 %; Neutrophils # (A) 2.9 k/uL (1.3-7.7); Neutrophils % (A) 53 %; Platelet Count 227 k/uL (150-450); RDW 13.5 % (11.5-15.5); WBC 5.4 k/uL (3.8-10.6)
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
[2020-01-27 13:47] VITALS: BP 132/81; RESP 20
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
[2020-01-27 17:36] LABS: Hemoglobin A1C 5.8 % (4.0-6.0)
[2020-01-31] MEDS ORDERED: fluPHENAZine DECANOATE 25 MG/ML 5ML MDV IM ONE (09:00)
== END 2020-01-27 14:36 | disposition home or self-care (01) | DRG 885 ==
LOC: EC 13:00 → 3MHU 17:03
PROVIDERS: ADMIT Psychiatry & Neurology Psychiatry; ATTEND Psychiatry & Neurology Psychiatry
DX: F33.42 Major depressive disorder, recurrent, in full remission (principal); R45.851 Suicidal ideations; F43.25 Adjustment disorder with mixed disturbance of emotions and conduct; F25.0 Schizoaffective disorder, bipolar type; F11.10 Opioid abuse, uncomplicated; E78.5 Hyperlipidemia, unspecified; E11.9 Type 2 diabetes mellitus without complications; E03.9 Hypothyroidism, unspecified; F63.9 Impulse disorder, unspecified; F79 Unspecified intellectual disabilities; G40.909 Epilepsy, unspecified, not intractable, without status epilepticus; I10 Essential (primary) hypertension; W22.01XA Walked into wall, initial encounter; Z79.84 Long term (current) use of oral hypoglycemic drugs; Z79.890 Hormone replacement therapy; Z79.899 Other long term (current) drug therapy
CPT/HCPCS: 80053; 80061; 80306; 81003; 82075; 83036; 84443; 85025; 99284

== ENCOUNTER 2020-02-03 11:41 | Emergency (ER) | payer OTHER ==
[2020-02-03 11:46] VITALS: TEMP 97.3
--- NOTE | 2020-02-03 12:18 | ED ---
General Adult HPI - General Chief complaint: Chest Pain Stated complaint: chest pain Time Seen by Provider: 02/03/20 12:12 Source: patient, RN notes reviewed, old records reviewed Mode of arrival: wheelchair Limitations: no limitations - History of Present Illness Initial comments: 44-year-old male presenting with mild substernal chest pain. Pain has been present throughout the morning today. He denies associated dyspnea or vomiting. No diaphoresis. No known history of coronary artery disease. No history of DVT or PE. Pain is constant, he does report some worsening with movement and with deep inspiration. No cough or difficulty breathing. No fever. No abdominal pain. - Related Data Home Medications Medication Instructions Recorded Confirmed Loratadine [Claritin] 10 mg PO DAILY 08/08/14 01/26/20 Montelukast [Singulair] 10 mg PO HS 01/27/19 01/26/20 Benztropine Mesylate [Cogentin] 2 mg PO BID 05/11/19 01/26/20 traZODone HCL [Desyrel] 100 mg PO HS 05/11/19 01/26/20 Ibuprofen [Motrin] 400 mg PO Q8H PRN 06/02/19 01/26/20 Cholecalciferol (Vitamin D3) 125 mcg PO DAILY 01/26/20 01/26/20 [Vitamin D3] Previous Rx's Medication Instructions Recorded Chlorthalidone 25 mg PO DAILY 30 Days #30 tablet 02/18/19 Glimepiride [Amaryl] 1 mg PO DAILY 30 Days #30 tab 02/18/19 Levothyroxine Sodium [Synthroid] 100 mcg PO DAILY 30 Days #30 tab 02/18/19 Lisinopril [Zestril] 20 mg PO DAILY 30 Days #30 tab 02/18/19 Sertraline [Zoloft] 200 mg PO DAILY 30 Days #60 tab 02/18/19 Simvastatin [Zocor] 20 mg PO DAILY 30 Days #30 tab 02/18/19 fluPHENAZine DECANOATE [Prolixin 25 mg IM Q14D 14 Days #1 ml 02/18/19 Decanoate] Allergies Allergy/AdvReac Type Severity Reaction Status Date / Time diphenhydramine Allergy Rash/Hives Verified 02/03/20 11:46 [From Benadryl] diphenhydramine HCl Allergy Rash/Hives Verified 02/03/20 11:46 [From Benadryl] Review of Systems ROS Statement: Those systems with pertinent positive or pertinent negative responses have been documented in the HPI. ROS Other: All systems not noted in ROS Statement are negative. Past Medical History Past Medical History: Diabetes Mellitus, Hypertension, Seizure Disorder, Thyroid Disorder Additional Past Medical History / Comment(s): Hypothyroidism, vitamin D deficiency, dyslipidemia, ALLERGIES, cognitive impairment History of Any Multi-Drug Resistant Organisms: None Reported Past Surgical History: Orthopedic Surgery Additional Past Surgical History / Comment(s): right ankle Past Anesthesia/Blood Transfusion Reactions: No Reported Reaction Past Psychological History: Anxiety, Bipolar, Depression Smoking Status: Never smoker Past Alcohol Use History: None Reported, Abuse Past Drug Use History: Heroin, Methamphetamine, Prescription Drug Abuse - Past Family History Mother Additional Family Medical History / Comment(s): No known medical history. Patient denies any family history of diabetes or hypertension General Exam Limitations: no limitations General appearance: alert, in no apparent distress Head exam: Present: atraumatic, normocephalic Eye exam: Present: normal appearance, PERRL ENT exam: Present: normal exam Neck exam: Present: normal inspection. Absent: tenderness Respiratory exam: Present: normal lung sounds bilaterally. Absent: respiratory distress, wheezes Cardiovascular Exam: Present: regular rate, normal rhythm GI/Abdominal exam: Present: soft. Absent: distended, tenderness Extremities exam: Present: normal inspection, normal capillary refill. Absent: pedal edema, calf tenderness Neurological exam: Present: alert. Absent: motor sensory deficit Psychiatric exam: Present: normal affect, normal mood Skin exam: Present: warm, dry, intact. Absent: cyanosis, diaphoretic Course Vital Signs 02/03/20 11:42 Temperature 97.3 F L Pulse Rate 77 Respiratory 18 Rate Blood Pressure 132/83 O2 Sat by Pulse 99 Oximetry EKG Findings - EKG Comments: EKG Findings:: EKG: Normal sinus rhythm, rate is 77, MI interval 164, QRS duration 94, QTC 414, no ST segment elevation. Medical Decision Making - Medical Decision Making 44-year-old male presenting for evaluation of right sided and substernal chest pain. Minimal pain. Patient well-appearing with stable vitals. EKG sinus rhythm without ST segment elevation. Chest x-ray negative for acute cardiopulmonary disease. Patient has normal CBC, normal CMP, negative d-dimer, negative troponin. I did reevaluate this patient, resting comfortably, no further chest pain. Patient is stable for outpatient follow-up. Return with worsening or changing symptoms. - Lab Data Result diagrams: 02/03/20 12:00 02/03/20 12:00 Lab Results 02/03/20 02/03/20 02/03/20 Range/Units 12:00 12:00 12:00 WBC 6.6 (3.8-10.6) k/uL RBC 5.72 (4.30-5.90) m/uL Hgb 16.1 (13.0-17.5) gm/dL Hct 48.4 (39.0-53.0) % MCV 84.6 (80.0-100.0) fL MCH 28.2 (25.0-35.0) pg MCHC 33.3 (31.0-37.0) g/dL RDW 13.7 (11.5-15.5) % Plt Count 182 (150-450) k/uL Neutrophils % 74 % Lymphocytes % 15 % Monocytes % 9 % Eosinophils % 1 % Basophils % 0 % Neutrophils # 4.9 (1.3-7.7) k/uL Lymphocytes # 1.0 (1.0-4.8) k/uL Monocytes # 0.6 (0-1.0) k/uL Eosinophils # 0.0 (0-0.7) k/uL Basophils # 0.0 (0-0.2) k/uL PT 11.1 (9.0-12.0) sec INR 1.1 (<1.2) APTT 23.7 (22.0-30.0) sec D-Dimer 0.31 (<0.60) mg/L FEU Sodium 138 (137-145) mmol/L Potassium 4.0 (3.5-5.1) mmol/L Chloride 101 (98-107) mmol/L Carbon Dioxide 27 (22-30) mmol/L Anion Gap 10 mmol/L BUN 15 (9-20) mg/dL Creatinine 0.62 L (0.66-1.25) mg/dL Est GFR (CKD-EPI)AfAm >90 (>60 ml/min/1.73 sqM) Est GFR (CKD-EPI)NonAf >90 (>60 ml/min/1.73 sqM) Glucose 110 H (74-99) mg/dL Calcium 9.1 (8.4-10.2) mg/dL Magnesium 1.5 L (1.6-2.3) mg/dL Total Bilirubin 0.3 (0.2-1.3) mg/dL AST 20 (17-59) U/L ALT 19 (4-49) U/L Alkaline Phosphatase 90 (38-126) U/L Troponin I (0.000-0.034) ng/mL Total Protein 6.5 (6.3-8.2) g/dL Albumin 4.2 (3.5-5.0) g/dL Lipase 220 (23-300) U/L 02/03/20 Range/Units 12:00 WBC (3.8-10.6) k/uL RBC (4.30-5.90) m/uL Hgb (13.0-17.5) gm/dL Hct (39.0-53.0) % MCV (80.0-100.0) fL MCH (25.0-35.0) pg MCHC (31.0-37.0) g/dL RDW (11.5-15.5) % Plt Count (150-450) k/uL Neutrophils % % Lymphocytes % % Monocytes % % Eosinophils % % Basophils % % Neutrophils # (1.3-7.7) k/uL Lymphocytes # (1.0-4.8) k/uL Monocytes # (0-1.0) k/uL Eosinophils # (0-0.7) k/uL Basophils # (0-0.2) k/uL PT (9.0-12.0) sec INR (<1.2) APTT (22.0-30.0) sec D-Dimer (<0.60) mg/L FEU Sodium (137-145) mmol/L Potassium (3.5-5.1) mmol/L Chloride (98-107) mmol/L Carbon Dioxide (22-30) mmol/L Anion Gap mmol/L BUN (9-20) mg/dL Creatinine (0.66-1.25) mg/dL Est GFR (CKD-EPI)AfAm (>60 ml/min/1.73 sqM) Est GFR (CKD-EPI)NonAf (>60 ml/min/1.73 sqM) Glucose (74-99) mg/dL Calcium (8.4-10.2) mg/dL Magnesium (1.6-2.3) mg/dL Total Bilirubin (0.2-1.3) mg/dL AST (17-59) U/L ALT (4-49) U/L Alkaline Phosphatase (38-126) U/L Troponin I <0.012 (0.000-0.034) ng/mL Total Protein (6.3-8.2) g/dL Albumin (3.5-5.0) g/dL Lipase (23-300) U/L Disposition Clinical Impression: Chest pain Disposition: HOME SELF-CARE Condition: Good Instructions (If sedation given, give patient instructions): Chest Pain (ED) Is patient prescribed a controlled substance at d/c from ED?: No Referrals: Ambrose Denton MD [Primary Care Provider] - 1-2 days Time of Disposition: 13:52
--- NOTE | 2020-02-03 12:30 | XR ---
EXAMINATION TYPE: XR chest 2V DATE OF EXAM: 02/03/2020 COMPARISON: Chest x-ray January 30, 2019 HISTORY: Midsternal chest pain this morning. TECHNIQUE: Frontal and lateral views of the chest are obtained. FINDINGS: There is no focal air space opacity, pleural effusion, or pneumothorax seen. The cardiac silhouette size is within normal limits. The osseous structures are intact. Overlying EKG leads are in current study. IMPRESSION: No acute cardiopulmonary process. No significant change from prior.
[2020-02-03 12:39] LABS: Basophils % (A) 0 %; Eosinophils % (A) 1 %; HCT 48.4 % (39.0-53.0); HGB 16.1 gm/dL (13.0-17.5); Lymphocytes % (A) 15 %; MCH 28.2 pg (25.0-35.0); MCHC 33.3 g/dL (31.0-37.0); MCV 84.6 fL (80.0-100.0); Mean Platelet Volume 7.5; Monocytes # (A) 0.6 k/uL (0-1.0); Monocytes % (A) 9 %; Neutrophils # (A) 4.9 k/uL (1.3-7.7); Neutrophils % (A) 74 %; Platelet Count 182 k/uL (150-450); RBC 5.72 m/uL (4.30-5.90); RDW 13.7 % (11.5-15.5); WBC 6.6 k/uL (3.8-10.6)
[2020-02-03 12:51] LABS: ALT 19 U/L (4-49); AST 20 U/L (17-59); African American GFR (CKD) >90 (>60 ml/min/1.73 sqM); Albumin 4.2 g/dL (3.5-5.0); Alkaline Phosphatase 90 U/L (38-126); Anion Gap 10 mmol/L; Blood Urea Nitrogen 15 mg/dL (9-20); Calcium 9.1 mg/dL (8.4-10.2); Carbon Dioxide 27 mmol/L (22-30); Chloride 101 mmol/L (98-107); Glucose 110 mg/dL (74-99); Magnesium 1.5 mg/dL (1.6-2.3); Non-African American GFR(CKD) >90 (>60 ml/min/1.73 sqM); Sodium 138 mmol/L (137-145); Total Bilirubin 0.3 mg/dL (0.2-1.3); Total Protein 6.5 g/dL (6.3-8.2)
[2020-02-03 12:55] LABS: D-Dimer 0.31 mg/L FEU (<0.60); INR 1.1 (<1.2); Partial Thromboplastin Time 23.7 sec (22.0-30.0); Prothrombin Time 11.1 sec (9.0-12.0)
[2020-02-03 14:08] VITALS: BP 142/79; PULSE 80; RESP 16
== END 2020-02-03 14:09 | disposition home or self-care (01) ==
LOC: EC 11:41
DX: R07.2 Precordial pain (principal); E55.9 Vitamin D deficiency, unspecified; G31.84 Mild cognitive impairment of uncertain or unknown etiology; F31.9 Bipolar disorder, unspecified; F41.9 Anxiety disorder, unspecified; Z91.09 Other allergy status, other than to drugs and biological substances; Z88.8 Allergy status to other drugs, medicaments and biological substances; Z79.899 Other long term (current) drug therapy
CPT/HCPCS: 36415; 71046; 80053; 83690; 83735; 84484; 85025; 85379; 85610; 85730; 93005; 99285

== ENCOUNTER 2020-02-24 18:39 | Emergency (ER) | payer OTHER ==
[2020-02-24 18:48] VITALS: BP 142/90; PULSE 72; RESP 18; TEMP 98.3
[2020-02-24 20:24] LABS: Amphetamine Screen,Urine Not Detected (NotDetected); Barbiturate Screen,Urine Not Detected (NotDetected); Benzodiazepines Screen,Urine Not Detected (NotDetected); Cocaine Screen,Urine Not Detected (NotDetected); Methadone Screen, Urine Not Detected (NotDetected); Opiate Screen,Urine Not Detected (NotDetected); Oxycodone Screen, Urine Not Detected (NotDetected); Phencyclidine Screen,Urine Not Detected (NotDetected); Tricyclic Antidepressant,Urine Not Detected (NotDetected); Urn Cannabinoid Scrn Not Detected (NotDetected)
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
== END 2020-02-24 21:09 | disposition home or self-care (01) ==
LOC: EC 18:39
DX: F63.9 Impulse disorder, unspecified (principal); E11.9 Type 2 diabetes mellitus without complications; I10 Essential (primary) hypertension; F41.9 Anxiety disorder, unspecified; F31.9 Bipolar disorder, unspecified; Z79.899 Other long term (current) drug therapy; Z88.8 Allergy status to other drugs, medicaments and biological substances
CPT/HCPCS: 80306; 82075; 99284

== ENCOUNTER 2020-03-23 17:33 | Emergency (ER) | payer OTHER ==
[2020-03-23 17:51] VITALS: TEMP 97.8
[2020-03-23 17:57] LABS: Glucose,Whole Blood 142 mg/dL (75-99)
[2020-03-23 18:25] LABS: Appearance,Urine Clear (Clear); Bilirubin,Urine Negative (Negative); Blood,Urine Negative (Negative); Color,Urine Yellow; Glucose,Urine (UA) Negative (Negative); Ketones,Urine Negative (Negative); Leukocyte Esterase,Urine Negative (Negative); Nitrite,Urine Negative (Negative); PH, Urine 5.5 (5.0-8.0); Protein,Urine Negative (Negative); Specific Gravity,Urine 1.015 (1.001-1.035); Urobilinogen,Urine <2.0 mg/dL (<2.0)
[2020-03-23] MEDS ORDERED: SODIUM CHLORIDE 0.9% 500 ML 500 ML IV STA (18:35)
[2020-03-23 18:39] LABS: Basophils # (A) 0.1 k/uL (0-0.2); Basophils % (A) 1 %; Eosinophils # (A) 0.1 k/uL (0-0.7); Eosinophils % (A) 1 %; HCT 49.9 % (39.0-53.0); HGB 17.3 gm/dL (13.0-17.5); Lymphocytes # (A) 2.8 k/uL (1.0-4.8); Lymphocytes % (A) 38 %; MCH 29.6 pg (25.0-35.0); MCHC 34.6 g/dL (31.0-37.0); MCV 85.5 fL (80.0-100.0); Mean Platelet Volume 7.7; Monocytes # (A) 0.3 k/uL (0-1.0); Monocytes % (A) 5 %; Neutrophils % (A) 54 %; Platelet Count 280 k/uL (150-450); RBC 5.84 m/uL (4.30-5.90); RDW 14.9 % (11.5-15.5); WBC 7.4 k/uL (3.8-10.6)
--- NOTE | 2020-03-23 18:43 | ED ---
Recheck HPI - General Chief Complaint: Recheck/Abnormal Lab/Rx Stated Complaint: Sweating, shakes Time Seen by Provider: 03/23/20 18:11 Source: patient Mode of arrival: ambulatory Limitations: no limitations - History of Present Illness Initial Comments: Patient is a 44-year-old male presenting to the emergency Department with complaints of feeling sweaty and shaky just prior to arrival. Patient states he has a history of diabetes and felt like his sugar might be too low. Patient denies having any pain anywhere. He denies any falls or trauma. He denies dizziness, chest pain, shortness of breath, abdominal pain, nausea, vomiting. He states he has been eating and drinking as normal. He denies any urinary complaints of this dysuria or increased frequency. He has no other complaints at this time. Upon arrival to the ER, his vital signs are stable. - Related Data Home Medications Medication Instructions Recorded Confirmed Loratadine [Claritin] 10 mg PO DAILY 08/08/14 01/26/20 Montelukast [Singulair] 10 mg PO HS 01/27/19 01/26/20 Benztropine Mesylate [Cogentin] 2 mg PO BID 05/11/19 01/26/20 traZODone HCL [Desyrel] 100 mg PO HS 05/11/19 01/26/20 Ibuprofen [Motrin] 400 mg PO Q8H PRN 06/02/19 01/26/20 Cholecalciferol (Vitamin D3) 125 mcg PO DAILY 01/26/20 01/26/20 [Vitamin D3] Previous Rx's Medication Instructions Recorded Chlorthalidone 25 mg PO DAILY 30 Days #30 tablet 02/18/19 Glimepiride [Amaryl] 1 mg PO DAILY 30 Days #30 tab 02/18/19 Levothyroxine Sodium [Synthroid] 100 mcg PO DAILY 30 Days #30 tab 02/18/19 Lisinopril [Zestril] 20 mg PO DAILY 30 Days #30 tab 02/18/19 Sertraline [Zoloft] 200 mg PO DAILY 30 Days #60 tab 02/18/19 Simvastatin [Zocor] 20 mg PO DAILY 30 Days #30 tab 02/18/19 fluPHENAZine DECANOATE [Prolixin 25 mg IM Q14D 14 Days #1 ml 02/18/19 Decanoate] Allergies Allergy/AdvReac Type Severity Reaction Status Date / Time diphenhydramine Allergy Rash/Hives Verified 03/23/20 17:51 [From Benadryl] diphenhydramine HCl Allergy Rash/Hives Verified 03/23/20 17:51 [From Benadryl] Review of Systems ROS Statement: Those systems with pertinent positive or pertinent negative responses have been documented in the HPI. ROS Other: All systems not noted in ROS Statement are negative. Past Medical History Past Medical History: Diabetes Mellitus, Hypertension, Seizure Disorder, Thyroid Disorder Additional Past Medical History / Comment(s): Hypothyroidism, vitamin D deficiency, dyslipidemia, ALLERGIES, cognitive impairment History of Any Multi-Drug Resistant Organisms: None Reported Past Surgical History: Orthopedic Surgery Additional Past Surgical History / Comment(s): right ankle Past Anesthesia/Blood Transfusion Reactions: No Reported Reaction Past Psychological History: Anxiety, Bipolar, Depression Smoking Status: Never smoker Past Alcohol Use History: None Reported, Abuse Past Drug Use History: Heroin, Methamphetamine, Prescription Drug Abuse - Past Family History Mother Additional Family Medical History / Comment(s): No known medical history. Patient denies any family history of diabetes or hypertension General Exam - General Exam Comments Initial Comments: GENERAL: Well-appearing, well-nourished and in no acute distress. HEAD: Atraumatic, normocephalic. EYES: Pupils equal round and reactive to light, extraocular movements intact, sclera anicteric, conjunctiva are normal. ENT: TMs normal, nares patent, oropharynx clear without exudates. Moist mucous membr anes. NECK: Normal range of motion, supple without lymphadenopathy or JVD. LUNGS: Breath sounds clear to auscultation bilaterally and equal. No wheezes rales or rhonchi. HEART: Regular rate and rhythm without murmurs, rubs or gallops. ABDOMEN: Soft, nontender, normoactive bowel sounds. No guarding, no rebound. No masses appreciated. : Deferred EXTREMITIES: Normal range of motion, no pitting or edema. No clubbing or cyanosis. NEUROLOGICAL: Cranial nerves II through XII grossly intact. Normal speech, normal gait. PSYCH: Normal mood, normal affect. SKIN: Warm, Dry, normal turgor, no rashes or lesions noted. Limitations: no limitations Course Vital Signs 03/23/20 03/23/20 17:49 19:02 Temperature 97.8 F 97.8 F Pulse Rate 80 81 Respiratory 18 16 Rate Blood Pressure 158/97 148/78 O2 Sat by Pulse 97 98 Oximetry Medical Decision Making - Medical Decision Making Patient is a 44-year-old male with history of diabetes presenting with complaints of shakiness and sweaty that happened just prior to arrival. He denies any pain anywhere. He states he feels like his sugar was off. Lab work today shows no acute abnormalities, his glucose level is normal. I did offer patient IV fluids however patient declined and is requesting IV to be taken out. Patient drinking water in the ER. He is stable for discharge. He will follow up with his PCP. Patient is agreement with this plan of care. - Lab Data Result diagrams: 03/23/20 18:05 03/23/20 18:05 Lab Results 03/23/20 03/23/20 03/23/20 Range/Units 17:49 18:05 18:05 WBC 7.4 (3.8-10.6) k/uL RBC 5.84 (4.30-5.90) m/uL Hgb 17.3 (13.0-17.5) gm/dL Hct 49.9 (39.0-53.0) % MCV 85.5 (80.0-100.0) fL MCH 29.6 (25.0-35.0) pg MCHC 34.6 (31.0-37.0) g/dL RDW 14.9 (11.5-15.5) % Plt Count 280 (150-450) k/uL Neutrophils % 54 % Lymphocytes % 38 % Monocytes % 5 % Eosinophils % 1 % Basophils % 1 % Neutrophils # 4.0 (1.3-7.7) k/uL Lymphocytes # 2.8 (1.0-4.8) k/uL Monocytes # 0.3 (0-1.0) k/uL Eosinophils # 0.1 (0-0.7) k/uL Basophils # 0.1 (0-0.2) k/uL Sodium 137 (137-145) mmol/L Potassium 3.9 (3.5-5.1) mmol/L Chloride 102 (98-107) mmol/L Carbon Dioxide 25 (22-30) mmol/L Anion Gap 10 mmol/L BUN 14 (9-20) mg/dL Creatinine 0.88 (0.66-1.25) mg/dL Est GFR (CKD-EPI)AfAm >90 (>60 ml/min/1.73 sqM) Est GFR (CKD-EPI)NonAf >90 (>60 ml/min/1.73 sqM) Glucose 139 H (74-99) mg/dL POC Glucose (mg/dL) 142 H (75-99) mg/dL POC Glu [employer] [place] Calcium 9.5 (8.4-10.2) mg/dL Total Bilirubin 0.3 (0.2-1.3) mg/dL AST 45 (17-59) U/L ALT 45 (4-49) U/L Alkaline Phosphatase 123 (38-126) U/L Total Protein 7.0 (6.3-8.2) g/dL Albumin 4.5 (3.5-5.0) g/dL Urine Color Urine Appearance (Clear) Urine pH (5.0-8.0) Ur Specific [employer] (1.001-1.035) Urine Protein (Negative) Urine Glucose (UA) (Negative) Urine Ketones (Negative) Urine Blood (Negative) Urine Nitrite (Negative) Urine Bilirubin (Negative) Urine Urobilinogen (<2.0) mg/dL Ur Leukocyte Esterase (Negative) 03/23/20 Range/Units 18:15 WBC (3.8-10.6) k/uL RBC (4.30-5.90) m/uL Hgb (13.0-17.5) gm/dL Hct (39.0-53.0) % MCV (80.0-100.0) fL MCH (25.0-35.0) pg MCHC (31.0-37.0) g/dL RDW (11.5-15.5) % Plt Count (150-450) k/uL Neutrophils % % Lymphocytes % % Monocytes % % Eosinophils % % Basophils % % Neutrophils # (1.3-7.7) k/uL Lymphocytes # (1.0-4.8) k/uL Monocytes # (0-1.0) k/uL Eosinophils # (0-0.7) k/uL Basophils # (0-0.2) k/uL Sodium (137-145) mmol/L Potassium (3.5-5.1) mmol/L Chloride (98-107) mmol/L Carbon Dioxide (22-30) mmol/L Anion Gap mmol/L BUN (9-20) mg/dL Creatinine (0.66-1.25) mg/dL Est GFR (CKD-EPI)AfAm (>60 ml/min/1.73 sqM) Est GFR (CKD-EPI)NonAf (>60 ml/min/1.73 sqM) Glucose (74-99) mg/dL POC Glucose (mg/dL) (75-99) mg/dL POC Glu [employer] ID Calcium (8.4-10.2) mg/dL Total Bilirubin (0.2-1.3) mg/dL AST (17-59) U/L ALT (4-49) U/L Alkaline Phosphatase (38-126) U/L Total Protein (6.3-8.2) g/dL Albumin (3.5-5.0) g/dL Urine Color Yellow Urine Appearance Clear (Clear) Urine pH 5.5 (5.0-8.0) Ur Specific [employer] 1.015 (1.001-1.035) Urine Protein Negative (Negative) Urine Glucose (UA) Negative (Negative) Urine Ketones Negative (Negative) Urine Blood Negative (Negative) Urine Nitrite Negative (Negative) Urine Bilirubin Negative (Negative) Urine Urobilinogen <2.0 (<2.0) mg/dL Ur Leukocyte Esterase Negative (Negative) Disposition Clinical Impression: Dehydration Disposition: HOME SELF-CARE Condition: Stable Instructions (If sedation given, give patient instructions): Normal Exam (ED) Additional Instructions: Please return to the Emergency Department if symptoms worsen or any other concerns. Follow-up with PCP. Is patient prescribed a controlled substance at d/c from ED?: No Referrals: Ambrose Denton MD [Primary Care Provider] - 1-2 days
[2020-03-23 18:44] LABS: ALT 45 U/L (4-49); AST 45 U/L (17-59); African American GFR (CKD) >90 (>60 ml/min/1.73 sqM); Albumin 4.5 g/dL (3.5-5.0); Alkaline Phosphatase 123 U/L (38-126); Anion Gap 10 mmol/L; Blood Urea Nitrogen 14 mg/dL (9-20); Calcium 9.5 mg/dL (8.4-10.2); Carbon Dioxide 25 mmol/L (22-30); Chloride 102 mmol/L (98-107); Glucose 139 mg/dL (74-99); Non-African American GFR(CKD) >90 (>60 ml/min/1.73 sqM); Potassium 3.9 mmol/L (3.5-5.1); Sodium 137 mmol/L (137-145); Total Bilirubin 0.3 mg/dL (0.2-1.3)
[2020-03-23 19:03] VITALS: BP 148/78; PULSE 81; RESP 16
== END 2020-03-23 19:02 | disposition home or self-care (01) ==
LOC: EC 17:33
DX: E86.0 Dehydration (principal); E11.9 Type 2 diabetes mellitus without complications; R25.1 Tremor, unspecified; L75.0 Bromhidrosis; F41.9 Anxiety disorder, unspecified; F31.9 Bipolar disorder, unspecified; E55.9 Vitamin D deficiency, unspecified; Z79.899 Other long term (current) drug therapy; Z53.29 Procedure and treatment not carried out because of patient's decision for other reasons; Z88.8 Allergy status to other drugs, medicaments and biological substances; Z79.84 Long term (current) use of oral hypoglycemic drugs
CPT/HCPCS: 36415; 80053; 81003; 85025; 99284

== ENCOUNTER 2020-05-11 04:49 | Emergency (ER) | payer OTHER ==
[2020-05-11 05:06] VITALS: BP 132/85; PULSE 66; RESP 18; TEMP 98.1
[2020-05-11 05:07] LABS: Glucose,Whole Blood 111 mg/dL (75-99)
--- NOTE | 2020-05-11 05:11 | ED ---
Chest Pain HPI - General Chief Complaint: Chest Pain Stated Complaint: Chest pain Time Seen by Provider: 05/11/20 04:51 Source: patient Mode of arrival: EMS - History of Present Illness Initial Comments: This patient is a 44-year-old man who presents with complaint of substernal chest pain. He states that it started probably 30 minutes or so ago. The patient states she was just sitting watching television. He denies associated symptoms. MD Complaint: chest pain -: minutes(s) Onset: during rest Pain Location: substernal Pain Radiation: none Severity: moderate Quality: sharp Consistency: now resolved Improves With: nothing Worsens With: nothing Treatments Prior to Arrival: none - Related Data Home Medications Medication Instructions Recorded Confirmed Loratadine [Claritin] 10 mg PO DAILY 08/08/14 01/26/20 Montelukast [Singulair] 10 mg PO HS 01/27/19 01/26/20 Benztropine Mesylate [Cogentin] 2 mg PO BID 05/11/19 01/26/20 traZODone HCL [Desyrel] 100 mg PO HS 05/11/19 01/26/20 Ibuprofen [Motrin] 400 mg PO Q8H PRN 06/02/19 01/26/20 Cholecalciferol (Vitamin D3) 125 mcg PO DAILY 01/26/20 01/26/20 [Vitamin D3] Previous Rx's Medication Instructions Recorded Chlorthalidone 25 mg PO DAILY 30 Days #30 tablet 02/18/19 Glimepiride [Amaryl] 1 mg PO DAILY 30 Days #30 tab 02/18/19 Levothyroxine Sodium [Synthroid] 100 mcg PO DAILY 30 Days #30 tab 02/18/19 Lisinopril [Zestril] 20 mg PO DAILY 30 Days #30 tab 02/18/19 Sertraline [Zoloft] 200 mg PO DAILY 30 Days #60 tab 02/18/19 Simvastatin [Zocor] 20 mg PO DAILY 30 Days #30 tab 02/18/19 fluPHENAZine DECANOATE [Prolixin 25 mg IM Q14D 14 Days #1 ml 02/18/19 Decanoate] Allergies Allergy/AdvReac Type Severity Reaction Status Date / Time diphenhydramine Allergy Rash/Hives Verified 05/11/20 05:06 [From Benadryl] diphenhydramine HCl Allergy Rash/Hives Verified 05/11/20 05:06 [From Benadryl] Review of Systems ROS Statement: Those systems with pertinent positive or pertinent negative responses have been documented in the HPI. ROS Other: All systems not noted in ROS Statement are negative. Constitutional: Denies: fever, chills Respiratory: Denies: cough, dyspnea Cardiovascular: Reports: chest pain. Denies: palpitations, orthopnea, edema, syncope Gastrointestinal: Denies: abdominal pain, vomiting, diarrhea Genitourinary: Denies: dysuria Musculoskeletal: Denies: back pain Skin: Denies: rash Neurological: Denies: headache, weakness, numbness EKG Findings - EKG Results: EKG: interpreted by LETY PRETTY, sinus rhythm (Rate 67 bpm), normal axis, normal QRS, normal ST/T Past Medical History Past Medical History: Diabetes Mellitus, Hypertension, Seizure Disorder, Thyroid Disorder Additional Past Medical History / Comment(s): Hypothyroidism, vitamin D deficiency, dyslipidemia, ALLERGIES, cognitive impairment History of Any Multi-Drug Resistant Organisms: None Reported Past Surgical History: Orthopedic Surgery Additional Past Surgical History / Comment(s): right ankle Past Anesthesia/Blood Transfusion Reactions: No Reported Reaction Past Psychological History: Anxiety, Bipolar, Depression Smoking Status: Never smoker Past Alcohol Use History: None Reported, Abuse Past Drug Use History: Heroin, Methamphetamine, Prescription Drug Abuse - Past Family History Mother Additional Family Medical History / Comment(s): No known medical history. Patient denies any family history of diabetes or hypertension General Exam General appearance: alert, in no apparent distress Head exam: Present: atraumatic, normocephalic Eye exam: Present: normal appearance. Absent: scleral icterus, conjunctival injection ENT exam: Present: normal oropharynx Neck exam: Present: normal inspection Respiratory exam: Present: normal lung sounds bilaterally. Absent: respiratory distress, wheezes, rales, rhonchi, chest wall tenderness Cardiovascular Exam: Present: regular rate, normal rhythm, normal heart sounds. Absent: systolic murmur, diastolic murmur, rubs, gallop GI/Abdominal exam: Present: soft. Absent: distended, tenderness, guarding, rebound, rigid, mass Extremities exam: Present: normal inspection, normal capillary refill. Absent: pedal edema, calf tenderness Back exam: Present: normal inspection. Absent: CVA tenderness (R), CVA tenderness (L) Neurological exam: Present: alert Skin exam: Present: warm, dry, intact, normal color. Absent: rash Course Vital Signs 05/11/20 05:01 Temperature 98.1 F Pulse Rate 66 Respiratory 18 Rate Blood Pressure 132/85 O2 Sat by Pulse 96 Oximetry Chest Pain MDM - MDM Patient is a 44-year-old man who presented to the emergency department by ambulance after developing episode of chest pain. The patient's was having initial evaluation when I was noted that he did have a bedbug present on the exam. In accord with the department protocol, the patient was to be showered for the bedbug infestation, but the patient became angered, stated that the chest pain had resolved and that he was leaving without further evaluation or treatment. I did attempt to verbally de-escalate the situation, the patient stated he was definitely relieving regardless that the initial evaluation was not completed. Disposition Clinical Impression: Chest pain Disposition: Left Against Medical Advice Condition: Undetermined Is patient prescribed a controlled substance at d/c from ED?: No Referrals: [facility] [Primary Care Provider] - 1-2 days
[2020-05-11 05:14] LABS: Basophils % (A) 1 %; Eosinophils # (A) 0.1 k/uL (0-0.7); Eosinophils % (A) 2 %; HCT 46.8 % (39.0-53.0); HGB 15.9 gm/dL (13.0-17.5); Lymphocytes # (A) 2.4 k/uL (1.0-4.8); Lymphocytes % (A) 38 %; MCH 29.1 pg (25.0-35.0); MCV 85.6 fL (80.0-100.0); Mean Platelet Volume 7.7; Monocytes # (A) 0.3 k/uL (0-1.0); Monocytes % (A) 5 %; Neutrophils # (A) 3.3 k/uL (1.3-7.7); Neutrophils % (A) 53 %; Platelet Count 231 k/uL (150-450); RBC 5.47 m/uL (4.30-5.90); WBC 6.3 k/uL (3.8-10.6)
[2020-05-11 05:22] LABS: INR 1.1 (<1.2); Partial Thromboplastin Time 25.2 sec (22.0-30.0); Prothrombin Time 11.2 sec (9.0-12.0)
[2020-05-11 05:25] LABS: ALT 34 U/L (4-49); AST 27 U/L (17-59); African American GFR (CKD) >90 (>60 ml/min/1.73 sqM); Alkaline Phosphatase 96 U/L (38-126); Anion Gap 9 mmol/L; Blood Urea Nitrogen 13 mg/dL (9-20); Calcium 9.5 mg/dL (8.4-10.2); Carbon Dioxide 26 mmol/L (22-30); Chloride 98 mmol/L (98-107); Glucose 111 mg/dL (74-99); Magnesium 1.6 mg/dL (1.6-2.3); Non-African American GFR(CKD) >90 (>60 ml/min/1.73 sqM); Potassium 3.8 mmol/L (3.5-5.1); Sodium 133 mmol/L (137-145); Total Bilirubin 0.4 mg/dL (0.2-1.3); Total Protein 6.3 g/dL (6.3-8.2)
== END 2020-05-11 05:30 | disposition left against medical advice (07) ==
LOC: EC 04:49
DX: R07.2 Precordial pain (principal); F31.9 Bipolar disorder, unspecified; F41.9 Anxiety disorder, unspecified; Z79.899 Other long term (current) drug therapy; Z88.8 Allergy status to other drugs, medicaments and biological substances; Z53.29 Procedure and treatment not carried out because of patient's decision for other reasons
CPT/HCPCS: 36415; 80053; 83735; 84484; 85025; 85610; 85730; 93005; 99285

== ENCOUNTER 2020-07-30 17:00 | Emergency (ER) | payer OTHER ==
[2020-07-30 17:05] VITALS: TEMP 98.6
--- NOTE | 2020-07-30 17:19 | ED ---
General Adult HPI - General Chief complaint: Chest Pain Stated complaint: Chest Pain Time Seen by Provider: 07/30/20 17:02 Source: patient, RN notes reviewed, old records reviewed Mode of arrival: ambulatory Limitations: no limitations - History of Present Illness Initial comments: 44-year-old male presents for evaluation of substernal chest pain. Pain began prior to arrival approximately one hour. Patient is schizophrenic, currently homeless. He stating that he is hungry but does want evaluation of his substernal chest pain. He denies any radiating symptoms. Denies nausea or vomiting. He denies diaphoresis. Denies lower extremity pain or swelling. - Related Data Home Medications Medication Instructions Recorded Confirmed Loratadine [Claritin] 10 mg PO DAILY 08/08/14 01/26/20 Montelukast [Singulair] 10 mg PO HS 01/27/19 01/26/20 Benztropine Mesylate [Cogentin] 2 mg PO BID 05/11/19 01/26/20 traZODone HCL [Desyrel] 100 mg PO HS 05/11/19 01/26/20 Ibuprofen [Motrin] 400 mg PO Q8H PRN 06/02/19 01/26/20 Cholecalciferol (Vitamin D3) 125 mcg PO DAILY 01/26/20 01/26/20 [Vitamin D3] Previous Rx's Medication Instructions Recorded Chlorthalidone 25 mg PO DAILY 30 Days #30 tablet 02/18/19 Glimepiride [Amaryl] 1 mg PO DAILY 30 Days #30 tab 02/18/19 Levothyroxine Sodium [Synthroid] 100 mcg PO DAILY 30 Days #30 tab 02/18/19 Sertraline [Zoloft] 200 mg PO DAILY 30 Days #60 tab 02/18/19 Simvastatin [Zocor] 20 mg PO DAILY 30 Days #30 tab 02/18/19 fluPHENAZine decanoate [Prolixin 25 mg IM Q14D 14 Days #1 ml 02/18/19 Decanoate] lisinopriL [Zestril] 20 mg PO DAILY 30 Days #30 tab 02/18/19 Allergies Allergy/AdvReac Type Severity Reaction Status Date / Time diphenhydramine Allergy Rash/Hives Verified 07/30/20 17:06 [From Benadryl] diphenhydramine HCl Allergy Rash/Hives Verified 07/30/20 17:06 [From [facility]] Review of Systems ROS Statement: Those systems with pertinent positive or pertinent negative responses have been documented in the HPI. ROS Other: All systems not noted in ROS Statement are negative. Past Medical History Past Medical History: Diabetes Mellitus, Hypertension, Seizure Disorder, Thyroid Disorder Additional Past Medical History / Comment(s): angina, Hypothyroidism, vitamin D deficiency, dyslipidemia, ALLERGIES, cognitive impairment History of Any Multi-Drug Resistant Organisms: None Reported Past Surgical History: Orthopedic Surgery Additional Past Surgical History / Comment(s): right ankle Past Anesthesia/Blood Transfusion Reactions: No Reported Reaction Past Psychological History: Anxiety, Bipolar, Depression Smoking Status: Never smoker Past Alcohol Use History: None Reported, Abuse Past Drug Use History: Heroin, Methamphetamine, Prescription Drug Abuse - Past Family History Mother Additional Family Medical History / Comment(s): No known medical history. Sunita nt denies any family history of diabetes or hypertension General Exam Limitations: no limitations General appearance: alert, in no apparent distress Head exam: Present: atraumatic, normocephalic Eye exam: Present: normal appearance, PERRL ENT exam: Present: normal exam Neck exam: Present: normal inspection. Absent: tenderness, meningismus Respiratory exam: Present: normal lung sounds bilaterally. Absent: respiratory distress, wheezes Cardiovascular Exam: Present: regular rate, normal rhythm GI/Abdominal exam: Present: soft. Absent: distended, tenderness, guarding Extremities exam: Present: normal inspection, normal capillary refill. Absent: pedal edema, calf tenderness Neurological exam: Present: alert, oriented X3, CN II-XII intact. Absent: motor sensory deficit Psychiatric exam: Present: normal affect, normal mood Skin exam: Present: warm, dry, intact. Absent: cyanosis, diaphoretic Course Vital Signs 07/30/20 07/30/20 07/30/20 17:01 17:10 17:20 Temperature 98.6 F Pulse Rate 65 69 65 Pulse Rate [ 77 Apical] Respiratory 18 20 19 Rate Blood Pressure 138/90 138/90 131/93 O2 Sat by Pulse 99 Oximetry 07/30/20 07/30/20 07/30/20 17:30 17:40 18:00 Temperature Pulse Rate 64 65 74 Pulse Rate [ Apical] Respiratory 17 19 18 Rate Blood Pressure 131/93 126/81 126/81 O2 Sat by Pulse 94 L 95 95 Oximetry 07/30/20 07/30/20 07/30/20 18:20 18:30 19:00 Temperature Pulse Rate 58 L 56 L 52 L Pulse Rate [ Apical] Respiratory 22 21 21 Rate Blood Pressure 130/85 130/85 119/76 O2 Sat by Pulse 95 98 98 Oximetry - Reevaluation(s) Reevaluation #1: 07/30/20 19:02 Chest Pain Free EKG Findings - EKG Comments: EKG Findings:: EKG: Normal sinus rhythm, Q waves in the inferior leads, rate of 65, OH interval 164, QRS duration 94, QTC 378, no ST segment elevation. Medical Decision Making - Medical Decision Making 44-year-old male presented for evaluation of chest pain. Patient is able to give a limited history. He has a history of schizophrenia and has flat affect and is to respond to questions. EKG is negative for ST segment elevation, sinus rhythm. Chest x-ray negative for acute cardio pulmonary disease. Patient has a normal CBC, normal CMP, initial troponin is 0. This is repeated and remains 0. Patient is given close outpatient follow-up. Patient is hungry, chest pain-free. - Lab Data Result diagrams: 07/30/20 17:15 07/30/20 17:15 Lab Results 07/30/20 07/30/20 07/30/20 Range/Units 17:15 17:15 17:15 WBC 7.3 (3.8-10.6) k/uL RBC 5.80 (4.30-5.90) m/uL Hgb 15.3 (13.0-17.5) gm/dL Hct 47.9 (39.0-53.0) % MCV 82.5 (80.0-100.0) fL MCH 26.4 (25.0-35.0) pg MCHC 32.1 (31.0-37.0) g/dL RDW 14.0 (11.5-15.5) % Plt Count 265 (150-450) k/uL Neutrophils % 60 % Lymphocytes % 32 % Monocytes % 6 % Eosinophils % 1 % Basophils % 1 % Neutrophils # 4.4 (1.3-7.7) k/uL Lymphocytes # 2.4 (1.0-4.8) k/uL Monocytes # 0.4 (0-1.0) k/uL Eosinophils # 0.1 (0-0.7) k/uL Basophils # 0.0 (0-0.2) k/uL PT 11.6 (9.0-12.0) sec INR 1.1 (<1.2) APTT 24.9 (22.0-30.0) sec Sodium 142 (137-145) mmol/L Potassium 4.3 (3.5-5.1) mmol/L Chloride 104 (98-107) mmol/L Carbon Dioxide 30 (22-30) mmol/L Anion Gap 8 mmol/L BUN 15 (9-20) mg/dL Creatinine 0.92 (0.66-1.25) mg/dL Est GFR (CKD-EPI)AfAm >90 (>60 ml/min/1.73 sqM) Est GFR (CKD-EPI)NonAf >90 (>60 ml/min/1.73 sqM) Glucose 86 (74-99) mg/dL Calcium 9.4 (8.4-10.2) mg/dL Magnesium 1.6 (1.6-2.3) mg/dL Total Bilirubin 0.5 (0.2-1.3) mg/dL AST 23 (17-59) U/L ALT 30 (4-49) U/L Alkaline Phosphatase 117 (38-126) U/L Troponin I (0.000-0.034) ng/mL Total Protein 6.6 (6.3-8.2) g/dL Albumin 4.5 (3.5-5.0) g/dL Lipase 227 (23-300) U/L Serum Alcohol <10 mg/dL 07/30/20 07/30/20 Range/Units 17:15 18:20 WBC (3.8-10.6) k/uL RBC (4.30-5.90) m/uL Hgb (13.0-17.5) gm/dL Hct (39.0-53.0) % MCV (80.0-100.0) fL MCH (25.0-35.0) pg MCHC (31.0-37.0) g/dL RDW (11.5-15.5) % Plt Count (150-450) k/uL Neutrophils % % Lymphocytes % % Monocytes % % Eosinophils % % Basophils % % Neutrophils # (1.3-7.7) k/uL Lymphocytes # (1.0-4.8) k/uL Monocytes # (0-1.0) k/uL Eosinophils # (0-0.7) k/uL Basophils # (0-0.2) k/uL PT (9.0-12.0) sec INR (<1.2) APTT (22.0-30.0) sec Sodium (137-145) mmol/L Potassium (3.5-5.1) mmol/L Chloride (98-107) mmol/L Carbon Dioxide (22-30) mmol/L Anion Gap mmol/L BUN (9-20) mg/dL Creatinine (0.66-1.25) mg/dL Est GFR (CKD-EPI)AfAm (>60 ml/min/1.73 sqM) Est GFR (CKD-EPI)NonAf (>60 ml/min/1.73 sqM) Glucose (74-99) mg/dL Calcium (8.4-10.2) mg/dL Magnesium (1.6-2.3) mg/dL Total Bilirubin (0.2-1.3) mg/dL AST (17-59) U/L ALT (4-49) U/L Alkaline Phosphatase (38-126) U/L Troponin I <0.012 <0.012 (0.000-0.034) ng/mL Total Protein (6.3-8.2) g/dL Albumin (3.5-5.0) g/dL Lipase (23-300) U/L Serum Alcohol mg/dL Disposition Clinical Impression: Chest pain Disposition: HOME SELF-CARE Condition: Good Instructions (If sedation given, give patient instructions): Chest Pain (ED) Is patient prescribed a controlled substance at d/c from ED?: No Referrals: [facility] [Primary Care Provider] - 1-2 days Time of Disposition: 19:03
[2020-07-30 17:28] LABS: Basophils % (A) 1 %; Eosinophils # (A) 0.1 k/uL (0-0.7); Eosinophils % (A) 1 %; HCT 47.9 % (39.0-53.0); HGB 15.3 gm/dL (13.0-17.5); Lymphocytes # (A) 2.4 k/uL (1.0-4.8); Lymphocytes % (A) 32 %; MCH 26.4 pg (25.0-35.0); MCHC 32.1 g/dL (31.0-37.0); MCV 82.5 fL (80.0-100.0); Mean Platelet Volume 7.7; Monocytes # (A) 0.4 k/uL (0-1.0); Monocytes % (A) 6 %; Neutrophils # (A) 4.4 k/uL (1.3-7.7); Neutrophils % (A) 60 %; Platelet Count 265 k/uL (150-450); WBC 7.3 k/uL (3.8-10.6)
--- NOTE | 2020-07-30 17:31 | XR ---
EXAMINATION TYPE: XR chest 2V DATE OF EXAM: 07/30/2020 COMPARISON: Prior chest x-ray 02/03/2020 HISTORY: Chest pain TECHNIQUE: Frontal and lateral views of the chest are obtained. FINDINGS: There is no focal air space opacity, pleural effusion, or pneumothorax seen. The cardiac silhouette size is within normal limits. The osseous structures are intact. Patient is rotated. The re are overlying cardiac leads. IMPRESSION: No acute cardiopulmonary process.
[2020-07-30 17:39] LABS: ALT 30 U/L (4-49); AST 23 U/L (17-59); African American GFR (CKD) >90 (>60 ml/min/1.73 sqM); Albumin 4.5 g/dL (3.5-5.0); Alcohol <10 mg/dL; Alkaline Phosphatase 117 U/L (38-126); Anion Gap 8 mmol/L; Blood Urea Nitrogen 15 mg/dL (9-20); Calcium 9.4 mg/dL (8.4-10.2); Carbon Dioxide 30 mmol/L (22-30); Chloride 104 mmol/L (98-107); Glucose 86 mg/dL (74-99); Magnesium 1.6 mg/dL (1.6-2.3); Non-African American GFR(CKD) >90 (>60 ml/min/1.73 sqM); Potassium 4.3 mmol/L (3.5-5.1); Sodium 142 mmol/L (137-145); Total Bilirubin 0.5 mg/dL (0.2-1.3); Total Protein 6.6 g/dL (6.3-8.2)
[2020-07-30] MEDS ORDERED: ASPIRIN 325 MG TAB PO STA (17:42)
[2020-07-30] MEDS ORDERED: MORPHINE SULFATE 2 MG/ML SYRINGE IVP STA (17:43)
[2020-07-30 17:53] LABS: INR 1.1 (<1.2); Partial Thromboplastin Time 24.9 sec (22.0-30.0); Prothrombin Time 11.6 sec (9.0-12.0)
[2020-07-30 19:04] VITALS: BP 119/76; PULSE 52; RESP 21
== END 2020-07-30 19:17 | disposition home or self-care (01) ==
LOC: EC 17:00
DX: R07.2 Precordial pain (principal); F41.9 Anxiety disorder, unspecified; F31.9 Bipolar disorder, unspecified; Z79.899 Other long term (current) drug therapy; Z59.0 Homelessness; Z88.8 Allergy status to other drugs, medicaments and biological substances
CPT/HCPCS: 36415; 93005; 80053; 83690; 83735; 84484; 85025; 85610; 85730; 71046; 99285; 96374; G0480; J2270; 80320

== ENCOUNTER 2020-08-06 14:01 | Emergency (ER) | payer OTHER ==
[2020-08-06] MEDS ORDERED: SODIUM CHLORIDE 0.9% 1,000 ML IV STA (14:48)
[2020-08-06 15:21] LABS: Basophils % (A) 1 %; Eosinophils # (A) 0.1 k/uL (0-0.7); Eosinophils % (A) 1 %; HCT 43.3 % (39.0-53.0); HGB 14.2 gm/dL (13.0-17.5); Lymphocytes # (A) 1.5 k/uL (1.0-4.8); Lymphocytes % (A) 19 %; MCH 26.7 pg (25.0-35.0); MCHC 32.7 g/dL (31.0-37.0); MCV 81.6 fL (80.0-100.0); Mean Platelet Volume 7.9; Monocytes # (A) 0.5 k/uL (0-1.0); Monocytes % (A) 7 %; Neutrophils # (A) 5.8 k/uL (1.3-7.7); Neutrophils % (A) 72 %; Platelet Count 211 k/uL (150-450); RBC 5.31 m/uL (4.30-5.90)
--- NOTE | 2020-08-06 16:06 | CT ---
EXAMINATION TYPE: CT brain wo con DATE OF EXAM: 08/06/2020 COMPARISON: 11/12/2019 HISTORY: seizure today, history of prior seizures CT DLP: 1096.4 mGycm Automated exposure control for dose reduction was used. Ventricles have normal size. There is no mass effect nor midline shift. There is no sign of intracran ial hemorrhage. There is no evidence of cerebral edema. Calvarium is intact. IMPRESSION: Negative unenhanced head CT scan. No adverse change.
[2020-08-06 16:42] LABS: ALT 21 U/L (4-49); AST 20 U/L (17-59); African American GFR (CKD) >90 (>60 ml/min/1.73 sqM); Alcohol <10 mg/dL; Alkaline Phosphatase 117 U/L (38-126); Anion Gap 8 mmol/L; Blood Urea Nitrogen 19 mg/dL (9-20); Carbon Dioxide 21 mmol/L (22-30); Chloride 107 mmol/L (98-107); Creatine Kinase 99 U/L (55-170); Glucose 99 mg/dL (74-99); Magnesium 1.6 mg/dL (1.6-2.3); Non-African American GFR(CKD) >90 (>60 ml/min/1.73 sqM); Potassium 3.8 mmol/L (3.5-5.1); Sodium 136 mmol/L (137-145); Total Bilirubin 0.4 mg/dL (0.2-1.3); Total Protein 6.2 g/dL (6.3-8.2)
--- NOTE | 2020-08-06 16:55 | ED ---
Seizure HPI - General Chief Complaint: Seizure Stated Complaint: Seizures Time Seen by Provider: 08/06/20 15:00 Source: patient, EMS, RN notes reviewed Mode of arrival: EMS Limitations: no limitations - History of Present Illness Initial Comments: This is a 45-year-old male history of seizure disorder who apparently had a seizure prior to arrival is unknown how long it lasted he complains some abrasions to his face but no other complaints of head neck or back injury or pain. He states he was on Depakote for this in the past was taken off at some point he's not sure why he has no other complaints no drugs or alcohol reported MD Complaint: seizure - Related Data Home Medications Medication Instructions Recorded Confirmed Loratadine [Claritin] 10 mg PO DAILY 08/08/14 01/26/20 Montelukast [Singulair] 10 mg PO HS 01/27/19 01/26/20 Benztropine Mesylate [Cogentin] 2 mg PO BID 05/11/19 01/26/20 traZODone HCL [Desyrel] 100 mg PO HS 05/11/19 01/26/20 Ibuprofen [Motrin] 400 mg PO Q8H PRN 06/02/19 01/26/20 Cholecalciferol (Vitamin D3) 125 mcg PO DAILY 01/26/20 01/26/20 [Vitamin D3] Previous Rx's Medication Instructions Recorded Chlorthalidone 25 mg PO DAILY 30 Days #30 tablet 02/18/19 Glimepiride [Amaryl] 1 mg PO DAILY 30 Days #30 tab 02/18/19 Levothyroxine Sodium [Synthroid] 100 mcg PO DAILY 30 Days #30 tab 02/18/19 Sertraline [Zoloft] 200 mg PO DAILY 30 Days #60 tab 02/18/19 Simvastatin [Zocor] 20 mg PO DAILY 30 Days #30 tab 02/18/19 fluPHENAZine decanoate [Prolixin 25 mg IM Q14D 14 Days #1 ml 02/18/19 Decanoate] lisinopriL [Zestril] 20 mg PO DAILY 30 Days #30 tab 02/18/19 Divalproex [Depakote] 500 mg PO TID #90 tablet. 08/06/20 Allergies Allergy/AdvReac Type Severity Reaction Status Date / Time diphenhydramine Allergy Rash/Hives Verified 08/06/20 14:08 [From Benadryl] diphenhydramine HCl Allergy Rash/Hives Verified 08/06/20 14:08 [From Benadryl] Review of Systems ROS Statement: Those systems with pertinent positive or pertinent negative responses have been documented in the HPI. ROS Other: All systems not noted in ROS Statement are negative. Past Medical History Past Medical History: Diabetes Mellitus, Hypertension, Seizure Disorder, Thyroid Disorder Additional Past Medical History / Comment(s): angina, Hypothyroidism, vitamin D deficiency, dyslipidemia, ALLERGIES, cognitive impairment History of Any Multi-Drug Resistant Organisms: None Reported Past Surgical History: Orthopedic Surgery Additional Past Surgical History / Comment(s): right ankle Past Anesthesia/Blood Transfusion Reactions: No Reported Reaction Past Psychological History: Anxiety, Bipolar, Depression Smoking Status: Never smoker Past Alcohol Use History: None Reported, Abuse Past Drug Use History: Heroin, Methamphetamine, Prescription Drug Abuse - Past Family History Mother Additional Family Medical History / Comment(s): No known medical history. Patient denies any family history of diabetes or hypertension General Exam - General Exam Comments Initial Comments: This is a well-developed well-nourished awake alert oriented times female demonstrate a Cameron Coma Scale of 15 Limitations: no limitations General appearance: alert, in no apparent distress Head exam: Present: normocephalic, other (Facial abrasions nasal abrasions no step-off or crepitation no active bleeding at this time no repair indicated) Eye exam: Present: normal appearance, PERRL, EOMI. Absent: scleral icterus, conjunctival injection, periorbital swelling ENT exam: Present: normal exam, mucous membranes moist Neck exam: Present: normal inspection. Absent: tenderness, meningismus, lymphadenopathy Respiratory exam: Present: normal lung sounds bilaterally. Absent: respiratory distress, wheezes, rales, rhonchi, stridor Cardiovascular Exam: Present: regular rate, normal rhythm, normal heart sounds. Absent: systolic murmur, diastolic murmur, rubs, gallop, clicks GI/Abdominal exam: Present: soft, normal bowel sounds. Absent: distended, tenderness, guarding, rebound, rigid Extremities exam: Present: normal inspection, full ROM, normal capillary refill. Absent: tenderness, pedal edema, joint swelling, calf tenderness Back exam: Present: normal inspection Neurological exam: Present: alert, oriented X3, CN II-XII intact Psychiatric exam: Present: normal affect, normal mood Skin exam: Present: warm, dry, intact, normal color. Absent: rash Course Vital Signs 08/06/20 14:04 Temperature 98.4 F Pulse Rate 75 Respiratory 16 Rate Blood Pressure 136/87 O2 Sat by Pulse 95 Oximetry Medical Decision Making - Medical Decision Making Patient is awake alert oriented history he'll be discharged he will be restarted on his valproic acid is a follow-up with his doctor return when necessary - Lab Data Result diagrams: 08/06/20 15:04 08/06/20 16:02 Lab Results 08/06/20 08/06/20 Range/Units 15:04 16:02 WBC 8.0 (3.8-10.6) k/uL RBC 5.31 (4.30-5.90) m/uL Hgb 14.2 (13.0-17.5) gm/dL Hct 43.3 (39.0-53.0) % MCV 81.6 (80.0-100.0) fL MCH 26.7 (25.0-35.0) pg MCHC 32.7 (31.0-37.0) g/dL RDW 14.0 (11.5-15.5) % Plt Count 211 (150-450) k/uL Neutrophils % 72 % Lymphocytes % 19 % Monocytes % 7 % Eosinophils % 1 % Basophils % 1 % Neutrophils # 5.8 (1.3-7.7) k/uL Lymphocytes # 1.5 (1.0-4.8) k/uL Monocytes # 0.5 (0-1.0) k/uL Eosinophils # 0.1 (0-0.7) k/uL Basophils # 0.0 (0-0.2) k/uL Sodium 136 L (137-145) mmol/L Potassium 3.8 (3.5-5.1) mmol/L Chloride 107 (98-107) mmol/L Carbon Dioxide 21 L (22-30) mmol/L Anion Gap 8 mmol/L BUN 19 (9-20) mg/dL Creatinine 0.63 L (0.66-1.25) mg/dL Est GFR (CKD-EPI)AfAm >90 (>60 ml/min/1.73 sqM) Est GFR (CKD-EPI)NonAf >90 (>60 ml/min/1.73 sqM) Glucose 99 (74-99) mg/dL Calcium 9.0 (8.4-10.2) mg/dL Magnesium 1.6 (1.6-2.3) mg/dL Total Bilirubin 0.4 (0.2-1.3) mg/dL AST 20 (17-59) U/L ALT 21 (4-49) U/L Alkaline Phosphatase 117 (38-126) U/L Creatine Kinase 99 (55-170) U/L Total Protein 6.2 L (6.3-8.2) g/dL Albumin 4.0 (3.5-5.0) g/dL Serum Alcohol <10 mg/dL - EKG Data -: EKG Interpreted by Me EKG shows normal: sinus rhythm EKG Comments: Sinus bradycardia 59 DC interval 192 QRS duration 94 QT since QTC 42/397 infer ior changes nonspecific age nonspecific T-wave configuration - Radiology Data Radiology results: report reviewed (Imaging reviewed no acute findings), image reviewed Disposition Clinical Impression: Generalized seizure Disposition: HOME SELF-CARE Condition: Good Instructions (If sedation given, give patient instructions): Recurrent Seizures in Adults (ED) Prescriptions: Divalproex [Depakote] 500 mg PO TID #90 tablet. Is patient prescribed a controlled substance at d/c from ED?: No Referrals: [facility] [Primary Care Provider] - 1-2 days
[2020-08-06 17:06] VITALS: BP 152/87; PULSE 70; RESP 14; TEMP 98.2
== END 2020-08-06 17:06 | disposition home or self-care (01) ==
LOC: EC 14:01
DX: G40.909 Epilepsy, unspecified, not intractable, without status epilepticus (principal); S00.81XA Abrasion of other part of head, initial encounter; S00.31XA Abrasion of nose, initial encounter; I10 Essential (primary) hypertension; E11.9 Type 2 diabetes mellitus without complications; F41.9 Anxiety disorder, unspecified; F31.9 Bipolar disorder, unspecified; Z79.51 Long term (current) use of inhaled steroids; Z79.899 Other long term (current) drug therapy; Z88.8 Allergy status to other drugs, medicaments and biological substances
CPT/HCPCS: 36415; 93005; 80053; 82550; 83735; 85025; 70450; 99285; 96360; G0480; 80320

== ENCOUNTER 2020-09-14 19:31 | Inpatient (IN) | payer MEDICAID, OTHER ==
--- NOTE | 2020-09-14 20:14 | ED ---
Psych HPI - General Source: patient, police Mode of arrival: ambulatory <Gin Merrill - Last Filed: 09/15/20 02:27> <Michael Pittman - Last Filed: 09/15/20 02:47> - General Chief Complaint: Psychiatric Symptoms Stated Complaint: Mental health Time Seen by Provider: 09/14/20 19:40 - History of Present Illness Initial Comments: 44-year-old male patient presents to the emergency department today for psychiatric evaluation. Patient states that he was not fed breakfast this morning so he was very upset. Patient states took a razor blade to cut the top of his left hand in an attempt to kill himself. Patient states his been feeling suicidal throughout the day today. States he has attempted suicide in the past and has been admitted to the mental health unit. Patient denies any use of drugs or alcohol. States he lives in a place with room and board and has a caregiver. Last saw his counselor Alfredo 2 weeks ago. Denies visual or auditory hallucinations. States he is sleeping and eating well. Denies any current physical symptoms or concerns. Patient denies any recent rash, fever, chills, cough, shortness of breath, chest pain, abdominal pain, nausea, vomiting, diarrhea, constipation, back pain, numbness, tingling, dizziness, weakness, hematuria, dysuria, urinary urgency, urinary frequency, headache, visual changes, or any other complaints. (Gin Merrill) - Related Data Home Medications Medication Instructions Recorded Confirmed Loratadine [Claritin] 10 mg PO DAILY 08/08/14 09/15/20 Montelukast [Singulair] 10 mg PO HS 01/27/19 09/15/20 traZODone HCL [Desyrel] 100 mg PO HS 05/11/19 09/15/20 Ibuprofen [Motrin] 400 mg PO Q8H PRN 06/02/19 09/15/20 Cholecalciferol (Vitamin D3) 125 mcg PO DAILY 01/26/20 09/15/20 [Vitamin D3] Previous Rx's Medication Instructions Recorded Chlorthalidone 25 mg PO DAILY 30 Days #30 tablet 02/18/19 Glimepiride [Amaryl] 1 mg PO DAILY 30 Days #30 tab 02/18/19 Levothyroxine Sodium [Synthroid] 100 mcg PO DAILY 30 Days #30 tab 02/18/19 Sertraline [Zoloft] 200 mg PO DAILY 30 Days #60 tab 02/18/19 Simvastatin [Zocor] 20 mg PO DAILY 30 Days #30 tab 02/18/19 fluPHENAZine decanoate [Prolixin 25 mg IM Q14D 14 Days #1 ml 02/18/19 Decanoate] lisinopriL [Zestril] 20 mg PO DAILY 30 Days #30 tab 02/18/19 Divalproex [Depakote] 500 mg PO TID #90 tablet. 08/06/20 Allergies Allergy/AdvReac Type Severity Reaction Status Date / Time diphenhydramine Allergy Rash/Hives Verified 09/15/20 02:28 [From Benadryl] diphenhydramine HCl Allergy Rash/Hives Verified 09/15/20 02:28 [From Benadryl] Review of Systems ROS Other: All systems not noted in ROS Statement are negative. <Gin Merrill - Last Filed: 09/15/20 02:27> ROS Other: All systems not noted in ROS Statement are negative. <Michael Pittman - Last Filed: 09/15/20 02:47> ROS Statement: Those systems with pertinent positive or pertinent negative responses have been documented in the HPI. Past Medical History Past Medical History: Diabetes Mellitus, Hypertension, Seizure Disorder, Thyroid Disorder Additional Past Medical History / Comment(s): angina, Hypothyroidism, vitamin D deficiency, dyslipidemia, ALLERGIES, cognitive impairment History of Any Multi-Drug Resistant Organisms: None Reported Past Surgical History: Orthopedic Surgery Additional Past Surgical History / Comment(s): right ankle Past Anesthesia/Blood Transfusion Reactions: No Reported Reaction Past Psychological History: Anxiety, Bipolar, Depression Smoking Status: Current every day smoker Past Alcohol Use History: Abuse Past Drug Use History: Heroin, Methamphetamine, Prescription Drug Abuse - Past Family History Mother Additional Family Medical History / Comment(s): No known medical history. Patient denies any family history of diabetes or hypertension <Gin Merrill - Last Filed: 09/15/20 02:27> General Exam Limitations: no limitations General appearance: alert, in no apparent distress, other (This is a well- developed, well-nourished adult male patient in no acute distress. Vital signs upon presentation are temperature 98.3F, pulse 84, respirations 18, blood pressure 173/100, pulse ox 98% on room air.) ENT exam: Present: normal exam, normal oropharynx, mucous membranes moist Respiratory exam: Present: normal lung sounds bilaterally. Absent: respiratory distress, wheezes, rales, rhonchi, stridor Cardiovascular Exam: Present: regular rate, normal rhythm, normal heart sounds. Absent: systolic murmur, diastolic murmur, rubs, gallop, clicks GI/Abdominal exam: Present: soft, normal bowel sounds. Absent: distended, tenderness, guarding, rebound, rigid Extremities exam: Present: full ROM, normal capillary refill, other (There are abrasions noted to the left dorsal hand. No active bleeding. FROM is intact. skin is otherwise pink, warm, dry. Cap refills less than 3 seconds. Radial pulses 2+ and equal bilaterally.). Absent: normal inspection, tenderness, pedal edema, joint swelling, calf tenderness Neurological exam: Present: alert, oriented X3, CN II-XII intact Psychiatric exam: Present: normal affect, normal mood Skin exam: Present: warm, dry, intact, normal color. Absent: rash <Gin Merrill - Last Filed: 09/15/20 02:27> Course Vital Signs 09/14/20 09/15/20 09/15/20 19:32 00:54 02:33 Temperature 98.3 F 98.1 F 98.3 F Pulse Rate 84 59 L 75 Respiratory 18 16 16 Rate Blood Pressure 173/100 117/67 140/79 O2 Sat by Pulse 98 97 98 Oximetry Medical Decision Making <Gin Merrill - Last Filed: 09/15/20 02:27> <Michael Pittman - Last Filed: 09/15/20 02:47> - Medical Decision Making 44-year-old male patient presented to the emergency department today for evaluation of suicidal ideation. He did cut the dorsal aspect of his left hand, nothing requiring repair. Patient was seen and evaluated by emergency psychiatric services. It was felt that he would benefit from inpatient admission. He'll be transferred to the Mental Health Unit. (Gin Merrill) I saw this patient for purposes of Completing the clinical certification. (Michael Pittman) - Lab Data Lab Results 09/14/20 09/14/20 09/15/20 Range/Units 22:28 22:28 00:49 POC Glucose (mg/dL) 141 H (75-99) mg/dL POC Glu Antenna Design Engineer ID Julio Read Urine Color Colorless Urine Appearance Clear (Clear) Urine pH 5.5 (5.0-8.0) Ur Specific [place] 1.003 (1.001-1.035) Urine Protein Negative (Negative) Urine Glucose (UA) Negative (Negative) Urine Ketones Negative (Negative) Urine Blood Negative (Negative) Urine Nitrite Negative (Negative) Urine Bilirubin Negative (Negative) Urine Urobilinogen <2.0 (<2.0) mg/dL Ur Leukocyte Esterase Negative (Negative) Urine Opiates Screen Not Detected (NotDetected) Ur Oxycodone Screen Not Detected (NotDetected) Urine Methadone Screen Not Detected (NotDetected) Ur Propoxyphene Screen Not Detected (NotDetected) Ur Barbiturates Screen Not Detected (NotDetected) U Tricyclic Antidepress Not Detected (NotDetected) Ur Phencyclidine Scrn Not Detected (NotDetected) Ur Amphetamines Screen Not Detected (NotDetected) U Methamphetamines Scrn Not Detected (NotDetected) U Benzodiazepines Scrn Not Detected (NotDetected) Urine Cocaine Screen Not Detected (NotDetected) U Marijuana (THC) Screen Not Detected (NotDetected) Disposition - Out of Hospital Transfer - Req. Specs Out of Hospital Transfer - Requested Specifics: Psychiatric Non-ICU ([facility] Mental health unit) <Gin Merrill - Last Filed: 09/15/20 02:27> Is patient prescribed a controlled substance at d/c from ED?: No <Michael Pittman - Last Filed: 09/15/20 02:47> Clinical Impression: Mood disorder, Suicidal ideation Disposition: ADMITTED IP TO THIS [facility] Condition: Fair
[2020-09-14] MEDS ORDERED: DIPH,PERTUS(ACELL)TETVAC-LF 0.5 ML VIAL IM ONE (21:57)
[2020-09-14 22:44] LABS: Urn Cannabinoid Scrn Not Detected (NotDetected)
[2020-09-14 22:45] LABS: Amphetamine Screen,Urine Not Detected (NotDetected); Barbiturate Screen,Urine Not Detected (NotDetected); Benzodiazepines Screen,Urine Not Detected (NotDetected); Cocaine Screen,Urine Not Detected (NotDetected); Methadone Screen, Urine Not Detected (NotDetected); Opiate Screen,Urine Not Detected (NotDetected); Oxycodone Screen, Urine Not Detected (NotDetected); Phencyclidine Screen,Urine Not Detected (NotDetected); Tricyclic Antidepressant,Urine Not Detected (NotDetected)
[2020-09-15 00:52] LABS: Glucose,Whole Blood 141 mg/dL (75-99)
[2020-09-15] MEDS ORDERED: LORazepam 1 MG TAB PO PRN (02:07)
[2020-09-15] MEDS ORDERED: ZIPRASIDONE 20 MG VIAL IM PRN (02:07)
[2020-09-15] MEDS ORDERED: MAG HYDROX/AL HYDROX/SIMETH 30 ML CUP PO PRN (02:07)
[2020-09-15] MEDS ORDERED: MAGNESIUM HYDROXIDE 2,400 MG/10 ML CUP PO PRN (02:07)
[2020-09-15 02:29] LABS: Appearance,Urine Clear (Clear); Bilirubin,Urine Negative (Negative); Blood,Urine Negative (Negative); Color,Urine Colorless; Glucose,Urine (UA) Negative (Negative); Ketones,Urine Negative (Negative); Leukocyte Esterase,Urine Negative (Negative); Nitrite,Urine Negative (Negative); PH, Urine 5.5 (5.0-8.0); Protein,Urine Negative (Negative); Specific Gravity,Urine 1.003 (1.001-1.035); Urobilinogen,Urine <2.0 mg/dL (<2.0)
[2020-09-15] MEDS: traZODone HCL 100 MG TAB PO SCH ×2 (03:37→21:43)
[2020-09-15] MEDS: LEVOTHYROXINE 100 MCG TAB PO SCH (06:28)
[2020-09-15 07:29] LABS: Basophils % (A) 1 %; Eosinophils # (A) 0.1 k/uL (0-0.7); Eosinophils % (A) 1 %; HCT 39.3 % (39.0-53.0); HGB 12.3 gm/dL (13.0-17.5); Hypochromasia Moderate; Lymphocytes # (A) 2.5 k/uL (1.0-4.8); Lymphocytes % (A) 40 %; MCH 25.8 pg (25.0-35.0); MCHC 31.2 g/dL (31.0-37.0); MCV 82.8 fL (80.0-100.0); Mean Platelet Volume 7.7; Monocytes # (A) 0.4 k/uL (0-1.0); Monocytes % (A) 6 %; Neutrophils # (A) 3.1 k/uL (1.3-7.7); Neutrophils % (A) 50 %; Platelet Count 316 k/uL (150-450); Poikilocytosis Moderate; RBC 4.75 m/uL (4.30-5.90); RDW 13.8 % (11.5-15.5); WBC 6.3 k/uL (3.8-10.6)
[2020-09-15 07:48] LABS: ALT 26 U/L (4-49); AST 20 U/L (17-59); African American GFR (CKD) >90 (>60 ml/min/1.73 sqM); Albumin 3.8 g/dL (3.5-5.0); Alkaline Phosphatase 106 U/L (38-126); Anion Gap 7 mmol/L; Bilirubin, Delta 0.2 mg/dL (0.0-0.2); Bilirubin,Unconjugated 0.1 mg/dL (0.0-1.1); Blood Urea Nitrogen 15 mg/dL (9-20); Calcium 9.3 mg/dL (8.4-10.2); Carbon Dioxide 26 mmol/L (22-30); Chloride 107 mmol/L (98-107); Cholesterol 118 mg/dL (<200); Glucose 114 mg/dL (74-99); HDL Cholesterol 27 mg/dL (40-60); LDL Cholesterol,Calculated 46 mg/dL (0-99); Non-African American GFR(CKD) >90 (>60 ml/min/1.73 sqM); Potassium 4.6 mmol/L (3.5-5.1); Sodium 140 mmol/L (137-145); Total Bilirubin 0.3 mg/dL (0.2-1.3); Total Protein 6.1 g/dL (6.3-8.2); Triglycerides 225 mg/dL (<150)
[2020-09-15] MEDS: LORATADINE 10 MG TAB PO SCH (08:44)
[2020-09-15] MEDS: NICOTINE 14MG/24HR PATCH TRANSDERM SCH (08:44)
[2020-09-15] MEDS: SERTRALINE 100 MG TAB PO SCH (08:45)
[2020-09-15] MEDS: ATORVASTATIN 10 MG TAB PO SCH (08:45)
[2020-09-15] MEDS: CHLORTHALIDONE 25 MG TAB PO SCH (08:45)
[2020-09-15] MEDS: GLIMEPIRIDE 1 MG TAB PO SCH (08:45)
[2020-09-15] MEDS: lisinopriL 20 MG TAB PO SCH (08:45)
[2020-09-15] MEDS ORDERED: DIVALPROEX 500 MG TABLET.DR PO SCH ×2 (09:00→21:00)
[2020-09-15 10:34] LABS: Valproic Acid (Depakene) <10.0 ug/mL
--- NOTE | 2020-09-15 10:58 | P.HP ---
Psychiatric H&P - . H&P Date: 09/15/20 History & Physical: Allergies Allergy/AdvReac Type Severity Reaction Status Date / Time diphenhydramine Allergy Rash/Hives Verified 09/15/20 02:28 From Benadryl diphenhydramine HCl Allergy Rash/Hives Verified 09/15/20 02:28 From Benadryl Vital Signs Temp 97.9 F 09/15/20 02:50 Pulse 66 09/15/20 02:50 Resp 18 09/15/20 02:50 BP 132/82 09/15/20 02:50 Pulse Ox 99 09/15/20 02:50 Intake & Output 09/14/20 09/15/20 09/15/20 18:59 06:59 18:59 Weight 111.329 kg Laboratory Last Values WBC 6.3 k/uL (3.8-10.6) 09/15/20 06:59 RBC 4.75 m/uL (4.30-5.90) 09/15/20 06:59 Hgb 12.3 gm/dL (13.0-17.5) L 09/15/20 06:59 Hct 39.3 % (39.0-53.0) 09/15/20 06:59 MCV 82.8 fL (80.0-100.0) 09/15/20 06:59 MCH 25.8 pg (25.0-35.0) 09/15/20 06:59 MCHC 31.2 g/dL (31.0-37.0) 09/15/20 06:59 RDW 13.8 % (11.5-15.5) 09/15/20 06:59 Plt Count 316 k/uL (150-450) 09/15/20 06:59 Neutrophils % 50 % 09/15/20 06:59 Lymphocytes % 40 % 09/15/20 06:59 Monocytes % 6 % 09/15/20 06:59 Eosinophils % 1 % 09/15/20 06:59 Basophils % 1 % 09/15/20 06:59 Neutrophils # 3.1 k/uL (1.3-7.7) 09/15/20 06:59 Lymphocytes # 2.5 k/uL (1.0-4.8) 09/15/20 06:59 Monocytes # 0.4 k/uL (0-1.0) 09/15/20 06:59 Eosinophils # 0.1 k/uL (0-0.7) 11 06:59 Basophils # 0.0 k/uL (0-0.2) 09/15/20 06:59 Hypochromasia Moderate 09/15/20 06:59 Poikilocytosis Moderate 09/15/20 06:59 Sodium 140 mmol/L (137-145) 09/15/20 06:59 Potassium 4.6 mmol/L (3.5-5.1) 09/15/20 06:59 Chloride 107 mmol/L (98-107) 09/15/20 06:59 Carbon Dioxide 26 mmol/L (22-30) 09/15/20 06:59 Anion Gap 7 mmol/L 09/15/20 06:59 BUN 15 mg/dL (9-20) 09/15/20 06:59 Creatinine 0.70 mg/dL (0.66-1.25) 09/15/20 06:59 Est GFR (CKD-EPI)AfAm >90 (>60 ml/min/1.73 sqM) 09/15/20 06:59 Est GFR (CKD-EPI)NonAf >90 (>60 ml/min/1.73 sqM) 09/15/20 06:59 Glucose 114 mg/dL (74-99) H 09/15/20 06:59 POC Glucose (mg/dL) 141 mg/dL (75-99) H 11 00:49 POC Glu Runner Man ID Julio Read 09/15/20 00:49 Calcium 9.3 mg/dL (8.4-10.2) 09/15/20 06:59 Total Bilirubin 0.3 mg/dL (0.2-1.3) 09/15/20 06:59 Conjugated Bilirubin 0.0 mg/dL (0.0-0.3) 09/15/20 06:59 Unconjugated Bilirubin 0.1 mg/dL (0.0-1.1) 09/15/20 06:59 Delta Bilirubin 0.2 mg/dL (0.0-0.2) 09/15/20 06:59 AST 20 U/L (17-59) 09/15/20 06:59 ALT 26 U/L (4-49) 09/15/20 06:59 Alkaline Phosphatase 106 U/L (38-126) 09/15/20 06:59 Total Protein 6.1 g/dL (6.3-8.2) L 09/15/20 06:59 Albumin 3.8 g/dL (3.5-5.0) 09/15/20 06:59 Triglycerides 225 mg/dL (<150) H 09/15/20 06:59 Cholesterol 118 mg/dL (<200) 09/15/20 06:59 LDL Cholesterol, Calc 46 mg/dL (0-99) 09/15/20 06:59 HDL Cholesterol 27 mg/dL (40-60) L 09/15/20 06:59 TSH 3.240 mIU/L (0.465-4.680) 09/15/20 06:59 Urine Color Colorless 09/14/20 22:28 Urine Appearance Clear (Clear) 09/14/20 22: Urine pH 5.5 (5.0-8.0) 09/14/20 22:28 Ur Specific [place] 1.003 (1.001-1.035) 09/14/20 22:28 Urine Protein Negative (Negative) 09/14/20 22:28 Urine Glucose (UA) Negative (Negative) 09/14/20 22:28 Urine Ketones Negative (Negative) 09/14/20 22:28 Urine Blood Negative (Negative) 09/14/20 22:28 Urine Nitrite Negative (Negative) 09/14/20 22:28 Urine Bilirubin Negative (Negative) 09/14/20 22:28 Urine Urobilinogen <2.0 mg/dL (<2.0) 09/14/20 22:28 Ur Leukocyte Esterase Negative (Negative) 09/14/20 22:28 Urine Opiates Screen Not Detected (NotDetected) 09/14/20 22:28 Ur Oxycodone Screen Not Detected (NotDetected) 09/14/20 22:28 Urine Methadone Screen Not Detected (NotDetected) 09/14/20 22:28 Ur Propoxyphene Screen Not Detected (NotDetected) 09/14/20 22:28 Ur Barbiturates Screen Not Detected (NotDetected) 09/14/20 22:28 Valproic Acid <10.0 ug/mL 09/15/20 06:59 U Tricyclic Antidepress Not Detected (NotDetected) 09/14/20 22:28 Ur Phencyclidine Scrn Not Detected (NotDetected) 09/14/20 22:28 Ur Amphetamines Screen Not Detected (NotDetected) 09/14/20 22:28 U Methamphetamines Scrn Not Detected (NotDetected) 09/14/20 22:28 U Benzodiazepines Scrn Not Detected (NotDetected) 09/14/20 22:28 Urine Cocaine Screen Not Detected (NotDetected) 09/14/20 22:28 U Marijuana (THC) Screen Not Detected (NotDetected) 09/14/20 22:28 09/15/20 10:40 IDENTIFYING DATA: Patient is a 44-year-old, single, developmentally delayed disabled, unemployed male who presented to the psychiatric unit voluntarily for suicidal ideation. HPI: Patient presented to the hospital on 09/15/2020 for suicidal ideation with a superficial attempt by using a razor to cut the top of his left hand. Patient expresses that he has been feeling suicidal all his life but that over the past 2 months depression has been worsening. He reports that this current episode was precipitated by thinking about his brother who drowned in a swimming pool back in 2007. He also reports that he was upset with his caregiver has his caregiver does not provide breakfast. He also reports that she has been missing approximately 15 doses of his bubble packed medications over the last 2 months. He reports increased depressive symptoms of poor sleep, increased somnolence during the day, hopelessness, helplessness, and suicidal thoughts. He reports 4 prior attempts at suicide with the last being this past August where he wrapped a cord around his neck. In regards to other mood symptoms, the patient does endorse a history of bipolar symptoms. He states the longest he has ever been awake was 2 days. He reports that during these 2 days had increased goal- directed activity, pacing, and mood lability. He does not endorse any history of psychotic symptoms. He reports no auditory or visual hallucinations. He denies any paranoia or delusions. He does report a significant history of head trauma. 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 In regards to substance use, the patient does not endorse any significant alcohol use. He reports that he would smoke 2 packs of cigarettes over the span of one month. He denies any marijuana or other drug use. PAST PSYCHIATRIC HISTORY: Patient states that he has been diagnosed with major depressive disorder and bipolar disorder. He reports that he has also been on Adderall and Ativan in the past along with his currently prescribed psychotropic medication regimen. His last hospitalized per our records this past January 2020. This appears to be his fourth inpatient psychiatric admission. He does report a psychiatric hospitalization this past August, but we do not see any in our current records. [facility]. He reports he has a scheduling representative named Alfredo. He reports 4 prior attempts at suicide. PMH: Diabetes Mellitus, hypertension, seizure disorder, thyroid disorder ALLERGIES: Diphenhydramine CHEMICAL DEPENDENCY HISTORY: Denies FAMILY PSYCHIATRIC/SUBSTANCE USE HISTORY: Denies SOCIAL HISTORY: Patient was born and raised in [place], [place] and moved to [place] when he was 19. Patient currently lives in a room and board. He has 4 brothers named Ulysses, Jaden, Kelvin, and Danyel. He does not know his biological father. His mother remarried. Highest level of education is the 11th grade. He was in special education. He is unmarried and has no children. MENTAL STATUS EXAM: General Appearance: Patient appears to be stated age is alert, directable, and attempts to cooperate. Patient appears to have fair hygiene and grooming. Appears slightly disheveled. Tall and well-nourished. Behavior: Patient is seated without any agitated behavior. Patient appears to be somewhat somnolent. Speech: Patient's speech is slightly slurred but otherwise spontaneous and not pressured. Mood/Affect: Patient reports their mood is depressed, affect is congruent and blunted. Suicidality/Homicidality: Patient denies having any homicidal ideation intent or plan. Patient does endorse suicidal ideation with no intention or plan at this time. Perceptions: Patient denies any visual hallucinations and denies any auditory hallucinations Though content/process: There is no evidence of any delusional thought content and thought process is linear and goal-directed. Memory and concentration: AOX3, grossly intact for the purposes of this session. Can spell "WORLD" backwards Judgment and insight: poor STRENGTHS/WEAKNESSES: strength is that patient is resilient. Weakness is that patient has been nonadherent with his prescribed treatment. INTELLECT: average IMPRESSIONS: Major depressive disorder, recurrent, severe PLAN: -Patient is admitted under voluntary status to MHU for stabilization of psychiatric symptoms and safety. Patient signed adult voluntary form and medication consent and is placed in patient's chart. -Medications : Depakote level was found to be <10 indicating nonadherence with treatment. -We will restart the patient's home medications. We will change Depakote to 750 mg by mouth twice a day and gradually titrated over the weekend. -May consider increasing sertraline over the weekend. -Ativan and Geodon PRN for agitation/aggression -Patient was informed of the risks, benefits and side effects of the medication and patient verbally consented to taking the medications. Patient signed med consent form and was placed in chart. -Internal Medicine consult to perform medical evaluation and physical. -SW on board for discharge planning. Encourage patient to participate in groups to work on coping skills.
--- NOTE | 2020-09-15 11:34 | P.PN ---
Progress Note - Text Progress Note Date: 09/15/20 Interval History: Patient was seen resting in bed and was directable and agreeable to speak with the senior copywriter in the office. Patient reports that he feels "worse than yesterday." He reports that he has been feeling more suicidal today and had an increase in auditory hallucinations last night. He reports hearing voices throughout the night that has been causing him distress telling him mean things. He reports no visual hallucinations. He does continue to endorse paranoia towards others but no specific target. He states the risperdal in the morning has been causing him to feel overly sedated and he has been missing group because of this. He is requesting if his medications can be moved to bedtime. Mental Status Exam: General Appearance: Patient appears to be older than stated age, is balding, well-nourished, male. Obese body habitus Behavior: Patient was somnolent but cooperative. Speech: Patient's speech is fluent, spontaneous, and regular. Mood/Affect: Mood is tired and affect is somnolent, constricted. Suicidality/Homicidality: Patient reports suicidal ideation but no homicidal ideation or intention. Perceptions: He endorses auditory hallucinations of people talking about him. He does not endorse any visual hallucinations. Though content/process: He endorses paranoia. Memory and concentration: AOX3, grossly intact for the purposes of this session Judgment and insight: Very poor Assessment Schizoaffective disorder Polysubstance use disorder Rule out antisocial personality disorder Plan: -Patient continues to meet criteria for inpatient psychiatric admission for symptom stabilization and safety. Patient is currently under court order. -Medications: Continue gabapentin 600 mg by mouth 4 times a day - patient reports he is prescribed this from his PCP for neuropathy. Continue trazodone 50 mg by mouth at bedtime when necessary Change Risperdal to 4 mg at bedtime. If patient refuses Risperdal he will receive 25 mg IM of Thorazine as he is under court order. Will gradually titrate depending on patient response. Patient received abilify maintena 400 mg IM on 09/08/2020. -When necessary Vistaril and Thorazine for agitation/aggression. -NRT - nicotine patch, add nicotine gum q6H -SW on board for discharge planning. Encouraged the patient to participate in milieu.
[2020-09-15] MEDS: ACETAMINOPHEN TAB 325 MG TAB PO PRN ×2 (12:34→18:31)
[2020-09-15] MEDS: DIVALPROEX 500 MG, DIVALPROEX 250 MG PO SCH ×2 (21:42)
[2020-09-15] MEDS ORDERED: DIVALPROEX 500 MG TABLET.DR PO ONE (21:42)
[2020-09-15] MEDS: MONTELUKAST 10 MG TAB PO SCH (21:43)
--- NOTE | 2020-09-16 04:04 | P.CONS ---
History of Present Illness - Reason for Consult Consult date: 09/16/20 - History of Present Illness Patient is a 44-year-old male with a PMH of type II DM, hypertension, seizure disorder, hypothyroidism presented to the emergency room with complaints of depression and suicidal ideation. The patient had a reportedly used a razor to cut himself or his left hand in an attempt to kill himself. The patient was admitted to the mental health unit where he was seen and evaluated. Patient reports ongoing tobacco abuse but denied any additional complaints. He denied chest pain, shortness of fever, chills, nausea, vomiting, abdominal pain, or diarrhea. Laboratory evaluation from the emergency room was reviewed. Review of Systems Pertinent positives and negatives as discussed in HPI, a complete review of systems was performed and all other systems are negative. Past Medical History Past Medical History: Diabetes Mellitus, Hypertension, Seizure Disorder, Thyroid Disorder Additional Past Medical History / Comment(s): angina, Hypothyroidism, vitamin D deficiency, dyslipidemia, ALLERGIES, cognitive impairment History of Any Multi-Drug Resistant Organisms: None Reported Past Surgical History: Orthopedic Surgery Additional Past Surgical History / Comment(s): right ankle Past Anesthesia/Blood Transfusion Reactions: No Reported Reaction Past Psychological History: Anxiety, Bipolar, Depression Smoking Status: Current every day smoker Past Alcohol Use History: Abuse Past Drug Use History: Heroin, Methamphetamine, Prescription Drug Abuse - Past Family History Mother Additional Family Medical History / Comment(s): No known medical history. Patient denies any family history of diabetes or hypertension Medications and Allergies Home Medications Medication Instructions Recorded Confirmed Type Loratadine [Claritin] 10 mg PO DAILY 08/08/14 09/15/20 History Montelukast [Singulair] 10 mg PO HS 01/27/19 09/15/20 History Chlorthalidone 25 mg PO DAILY 30 Days #30 tablet 02/18/19 09/15/20 Rx Glimepiride [Amaryl] 1 mg PO DAILY 30 Days #30 tab 02/18/19 09/15/20 Rx Levothyroxine Sodium [Synthroid] 100 mcg PO DAILY 30 Days #30 tab 02/18/19 09/15/20 Rx Sertraline [Zoloft] 200 mg PO DAILY 30 Days #60 tab 02/18/19 09/15/20 Rx Simvastatin [Zocor] 20 mg PO DAILY 30 Days #30 tab 02/18/19 09/15/20 Rx fluPHENAZine decanoate [Prolixin 25 mg IM Q14D 14 Days #1 ml 02/18/19 09/15/20 Rx Decanoate] lisinopriL [Zestril] 20 mg PO DAILY 30 Days #30 tab 02/18/19 09/15/20 Rx traZODone HCL [Desyrel] 100 mg PO HS 05/11/19 09/15/20 History Ibuprofen [Motrin] 400 mg PO Q8H PRN 06/02/19 09/15/20 History Cholecalciferol (Vitamin D3) 125 mcg PO DAILY 01/26/20 09/15/20 History [Vitamin D3] Divalproex [Depakote] 500 mg PO TID #90 tablet. 08/06/20 09/15/20 Rx Allergies Allergy/AdvReac Type Severity Reaction Status Date / Time diphenhydramine Allergy Rash/Hives Verified 09/15/20 02:28 [From Benadryl] diphenhydramine HCl Allergy Rash/Hives Verified 09/15/20 02:28 [From Benadryl] Physical Exam Vitals: Vital Signs Temp Pulse Resp BP 09/15/20 18:19 98.2 F 09/15/20 13:08 99.1 F 103 H 16 183/99 09/15/20 08:40 100 16 144/96 General: non toxic, no distress, appears at stated age, obese Derm: no unusual rashes/lesions no unusual ecchymoses, warm, dry Head: atraumatic, normocephalic, symmetric Eyes: EOMI, no lid lag, anicteric sclera, pupils equal round reactive to light ENT: Nose and ears atraumatic, no thrush, no pharyngeal erythema Neck: No thyromegaly, no cervical lymphadenopathy, trachea midline, supple Mouth: no lip lesion, mucus membranes moist Cardiovascular: S1S2 reg, no murmur, positive posterior tibial pulse bilateral, no edema, capillary refill less than 2 seconds Lungs: CTA bilateral, no rhonchi, no rales , no accessory muscle use Abdominal: soft, nontender to palpation, no guarding, no appreciable organomegaly, normal bowel sounds Ext: no gross muscle atrophy, muscle strength 5 out of 5 in all 4 extremities grossly, no contractures, Neuro: CN II-XI grossly intact, light touch intact all 4 extremities, finger to nose within normal limits, Psych: Alert, oriented, depressed affect Results CBC & Chem 7: 09/15/20 06:59 09/15/20 06:59 Labs: Abnormal Lab Results - Last 24 Hours (Table) 09/15/20 09/15/20 Range/Units 06:59 06:59 Hgb 12.3 L (13.0-17.5) gm/dL Glucose 114 H (74-99) mg/dL Total Protein 6.1 L (6.3-8.2) g/dL Triglycerides 225 H (<150) mg/dL HDL Cholesterol 27 L (40-60) mg/dL Assessment and Plan Plan: Type II DM -A1c 6.0 -Continue with home Amaryl dose Tobacco abuse -Continue nicotine patch as needed -Advised on the importance of cessation Hypertension -Continue with home antihypertensives Hypothyroidism -Continue with home Synthroid dose Depression with suicidal ideation -As per psychiatry
[2020-09-16] MEDS ORDERED: DIVALPROEX 500 MG TABLET.DR PO ONE ×2 (07:49→20:11)
[2020-09-16] MEDS: SERTRALINE 100 MG TAB PO SCH (09:01)
[2020-09-16] MEDS: LEVOTHYROXINE 100 MCG TAB PO SCH (09:01)
[2020-09-16] MEDS: GLIMEPIRIDE 1 MG TAB PO SCH (09:01)
[2020-09-16] MEDS: ATORVASTATIN 10 MG TAB PO SCH (09:01)
[2020-09-16] MEDS: CHLORTHALIDONE 25 MG TAB PO SCH (09:01)
[2020-09-16] MEDS: lisinopriL 20 MG TAB PO SCH (09:02)
[2020-09-16] MEDS: DIVALPROEX 500 MG, DIVALPROEX 250 MG PO SCH ×4 (09:02→20:12)
[2020-09-16] MEDS: NICOTINE 14MG/24HR PATCH TRANSDERM SCH (09:02)
[2020-09-16] MEDS: LORATADINE 10 MG TAB PO SCH (09:02)
[2020-09-16] MEDS: traZODone HCL 100 MG TAB PO SCH (20:12)
[2020-09-16] MEDS: MONTELUKAST 10 MG TAB PO SCH (20:12)
--- NOTE | 2020-09-17 00:05 | PN ---
PROGRESS NOTE DATE OF SERVICE: 09/16/2020. CHIEF COMPLAINT: The patient had suicidal thinking and had cut the top of his left hand with a razor. He said he has had lifelong thoughts of suicide. INTERVAL HISTORY: Patient has been doing fair. He had a quiet day yesterday. He was not sure that medications have been helping him. He continued to report auditory hallucinations and has paranoid thinking. He was having problems with Risperdal which ultimately was apparently discontinued. He said he only slept 2 or 3 hours last night, though staff indicated that he had slept fairly well last night. Today he has been up. He comes out in the day area. He wanders about. He will interact with others. He has not attended groups today though did attend groups yesterday. He was somewhat vague as to why he chose not to be in the groups today. It is noteworthy that he will be due for Prolixin Decanoate on the and stated that he was at [facility] about 2 weeks ago for his last dose which he says he has been taking regularly. He was vague about why he had not been taking Depakote though said he did not think it was helping him. He also questioned whether he should be switched to an alternative antidepressant as he does not feel Zoloft has been helpful either. He says he has been on those medications for a long period of time. In general, he appears to tolerate his psychotropic medications. MENTAL STATUS: Patient gave fairly good eye contact. He had some difficulty with speech, though answered questions appropriately. His thoughts were clear. His affect was blunted. His mood reserved. It was difficult to say if he was feeling distressed at all, though he did feel his mood was down. There was no outward evidence of thought disorder, though he continues to report auditory hallucinations. He voiced no thoughts of harm. He was oriented and alert. ASSESSMENT: I will continue the current diagnosis and treatment plan. I discussed medication options with the patient. Given that he has had long-term followup with Mental Health, I suggested that we look towards Friday for Dr. Jennings to be able to coordinate with his [facility] prescriber to look at medication options. At this point, I will start the patient on Prolixin oral 4 mg twice a day. We will see if that helps in the short run with some of his complaints of depression and anxiety. It is noted that he has on a maximum dose of Zoloft, so if there was to be a medication change, we would look towards tapering Zoloft and initiated on alternative antidepressant. Whether or not there is a good indication for Depakote remains to be seen as well and thus I would defer to get input from [facility]. We will focus on stabilization and discharge planning. PING / RAMÓNN: [id number] /
[2020-09-17] MEDS: LEVOTHYROXINE 100 MCG TAB PO SCH (07:02)
[2020-09-17] MEDS ORDERED: DIVALPROEX 500 MG TABLET.DR PO ONE ×2 (07:52→20:11)
[2020-09-17] MEDS: ATORVASTATIN 10 MG TAB PO SCH (08:46)
[2020-09-17] MEDS: LORATADINE 10 MG TAB PO SCH (08:46)
[2020-09-17] MEDS: CHLORTHALIDONE 25 MG TAB PO SCH (08:46)
[2020-09-17] MEDS: DIVALPROEX 500 MG, DIVALPROEX 250 MG PO SCH ×4 (08:46→20:11)
[2020-09-17] MEDS: lisinopriL 20 MG TAB PO SCH (08:46)
[2020-09-17] MEDS: GLIMEPIRIDE 1 MG TAB PO SCH (08:46)
[2020-09-17] MEDS: NICOTINE 14MG/24HR PATCH TRANSDERM SCH (08:46)
[2020-09-17] MEDS: SERTRALINE 100 MG TAB PO SCH (08:46)
[2020-09-17] MEDS: MONTELUKAST 10 MG TAB PO SCH (20:11)
[2020-09-17] MEDS: traZODone HCL 100 MG TAB PO SCH (20:12)
--- NOTE | 2020-09-18 02:53 | PN ---
PROGRESS NOTE DATE OF SERVICE: 09/17/2020. CHIEF COMPLAINT: The patient had suicidal thinking and had cut the top of his left hand with a razor. He said he has had lifelong thoughts of suicide. INTERVAL HISTORY: Patient has been doing fairly well overall. He seemed to have a better day yesterday than he had been having. He comes out on the unit some. He does tend to keep to himself. He will interact a little with others. He did not attend groups yesterday. He spent a fair amount of time in his room. He slept fairly well last night. Today he has been up. It is noted that he attended three of the groups today. He says that he has a better outlook. He feels his mood is improved. He says hallucinations have been quieter. He did not seem to voice concerns about paranoid thinking. He has not had problems with the addition of oral Prolixin. He is due for a 25 mg injection of decanoate tomorrow. He says that overall he feels his medications are helping. He does note a little dizziness when he first gets up from lying down. I advised him to be cautious in this regard and give himself a brief time on sitting on the side of the bed before standing up. He tolerates his psychotropic medications. MENTAL STATUS: Patient gave fairly good eye contact. He was a little restless. He answered questions appropriately. His thoughts were clear. He had a quiet manner and somewhat constricted affect. His mood was for the most part even. He did not appear to be distressed. He seemed to voice a lessening of auditory hallucinations. He voiced no thoughts of harm. He was oriented and alert. ASSESSMENT: I will continue the current diagnosis and treatment plan. I will continue psychotropic medications the same. Patient seems to be making progress and responding appropriately to medications. I would anticipate discharge sometime this week. We will focus on stabilization and discharge planning. MMODL / IJN: [id number] /
[2020-09-18] MEDS: LEVOTHYROXINE 100 MCG TAB PO SCH (06:58)
[2020-09-18 07:11] VITALS: RESP 18
[2020-09-18] MEDS ORDERED: fluPHENAZine DECANOATE 25 MG/ML 5ML MDV IM SCH (09:00)
[2020-09-18] MEDS: CHLORTHALIDONE 25 MG TAB PO SCH (09:33)
[2020-09-18] MEDS: GLIMEPIRIDE 1 MG TAB PO SCH (09:33)
[2020-09-18] MEDS ORDERED: DIVALPROEX 500 MG TABLET.DR PO ONE (09:35)
[2020-09-18] MEDS: SERTRALINE 100 MG TAB PO SCH (09:36)
[2020-09-18] MEDS: LORATADINE 10 MG TAB PO SCH (09:36)
[2020-09-18] MEDS: NICOTINE 14MG/24HR PATCH TRANSDERM SCH (09:36)
[2020-09-18] MEDS: lisinopriL 20 MG TAB PO SCH (09:36)
[2020-09-18] MEDS: ATORVASTATIN 10 MG TAB PO SCH (09:36)
[2020-09-18] MEDS: DIVALPROEX 500 MG, DIVALPROEX 250 MG PO SCH ×2 (09:36)
[2020-09-18 09:43] VITALS: BP 131/82; PULSE 99
--- NOTE | 2020-09-18 11:49 | P.DS ---
Providers Date of admission: 09/15/20 02:05 Expected date of discharge: 09/18/20 Attending physician: Silvano Page MD Consults: 09/15/20 02:07 Consult Physician Routine Consulting Provider: Debbie Arteaga Consult Reason/Comments: For H & P for Medical Follow Up Do you want consulting provider notified?: Already Contacted Primary care physician: [facility] - Discharge Diagnosis(es) (1) Major depressive disorder, recurrent episode, severe Current Visit: Yes Status: Acute Priority: High Hospital Course: Admission HPI: Patient is a 44-year-old, single, developmentally delayed disabled, unemployed male who presented to the psychiatric unit voluntarily for suicidal ideation. Patient presented to the hospital on 09/15/2020 for suicidal ideation with a superficial attempt by using a razor to cut the top of his left hand. Patient expresses that he has been feeling suicidal all his life but that over the past 2 months depression has been worsening. He reports that this current episode was precipitated by thinking about his brother who drowned in a swimming pool back in 2007. He also reports that he was upset with his caregiver has his caregiver does not provide breakfast. He also reports that she has been missing approximately 15 doses of his bubble packed medications over the last 2 months. He reports increased depressive symptoms of poor sleep, increased somnolence during the day, hopelessness, helplessness, and suicidal thoughts. He reports 4 prior attempts at suicide with the last being this past August where he wrapped a cord around his neck. In regards to other mood symptoms, the patient does endorse a history of bipolar symptoms. He states the longest he has ever been awake was 2 days. He reports that during these 2 days had increased goal- directed activity, pacing, and mood lability. He does not endorse any history of psychotic symptoms. He reports no auditory or visual hallucinations. He denies any paranoia or delusions. He does report a significant history of head trauma. 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 In regards to substance use, the patient does not endorse any significant alcohol use. He reports that he would smoke 2 packs of cigarettes over the span of one month. He denies any marijuana or other drug use. Hospital course: Upon admission to the unit patient was initially endorsing depression and suicidal ideation and engaged in superficial cutting of his hand. Patient was however directable and agreeable to commence treatment. Patient got along well with other patients on the unit and followed unit protocol. Patient was compliant with the medications and denied any side effects throughout hospital course. Patient was started on his home medications as he was not adherent with his prescribed treatment regimen supported by the fact that his Depakote level was low on admission. Patient was started on Depakote 750 mg by mouth twice a day, trazodone 100 mg by mouth at bedtime, and Prolixin decanoate 25 mg IM was administered on 09/18/2020. Patient spoke of his stressors and engaged in therapy both group and individual. Patient was also seen by medical team for history and physical exam. Throughout the course of the hospitalization patient gradually improved with regards to depression and sleep and became future oriented with improved insight and judgment. On the day of discharge patient denied any suicidal or homicidal ideation, intention, and/or plan denied any auditory or visual hallucinations. Patient endorsed wanting to live for his health. The patient denied any access to guns or weapons. Patient denied any paranoia and did not endorse any delusions. Patient does not have a significant history of substance abuse however was counseled on abstaining from all substances including alcohol and marijuana. Patient was also counseled on the medications and need for regular compliance and was encouraged to follow-up with their outpatient appointment for mental health and also for primary care. Prior to discharge a family meeting will be arranged by social work specialist to answer any questions and ensure safety upon discharge. Mental status exam: General Appearance: Patient appears to be stated age is alert, pleasant, and cooperative. Patient is in no acute distress and has fair hygiene and grooming Behavior: Patient is calmly seated without any agitated behavior. Speech: Patient's speech is fluent and nonpressured. Mood/Affect: Patient reports their mood is "feeling really good", affect is congruent, bright and euthymic. Suicidality/Homicidality: Patient denies having any suicidal or homicidal ideation intent or plan. Perceptions: Patient denies any auditory or visual hallucinations. Though content/process: There is no evidence of any delusional thought content and thought process is linear and goal-directed. Memory and concentration: AOX3, grossly intact for the purposes of this session. Can spell "WORLD" backwards correctly. Judgment and insight: Improved Impression: Major depressive disorder, recurrent, severe Plan: -Continue with discharge today as patient has improved and stabilized psychiatrically and is not currently an imminent threat to himself and/or others. Patient will remain at chronically elevated risk for harm to self and/or others due to his history of nonadherence with treatment -Continue medications: Prolixin decanoate 25 mg IM was administered on 09/18/2020 Continue Depakote 750 mg by mouth twice a day Continue Zoloft 200 mg by mouth daily Continue trazodone 100 mg by mouth at bedtime -Patient was counseled on the need for medication compliance and appropriate follow-up at mental health and also primary care for medical issues. Patient verbalized understanding and agreed. -Social work to arrange for and conduct family meeting to ensure safety upon discharge and answer any questions/concerns. Social work also to arrange for patients follow up appointments with [facility] for psychiatric care along with follow up with primary care provider. Recommend outpatient follow-up for depakote level. -Patient counseled on abstaining from recreational drugs and marijuana and alcohol. Was informed/educated on the adverse effects on their physical and mental health. -Patient was instructed to return to the hospital or seek immediate medical care if their psychiatric or medical symptoms do worsen or reoccur. -Psychoeducation and supportive therapy provided to patient. Risks and benefits of pharmacological treatment versus the risks and benefits of nontreatment weight and discussed. Informed consent discussion held. Common side effects of psychotropics discussed such as, but not limited to headache, GI disturbance, sexual dysfunction, movement disorders, sedation, and orthostatic hypotension. Life threatening and blackbox warnings of prescribed medications also discussed. Potential risks of operating a vehicle or heavy machinery discussed with patient at length. Advised on importance of compliance and a reliable and responsible manner. Patient advised to review FDA consumer labeling of all medications prior to taking. Patient verbalized understanding of potential risks, and agrees with current treatment plan. Patient advised to medically contact physician/emergency personnel if any acute changes in condition occur. Allergies Allergy/AdvReac Type Severity Reaction Status Date / Time diphenhydramine Allergy Rash/Hives Verified 09/15/20 02:28 [From Benadryl] diphenhydramine HCl Allergy Rash/Hives Verified 09/15/20 02:28 [From Benadryl] Laboratory Results WBC 6.3 k/uL (3.8-10.6) 09/15/20 06:59 RBC 4.75 m/uL (4.30-5.90) 09/15/20 06:59 Hgb 12.3 gm/dL (13.0-17.5) L 09/15/20 06:59 Hct 39.3 % (39.0-53.0) 09/15/20 06:59 MCV 82.8 fL (80.0-100.0) 09/15/20 06:59 MCH 25.8 pg (25.0-35.0) 09/15/20 06:59 MCHC 31.2 g/dL (31.0-37.0) 09/15/20 06:59 RDW 13.8 % (11.5-15.5) 09/15/20 06:59 Plt Count 316 k/uL (150-450) 09/15/20 06:59 Neutrophils % 50 % 09/15/20 06:59 Lymphocytes % 40 % 09/15/20 06:59 Monocytes % 6 % 09/15/20 06:59 Eosinophils % 1 % 09/15/20 06:59 Basophils % 1 % 09/15/20 06:59 Neutrophils # 3.1 k/uL (1.3-7.7) 09/15/20 06:59 Lymphocytes # 2.5 k/uL (1.0-4.8) 09/15/20 06:59 Monocytes # 0.4 k/uL (0-1.0) 09/15/20 06:59 Eosinophils # 0.1 k/uL (0-0.7) 09/15/20 06:59 Basophils # 0.0 k/uL (0-0.2) 09/15/20 06:59 Hypochromasia Moderate 09/15/20 06:59 Poikilocytosis Moderate 09/15/20 06:59 Sodium 140 mmol/L (137-145) 09/15/20 06:59 Potassium 4.6 mmol/L (3.5-5.1) 09/15/20 06:59 Chloride 107 mmol/L (98-107) 09/15/20 06:59 Carbon Dioxide 26 mmol/L (22-30) 09/15/20 06:59 Anion Gap 7 mmol/L 09/15/20 06:59 BUN 15 mg/dL (9-20) 09/15/20 06:59 Creatinine 0.70 mg/dL (0.66-1.25) 09/15/20 06:59 Est GFR (CKD-EPI)AfAm >90 (>60 ml/min/1.73 sqM) 09/15/20 06:59 Est GFR (CKD-EPI)NonAf >90 (>60 ml/min/1.73 sqM) 09/15/20 06:59 Glucose 114 mg/dL (74-99) H 09/15/20 06:59 POC Glucose (mg/dL) 141 mg/dL (75-99) H 09/15/20 00:49 POC Glu Storeroom Attendant ID Julio Read 09/15/20 00:[address] Glu mg/dL 126 09/15/20 06:59 Hemoglobin A1c 6.0 % (4.0-6.0) 09/15/20 06:59 Calcium 9.3 mg/dL (8.4-10.2) 09/15/20 06:59 Total Bilirubin 0.3 mg/dL (0.2-1.3) 09/15/20 06:59 Conjugated Bilirubin 0.0 mg/dL (0.0-0.3) 09/15/20 06:59 Unconjugated Bilirubin 0.1 mg/dL (0.0-1.1) 09/15/20 06:59 Delta Bilirubin 0.2 mg/dL (0.0-0.2) 09/15/20 06:59 AST 20 U/L (17-59) 09/15/20 06:59 ALT 26 U/L (4-49) 09/15/20 06:59 Alkaline Phosphatase 106 U/L (38-126) 09/15/20 06:59 Total Protein 6.1 g/dL (6.3-8.2) L 09/15/20 06:59 Albumin 3.8 g/dL (3.5-5.0) 09/15/20 06:59 Triglycerides 225 mg/dL (<150) H 09/15/20 06:59 Cholesterol 118 mg/dL (<200) 09/15/20 06:59 LDL Cholesterol, Calc 46 mg/dL (0-99) 09/15/20 06:59 HDL Cholesterol 27 mg/dL (40-60) L 09/15/20 06:59 TSH 3.240 mIU/L (0.465-4.680) 09/15/20 06:59 Urine Color Colorless 09/14/20: Urine Appearance Clear (Clear) 09/14/20: Urine pH 5.5 (5.0-8.0) 09/14/20: Ur Specific [place] 1.003 (1.001-1.035) 09/14/20: Urine Protein Negative (Negative) 09/14/20: Urine Glucose (UA) Negative (Negative) 09/14/20: Urine Ketones Negative (Negative) 09/14/20: Urine Blood Negative (Negative) 09/14/20 Urine Nitrite Negative (Negative) 09/14/20 Urine Bilirubin Negative (Negative) 09/14/20 Urine Urobilinogen <2.0 mg/dL (<2.0) 09/14/20: Ur Leukocyte Esterase Negative (Negative) 09/14/20 22: Urine Opiates Screen Not Detected (NotDetected) 09/14/20 22:28 Ur Oxycodone Screen Not Detected (NotDetected) 09/14/20 22: Urine Methadone Screen Not Detected (NotDetected) 09/14/20 22:28 Ur Propoxyphene Screen Not Detected (NotDetected) 09/14/20 22:28 Ur Barbiturates Screen Not Detected (NotDetected) 09/14/20: Valproic Acid <10.0 ug/mL 09/15/20 06:59 U Tricyclic Antidepress Not Detected (NotDetected) 09/14/20 22:28 Ur Phencyclidine Scrn Not Detected (NotDetected) 09/14/20 22:28 Ur Amphetamines Screen Not Detected (NotDetected) 09/14/20 22:28 U Methamphetamines Scrn Not Detected (NotDetected) 09/14/20 22:28 U Benzodiazepines Scrn Not Detected (NotDetected) 09/14/20 22:28 Urine Cocaine Screen Not Detected (NotDetected) 09/14/20 22:28 U Marijuana (THC) Screen Not Detected (NotDetected) 09/14/20 22:28 Vital Signs Temp 97.6 F 09/18/20 07:11 Pulse 99 09/18/20 09:42 Resp 18 09/18/20 07:11 BP 131/82 09/18/20 09:42 Pulse Ox 99 09/15/20 02:50 Intake & Output 09/17/20 09/18/20 09/18/20 18:59 06:59 18:59 Weight 110.4 kg Patient Condition at Discharge: Stable Plan - Discharge Summary Discharge Rx Participant: Yes New Discharge Prescriptions: New Divalproex [Depakote] 750 mg PO BID 30 Days tablet. Nicotine 14Mg/24Hr Patch [Habitrol] 1 patch TRANSDERM DAILY 30 Days patch Continue Cholecalciferol (Vitamin D3) [Vitamin D3] 125 mcg PO DAILY Glimepiride [Amaryl] 1 mg PO DAILY 30 Days #30 tab Chlorthalidone 25 mg PO DAILY 30 Days #30 tablet Loratadine [Claritin] 10 mg PO DAILY 30 Days tab traZODone HCL [Desyrel] 100 mg PO HS 30 Days tab fluPHENAZine decanoate [Prolixin Decanoate] 25 mg IM Q14D 14 Days #1 ml Montelukast [Singulair] 10 mg PO HS 30 Days tab Levothyroxine Sodium [Synthroid] 100 mcg PO DAILY 30 Days #30 tab lisinopriL [Zestril] 20 mg PO DAILY 30 Days #30 tab Simvastatin [Zocor] 20 mg PO DAILY 30 Days #30 tab Sertraline [Zoloft] 200 mg PO DAILY 30 Days #60 tab Discontinued Ibuprofen [Motrin] 400 mg PO Q8H PRN PRN Reason: Pain Divalproex [Depakote] 500 mg PO TID #90 tablet. Discharge Medication List Cholecalciferol (Vitamin D3) [Vitamin D3] 125 mcg PO DAILY 01/26/20 [History] Chlorthalidone 25 mg PO DAILY 30 Days #30 tablet 09/18/20 [Rx] Divalproex [Depakote] 750 mg PO BID 30 Days tablet. 09/18/20 [Rx] Glimepiride [Amaryl] 1 mg PO DAILY 30 Days #30 tab 09/18/20 [Rx] Levothyroxine Sodium [Synthroid] 100 mcg PO DAILY 30 Days #30 tab 09/18/20 [Rx] Loratadine [Claritin] 10 mg PO DAILY 30 Days tab 09/18/20 [Rx] Montelukast [Singulair] 10 mg PO HS 30 Days tab 09/18/20 [Rx] Nicotine 14Mg/24Hr Patch [Habitrol] 1 patch TRANSDERM DAILY 30 Days patch 09/18/20 [Rx] Sertraline [Zoloft] 200 mg PO DAILY 30 Days #60 tab 09/18/20 [Rx] Simvastatin [Zocor] 20 mg PO DAILY 30 Days #30 tab 09/18/20 [Rx] fluPHENAZine decanoate [Prolixin Decanoate] 25 mg IM Q14D 14 Days #1 ml 09/18/20 [Rx] lisinopriL [Zestril] 20 mg PO DAILY 30 Days #30 tab 09/18/20 [Rx] traZODone HCL [Desyrel] 100 mg PO HS 30 Days tab 09/18/20 [Rx] Follow up Appointment(s)/Referral(s): [facility] [Primary Care Provider] - 1-2 days Patient Instructions/Handouts: How to Stop Smoking (DC), Depression (DC) Activity/Diet/Wound Care/Special Instructions: Activity and diet as tolerated. Avoid the use of street drugs and alcohol. Take all medications as prescribed. When you are in need of refills on your medications please contact your medical provider and/or outpatient psychiatrist to have this done. Please go to scheduled outpatient appointment for aftercare treatment. If symptoms return or become worse, call the crisis line at and/or go to the nearest emergency room for evaluation.
[2020-09-18 13:43] VITALS: TEMP 97.3
== END 2020-09-18 14:28 | disposition home or self-care (01) | DRG 885 ==
LOC: EC 19:31 → 3MHU 09-15 02:05
PROVIDERS: ADMIT Psychiatry & Neurology Psychiatry; ATTEND Psychiatry & Neurology Psychiatry
DX: F33.2 Major depressive disorder, recurrent severe without psychotic features (principal); R45.851 Suicidal ideations; G40.909 Epilepsy, unspecified, not intractable, without status epilepticus; F25.9 Schizoaffective disorder, unspecified; S06.9X0S Unspecified intracranial injury without loss of consciousness, sequela; E11.40 Type 2 diabetes mellitus with diabetic neuropathy, unspecified; X78.8XXA Intentional self-harm by other sharp object, initial encounter; F11.10 Opioid abuse, uncomplicated; I10 Essential (primary) hypertension; E03.9 Hypothyroidism, unspecified; E78.5 Hyperlipidemia, unspecified; F41.9 Anxiety disorder, unspecified; R62.50 Unspecified lack of expected normal physiological development in childhood; F17.210 Nicotine dependence, cigarettes, uncomplicated; S61.412A Laceration without foreign body of left hand, initial encounter; W10.8XXS Fall (on) (from) other stairs and steps, sequela; Z71.6 Tobacco abuse counseling; Z79.899 Other long term (current) drug therapy; Z79.890 Hormone replacement therapy; Z79.84 Long term (current) use of oral hypoglycemic drugs; Z56.0 Unemployment, unspecified; Z91.5 Personal history of self-harm; Z88.8 Allergy status to other drugs, medicaments and biological substances
CPT/HCPCS: 36415; 80053; 80061; 80164; 80306; 81003; 82075; 82248; 83036; 84443; 85025; 90471; 90715; 99285

== ENCOUNTER 2020-11-03 03:12 | Inpatient (IN) | payer MEDICAID, OTHER ==
--- NOTE | 2020-11-03 03:19 | ED ---
Psych HPI - General Chief Complaint: Psychiatric Symptoms Stated Complaint: Mental Health Time Seen by Provider: 11/03/20 03:19 Source: patient, police, RN notes reviewed, old records reviewed Mode of arrival: EMS Limitations: no limitations - History of Present Illness Initial Comments: This is a 44-year-old male DF for evaluation patient known to this facility for evaluation psychiatric illness patient presents under evaluation both having homicidal and suicidal thoughts MD Complaint: suicidal ideation, feels depressed -: unknown Associated Psychiatric Symptoms: depression, suicidal ideation History of same: Yes Quality: constant Improves With: none Worsens With: none Context: recent drug abuse Associated Symptoms: denies other symptoms Treatments Prior to Arrival: placed on mental health hold If Self Harm: admits thoughts of self harm - Related Data Home Medications Medication Instructions Recorded Confirmed Cholecalciferol (Vitamin D3) 125 mcg PO DAILY 01/26/20 11/03/20 [Vitamin D3] Previous Rx's Medication Instructions Recorded Chlorthalidone 25 mg PO DAILY 30 Days #30 tablet 09/18/20 Divalproex [Depakote] 750 mg PO BID 30 Days tablet. 09/18/20 Glimepiride [Amaryl] 1 mg PO DAILY 30 Days #30 tab 09/18/20 Levothyroxine Sodium [Synthroid] 100 mcg PO DAILY 30 Days #30 tab 09/18/20 Loratadine [Claritin] 10 mg PO DAILY 30 Days tab 09/18/20 Montelukast [Singulair] 10 mg PO HS 30 Days tab 09/18/20 Nicotine 14Mg/24Hr Patch [Habitrol] 1 patch TRANSDERM DAILY 30 Days 09/18/20 patch Sertraline [Zoloft] 200 mg PO DAILY 30 Days #60 tab 09/18/20 Simvastatin [Zocor] 20 mg PO DAILY 30 Days #30 tab 09/18/20 fluPHENAZine decanoate [Prolixin 25 mg IM Q14D 14 Days #1 ml 09/18/20 Decanoate] lisinopriL [Zestril] 20 mg PO DAILY 30 Days #30 tab 09/18/20 traZODone HCL [Desyrel] 100 mg PO HS 30 Days tab 09/18/20 Allergies Allergy/AdvReac Type Severity Reaction Status Date / Time diphenhydramine Allergy Rash/Hives Verified 11/03/20 03:19 [From Benadryl] diphenhydramine HCl Allergy Rash/Hives Verified 11/03/20 03:19 [From Benadryl] Review of Systems ROS Statement: Those systems with pertinent positive or pertinent negative responses have been documented in the HPI. ROS Other: All systems not noted in ROS Statement are negative. Past Medical History Past Medical History: Diabetes Mellitus, Hypertension, Seizure Disorder, Thyroid Disorder Additional Past Medical History / Comment(s): angina, Hypothyroidism, vitamin D deficiency, dyslipidemia, ALLERGIES, cognitive impairment History of Any Multi-Drug Resistant Organisms: None Reported Past Surgical History: Orthopedic Surgery Additional Past Surgical History / Comment(s): right ankle Past Anesthesia/Blood Transfusion Reactions: No Reported Reaction Past Psychological History: Anxiety, Bipolar, Depression Smoking Status: Current every day smoker Past Alcohol Use History: Abuse Past Drug Use History: Heroin, Methamphetamine, Prescription Drug Abuse - Past Family History Mother Additional Family Medical History / Comment(s): No known medical history. Adrian hu denies any family history of diabetes or hypertension General Exam General appearance: alert, in no apparent distress Head exam: Present: atraumatic, normocephalic, normal inspection Eye exam: Present: normal appearance, PERRL, EOMI. Absent: scleral icterus, conjunctival injection, periorbital swelling ENT exam: Present: normal exam, mucous membranes moist Neck exam: Present: normal inspection. Absent: tenderness, meningismus, lymphadenopathy Respiratory exam: Present: normal lung sounds bilaterally. Absent: respiratory distress, wheezes, rales, rhonchi, stridor Cardiovascular Exam: Present: regular rate, normal rhythm, normal heart sounds. Absent: systolic murmur, diastolic murmur, rubs, gallop, clicks GI/Abdominal exam: Present: soft, normal bowel sounds. Absent: distended, tenderness, guarding, rebound, rigid Extremities exam: Present: normal inspection, full ROM, normal capillary refill. Absent: tenderness, pedal edema, joint swelling, calf tenderness Back exam: Present: normal inspection Neurological exam: Present: alert, oriented X3, CN II-XII intact Psychiatric exam: Present: normal affect, normal mood Skin exam: Present: warm, dry, intact, normal color. Absent: rash Course Vital Signs 11/03/20 11/03/20 03:14 07:00 Temperature 98.7 F Pulse Rate 73 65 Respiratory 19 18 Rate Blood Pressure 150/93 148/85 O2 Sat by Pulse 98 98 Oximetry - Reevaluation(s) Reevaluation #1: 11/03/20 05:33 Medical clear for psychiatric evaluation Medical Decision Making - Medical Decision Making 34 male who was seen in however psychiatry here in the emergency arm. Patient deemed necessary for inpatient psychiatric hospitalization and treatment - Lab Data Result diagrams: 11/03/20 05:42 11/03/20 05:42 Lab Results 11/03/20 11/03/20 11/03/20 Range/Units 05:42 05:42 05:42 WBC 7.3 (3.8-10.6) k/uL RBC 5.00 (4.30-5.90) m/uL Hgb 11.5 L (13.0-17.5) gm/dL Hct 37.1 L (39.0-53.0) % MCV 74.2 L D (80.0-100.0) fL MCH 23.0 L (25.0-35.0) pg MCHC 30.9 L (31.0-37.0) g/dL RDW 15.6 H (11.5-15.5) % Plt Count 280 (150-450) k/uL MPV 8.0 Neutrophils % 53 % Lymphocytes % 34 % Monocytes % 9 % Eosinophils % 1 % Basophils % 1 % Neutrophils # 3.9 (1.3-7.7) k/uL Lymphocytes # 2.5 (1.0-4.8) k/uL Monocytes # 0.7 (0-1.0) k/uL Eosinophils # 0.1 (0-0.7) k/uL Basophils # 0.1 (0-0.2) k/uL Hypochromasia Marked Poikilocytosis Moderate Microcytosis Slight PT (9.0-12.0) sec INR (<1.2) Sodium 135 L (137-145) mmol/L Potassium 4.0 (3.5-5.1) mmol/L Chloride 106 (98-107) mmol/L Carbon Dioxide 22 (22-30) mmol/L Anion Gap 7 mmol/L BUN 19 (9-20) mg/dL Creatinine 0.69 (0.66-1.25) mg/dL Est GFR (CKD-EPI)AfAm >90 (>60 ml/min/1.73 sqM) Est GFR (CKD-EPI)NonAf >90 (>60 ml/min/1.73 sqM) Glucose 116 H (74-99) mg/dL Estimated Ave Glu mg/dL Hemoglobin A1c (4.0-6.0) % Calcium 8.9 (8.4-10.2) mg/dL Total Bilirubin 0.2 (0.2-1.3) mg/dL AST 22 (17-59) U/L ALT 23 (4-49) U/L Alkaline Phosphatase 80 (38-126) U/L Total Protein 6.0 L (6.3-8.2) g/dL Albumin 3.7 (3.5-5.0) g/dL Salicylates <1.0 mg/dL Urine Opiates Screen (NotDetected) Ur Oxycodone Screen (NotDetected) Urine Methadone Screen (NotDetected) Ur Propoxyphene Screen (NotDetected) Acetaminophen <10.0 ug/mL Ur Barbiturates Screen (NotDetected) Valproic Acid <10.0 ug/mL U Tricyclic Antidepress (NotDetected) Ur Phencyclidine Scrn (NotDetected) Ur Amphetamines Screen (NotDetected) U Methamphetamines Scrn (NotDetected) U Benzodiazepines Scrn (NotDetected) Urine Cocaine Screen (NotDetected) U Marijuana (THC) Screen (NotDetected) Serum Alcohol <10 mg/dL Coronavirus (PCR) (Not Detectd) 11/03/20 11/03/20 11/03/20 Range/Units 05:42 06:04 06:25 WBC (3.8-10.6) k/uL RBC (4.30-5.90) m/uL Hgb (13.0-17.5) gm/dL Hct (39.0-53.0) % MCV (80.0-100.0) fL MCH (25.0-35.0) pg MCHC (31.0-37.0) g/dL RDW (11.5-15.5) % Plt Count (150-450) k/uL MPV Neutrophils % % Lymphocytes % % Monocytes % % Eosinophils % % Basophils % % Neutrophils # (1.3-7.7) k/uL Lymphocytes # (1.0-4.8) k/uL Monocytes # (0-1.0) k/uL Eosinophils # (0-0.7) k/uL Basophils # (0-0.2) k/uL Hypochromasia Poikilocytosis Microcytosis PT 11.3 (9.0-12.0) sec INR 1.1 (<1.2) Sodium (137-145) mmol/L Potassium (3.5-5.1) mmol/L Chloride (98-107) mmol/L Carbon Dioxide (22-30) mmol/L Anion Gap mmol/L BUN (9-20) mg/dL Creatinine (0.66-1.25) mg/dL Est GFR (CKD-EPI)AfAm (>60 ml/min/1.73 sqM) Est GFR (CKD-EPI)NonAf (>60 ml/min/1.73 sqM) Glucose (74-99) mg/dL Estimated Ave Glu mg/dL 128 Hemoglobin A1c 6.1 H (4.0-6.0) % Calcium (8.4-10.2) mg/dL Total Bilirubin (0.2-1.3) mg/dL AST (17-59) U/L ALT (4-49) U/L Alkaline Phosphatase (38-126) U/L Total Protein (6.3-8.2) g/dL Albumin (3.5-5.0) g/dL Salicylates mg/dL Urine Opiates Screen Not Detected (NotDetected) Ur Oxycodone Screen Not Detected (NotDetected) Urine Methadone Screen Not Detected (NotDetected) Ur Propoxyphene Screen Not Detected (NotDetected) Acetaminophen ug/mL Ur Barbiturates Screen Not Detected (NotDetected) Valproic Acid ug/mL U Tricyclic Antidepress Not Detected (NotDetected) Ur Phencyclidine Scrn Not Detected (NotDetected) Ur Amphetamines Screen Not Detected (NotDetected) U Methamphetamines Scrn Not Detected (NotDetected) U Benzodiazepines Scrn Not Detected (NotDetected) Urine Cocaine Screen Not Detected (NotDetected) U Marijuana (THC) Screen Not Detected (NotDetected) Serum Alcohol mg/dL Coronavirus (PCR) (Not Detectd) 11/03/20 Range/Units 07:40 WBC (3.8-10.6) k/uL RBC (4.30-5.90) m/uL Hgb (13.0-17.5) gm/dL Hct (39.0-53.0) % MCV (80.0-100.0) fL MCH (25.0-35.0) pg MCHC (31.0-37.0) g/dL RDW (11.5-15.5) % Plt Count (150-450) k/uL MPV Neutrophils % % Lymphocytes % % Monocytes % % Eosinophils % % Basophils % % Neutrophils # (1.3-7.7) k/uL Lymphocytes # (1.0-4.8) k/uL Monocytes # (0-1.0) k/uL Eosinophils # (0-0.7) k/uL Basophils # (0-0.2) k/uL Hypochromasia Poikilocytosis Microcytosis PT (9.0-12.0) sec INR (<1.2) Sodium (137-145) mmol/L Potassium (3.5-5.1) mmol/L Chloride (98-107) mmol/L Carbon Dioxide (22-30) mmol/L Anion Gap mmol/L BUN (9-20) mg/dL Creatinine (0.66-1.25) mg/dL Est GFR (CKD-EPI)AfAm (>60 ml/min/1.73 sqM) Est GFR (CKD-EPI)NonAf (>60 ml/min/1.73 sqM) Glucose (74-99) mg/dL Estimated Ave Glu mg/dL Hemoglobin A1c (4.0-6.0) % Calcium (8.4-10.2) mg/dL Total Bilirubin (0.2-1.3) mg/dL AST (17-59) U/L ALT (4-49) U/L Alkaline Phosphatase (38-126) U/L Total Protein (6.3-8.2) g/dL Albumin (3.5-5.0) g/dL Salicylates mg/dL Urine Opiates Screen (NotDetected) Ur Oxycodone Screen (NotDetected) Urine Methadone Screen (NotDetected) Ur Propoxyphene Screen (NotDetected) Acetaminophen ug/mL Ur Barbiturates Screen (NotDetected) Valproic Acid ug/mL U Tricyclic Antidepress (NotDetected) Ur Phencyclidine Scrn (NotDetected) Ur Amphetamines Screen (NotDetected) U Methamphetamines Scrn (NotDetected) U Benzodiazepines Scrn (NotDetected) Urine Cocaine Screen (NotDetected) U Marijuana (THC) Screen (NotDetected) Serum Alcohol mg/dL Coronavirus (PCR) Not Detected (Not Detectd) Disposition Clinical Impression: Acute psychosis, Psychosis, Schizoaffective disorder, bipolar type, Mood disorder, Suicidal ideation Disposition: TRANSFER TO PSYCH HOSP/UNIT Condition: Fair Is patient prescribed a controlled substance at d/c from ED?: No
[2020-11-03] MEDS ORDERED: LORazepam 1 MG TAB PO STA (04:58)
[2020-11-03 05:56] LABS: Basophils # (A) 0.1 k/uL (0-0.2); Basophils % (A) 1 %; Eosinophils # (A) 0.1 k/uL (0-0.7); Eosinophils % (A) 1 %; HCT 37.1 % (39.0-53.0); HGB 11.5 gm/dL (13.0-17.5); Hypochromasia Marked; Lymphocytes # (A) 2.5 k/uL (1.0-4.8); Lymphocytes % (A) 34 %; MCHC 30.9 g/dL (31.0-37.0); Microcytosis Slight; Monocytes # (A) 0.7 k/uL (0-1.0); Monocytes % (A) 9 %; Neutrophils # (A) 3.9 k/uL (1.3-7.7); Neutrophils % (A) 53 %; Platelet Count 280 k/uL (150-450); Poikilocytosis Moderate; RDW 15.6 % (11.5-15.5); WBC 7.3 k/uL (3.8-10.6)
[2020-11-03 06:01] LABS: ALT 23 U/L (4-49); AST 22 U/L (17-59); Acetaminophen <10.0 ug/mL; African American GFR (CKD) >90 (>60 ml/min/1.73 sqM); Albumin 3.7 g/dL (3.5-5.0); Alcohol <10 mg/dL; Alkaline Phosphatase 80 U/L (38-126); Anion Gap 7 mmol/L; Blood Urea Nitrogen 19 mg/dL (9-20); Calcium 8.9 mg/dL (8.4-10.2); Carbon Dioxide 22 mmol/L (22-30); Chloride 106 mmol/L (98-107); Glucose 116 mg/dL (74-99); Non-African American GFR(CKD) >90 (>60 ml/min/1.73 sqM); Salicylate <1.0 mg/dL; Sodium 135 mmol/L (137-145); Total Bilirubin 0.2 mg/dL (0.2-1.3)
[2020-11-03 06:11] LABS: MCV 74.2 fL (80.0-100.0)
[2020-11-03 06:35] LABS: INR 1.1 (<1.2); Prothrombin Time 11.3 sec (9.0-12.0)
[2020-11-03 07:14] LABS: Amphetamine Screen,Urine Not Detected (NotDetected); Barbiturate Screen,Urine Not Detected (NotDetected); Benzodiazepines Screen,Urine Not Detected (NotDetected); Cocaine Screen,Urine Not Detected (NotDetected); Methadone Screen, Urine Not Detected (NotDetected); Opiate Screen,Urine Not Detected (NotDetected); Oxycodone Screen, Urine Not Detected (NotDetected); Phencyclidine Screen,Urine Not Detected (NotDetected); Tricyclic Antidepressant,Urine Not Detected (NotDetected); Urn Cannabinoid Scrn Not Detected (NotDetected)
[2020-11-03] MEDS ORDERED: MAGNESIUM HYDROXIDE 2,400 MG/10 ML CUP PO PRN (08:31)
[2020-11-03] MEDS ORDERED: MAG HYDROX/AL HYDROX/SIMETH 30 ML CUP PO PRN (08:31)
[2020-11-03] MEDS: ACETAMINOPHEN TAB 325 MG TAB PO PRN (09:59)
[2020-11-03] MEDS: BACITRACIN ZINC 500 UNIT/GM OINT 28.4 GM TUBE TOPICAL SCH ×2 (10:08→21:21)
--- NOTE | 2020-11-03 11:04 | P.HP ---
Psychiatric H&P - . H&P Date: 11/03/20 History & Physical: Allergies Allergy/AdvReac Type Severity Reaction Status Date / Time diphenhydramine Allergy Rash/Hives Verified 11/03/20 03:19 From Benadryl diphenhydramine HCl Allergy Rash/Hives Verified 11/03/20 03:19 From Benadryl Vital Signs Temp 97.7 F 11/03/20 09:00 Pulse 77 11/03/20 09:00 Resp 18 11/03/20 09:00 BP 128/70 11/03/20 09:00 Pulse Ox 97 11/03/20 09:00 Intake & Output 11/02/20 11/03/20 11/03/20 18:59 06:59 18:59 Weight 111.13 kg 115.666 kg Laboratory Last Values WBC 7.3 k/uL (3.8-10.6) 11/03/20 05:42 RBC 5.00 m/uL (4.30-5.90) 11/03/20 05:42 Hgb 11.5 gm/dL (13.0-17.5) L 11/03/20 05:42 Hct 37.1 % (39.0-53.0) L 11/03/20 05:42 MCV 74.2 fL (80.0-100.0) L D 11/03/20 05:42 MCH 23.0 pg (25.0-35.0) L 11/03/20 05:42 MCHC 30.9 g/dL (31.0-37.0) L 11/03/20 05:42 RDW 15.6 % (11.5-15.5) H 11/03/20 05:42 Plt Count 280 k/uL (150-450) 11/03/20 05:42 MPV 8.0 11/03/20 05:42 Neutrophils % 53 % 11/03/20 05:42 Lymphocytes % 34 % 11/03/20 05:42 Monocytes % 9 % 11/03/20 05:42 Eosinophils % 1 % 11/03/20 05:42 Basophils % 1 % 11/03/20 05:42 Neutrophils # 3.9 k/uL (1.3-7.7) 11/03/20 05:42 Lymphocytes # 2.5 k/uL (1.0-4.8) 11/03/20 05:42 Monocytes # 0.7 k/uL (0-1.0) 11/03/20 05:42 Eosinophils # 0.1 k/uL (0-0.7) 11/03/20 05:42 Basophils # 0.1 k/uL (0-0.2) 11/03/20 05:42 Hypochromasia Marked 11/03/20 05:42 Poikilocytosis Moderate 11/03/20 05:42 Microcytosis Slight 11/03/20 05:42 PT 11.3 sec (9.0-12.0) 11/03/20 06:04 INR 1.1 (<1.2) 11/03/20 06:04 Sodium 135 mmol/L (137-145) L 11/03/20 05:42 Potassium 4.0 mmol/L (3.5-5.1) 11/03/20 05:42 Chloride 106 mmol/L (98-107) 11/03/20 05:42 Carbon Dioxide 22 mmol/L (22-30) 11/03/20 05:42 Anion Gap 7 mmol/L 11/03/20 05:42 BUN 19 mg/dL (9-20) 11/03/20 05:42 Creatinine 0.69 mg/dL (0.66-1.25) 11/03/20 05:42 Est GFR (CKD-EPI)AfAm >90 (>60 ml/min/1.73 sqM) 11/03/20 05:42 Est GFR (CKD-EPI)NonAf >90 (>60 ml/min/1.73 sqM) 11/03/20 05:42 Glucose 116 mg/dL (74-99) H 11/03/20 05:42 Calcium 8.9 mg/dL (8.4-10.2) 11/03/20 05:42 Total Bilirubin 0.2 mg/dL (0.2-1.3) 11/03/20 05:42 AST 22 U/L (17-59) 11/03/20 05:42 ALT 23 U/L (4-49) 11/03/20 05:42 Alkaline Phosphatase 80 U/L (38-126) 11/03/20 05:42 Total Protein 6.0 g/dL (6.3-8.2) L 11/03/20 05:42 Albumin 3.7 g/dL (3.5-5.0) 11/03/20 05:42 Salicylates <1.0 mg/dL 11/03/20 05:42 Urine Opiates Screen Not Detected (NotDetected) 11/03/20 06:25 Ur Oxycodone Screen Not Detected (NotDetected) 11/03/20 06:25 Urine Methadone Screen Not Detected (NotDetected) 11/03/20 06:25 Ur Propoxyphene Screen Not Detected (NotDetected) 11/03/20 06:25 Acetaminophen <10.0 ug/mL 11/03/20 05:42 Ur Barbiturates Screen Not Detected (NotDetected) 11/03/20 06:25 Valproic Acid <10.0 ug/mL 11/03/20 05:42 U Tricyclic Antidepress Not Detected (NotDetected) 11/03/20 06:25 Ur Phencyclidine Scrn Not Detected (NotDetected) 11/03/20 06:25 Ur Amphetamines Screen Not Detected (NotDetected) 11/03/20 06:25 U Methamphetamines Scrn Not Detected (NotDetected) 11/03/20 06:25 U Benzodiazepines Scrn Not Detected (NotDetected) 11/03/20 06:25 Urine Cocaine Screen Not Detected (NotDetected) 11/03/20 06:25 U Marijuana (THC) Screen Not Detected (NotDetected) 11/03/20 06:25 Serum Alcohol <10 mg/dL 11/03/20 05:42 Coronavirus (PCR) Not Detected (Not Detectd) 11/03/20 07:40 11/03/20 10:33 IDENTIFYING DATA: Patient is a 44-year-old, single, developmentally delayed, unemployed male who presented to the psychiatric unit voluntarily for suicidal ideation. HPI: Patient presented to the hospital on 11/03/2020, brought in by police after he called emergency services stating that he found a knife and was suicidal. As per petition from the police records clerk, the patient also ran from the officers with a knife in hand stating that he was going to harm himself. While he was in custody, the patient also verbalized that he was killing himself with "pills." The patient is denying any overdose. He reports that he has been feeling suicidal for the last month and a half and was not adherent with his prescribed regimen after he was discharged from this unit in early September. He reports he has difficulty taking the medications due to his living situation as he is unhappy with his room and board situation. He is endorsing significant symptoms of depression including hopelessness, helplessness, and suicidal ideation. He is not reporting any homicidal ideation, intention, and/or plan. Although the patient does have a history of psychosis, the patient is not reporting any current auditory or visual hallucinations. He states that he last experienced these hallucinations 3 weeks ago, during which all he did was write down with his auditory hallucinations were saying. He is unable to verbalize the content of what was told to him. He is not reporting any excessive energy, increased goal directed behavior, or grandiosity. PAST PSYCHIATRIC HISTORY: The patient has been previously diagnosed with major depressive disorder and bipolar disorder. He has had multiple trials of psychotropic medications include Adderall, Ativan, trazodone, Depakote, Prolixin, and Zoloft. He reports that he has not been adherent with his prescribed regimen of Zoloft, Depakote, and trazodone. He has been receiving Prolixin Decanoate through [facility]. The patient has had multiple psychiatric hospitalizations, and was last admitted to this unit this past September. He is currently open with [facility]. He has had 4 prior attempts at suicide. PMH: Diabetes mellitus, hypertension, seizure disorder, thyroid disorder ALLERGIES: Diphenhydramine CHEMICAL DEPENDENCY HISTORY: Denies FAMILY PSYCHIATRIC/SUBSTANCE USE HISTORY: Denies SOCIAL HISTORY: Patient was born and raised in [place], [place] and moved to [place] when he was 19. Patient currently lives in a room and board. He has 4 brothers named Ulysses, Jaden, Kelvin, and Danyel. He reports that his brother Danyel in 2007 and that he misses him. He does not know his biological father. His mother remarried. Highest level of education is the 11th grade. He was in special education. He is unmarried and has no children. MENTAL STATUS EXAM: General Appearance: Patient appears to be stated age is alert, directable, and attempts to cooperate. Patient appears to be slightly disheveled. Tall and well- nourished. He has a tamayo. Behavior: Patient is seated without any agitated behavior. Psychomotor activity is normal. Approaches friendly. Speech: Patient's speech is fluent, spontaneous, and nonpressured. Mood/Affect: Patient reports their mood is depressed, affect is friendly, open, and euthymic. Suicidality/Homicidality: Patient denies having any homicidal ideation intent or plan. He does endorse suicidal ideation. Perceptions: Patient denies any visual hallucinations and denies any auditory hallucinations Though content/process: There is no evidence of any delusional thought content and thought process is linear and goal-directed. Memory and concentration: AOX3, grossly intact for the purposes of this session. Can spell "WORLD" backwards Judgment and insight: poor STRENGTHS/WEAKNESSES: Strength is that patient is resilient. Weakness is that patient has been nonadherent with his prescribed treatment. INTELLECT: average IMPRESSIONS: Major depressive disorder, recurrent, severe History of bipolar affective disorder PLAN: -Patient is admitted under involuntary status but converted to adult formal voluntary and admitted to MHU for stabilization of psychiatric symptoms and safety. Patient signed adult voluntary form and medication consent and is placed in patient's chart. -Medications : Will start patient on his Depakote due to his history of seizure disorder. We will not restart Zoloft at this time. We will start the patient on Invega 3 mg at bedtime and Prozac 30 mg daily due to concerns for medication nonadherence. Her plan is to transition the patient to Invega Sustenna. -Ativan and Haldol PRN for agitation/aggression -Patient was counselled on substance abuse -Patient was informed of the risks, benefits and side effects of the medication and patient verbally consented to taking the medications. Patient signed med consent form and was placed in chart. -Internal Medicine consult to perform medical evaluation and physical. -SW on board for discharge planning. Encourage patient to participate in groups to work on coping skills.
[2020-11-03] MEDS ORDERED: LORazepam 1 MG TAB PO PRN (14:23)
[2020-11-03] MEDS: metFORMIN 500 MG TAB PO SCH (17:57)
[2020-11-03 20:24] LABS: Hemoglobin A1C 6.1 % (4.0-6.0)
[2020-11-03] MEDS: MONTELUKAST 10 MG TAB PO SCH (21:22)
[2020-11-03] MEDS: PALIPERIDONE 3 MG TAB.ER.24 PO SCH (21:22)
[2020-11-03] MEDS: DIVALPROEX ER 500 MG TAB.ER.24H PO SCH (21:22)
--- NOTE | 2020-11-03 23:51 | P.MDCNMH ---
History of Present Illness H&P Date: 11/03/20 Chief Complaint: medical evaluation 44 year old male with hypertension , hypothyroid and DM patient comes in with police custody , due to suicidal ideation , he was found w ith a knife in his hand thinking of hurting himself.patient reports depression , feeling hopeless and helpless. patient denies any URI symptoms or GI changes, however, he does complain of excessive need to sleep Review of Systems Pertinent positives as noted in HPI. All other systems were reviewed and are negative Past Medical History Past Medical History: Diabetes Mellitus, Hypertension, Seizure Disorder, Thyroid Disorder Additional Past Medical History / Comment(s): angina, Hypothyroidism, vitamin D deficiency, dyslipidemia, ALLERGIES, cognitive impairment History of Any Multi-Drug Resistant Organisms: None Reported Past Surgical History: Orthopedic Surgery Additional Past Surgical History / Comment(s): right ankle Past Anesthesia/Blood Transfusion Reactions: No Reported Reaction Past Psychological History: Anxiety, Bipolar, Depression Smoking Status: Current every day smoker Past Alcohol Use History: Abuse Past Drug Use History: Heroin, Methamphetamine, Prescription Drug Abuse - Past Family History Mother Additional Family Medical History / Comment(s): No known medical history. Patient denies any family history of diabetes or hypertension Medications and Allergies Home Medications Medication Instructions Recorded Confirmed Type Cholecalciferol (Vitamin D3) 125 mcg PO DAILY 01/26/20 11/03/20 History [Vitamin D3] Chlorthalidone 25 mg PO DAILY 30 Days #30 tablet 09/18/20 11/03/20 Rx Divalproex [Depakote] 750 mg PO BID 30 Days tablet. 09/18/20 11/03/20 Rx Glimepiride [Amaryl] 1 mg PO DAILY 30 Days #30 tab 09/18/20 11/03/20 Rx Levothyroxine Sodium [Synthroid] 100 mcg PO DAILY 30 Days #30 tab 09/18/20 11/03/20 Rx Loratadine [Claritin] 10 mg PO DAILY 30 Days tab 09/18/20 11/03/20 Rx Montelukast [Singulair] 10 mg PO HS 30 Days tab 09/18/20 11/03/20 Rx Nicotine 14Mg/24Hr Patch [Habitrol] 1 patch TRANSDERM DAILY 30 Days 09/18/20 11/03/20 Rx patch Sertraline [Zoloft] 200 mg PO DAILY 30 Days #60 tab 09/18/20 11/03/20 Rx Simvastatin [Zocor] 20 mg PO DAILY 30 Days #30 tab 09/18/20 11/03/20 Rx fluPHENAZine decanoate [Prolixin 25 mg IM Q14D 14 Days #1 ml 09/18/20 11/03/20 Rx Decanoate] lisinopriL [Zestril] 20 mg PO DAILY 30 Days #30 tab 09/18/20 11/03/20 Rx traZODone HCL [Desyrel] 100 mg PO HS 30 Days tab 09/18/20 11/03/20 Rx Allergies Allergy/AdvReac Type Severity Reaction Status Date / Time diphenhydramine Allergy Rash/Hives Verified 11/03/20 03:19 [From Benadryl] diphenhydramine HCl Allergy Rash/Hives Verified 11/03/20 03:19 [From Benadryl] Physical Exam Vitals: Vital Signs Temp Pulse Pulse Resp BP BP Pulse Ox 11/03/20 18:04 97.2 F L 11/03/20 12:00 97.3 F L 11/03/20 09:00 97.7 F 77 18 128/70 97 11/03/20 07:00 65 18 148/85 98 11/03/20 03:14 98.7 F 73 19 150/93 98 Intake and Output 11/03/20 11/03/20 11/04/20 14:59 22:59 06:59 Other: Weight 115.666 kg Constitutional: No acute distress, conversant, pleasant Eyes: Anicteric sclerae, moist conjunctiva, Pupils equal round reactive to light ENMT: NC/AT Oropharynx clear, no erythema, or exudates Neck: Supple, FROM, no masses, or JVD No carotid bruits No thyromegaly Lungs: Clear to auscultation Clear to percussion Normal respiratory effort, no accessory muscle use Cardiovascular: Heart regular in rate and rhythm, No murmurs, gallops, or rubs No peripheral edema Abdominal: Soft Nontender, no guarding, rebound or rigidity Abdomen moving with respiration Normoactive bowel sounds No hepatomegaly, No splenomegaly No palpable mass No abdominal wall hernia noted Skin: Normal temperature, tone, texture, turgor No induration No subcutaneous nodules No rash, lesions No ulcers Extremities: No digital cyanosis No clubbing Pedal pulses intact and symmetrical Radial pulses intact and symmetrical No calf tenderness Psychiatric: Alert and oriented to person, place and time flat affect poor judgement Neuro Muscles Strength 5/5 in all 4 extremities Sensation to light touch grossly present throughout Cranial nerves II-XII grossly intact No focal sensory deficits Lymphatics: no palpable cervical or supraclavicular , or inguinal lymph nodes Cranial Nerve Examination - Cranial Nerves Cranial Nerve II- Optic: Intact Cranial Nerve III- Oculomotor: Intact Cranial Nerve IV- Trochlear: Intact Cranial Nerve V- Trigeminal: Intact Cranial Nerve - Abducens: Intact Cranial Nerve VII- Facial: Intact Cranial Nerve VIII- Auditory: Intact Cranial Nerve IX- Glossopharyngeal: Intact Cranial Nerve X- Vagus: Intact Cranial Nerve XI- Accessory: Intact Cranial Nerve XII- Hypoglossal: Intact Results CBC & Chem 7: 11/03/20 05:42 11/03/20 05:42 Labs: Abnormal Lab Results - Last 24 Hours (Table) 11/03/20 11/03/20 11/03/20 Range/Units 05:42 05:42 05:42 Hgb 11.5 L (13.0-17.5) gm/dL Hct 37.1 L (39.0-53.0) % MCV 74.2 L D (80.0-100.0) fL MCH 23.0 L (25.0-35.0) pg MCHC 30.9 L (31.0-37.0) g/dL RDW 15.6 H (11.5-15.5) % Sodium 135 L (137-145) mmol/L Glucose 116 H (74-99) mg/dL Hemoglobin A1c 6.1 H (4.0-6.0) % Total Protein 6.0 L (6.3-8.2) g/dL Assessment and Plan Assessment: depression and suicidal ideation management per psych chronic conditions hypertension DM hypothyroid resume home meds check thyroid function Thank you for allowing us to participate in the care of this patient. We will follow peripherally. Do not hesitate to contact us with questions. Someone can be reached from the [facility] hospitalist group at all hours of the day at [phone].
[2020-11-04] MEDS: LEVOTHYROXINE 100 MCG TAB PO SCH (06:22)
[2020-11-04] MEDS: CHLORTHALIDONE 25 MG TAB PO SCH (07:55)
[2020-11-04] MEDS: BACITRACIN ZINC 500 UNIT/GM OINT 28.4 GM TUBE TOPICAL SCH ×2 (07:55→20:10)
[2020-11-04] MEDS: GLIMEPIRIDE 1 MG TAB PO SCH (07:55)
[2020-11-04] MEDS: metFORMIN 500 MG TAB PO SCH ×2 (07:56→17:36)
[2020-11-04] MEDS: lisinopriL 20 MG TAB PO SCH (07:56)
[2020-11-04] MEDS: FLUoxetine HCL 10 MG CAP PO SCH (07:56)
[2020-11-04] MEDS: ATORVASTATIN 10 MG TAB PO SCH (07:56)
[2020-11-04 09:10] LABS: Albumin 4.3 g/dL (3.5-5.0); Bilirubin, Delta 0.3 mg/dL (0.0-0.2); Bilirubin,Unconjugated 0.2 mg/dL (0.0-1.1); Total Bilirubin 0.5 mg/dL (0.2-1.3); Total Protein 6.8 g/dL (6.3-8.2)
[2020-11-04] MEDS: ACETAMINOPHEN TAB 325 MG TAB PO PRN (16:39)
--- NOTE | 2020-11-04 16:56 | PN ---
PROGRESS NOTE DATE OF SERVICE: 11/04/2020 CHIEF COMPLAINT: The patient was admitted for suicidal thinking. He stated he had found a knife and was going to harm himself. He also verbalized that he was going to overdose with pills. INTERVAL HISTORY: Patient has been doing fair. He had a quiet day yesterday. He comes out in the day area. He did interact with others. He attended two groups and seemed to do fairly well. At one group he did require some guidance in regards to appropriate language. He slept fairly well last night. Today he has been up. He again is out in the day area. He wanders about. He approached me asking when he would be discharged. He had no specific complaints or concerns today. He has not attended any groups today. He spends a fair amount of time around the nursing station. Often he will make various random comments towards staff as they move about doing business. He voiced no specific concerns. He said his medications were "okay." MENTAL STATUS: Patient gave fairly good eye contact. Psychomotor activity was restless. He answered questions with brief responses. His thoughts were clear. He tended to have a somewhat restricted affect, though not significantly so. He had a friendly manner. He smiled a little. His mood was even. He did not appear to be significantly distressed. There was no indication of thought disorder. He voiced no thoughts of harm. He was oriented and alert. ASSESSMENT: I will continue the current diagnosis and treatment plan. We will continue to make efforts to engage the patient in individual and group therapeutic activities. I will continue psychotropic medications the same including Prozac 30 mg a day, Invega 3 mg a day and Depakote ER 500 mg a day. Labs for this morning included TSH of 1.9. Labs relating to his anemia have not yet returned. I briefly reviewed medication issues with the patient. He did not seem to pay too much attention to that conversation. I encouraged the patient to come to staff if he felt he was having any side effects or problems with his medicines. We will focus on stabilization and discharge planning. PING / HANANE: [id number] /
[2020-11-04 17:06] LABS: % Iron Saturation 6.24 (15.00-50.00); Ferritin 5.9 ng/mL (22.0-322.0)
[2020-11-04] MEDS: DIVALPROEX ER 500 MG TAB.ER.24H PO SCH (20:08)
[2020-11-04] MEDS: PALIPERIDONE 3 MG TAB.ER.24 PO SCH (20:08)
[2020-11-04] MEDS: DOCUSATE 100 MG CAP PO SCH (20:08)
[2020-11-04] MEDS: MONTELUKAST 10 MG TAB PO SCH (20:08)
[2020-11-05] MEDS: LEVOTHYROXINE 100 MCG TAB PO SCH (06:37)
[2020-11-05] MEDS: CHLORTHALIDONE 25 MG TAB PO SCH (07:55)
[2020-11-05] MEDS: GLIMEPIRIDE 1 MG TAB PO SCH (07:55)
[2020-11-05] MEDS: BACITRACIN ZINC 500 UNIT/GM OINT 28.4 GM TUBE TOPICAL SCH ×2 (07:55→20:52)
[2020-11-05] MEDS: FLUoxetine HCL 10 MG CAP PO SCH (07:57)
[2020-11-05] MEDS: lisinopriL 20 MG TAB PO SCH (07:57)
[2020-11-05] MEDS: DOCUSATE 100 MG CAP PO SCH ×2 (07:57→20:51)
[2020-11-05] MEDS: ATORVASTATIN 10 MG TAB PO SCH (07:57)
[2020-11-05] MEDS: FERROUS SULFATE 325 MG TAB PO SCH ×3 (07:57→17:00)
[2020-11-05] MEDS: metFORMIN 500 MG TAB PO SCH ×2 (07:57→17:00)
--- NOTE | 2020-11-05 11:36 | PN ---
PROGRESS NOTE DATE OF SERVICE: 11/05/2020. CHIEF COMPLAINT: The patient was admitted for suicidal thinking. He stated he had found a knife and was going to harm himself. He also verbalized that he was going to overdose with pills. INTERVAL HISTORY: Patient has been doing fairly well. He had a quiet day yesterday, comes out in the day area. He wanders about. He will pay attention to things going on around him. He interacts appropriately with staff and peers. He will often initiate some brief conversation. He will make various comments. He attended 2 groups yesterday and for the most part was appropriate. He tends to be somewhat limited in what he offers in groups. He slept well last night. Today he has been up. He continues to do the same. He seems to be in a fairly good mood. He has been fully cooperative with care. He tolerates his psychotropic medications. MENTAL STATUS EXAM: Patient gave fairly good eye contact. He was somewhat restless. He answered questions with brief responses. His thoughts were clear. His affect was in a reasonable range. He smiled. He was friendly. His mood was in a good range. He was not distressed in any way. There was no outward evidence of thought disorder. He made no indications of thoughts of harm. He was oriented to his circumstances and surroundings. ASSESSMENT: I will continue the current diagnosis and treatment plan. I will continue psychotropic medications the same. I will order a Depakote level for the morning. We will focus on stabilization and discharge planning. PING / HANANE: [id number] /
[2020-11-05 17:39] LABS: Glucose,Whole Blood 109 mg/dL (75-99)
[2020-11-05] MEDS: MONTELUKAST 10 MG TAB PO SCH (20:51)
[2020-11-05] MEDS: DIVALPROEX ER 500 MG TAB.ER.24H PO SCH (20:51)
[2020-11-05] MEDS: PALIPERIDONE 3 MG TAB.ER.24 PO SCH (20:52)
[2020-11-06] MEDS: LEVOTHYROXINE 100 MCG TAB PO SCH ×2 (06:34→06:43)
[2020-11-06] MEDS: FERROUS SULFATE 325 MG TAB PO SCH ×3 (09:40→17:41)
[2020-11-06] MEDS: metFORMIN 500 MG TAB PO SCH ×2 (09:40→17:41)
[2020-11-06] MEDS: ATORVASTATIN 10 MG TAB PO SCH (09:41)
[2020-11-06] MEDS: BACITRACIN ZINC 500 UNIT/GM OINT 28.4 GM TUBE TOPICAL SCH ×2 (09:41→21:09)
[2020-11-06] MEDS: GLIMEPIRIDE 1 MG TAB PO SCH (09:42)
[2020-11-06] MEDS: DOCUSATE 100 MG CAP PO SCH ×2 (09:42→21:08)
[2020-11-06] MEDS: CHLORTHALIDONE 25 MG TAB PO SCH (09:42)
[2020-11-06] MEDS: FLUoxetine HCL 10 MG CAP PO SCH (09:42)
[2020-11-06] MEDS: lisinopriL 20 MG TAB PO SCH (09:49)
--- NOTE | 2020-11-06 10:05 | P.PN ---
Progress Note - Text Progress Note Date: 11/06/20 Interval History: Patient was seen resting in bed and was refusing to get out of bed to speak with pattern chart writer. Patient reports that he had a very difficult time sleeping last night due to his roommate snoring constantly. He is currently refusing to get out of bed. Initially he was refusing to be interviewed, but later was agreeable. He is currently not reporting any suicidal or homicidal ideation, intention, and/or plan. He is not reporting any auditory or visual hallucinations. He is not reporting any significant side effects of his medications. Depakote level was found to be subtherapeutic at 0.4. He has been in adherent with his medications and is not reporting any significant side effects at this time. Mental Status Exam: General Appearance: Patient appears to be stated age is alert, directable, and intermittently cooperative. Tall and well-nourished. He has a tamayo. Behavior: Patient is lying in bed, refuses any eye contact with this pattern chart writer. Speech: Patient's speech is fluent and nonpressured. Mood/Affect: Mood is annoyed, affect is congruent and with appropriate range. Suicidality/Homicidality: Patient denies having any suicidal or homicidal ideation intent or plan. Perceptions: Patient denies any visual hallucinations and denies any auditory hallucinations Though content/process: There is no evidence of any delusional thought content and thought process is linear and goal-directed. Memory and concentration: AOX3, grossly intact for the purposes of this session Judgment and insight: Poor Assessment Major depressive disorder, recurrent, severe History of bipolar affective disorder Plan: -Patient continues to meet criteria for inpatient psychiatric admission for symptom stabilization and safety. Patient has signed adult voluntary form and medication consent and was placed in patient's chart. -Medications: Continue Prozac 30 mg by mouth daily for depression Increase Invega to 6 mg by mouth at bedtime with plans to transition him to Invega Sustenna due to history of nonadherence with treatment Increase Depakote ER to 1000 mg at bedtime. -When necessary Ativan and Haldol for agitation/aggression. -SW on board for discharge planning. Encouraged the patient to participate in milieu.
[2020-11-06 17:52] LABS: Glucose,Whole Blood 135 mg/dL (75-99)
[2020-11-06] MEDS ORDERED: PALIPERIDONE 6 MG TAB.ER.24 PO SCH (21:00)
[2020-11-06] MEDS: MONTELUKAST 10 MG TAB PO SCH (21:08)
[2020-11-06] MEDS: DIVALPROEX ER 500 MG TAB.ER.24H PO SCH (21:09)
[2020-11-07] MEDS: LEVOTHYROXINE 100 MCG TAB PO SCH (06:29)
[2020-11-07] MEDS: metFORMIN 500 MG TAB PO SCH ×2 (08:36→17:31)
[2020-11-07] MEDS: FERROUS SULFATE 325 MG TAB PO SCH ×3 (08:36→17:31)
[2020-11-07] MEDS: ATORVASTATIN 10 MG TAB PO SCH (08:38)
[2020-11-07] MEDS: CHLORTHALIDONE 25 MG TAB PO SCH (08:38)
[2020-11-07] MEDS: FLUoxetine HCL 10 MG CAP PO SCH (08:38)
[2020-11-07] MEDS: lisinopriL 20 MG TAB PO SCH (08:38)
[2020-11-07] MEDS: GLIMEPIRIDE 1 MG TAB PO SCH (08:38)
[2020-11-07] MEDS: DOCUSATE 100 MG CAP PO SCH ×2 (08:39→20:36)
[2020-11-07] MEDS: BACITRACIN ZINC 500 UNIT/GM OINT 28.4 GM TUBE TOPICAL SCH ×2 (08:39→23:00)
--- NOTE | 2020-11-07 09:57 | P.PN ---
Progress Note - Text Progress Note Date: 11/07/20 Interval History: Patient was seen wandering the hallways and was agreeable to speak with health science writer in the office. Patient was that he is feeling better. He is not reporting any suicidal or homicidal ideation, intention, and/or plan. He is not reporting any auditory or visual hallucinations. He is not reporting any significant side effects of his medications. He continues to report occasional thoughts of self- harm. He states that he is wishing for discharge. He was informed that he has been nonadherent with his treatment and so we are transitioning him to Invega Sustenna to which he is agreeable to. We discussed at length being adherent with his prescribed treatment and follow-up appointments. Mental Status Exam: General Appearance: Patient appears to be stated age is alert, directable, and cooperative. Tall and well-nourished. He has a tamayo. Behavior: Patient is sitting calmly in the office. Good eye contact. Psychomotor activity appears normal. Speech: Patient's speech is fluent and nonpressured. Mood/Affect: Mood is good, affect is congruent and with appropriate range. Suicidality/Homicidality: Patient denies having any suicidal or homicidal ideation intent or plan. Perceptions: Patient denies any visual hallucinations and denies any auditory hallucinations Though content/process: There is no evidence of any delusional thought content and thought process is linear and goal-directed. Memory and concentration: AOX3, grossly intact for the purposes of this session Judgment and insight: Improving mildly Assessment Major depressive disorder, recurrent, severe History of bipolar affective disorder Plan: -Patient continues to meet criteria for inpatient psychiatric admission for symptom stabilization and safety. Patient has signed adult voluntary form and medication consent and was placed in patient's chart. -Medications: Continue Prozac 30 mg by mouth daily for depression Increase Invega to 9 mg by mouth at bedtime with plans to transition him to Invega Sustenna tomorrow due to history of nonadherence with treatment Continue Depakote ER 1000 mg at bedtime. -When necessary Ativan and Haldol for agitation/aggression. -SW on board for discharge planning. Encouraged the patient to participate in milieu.
[2020-11-07 12:23] LABS: Glucose,Whole Blood 96 mg/dL (75-99)
[2020-11-07 17:26] LABS: Glucose,Whole Blood 123 mg/dL (75-99)
[2020-11-07] MEDS: MONTELUKAST 10 MG TAB PO SCH (20:36)
[2020-11-07] MEDS: DIVALPROEX ER 500 MG TAB.ER.24H PO SCH (20:36)
[2020-11-07] MEDS ORDERED: PALIPERIDONE 3 MG TAB.ER.24 PO SCH (21:00)
[2020-11-08] MEDS: ACETAMINOPHEN TAB 325 MG TAB PO PRN ×2 (01:02→09:47)
[2020-11-08 02:10] VITALS: RESP 16
[2020-11-08] MEDS ORDERED: IBUPROFEN 600 MG TAB PO STA (02:19)
--- NOTE | 2020-11-08 02:20 | XR ---
EXAM: XR Left Ankle Complete, 3 or More Views CLINICAL HISTORY: ITS.REASON XR Reason: swollen ankle TECHNIQUE: Frontal, lateral and oblique views of the left ankle. COMPARISON: 08/12/16. FINDINGS: Bones/joints: No acute fracture. Soft tissues: Soft tissue swelling. IMPRESSION: No acute fracture.
[2020-11-08] MEDS: LEVOTHYROXINE 100 MCG TAB PO SCH (06:40)
[2020-11-08 07:56] LABS: Glucose,Whole Blood 132 mg/dL (75-99)
[2020-11-08] MEDS ORDERED: PALIPERIDONE IM 234 MG/1.5 ML SYG IM STA (09:42)
[2020-11-08] MEDS: BACITRACIN ZINC 500 UNIT/GM OINT 28.4 GM TUBE TOPICAL SCH (09:49)
[2020-11-08] MEDS: FLUoxetine HCL 10 MG CAP PO SCH (09:49)
[2020-11-08] MEDS: metFORMIN 500 MG TAB PO SCH (09:49)
[2020-11-08] MEDS: DOCUSATE 100 MG CAP PO SCH (09:49)
[2020-11-08] MEDS: CHLORTHALIDONE 25 MG TAB PO SCH (09:49)
[2020-11-08] MEDS: lisinopriL 20 MG TAB PO SCH (09:49)
[2020-11-08] MEDS: GLIMEPIRIDE 1 MG TAB PO SCH (09:49)
[2020-11-08] MEDS: ATORVASTATIN 10 MG TAB PO SCH (09:49)
[2020-11-08] MEDS: FERROUS SULFATE 325 MG TAB PO SCH ×2 (09:49→13:20)
[2020-11-08 10:01] VITALS: BP 122/57; PULSE 60
--- NOTE | 2020-11-08 10:50 | P.DS ---
Providers Date of admission: 11/03/20 08:23 Expected date of discharge: 11/08/20 Attending physician: Silvano Page MD Consults: 11/03/20 08:35 Consult Physician Routine Consulting Provider: Debbie Arteaga Consult Reason/Comments: Medical Management Do you want consulting provider notified?: Yes Primary care physician: [facility] Diagnosis(es) (1) Bipolar disorder Current Visit: Yes Status: Acute Priority: High (2) Intellectual disability Current Visit: Yes Status: Chronic Priority: Medium Hospital Course: Admission HPI: Patient is a 44-year-old, single, developmentally delayed, unemployed male who presented to the psychiatric unit voluntarily for suicidal ideation. Patient presented to the hospital on 11/03/2020, brought in by police after he called emergency services stating that he found a knife and was suicidal. As per petition from the transit authority police officer, the patient also ran from the officers with a knife in hand stating that he was going to harm himself. While he was in custody, the patient also verbalized that he was killing himself with "pills." The patient is denying any overdose. He reports that he has been feeling suicidal for the last month and a half and was not adherent with his prescribed regimen after he was discharged from this unit in early September. He reports he has difficulty taking the medications due to his living situation as he is unhappy with his room and board situation. He is endorsing significant symptoms of depression including hopelessness, helplessness, and suicidal ideation. He is not reporting any homicidal ideation, intention, and/or plan. Although the patient does have a history of psychosis, the patient is not reporting any current auditory or visual hallucinations. He states that he last experienced these hallucinations 3 weeks ago, during which all he did was write down with his auditory hallucinations were saying. He is unable to verbalize the content of what was told to him. He is not reporting any excessive energy, increased goal directed behavior, or grandiosity. The patient has been previously diagnosed with major depressive disorder and bipolar disorder. He has had multiple trials of psychotropic medications include Adderall, Ativan, trazodone, Depakote, Prolixin, and Zoloft. He reports that he has not been adherent with his prescribed regimen of Zoloft, Depakote, and trazodone. He has been receiving Prolixin Decanoate through [facility]. The patient has had multiple psychiatric hospitalizations, and was last admitted to this unit this past September. He is currently open with [facility]. He has had 4 prior attempts at suicide. Hospital course: Upon admission to the unit patient was initially expressing significant depression the context of medication nonadherence. Patient was however directable and agreeable to commence treatment. The patient was reportedly off medications for 2 months prior to this admission. The patient was started on a regimen of Prozac, Depakote, and Invega. The goal of these medications was to aid with medication adherence. The patient tolerated the medications well. He would occasionally have episodes of agitation and irritability while on the unit but was easily directable and calm down. These episodes were linked primarily to his intellectual disability and not from any pathological psychiatric illness. The course of hospitalization, the patient gradually improved in terms of mood and presented as bright and social with peers and staff. On day of discharge, the patient was given Invega Sustenna 234 mg IM and was instructed to follow up with [facility] for his second booster shot of the Invega Sustenna one week later. He is not reporting any suicidal or homicidal ideation, intention, and/or plan. He is not reporting any auditory or visual hallucinations. He denies any paranoia or any delusions. He reports no significant side effects his medications. Patient was counseled on the medications and the need for regular compliance and was encouraged to follow-up with his outpatient appointments for mental health and primary care. Mental status exam: General Appearance: Patient appears to be stated age is alert, pleasant, and cooperative. Patient is in no acute distress and has fair hygiene and grooming. Tall and well-nourished. He has a tamayo. Behavior: Patient is calmly lying down in bed without any agitated behavior. Speech: Patient's speech is fluent and nonpressured. Mood/Affect: Patient reports their mood is "much better", affect is congruent and euthymic. Suicidality/Homicidality: Patient denies having any suicidal or homicidal ideation intent or plan. Perceptions: Patient denies any auditory or visual hallucinations. Though content/process: There is no evidence of any delusional thought content and thought process is linear and goal-directed. Memory and concentration: AOX3, grossly intact for the purposes of this session. Can spell "WORLD" backwards correctly. Judgment and insight: Improved with guarded prognosis Impression: Bipolar disorder, unspecified, current episode depressed Intellectual disability Plan: -Continue with discharge today as patient has improved and stabilized psychiatrically and is not currently an imminent threat to himself and/or others. Patient will remain at chronically elevated risk for harm to self and/or others due to his impulsivity and history of nonadherence to treatment. -Continue medications: Prozac 30 mg by mouth daily for depression Invega sustenna 234 mg IM was given on 11/08/2020. Invega sustenna 156 mg IM is due on 11/15/2019 Depakote ER 1000 g at bedtime -Patient was counseled on the need for medication compliance and appropriate follow-up at mental health and also primary care for medical issues. Patient verbalized understanding and agreed. -Social work to arrange for and conduct family meeting to ensure safety upon discharge and answer any questions/concerns. Social work also to arrange for patients follow up appointments with [facility] for psychiatric care along with follow up with primary care provider. -Patient counseled on abstaining from recreational drugs and marijuana and alcohol. Was informed/educated on the adverse effects on their physical and mental health. Patient verbally agreed and understood. -Patient was instructed to return to the hospital or seek immediate medical care if their psychiatric or medical symptoms do worsen or reoccur. -Psychoeducation and supportive therapy provided to patient. Risks and benefits of pharmacological treatment versus the risks and benefits of nontreatment weight and discussed. Informed consent discussion held. Common side effects of psychotropics discussed such as, but not limited to headache, GI disturbance, sexual dysfunction, movement disorders, sedation, and orthostatic hypotension. Life threatening and blackbox warnings of prescribed medications also discussed. Potential risks of operating a vehicle or heavy machinery discussed with patient at length. Advised on importance of compliance and a reliable and responsible manner. Patient advised to review FDA consumer labeling of all medications prior to taking. Patient verbalized understanding of potential risks, and agrees with current treatment plan. Patient advised to medically contact physician/emergency personnel if any acute changes in condition occur. Vital Signs Temp 98.1 F 11/08/20 01:52 Pulse 60 11/08/20 10:01 Resp 16 11/08/20 01:52 BP 122/57 11/08/20 10:01 Pulse Ox 97 11/07/20 06:25 Laboratory Results WBC 7.3 k/uL (3.8-10.6) 11/03/20 05:42 RBC 5.00 m/uL (4.30-5.90) 11/03/20 05:42 Hgb 11.5 gm/dL (13.0-17.5) L 11/03/20 05:42 Hct 37.1 % (39.0-53.0) L 11/03/20 05:42 MCV 74.2 fL (80.0-100.0) L D 11/03/20 05:42 MCH 23.0 pg (25.0-35.0) L 11/03/20 05:42 MCHC 30.9 g/dL (31.0-37.0) L 11/03/20 05:42 RDW 15.6 % (11.5-15.5) H 11/03/20 05:42 Plt Count 280 k/uL (150-450) 11/03/20 05:42 MPV 8.0 11/03/20 05:42 Neutrophils % 53 % 11/03/20 05:42 Lymphocytes % 34 % 11/03/20 05:42 Monocytes % 9 % 11/03/20 05:42 Eosinophils % 1 % 11/03/20 05:42 Basophils % 1 % 11/03/20 05:42 Neutrophils # 3.9 k/uL (1.3-7.7) 11/03/20 05:42 Lymphocytes # 2.5 k/uL (1.0-4.8) 11/03/20 05:42 Monocytes # 0.7 k/uL (0-1.0) 11/03/20 05:42 Eosinophils # 0.1 k/uL (0-0.7) 11/03/20 05:42 Basophils # 0.1 k/uL (0-0.2) 11/03/20 05:42 Hypochromasia Marked 11/03/20 05:42 Poikilocytosis Moderate 11/03/20 05:42 Microcytosis Slight 11/03/20 05:42 PT 11.3 sec (9.0-12.0) 11/03/20 06:04 INR 1.1 (<1.2) 11/03/20 06:04 Sodium 135 mmol/L (137-145) L 11/03/20 05:42 Potassium 4.0 mmol/L (3.5-5.1) 11/03/20 05:42 Chloride 106 mmol/L (98-107) 11/03/20 05:42 Carbon Dioxide 22 mmol/L (22-30) 11/03/20 05:42 Anion Gap 7 mmol/L 11/03/20 05:42 BUN 19 mg/dL (9-20) 11/03/20 05:42 Creatinine 0.69 mg/dL (0.66-1.25) 11/03/20 05:42 Est GFR (CKD-EPI)AfAm >90 (>60 ml/min/1.73 sqM) 11/03/20 05:42 Est GFR (CKD-EPI)NonAf >90 (>60 ml/min/1.73 sqM) 11/03/20 05:42 Glucose 116 mg/dL (74-99) H 11/03/20 05:42 POC Glucose (mg/dL) 132 mg/dL (75-99) H 11/08/20 07:53 POC Glu Bracelet Form Coverer ID Dae Mackay 11/08/20 07:[address] Glu mg/dL 128 11/03/20 05:42 Hemoglobin A1c 6.1 % (4.0-6.0) H 11/03/20 05:42 Calcium 8.9 mg/dL (8.4-10.2) 11/03/20 05:42 Iron 27 ug/dL (65-175) L 11/04/20 08:23 TIBC 433 ug/dL (228-460) 11/04/20 08:23 % Saturation 6.24 (15.00-50.00) L 11/04/20 08:23 Ferritin 5.9 ng/mL (22.0-322.0) L 11/04/20 08:23 Total Bilirubin 0.5 mg/dL (0.2-1.3) 11/04/20 08:23 Conjugated Bilirubin 0.0 mg/dL (0.0-0.3) 11/04/20 08:23 Unconjugated Bilirubin 0.2 mg/dL (0.0-1.1) 11/04/20 08:23 Delta Bilirubin 0.3 mg/dL (0.0-0.2) H 11/04/20 08:23 AST 19 U/L (17-59) 11/04/20 08:23 ALT 26 U/L (4-49) 11/04/20 08:23 Alkaline Phosphatase 97 U/L (38-126) 11/04/20 08:23 Total Protein 6.8 g/dL (6.3-8.2) 11/04/20 08:23 Albumin 4.3 g/dL (3.5-5.0) 11/04/20 08:23 Triglycerides 249 mg/dL (<150) H 11/04/20 08:23 Cholesterol 148 mg/dL (<200) 11/04/20 08:23 LDL Cholesterol, Calc 64 mg/dL (0-99) 11/04/20 08:23 HDL Cholesterol 34 mg/dL (40-60) L 11/04/20 08:23 TSH 1.940 mIU/L (0.465-4.680) 11/04/20 08:23 Salicylates <1.0 mg/dL 11/03/20 05:42 Urine Opiates Screen Not Detected (NotDetected) 11/03/20 06:25 Ur Oxycodone Screen Not Detected (NotDetected) 11/03/20 06:25 Urine Methadone Screen Not Detected (NotDetected) 11/03/20 06:25 Ur Propoxyphene Screen Not Detected (NotDetected) 11/03/20 06:25 Acetaminophen <10.0 ug/mL 11/03/20 05:42 Ur Barbiturates Screen Not Detected (NotDetected) 11/03/20 06:25 Valproic Acid <10.0 ug/mL 11/03/20 05:42 U Tricyclic Antidepress Not Detected (NotDetected) 11/03/20 06:25 Ur Phencyclidine Scrn Not Detected (NotDetected) 11/03/20 06:25 Ur Amphetamines Screen Not Detected (NotDetected) 11/03/20 06:25 U Methamphetamines Scrn Not Detected (NotDetected) 11/03/20 06:25 U Benzodiazepines Scrn Not Detected (NotDetected) 11/03/20 06:25 Urine Cocaine Screen Not Detected (NotDetected) 11/03/20 06:25 U Marijuana (THC) Screen Not Detected (NotDetected) 11/03/20 06:25 Serum Alcohol <10 mg/dL 11/03/20 05:42 Coronavirus (PCR) Not Detected (Not Detectd) 11/03/20 07:40 Allergies Allergy/AdvReac Type Severity Reaction Status Date / Time diphenhydramine Allergy Rash/Hives Verified 11/03/20 03:19 [From Benadryl] diphenhydramine HCl Allergy Rash/Hives Verified 11/03/20 03:19 [From Benadryl] Patient Condition at Discharge: Stable Plan - Discharge Summary New Discharge Prescriptions: New Divalproex ER [Depakote ER] 1,000 mg PO HS 30 Days tab.er.24h metFORMIN HCL [Glucophage] 1,000 mg PO BID-W/MEALS 30 Days tab Paliperidone [Invega] 3 mg PO HS 14 Days tab.er.24 Paliperidone IM [Invega Sustenna] 156 mg IM QMONTHLY #1 syr Ferrous Sulfate [Iron (65 MG Elemental)] 325 mg PO TID-W/MEALS 30 Days tab Atorvastatin [Lipitor] 10 mg PO DAILY 30 Days tab FLUoxetine HCL [PROzac] 30 mg PO DAILY 30 Days cap Continue Cholecalciferol (Vitamin D3) [Vitamin D3] 125 mcg PO DAILY Loratadine [Claritin] 10 mg PO DAILY 30 Days tab Glimepiride [Amaryl] 1 mg PO DAILY 30 Days #30 tab Chlorthalidone 25 mg PO DAILY 30 Days #30 tablet Nicotine 14Mg/24Hr Patch [Habitrol] 1 patch TRANSDERM DAILY 30 Days patch Montelukast [Singulair] 10 mg PO HS 30 Days tab Levothyroxine Sodium [Synthroid] 100 mcg PO DAILY 30 Days #30 tab lisinopriL [Zestril] 20 mg PO DAILY 30 Days #30 tab Discontinued Divalproex [Depakote] 750 mg PO BID 30 Days tablet. traZODone HCL [Desyrel] 100 mg PO HS 30 Days tab fluPHENAZine decanoate [Prolixin Decanoate] 25 mg IM Q14D 14 Days #1 ml Simvastatin [Zocor] 20 mg PO DAILY 30 Days #30 tab Sertraline [Zoloft] 200 mg PO DAILY 30 Days #60 tab Discharge Medication List Cholecalciferol (Vitamin D3) [Vitamin D3] 125 mcg PO DAILY 01/26/20 [History] Loratadine [Claritin] 10 mg PO DAILY 30 Days tab 09/18/20 [Rx] Atorvastatin [Lipitor] 10 mg PO DAILY 30 Days tab 11/08/20 [Rx] Chlorthalidone 25 mg PO DAILY 30 Days #30 tablet 11/08/20 [Rx] Divalproex ER [Depakote ER] 1,000 mg PO HS 30 Days tab.er.24h 11/08/20 [Rx] FLUoxetine HCL [PROzac] 30 mg PO DAILY 30 Days cap 11/08/20 [Rx] Ferrous Sulfate [Iron (65 MG Elemental)] 325 mg PO TID-W/MEALS 30 Days tab 11/08/20 [Rx] Glimepiride [Amaryl] 1 mg PO DAILY 30 Days #30 tab 11/08/20 [Rx] Levothyroxine Sodium [Synthroid] 100 mcg PO DAILY 30 Days #30 tab 11/08/20 [Rx] Montelukast [Singulair] 10 mg PO HS 30 Days tab 11/08/20 [Rx] Nicotine 14Mg/24Hr Patch [Habitrol] 1 patch TRANSDERM DAILY 30 Days patch 11/08/20 [Rx] Paliperidone IM [Invega Sustenna] 156 mg IM QMONTHLY #1 syr 11/08/20 [Rx] Paliperidone [Invega] 3 mg PO HS 14 Days tab.er.24 11/08/20 [Rx] lisinopriL [Zestril] 20 mg PO DAILY 30 Days #30 tab 11/08/20 [Rx] metFORMIN HCL [Glucophage] 1,000 mg PO BID-W/MEALS 30 Days tab 11/08/20 [Rx] Follow up Appointment(s)/Referral(s): [facility] [Outside] - 11/13/20 12:00 pm (11-13-20 @ 12:00 with Alfredo Mirza by phone 11-17-20 @ 1:00 with SENTHIL Candelario at [facility] office) Katie Taylor MD [STAFF PHYSICIAN] - 1 Week [facility] [Primary Care Provider] - 1-2 days Activity/Diet/Wound Care/Special Instructions: Activity and diet as tolerated. Avoid the use of street drugs and alcohol. Take all medications as prescribed. When you are in need of refills on your medications please contact your medical provider and/or outpatient psychiatrist to have this done. Please go to scheduled outpatient appointment for aftercare treatment. If symptoms return or become worse, call the crisis line at and/or go to the nearest emergency room for evaluation. follow up outpatient with GI for workup for iron deficiency anemia Discharge Disposition: HOME SELF-CARE
[2020-11-08 13:44] VITALS: TEMP 97.2
[2020-11-08] MEDS ORDERED: PALIPERIDONE 3 MG TAB.ER.24 PO SCH (21:00)
[2020-11-09 05:15] LABS: Glucose,Whole Blood 145 mg/dL (75-99)
[2020-11-09 05:17] LABS: Glucose,Whole Blood 132 mg/dL (75-99)
[2020-11-09 05:17] LABS: Glucose,Whole Blood 105 mg/dL (75-99)
[2020-11-09 05:35] LABS: Glucose,Whole Blood 131 mg/dL (75-99)
== END 2020-11-08 14:45 | disposition home or self-care (01) | DRG 885 ==
LOC: EC 03:12 → 3MHU 08:23
PROVIDERS: ADMIT Psychiatry & Neurology Psychiatry; ATTEND Psychiatry & Neurology Psychiatry
DX: F31.30 Bipolar disorder, current episode depressed, mild or moderate severity, unspecified (principal); R45.851 Suicidal ideations; E78.5 Hyperlipidemia, unspecified; E11.9 Type 2 diabetes mellitus without complications; E03.9 Hypothyroidism, unspecified; F17.200 Nicotine dependence, unspecified, uncomplicated; F79 Unspecified intellectual disabilities; G40.909 Epilepsy, unspecified, not intractable, without status epilepticus; I10 Essential (primary) hypertension; Z20.828 Contact with and (suspected) exposure to other viral communicable diseases; R45.850 Homicidal ideations; Z79.899 Other long term (current) drug therapy; Z79.890 Hormone replacement therapy; Z91.14 Patient's other noncompliance with medication regimen; Z56.0 Unemployment, unspecified; Z88.8 Allergy status to other drugs, medicaments and biological substances; Z82.49 Family history of ischemic heart disease and other diseases of the circulatory system; Z91.83 Wandering in diseases classified elsewhere
CPT/HCPCS: 36415; 80053; 80061; 80076; 80164; 80165; 80306; 80320; 80329; 82075; 82728; 83036; 83520; 83540; 83550; 84443; 85025; 85610; 87635; 99285

== ENCOUNTER 2020-11-17 19:47 | Emergency (ER) | payer OTHER ==
[2020-11-17 19:56] VITALS: TEMP 98.8
[2020-11-17 20:04] VITALS: BP 118/78; PULSE 89; RESP 20
--- NOTE | 2020-11-17 20:05 | ED ---
General Adult HPI - General Chief complaint: Chest Pain Stated complaint: Chest Pain Time Seen by Provider: 11/17/20 19:51 Source: patient, EMS Mode of arrival: EMS Limitations: no limitations - History of Present Illness Initial comments: Patient presents to the ED by ambulance for evaluation. Patient states that he developed sharp, pleuritic, central chest pain while walking home about 2 hours ago. Patient states that his pain is worse with deep inspiration. Patient denies trauma or injury, fever or chills, headache, focal neuro deficit, neck/a rm/jaw/back pain, dyspnea, cough or cold symptoms, palpitations, dizziness, nausea/vomiting/diaphoresis, abdominal pain, dysuria or urinary symptoms, decreased urine output, leg or calf swelling or pain, or any other symptoms or complaints. Patient denies tobacco use or illicit drug use. - Related Data Home Medications Medication Instructions Recorded Confirmed Cholecalciferol (Vitamin D3) 125 mcg PO DAILY 01/26/20 11/17/20 [Vitamin D3 (5000 units)] Paliperidone IM [Invega Sustenna] 156 mg IM Q30D 11/17/20 11/17/20 Previous Rx's Medication Instructions Recorded Loratadine [Claritin] 10 mg PO DAILY 30 Days tab 09/18/20 Atorvastatin [Lipitor] 10 mg PO DAILY 30 Days tab 11/08/20 Chlorthalidone 25 mg PO DAILY 30 Days #30 tablet 11/08/20 Divalproex ER [Depakote ER] 1,000 mg PO HS 30 Days tab.er.24h 11/08/20 FLUoxetine HCL [PROzac] 30 mg PO DAILY 30 Days cap 11/08/20 Ferrous Sulfate [Iron (65 MG 325 mg PO TID-W/MEALS 30 Days tab 11/08/20 Elemental)] Glimepiride [Amaryl] 1 mg PO DAILY 30 Days #30 tab 11/08/20 Levothyroxine Sodium [Synthroid] 100 mcg PO DAILY 30 Days #30 tab 11/08/20 Montelukast [Singulair] 10 mg PO HS 30 Days tab 11/08/20 Nicotine 14Mg/24Hr Patch [Habitrol] 1 patch TRANSDERM DAILY 30 Days 11/08/20 patch Paliperidone [Invega] 3 mg PO HS 14 Days tab.er.24 11/08/20 lisinopriL [Zestril] 20 mg PO DAILY 30 Days #30 tab 11/08/20 metFORMIN HCL [Glucophage] 1,000 mg PO BID-W/MEALS 30 Days 11/08/20 tab Allergies Allergy/AdvReac Type Severity Reaction Status Date / Time diphenhydramine Allergy Rash/Hives Verified 11/17/20 20:32 [From Benadryl] diphenhydramine HCl Allergy Rash/Hives Verified 11/17/20 20:32 [From Benadryl] Review of Systems ROS Statement: Those systems with pertinent positive or pertinent negative responses have been documented in the HPI. ROS Other: All systems not noted in ROS Statement are negative. Past Medical History Past Medical History: Diabetes Mellitus, Hypertension, Seizure Disorder, Thyroid Disorder Additional Past Medical History / Comment(s): angina, Hypothyroidism, vitamin D deficiency, dyslipidemia, ALLERGIES, cognitive impairment History of Any Multi-Drug Resistant Organisms: None Reported Past Surgical History: Orthopedic Surgery Additional Past Surgical History / Comment(s): right ankle Past Anesthesia/Blood Transfusion Reactions: No Reported Reaction Past Psychological History: Anxiety, Bipolar, Depression Smoking Status: Current every day smoker Past Alcohol Use History: Abuse Past Drug Use History: Heroin, Methamphetamine, Prescription Drug Abuse - Past Family History Mother Additional Family Medical History / Comment(s): No known medical history. Patient denies any family history of diabetes or hypertension General Exam Limitations: no limitations General appearance: alert, in no apparent distress Head exam: Present: atraumatic, normocephalic Eye exam: Present: normal appearance, EOMI ENT exam: Present: mucous membranes moist Neck exam: Present: other (Trachea is in midline) Respiratory exam: Present: normal lung sounds bilaterally. Absent: respiratory distress, wheezes, rales, rhonchi, stridor, chest wall tenderness Cardiovascular Exam: Present: regular rate, normal rhythm, normal heart sounds, other (Normal radial pulses bilaterally) GI/Abdominal exam: Present: soft. Absent: distended, tenderness, guarding Extremities exam: Present: other (Negative Homans sign bilaterally). Absent: tenderness, pedal edema, calf tenderness Neurological exam: Present: alert, oriented X3. Absent: motor sensory deficit Psychiatric exam: Present: normal affect, normal mood Skin exam: Present: warm, dry, intact, normal color Course Vital Signs 11/17/20 11/17/20 11/17/20 19:50 19:56 20:00 Temperature 98.8 F Pulse Rate 101 H 89 Pulse Rate [ 90 Grain Elevator Man ] Respiratory 22 20 Rate Blood Pressure 126/75 118/78 O2 Sat by Pulse 96 99 Oximetry EKG Findings - EKG Comments: EKG Findings:: Normal sinus rhythm, ventricular rate of 96 bpm, no ectopy, normal HI and QRS intervals, normal QT interval, normal axis, no ST or T-wave abnormality Medical Decision Making - Medical Decision Making Patient reports that his chest pain is sharp and pleuritic in nature. Patient's EKG is unremarkable. Patient's troponin and d-dimer are negative. Patient's chest x-ray is also unremarkable. Patient has a low Heart Score (2). Patient has been breathing comfortably in the ED with a normal room air oxygen saturatio n. I do not think that the patient's chest pain is from a cardiac or emergent medical condition. Patient was counseled about chest pain and pleurisy, and he feels comfortable going home at this time. Patient was clearly explained return and follow-up instructions. Patient was instructed to have a low threshold for return to the ED should his symptoms worsen. Patient was also instructed to fol low up closely with his primary care provider. Patient feels comfortable with this plan. - Lab Data Result diagrams: 11/17/20 20:19 11/17/20 20:19 Lab Results 11/17/20 11/17/20 11/17/20 Range/Units 20:19 20:19 20:19 WBC 6.1 (3.8-10.6) k/uL RBC 5.05 (4.30-5.90) m/uL Hgb 12.0 L (13.0-17.5) gm/dL Hct 36.7 L (39.0-53.0) % MCV 72.6 L (80.0-100.0) fL MCH 23.8 L (25.0-35.0) pg MCHC 32.7 (31.0-37.0) g/dL RDW 16.9 H (11.5-15.5) % Plt Count 285 (150-450) k/uL MPV 7.3 Neutrophils % 50 % Lymphocytes % 40 % Monocytes % 7 % Eosinophils % 2 % Basophils % 1 % Neutrophils # 3.1 (1.3-7.7) k/uL Lymphocytes # 2.4 (1.0-4.8) k/uL Monocytes # 0.4 (0-1.0) k/uL Eosinophils # 0.1 (0-0.7) k/uL Basophils # 0.1 (0-0.2) k/uL Hypochromasia Marked Poikilocytosis Slight Anisocytosis Slight Microcytosis Moderate PT 10.9 (9.0-12.0) sec INR 1.0 (<1.2) APTT 23.8 (22.0-30.0) sec D-Dimer 0.33 (<0.60) mg/L FEU Sodium 138 (137-145) mmol/L Potassium 4.1 (3.5-5.1) mmol/L Chloride 104 (98-107) mmol/L Carbon Dioxide 26 (22-30) mmol/L Anion Gap 8 mmol/L BUN 13 (9-20) mg/dL Creatinine 0.85 (0.66-1.25) mg/dL Est GFR (CKD-EPI)AfAm >90 (>60 ml/min/1.73 sqM) Est GFR (CKD-EPI)NonAf >90 (>60 ml/min/1.73 sqM) Glucose 167 H (74-99) mg/dL Calcium 9.3 (8.4-10.2) mg/dL Magnesium 1.6 (1.6-2.3) mg/dL Total Bilirubin 0.3 (0.2-1.3) mg/dL AST 31 (17-59) U/L ALT 48 (4-49) U/L Alkaline Phosphatase 118 (38-126) U/L Troponin I (0.000-0.034) ng/mL NT-Pro-B Natriuret Pep pg/mL Total Protein 6.4 (6.3-8.2) g/dL Albumin 4.1 (3.5-5.0) g/dL Valproic Acid <10.0 ug/mL 11/17/20 11/17/20 Range/Units 20:19 20:19 WBC (3.8-10.6) k/uL RBC (4.30-5.90) m/uL Hgb (13.0-17.5) gm/dL Hct (39.0-53.0) % MCV (80.0-100.0) fL MCH (25.0-35.0) pg MCHC (31.0-37.0) g/dL RDW (11.5-15.5) % Plt Count (150-450) k/uL MPV Neutrophils % % Lymphocytes % % Monocytes % % Eosinophils % % Basophils % % Neutrophils # (1.3-7.7) k/uL Lymphocytes # (1.0-4.8) k/uL Monocytes # (0-1.0) k/uL Eosinophils # (0-0.7) k/uL Basophils # (0-0.2) k/uL Hypochromasia Poikilocytosis Anisocytosis Microcytosis PT (9.0-12.0) sec INR (<1.2) APTT (22.0-30.0) sec D-Dimer (<0.60) mg/L FEU Sodium (137-145) mmol/L Potassium (3.5-5.1) mmol/L Chloride (98-107) mmol/L Carbon Dioxide (22-30) mmol/L Anion Gap mmol/L BUN (9-20) mg/dL Creatinine (0.66-1.25) mg/dL Est GFR (CKD-EPI)AfAm (>60 ml/min/1.73 sqM) Est GFR (CKD-EPI)NonAf (>60 ml/min/1.73 sqM) Glucose (74-99) mg/dL Calcium (8.4-10.2) mg/dL Magnesium (1.6-2.3) mg/dL Total Bilirubin (0.2-1.3) mg/dL AST (17-59) U/L ALT (4-49) U/L Alkaline Phosphatase (38-126) U/L Troponin I <0.012 (0.000-0.034) ng/mL NT-Pro-B Natriuret Pep 39 pg/mL Total Protein (6.3-8.2) g/dL Albumin (3.5-5.0) g/dL Valproic Acid ug/mL - Radiology Data Radiology results: image reviewed (Chest x-ray is negative) Disposition Clinical Impression: Pleuritic chest pain Disposition: HOME SELF-CARE Condition: Stable Instructions (If sedation given, give patient instructions): Chest Pain (ED), Pleurisy (ED) Additional Instructions: Return to the ER immediately should you develop new or worsening pain, shortness of breath, a fever, feeling dizzy or faint, or new or worsening symptoms. Follow up closely with your primary care provider. Is patient prescribed a controlled substance at d/c from ED?: No Referrals: [facility] [Primary Care Provider] - 1-2 days Time of Disposition: 21:09
--- NOTE | 2020-11-17 20:30 | XR ---
EXAMINATION TYPE: XR chest 2V DATE OF EXAM: 11/17/2020 COMPARISON: 07/30/2020 HISTORY: Chest pain TECHNIQUE: FINDINGS: Heart and mediastinum are normal. Lungs are clear. Diaphragm is normal. Bony thorax appears normal. IMPRESSION: Normal chest. No change.
[2020-11-17 20:38] LABS: Anisocytosis Slight; Basophils # (A) 0.1 k/uL (0-0.2); Basophils % (A) 1 %; Eosinophils # (A) 0.1 k/uL (0-0.7); Eosinophils % (A) 2 %; HCT 36.7 % (39.0-53.0); Hypochromasia Marked; Lymphocytes # (A) 2.4 k/uL (1.0-4.8); Lymphocytes % (A) 40 %; MCH 23.8 pg (25.0-35.0); MCHC 32.7 g/dL (31.0-37.0); MCV 72.6 fL (80.0-100.0); Mean Platelet Volume 7.3; Microcytosis Moderate; Monocytes # (A) 0.4 k/uL (0-1.0); Monocytes % (A) 7 %; Neutrophils # (A) 3.1 k/uL (1.3-7.7); Neutrophils % (A) 50 %; Platelet Count 285 k/uL (150-450); Poikilocytosis Slight; RBC 5.05 m/uL (4.30-5.90); RDW 16.9 % (11.5-15.5); WBC 6.1 k/uL (3.8-10.6)
[2020-11-17 20:52] LABS: ALT 48 U/L (4-49); AST 31 U/L (17-59); African American GFR (CKD) >90 (>60 ml/min/1.73 sqM); Albumin 4.1 g/dL (3.5-5.0); Alkaline Phosphatase 118 U/L (38-126); Anion Gap 8 mmol/L; Blood Urea Nitrogen 13 mg/dL (9-20); Calcium 9.3 mg/dL (8.4-10.2); Carbon Dioxide 26 mmol/L (22-30); Chloride 104 mmol/L (98-107); Glucose 167 mg/dL (74-99); Magnesium 1.6 mg/dL (1.6-2.3); Non-African American GFR(CKD) >90 (>60 ml/min/1.73 sqM); Potassium 4.1 mmol/L (3.5-5.1); Sodium 138 mmol/L (137-145); Total Bilirubin 0.3 mg/dL (0.2-1.3); Total Protein 6.4 g/dL (6.3-8.2)
[2020-11-17 20:55] LABS: Partial Thromboplastin Time 23.8 sec (22.0-30.0); Prothrombin Time 10.9 sec (9.0-12.0)
[2020-11-17 20:57] LABS: Valproic Acid (Depakene) <10.0 ug/mL
== END 2020-11-17 21:13 | disposition home or self-care (01) ==
LOC: EC 19:47
DX: R07.81 Pleurodynia (principal); F17.200 Nicotine dependence, unspecified, uncomplicated; Z88.8 Allergy status to other drugs, medicaments and biological substances
CPT/HCPCS: 36415; 71046; 80053; 80164; 83735; 83880; 84484; 85025; 85379; 85610; 85730; 93005; 99285

== ENCOUNTER 2021-02-07 22:27 | Emergency (ER) | payer OTHER ==
[2021-02-08 02:08] VITALS: BP 146/90; PULSE 76; RESP 20; TEMP 98.8
--- NOTE | 2021-02-08 13:43 | XR ---
EXAMINATION TYPE: XR knee complete LT DATE OF EXAM: 02/07/2021 COMPARISON: None HISTORY: Left knee pain TECHNIQUE: 3 view left knee FINDINGS: Mild narrowing of the medial compartment joint space is present. No acute fracture or dislo cation is evident. No joint effusion is evident. Some calcification is lateral to the distal medial f emoral condyle with smooth cortical margins. Follow up exams can be performed 7-10 days from acute trauma for continued pain. IMPRESSION: 1. No acute osseous abnormality. 2. Mild degenerative joint changes
== END 2021-02-07 23:49 | disposition left against medical advice (07) ==
LOC: EC 22:27
DX: Z53.21 Procedure and treatment not carried out due to patient leaving prior to being seen by health care provider (principal)
CPT/HCPCS: 99499

== ENCOUNTER 2021-02-16 08:20 | Emergency (ER) | payer OTHER ==
[2021-02-16 08:30] VITALS: BP 129/82; PULSE 82; RESP 18; TEMP 98.1
--- NOTE | 2021-02-16 08:46 | ED ---
Lower Extremity Injury HPI - General Chief Complaint: Extremity Injury, Lower Stated Complaint: ankle pain Time Seen by Provider: 02/16/21 08:32 Source: patient, RN notes reviewed Mode of arrival: ambulatory Limitations: no limitations - History of Present Illness Initial Comments: 45-year-old male presents emergency Department with chief complaint of right ankle pain. Patient states she's unsure what he did to it.He states he woke up some discomfort and swelling to his right ankle he states he may have injured it yesterday but isn't sure. He states that he sprained his ankle. No pain other than his right ankle denies any redness fevers chills. - Related Data Home Medications Medication Instructions Recorded Confirmed Cholecalciferol (Vitamin D3) 125 mcg PO DAILY 01/26/20 11/17/20 [Vitamin D3 (5000 Iu)] Paliperidone IM [Invega Sustenna] 156 mg IM Q30D 11/17/20 11/17/20 Previous Rx's Medication Instructions Recorded Loratadine [Claritin] 10 mg PO DAILY 30 Days tab 09/18/20 Atorvastatin [Lipitor] 10 mg PO DAILY 30 Days tab 11/08/20 Chlorthalidone 25 mg PO DAILY 30 Days #30 tablet 11/08/20 Divalproex ER [Depakote ER] 1,000 mg PO HS 30 Days tab.er.24h 11/08/20 FLUoxetine HCL [PROzac] 30 mg PO DAILY 30 Days cap 11/08/20 Ferrous Sulfate [Iron (65 MG 325 mg PO TID-W/MEALS 30 Days tab 11/08/20 Elemental)] Glimepiride [Amaryl] 1 mg PO DAILY 30 Days #30 tab 11/08/20 Levothyroxine Sodium [Synthroid] 100 mcg PO DAILY 30 Days #30 tab 11/08/20 Montelukast [Singulair] 10 mg PO HS 30 Days tab 11/08/20 Nicotine 14Mg/24Hr Patch [Habitrol] 1 patch TRANSDERM DAILY 30 Days 11/08/20 patch Paliperidone [Invega] 3 mg PO HS 14 Days tab.er.24 11/08/20 lisinopriL [Zestril] 20 mg PO DAILY 30 Days #30 tab 11/08/20 metFORMIN HCL [Glucophage] 1,000 mg PO BID-W/MEALS 30 Days 11/08/20 tab Ibuprofen [Motrin] 600 mg PO Q8HR PRN #20 tab 02/16/21 Allergies Allergy/AdvReac Type Severity Reaction Status Date / Time diphenhydramine Allergy Rash/Hives Verified 02/08/21 02:08 [From Benadryl] diphenhydramine HCl Allergy Rash/Hives Verified 02/08/21 02:08 [From Benadryl] Review of Systems ROS Statement: Those systems with pertinent positive or pertinent negative responses have been documented in the HPI. ROS Other: All systems not noted in ROS Statement are negative. Past Medical History Past Medical History: Diabetes Mellitus, Hypertension, Seizure Disorder, Thyroid Disorder Additional Past Medical History / Comment(s): angina, Hypothyroidism, vitamin D deficiency, dyslipidemia, ALLERGIES, cognitive impairment History of Any Multi-Drug Resistant Organisms: None Reported Past Surgical History: Orthopedic Surgery Additional Past Surgical History / Comment(s): right ankle Past Anesthesia/Blood Transfusion Reactions: No Reported Reaction Past Psychological History: Anxiety, Bipolar, Depression Smoking Status: Former smoker Past Alcohol Use History: None Reported Past Drug Use History: None Reported, Heroin, Methamphetamine, Prescription Drug Abuse - Past Family History Mother Additional Family Medical History / Comment(s): No known medical history. Patient denies any family history of diabetes or hypertension General Exam Limitations: no limitations General appearance: alert, in no apparent distress Head exam: Present: atraumatic, normocephalic, normal inspection Eye exam: Present: normal appearance, PERRL, EOMI. Absent: scleral icterus, conjunctival injection, periorbital swelling Neck exam: Present: normal inspection, full ROM. Absent: tenderness, meningismus, lymphadenopathy Respiratory exam: Present: normal lung sounds bilaterally. Absent: respiratory distress, wheezes, rales, rhonchi, stridor Cardiovascular Exam: Present: regular rate, normal rhythm, normal heart sounds. Absent: systolic murmur, diastolic murmur, rubs, gallop, clicks Extremities exam: Present: other (Right ankle there is moderate swelling no increased warmth palpable pulses equal bilaterally, tenderness on the lateral malleoli region no proximal tib-fib tenderness no foot tenderness) Neurological exam: Present: alert, oriented X3 Skin exam: Present: warm, dry, intact, normal color. Absent: rash Course Vital Signs 02/16/21 08:28 Temperature 98.1 F Pulse Rate 82 Respiratory 18 Rate Blood Pressure 129/82 O2 Sat by Pulse 97 Oximetry Medical Decision Making - Medical Decision Making X-rays unremarkable there is old hardware which is stable. There is no obvious fracture. There is no signs of infection. Patient's neurovascular intact. Disposition Clinical Impression: Right ankle sprain Disposition: HOME SELF-CARE Condition: Stable Instructions (If sedation given, give patient instructions): Ankle Sprain (ED) Additional Instructions: Please return to the Emergency Department if symptoms worsen or any other concerns. Prescriptions: Ibuprofen [Motrin] 600 mg PO Q8HR PRN #20 tab PRN Reason: Pain Is patient prescribed a controlled substance at d/c from ED?: No Referrals: [facility] [Primary Care Provider] - 1-2 days Time of Disposition: 09:29
--- NOTE | 2021-02-16 09:30 | XR ---
EXAMINATION TYPE: XR ankle complete RT DATE OF EXAM: 02/16/2021 COMPARISON: 11/20/2015 HISTORY: 45-year-old male with pain TECHNIQUE: 3 views FINDINGS: Lateral sideplate and screw fixation across the chronic healed fracture of the distal fibul ar shaft. Bony hyperostosis in the region of the lower interosseous membrane. Cardiac gated bone dens ity below the lateral malleolus is unchanged compatible with sequela of remote injury. Stable phlebol ith medial aspect of the lower leg. Single cortical screw fixation at the medial malleolus. Some ante rior and lateral sided soft tissue swelling at the ankle. Subtalar joint align. No acute fracture, camacho bluxation, or dislocation is seen. IMPRESSION: Prior plate and screw fixation across the patient's distal fibular shaft and single screw fixation at the medial malleolus. Bony changes compatible with remote syndesmotic injury. There is anterior and lateral soft tissue swelling. No acute osseous abnormality is seen.
== END 2021-02-16 09:44 | disposition home or self-care (01) ==
LOC: EC 08:20
DX: S93.401A Sprain of unspecified ligament of right ankle, initial encounter (principal); I10 Essential (primary) hypertension; E11.9 Type 2 diabetes mellitus without complications; G40.909 Epilepsy, unspecified, not intractable, without status epilepticus; E03.9 Hypothyroidism, unspecified; E78.5 Hyperlipidemia, unspecified; F32.9 Major depressive disorder, single episode, unspecified; F41.9 Anxiety disorder, unspecified; Z87.890 Personal history of sex reassignment; Z79.84 Long term (current) use of oral hypoglycemic drugs; Z79.899 Other long term (current) drug therapy; Z79.890 Hormone replacement therapy; X58.XXXA Exposure to other specified factors, initial encounter
CPT/HCPCS: 99283

== ENCOUNTER 2021-02-22 09:26 | Emergency (ER) | payer OTHER ==
[2021-02-22 09:31] VITALS: RESP 18; TEMP 97.9
[2021-02-22] MEDS ORDERED: ASPIRIN 81 MG PO STA (09:50)
[2021-02-22] MEDS ORDERED: NITROGLYCERIN SL TABS 0.4 MG TAB SUBLINGUAL STA ×3 (09:50)
--- NOTE | 2021-02-22 09:52 | ED ---
General Adult HPI - General Chief complaint: Chest Pain Stated complaint: Chest pain Time Seen by Provider: 02/22/21 09:35 Source: patient, RN notes reviewed Mode of arrival: wheelchair Limitations: no limitations - History of Present Illness Initial comments: Patient is a pleasant 45-year-old male presenting to the emergency Department with complaints of chest discomfort. Onset of symptoms was this morning when he woke. Patient was walking with worsening symptoms. Patient does have history of hypertension. Patient does have history of similar symptoms with negative workup. No associated dyspnea, nausea, or diaphoresis. Symptoms do worsen s omewhat also with deep inspiration. No leg pain or leg swelling. No radiation of discomfort. - Related Data Home Medications Medication Instructions Recorded Confirmed Cholecalciferol (Vitamin D3) 125 mcg PO DAILY 01/26/20 02/22/21 [Vitamin D3 (5000 Iu)] Paliperidone IM [Invega Sustenna] 156 mg IM Q28D 11/17/20 02/22/21 metFORMIN HCL [Glucophage] 1,000 mg PO BID 02/22/21 02/22/21 Previous Rx's Medication Instructions Recorded Chlorthalidone 25 mg PO DAILY 30 Days #30 tablet 11/08/20 Divalproex ER [Depakote ER] 1,000 mg PO HS 30 Days tab.er.24h 11/08/20 FLUoxetine HCL [PROzac] 30 mg PO DAILY 30 Days cap 11/08/20 Ferrous Sulfate [Iron (65 MG 325 mg PO TID-W/MEALS 30 Days tab 11/08/20 Elemental)] Glimepiride [Amaryl] 1 mg PO DAILY 30 Days #30 tab 11/08/20 Levothyroxine Sodium [Synthroid] 100 mcg PO DAILY 30 Days #30 tab 11/08/20 Montelukast [Singulair] 10 mg PO HS 30 Days tab 11/08/20 lisinopriL [Zestril] 20 mg PO DAILY 30 Days #30 tab 11/08/20 Ibuprofen [Motrin] 600 mg PO Q8HR PRN #20 tab 02/16/21 Allergies Allergy/AdvReac Type Severity Reaction Status Date / Time diphenhydramine Allergy Rash/Hives Verified 02/22/21 10:25 [From Benadryl] diphenhydramine HCl Allergy Rash/Hives Verified 02/22/21 10:25 [From Benadryl] Review of Systems ROS Statement: Those systems with pertinent positive or pertinent negative responses have been documented in the HPI. ROS Other: All systems not noted in ROS Statement are negative. Constitutional: Denies: fever Eyes: Denies: eye pain ENT: Denies: ear pain Respiratory: Denies: cough Cardiovascular: Reports: chest pain Endocrine: Denies: fatigue Gastrointestinal: Denies: abdominal pain Genitourinary: Denies: dysuria Musculoskeletal: Denies: back pain Skin: Denies: rash Neurological: Denies: weakness Past Medical History Past Medical History: Diabetes Mellitus, Hypertension, Seizure Disorder, Thyroid Disorder Additional Past Medical History / Comment(s): angina, Hypothyroidism, vitamin D deficiency, dyslipidemia, ALLERGIES, cognitive impairment History of Any Multi-Drug Resistant Organisms: None Reported Past Surgical History: Orthopedic Surgery Additional Past Surgical History / Comment(s): right ankle Past Anesthesia/Blood Transfusion Reactions: No Reported Reaction Past Psychological History: Anxiety, Bipolar, Depression Smoking Status: Former smoker Past Alcohol Use History: None Reported Past Drug Use History: None Reported, Heroin, Methamphetamine, Prescription Drug Abuse - Past Family History Mother Additional Family Medical History / Comment(s): No known medical history. Patient denies any family history of diabetes or hypertension General Exam Limitations: no limitations General appearance: alert, in no apparent distress Head exam: Present: normocephalic Eye exam: Present: normal appearance Neck exam: Present: normal inspection Respiratory exam: Present: normal lung sounds bilaterally. Absent: chest wall tenderness Cardiovascular Exam: Present: regular rate, normal rhythm, normal heart sounds Expanded Peripheral pulses: 2+: Radial (R), Radial (L), Posterior Tibialis (R), Posterior Tibialis (L) GI/Abdominal exam: Present: soft. Absent: tenderness Extremities exam: Present: normal inspection. Absent: pedal edema, calf tenderness Neurological exam: Present: alert Psychiatric exam: Present: normal affect, normal mood Skin exam: Present: normal color Course Vital Signs 02/22/21 02/22/21 02/22/21 09:27 10:19 10:32 Temperature 97.9 F Pulse Rate 63 55 L 64 Respiratory 18 18 18 Rate Blood Pressure 131/80 120/79 113/68 O2 Sat by Pulse 95 95 95 Oximetry 02/22/21 02/22/21 11:00 11:51 Temperature Pulse Rate 65 Respiratory 18 18 Rate Blood Pressure 113/76 O2 Sat by Pulse 95 Oximetry EKG Findings - EKG Comments: EKG Findings:: Sinus bradycardia with a rate of 53. W[place] 146. QRS 94. QT 396. QTc 371. Normal axis. Normal QRS. No acute ST change. Medical Decision Making - Medical Decision Making Patient has eloped. Nursing staff did try to intervene. Nursing staff to notify guardian. - Lab Data Result diagrams: 02/22/21 10:00 02/22/21 10:00 Lab Results 02/22/21 02/22/21 02/22/21 Range/Units 10:00 10:00 10:00 WBC 4.5 (3.8-10.6) k/uL RBC 5.49 (4.30-5.90) m/uL Hgb 12.1 L (13.0-17.5) gm/dL Hct 39.7 (39.0-53.0) % MCV 72.3 L (80.0-100.0) fL MCH 22.1 L (25.0-35.0) pg MCHC 30.5 L (31.0-37.0) g/dL RDW 19.1 H (11.5-15.5) % Plt Count 280 (150-450) k/uL MPV 7.1 Neutrophils % 59 % Lymphocytes % 33 % Monocytes % 5 % Eosinophils % 2 % Basophils % 0 % Neutrophils # 2.6 (1.3-7.7) k/uL Lymphocytes # 1.5 (1.0-4.8) k/uL Monocytes # 0.2 (0-1.0) k/uL Eosinophils # 0.1 (0-0.7) k/uL Basophils # 0.0 (0-0.2) k/uL Hypochromasia Moderate Anisocytosis Slight Microcytosis Marked PT 12.0 (9.0-12.0) sec INR 1.2 H (<1.2) APTT 25.8 (22.0-30.0) sec D-Dimer 0.26 (<0.60) mg/L FEU Sodium 139 (137-145) mmol/L Potassium 4.0 (3.5-5.1) mmol/L Chloride 107 (98-107) mmol/L Carbon Dioxide 26 (22-30) mmol/L Anion Gap 6 mmol/L BUN 12 (9-20) mg/dL Creatinine 0.76 (0.66-1.25) mg/dL Est GFR (CKD-EPI)AfAm >90 (>60 ml/min/1.73 sqM) Est GFR (CKD-EPI)NonAf >90 (>60 ml/min/1.73 sqM) Glucose 112 H (74-99) mg/dL Calcium 8.6 (8.4-10.2) mg/dL Magnesium 1.8 (1.6-2.3) mg/dL Total Bilirubin 0.2 (0.2-1.3) mg/dL AST 19 (17-59) U/L ALT 19 (4-49) U/L Alkaline Phosphatase 102 (38-126) U/L Troponin I (0.000-0.034) ng/mL Total Protein 5.7 L (6.3-8.2) g/dL Albumin 3.5 (3.5-5.0) g/dL 02/22/21 Range/Units 10:00 WBC (3.8-10.6) k/uL RBC (4.30-5.90) m/uL Hgb (13.0-17.5) gm/dL Hct (39.0-53.0) % MCV (80.0-100.0) fL MCH (25.0-35.0) pg MCHC (31.0-37.0) g/dL RDW (11.5-15.5) % Plt Count (150-450) k/uL MPV Neutrophils % % Lymphocytes % % Monocytes % % Eosinophils % % Basophils % % Neutrophils # (1.3-7.7) k/uL Lymphocytes # (1.0-4.8) k/uL Monocytes # (0-1.0) k/uL Eosinophils # (0-0.7) k/uL Basophils # (0-0.2) k/uL Hypochromasia Anisocytosis Microcytosis PT (9.0-12.0) sec INR (<1.2) APTT (22.0-30.0) sec D-Dimer (<0.60) mg/L FEU Sodium (137-145) mmol/L Potassium (3.5-5.1) mmol/L Chloride (98-107) mmol/L Carbon Dioxide (22-30) mmol/L Anion Gap mmol/L BUN (9-20) mg/dL Creatinine (0.66-1.25) mg/dL Est GFR (CKD-EPI)AfAm (>60 ml/min/1.73 sqM) Est GFR (CKD-EPI)NonAf (>60 ml/min/1.73 sqM) Glucose (74-99) mg/dL Calcium (8.4-10.2) mg/dL Magnesium (1.6-2.3) mg/dL Total Bilirubin (0.2-1.3) mg/dL AST (17-59) U/L ALT (4-49) U/L Alkaline Phosphatase (38-126) U/L Troponin I <0.012 (0.000-0.034) ng/mL Total Protein (6.3-8.2) g/dL Albumin (3.5-5.0) g/dL - Radiology Data Radiology results: image reviewed (Chest x-ray reveals no acute process) Disposition Clinical Impression: Chest pain Disposition: Left Against Medical Advice Is patient prescribed a controlled substance at d/c from ED?: No Referrals: [facility] [Primary Care Provider] - 1-2 days
--- NOTE | 2021-02-22 10:18 | XR ---
EXAMINATION TYPE: XR chest 2V DATE OF EXAM: 02/22/2021 COMPARISON: 11/17/2020 INDICATION: Chest pain, short of breath TECHNIQUE: Frontal and lateral views of the chest are obtained. FINDINGS: The heart size is normal. The pulmonary vasculature is normal. The lungs are clear. IMPRESSION: 1. No acute pulmonary process.
[2021-02-22 10:25] LABS: Anisocytosis Slight; Basophils % (A) 0 %; Eosinophils # (A) 0.1 k/uL (0-0.7); Eosinophils % (A) 2 %; HCT 39.7 % (39.0-53.0); HGB 12.1 gm/dL (13.0-17.5); Hypochromasia Moderate; Lymphocytes # (A) 1.5 k/uL (1.0-4.8); Lymphocytes % (A) 33 %; MCH 22.1 pg (25.0-35.0); MCHC 30.5 g/dL (31.0-37.0); MCV 72.3 fL (80.0-100.0); Mean Platelet Volume 7.1; Microcytosis Marked; Monocytes # (A) 0.2 k/uL (0-1.0); Monocytes % (A) 5 %; Neutrophils # (A) 2.6 k/uL (1.3-7.7); Neutrophils % (A) 59 %; Platelet Count 280 k/uL (150-450); RBC 5.49 m/uL (4.30-5.90); RDW 19.1 % (11.5-15.5); WBC 4.5 k/uL (3.8-10.6)
[2021-02-22 10:29] LABS: ALT 19 U/L (4-49); AST 19 U/L (17-59); African American GFR (CKD) >90 (>60 ml/min/1.73 sqM); Albumin 3.5 g/dL (3.5-5.0); Alkaline Phosphatase 102 U/L (38-126); Anion Gap 6 mmol/L; Blood Urea Nitrogen 12 mg/dL (9-20); Calcium 8.6 mg/dL (8.4-10.2); Carbon Dioxide 26 mmol/L (22-30); Chloride 107 mmol/L (98-107); Glucose 112 mg/dL (74-99); Magnesium 1.8 mg/dL (1.6-2.3); Non-African American GFR(CKD) >90 (>60 ml/min/1.73 sqM); Sodium 139 mmol/L (137-145); Total Bilirubin 0.2 mg/dL (0.2-1.3); Total Protein 5.7 g/dL (6.3-8.2)
[2021-02-22 10:33] LABS: D-Dimer 0.26 mg/L FEU (<0.60); INR 1.2 (<1.2)
[2021-02-22 10:34] LABS: Partial Thromboplastin Time 25.8 sec (22.0-30.0)
[2021-02-22 11:22] VITALS: BP 113/76; PULSE 65
== END 2021-02-22 11:54 | disposition left against medical advice (07) ==
LOC: EC 09:26
DX: R07.89 Other chest pain (principal); E11.9 Type 2 diabetes mellitus without complications; E03.9 Hypothyroidism, unspecified; E78.5 Hyperlipidemia, unspecified; I10 Essential (primary) hypertension; G40.909 Epilepsy, unspecified, not intractable, without status epilepticus; Z87.891 Personal history of nicotine dependence; Z79.84 Long term (current) use of oral hypoglycemic drugs; F31.9 Bipolar disorder, unspecified; Z53.29 Procedure and treatment not carried out because of patient's decision for other reasons
CPT/HCPCS: 36415; 71046; 80053; 83735; 84484; 85025; 85379; 85610; 85730; 93005; 99285

== ENCOUNTER 2021-05-19 05:18 | Emergency (ER) | payer OTHER ==
[2021-05-19 05:28] VITALS: BP 144/85; PULSE 58; RESP 17; TEMP 98.1
[2021-05-19] MEDS ORDERED: ACETAMINOPHEN TAB 325 MG TAB PO STA (05:31)
--- NOTE | 2021-05-19 05:38 | ED ---
Lower Extremity Injury HPI - General Chief Complaint: Extremity Injury, Lower Stated Complaint: R ankle pain Source: patient, RN notes reviewed, old records reviewed Mode of arrival: wheelchair - History of Present Illness Initial Comments: This is a 45-year-old male DF for evaluation patient Dese for evaluation regards to ankle pain. Patient has severe ankle pain occurred when he stepped on it getting out of the elevated position. No other traumatic injury noted. Patient states he has mild pain with standing onto but is able ambulate without severe difficulty. MD Complaint: ankle injury (r) -: hour(s) Injury: Ankle: Right Type of Injury: blunt, inversion Place: home Severity: moderate Severity scale (1-10): 4 Improves With: nothing Worsens With: weight bearing Context: walking Other Symptoms: other (none) Associated Symptoms: snap/pop sensation, swelling Treatments Prior to Arrival: other (none) - Related Data Home Medications Medication Instructions Recorded Confirmed Cholecalciferol (Vitamin D3) 125 mcg PO DAILY 01/26/20 02/22/21 [Vitamin D3 (5000 Iu)] Paliperidone IM [Invega Sustenna] 156 mg IM Q28D 11/17/20 02/22/21 metFORMIN HCL [Glucophage] 1,000 mg PO BID 02/22/21 02/22/21 Previous Rx's Medication Instructions Recorded Chlorthalidone 25 mg PO DAILY 30 Days #30 tablet 11/08/20 Divalproex ER [Depakote ER] 1,000 mg PO HS 30 Days tab.er.24h 11/08/20 FLUoxetine HCL [PROzac] 30 mg PO DAILY 30 Days cap 11/08/20 Ferrous Sulfate [Iron (65 MG 325 mg PO TID-W/MEALS 30 Days tab 11/08/20 Elemental)] Glimepiride [Amaryl] 1 mg PO DAILY 30 Days #30 tab 11/08/20 Levothyroxine Sodium [Synthroid] 100 mcg PO DAILY 30 Days #30 tab 11/08/20 Montelukast [Singulair] 10 mg PO HS 30 Days tab 11/08/20 lisinopriL [Zestril] 20 mg PO DAILY 30 Days #30 tab 11/08/20 Ibuprofen [Motrin] 600 mg PO Q8HR PRN #20 tab 02/16/21 Allergies Allergy/AdvReac Type Severity Reaction Status Date / Time diphenhydramine Allergy Rash/Hives Verified 02/22/21 10:25 [From Benadryl] diphenhydramine HCl Allergy Rash/Hives Verified 02/22/21 10:25 [From Benadryl] Review of Systems ROS Statement: Those systems with pertinent positive or pertinent negative responses have been documented in the HPI. ROS Other: All systems not noted in ROS Statement are negative. Past Medical History Past Medical History: Diabetes Mellitus, Hypertension, Seizure Disorder, Thyroid Disorder Additional Past Medical History / Comment(s): angina, Hypothyroidism, vitamin D deficiency, dyslipidemia, ALLERGIES, cognitive impairment History of Any Multi-Drug Resistant Organisms: None Reported Past Surgical History: Orthopedic Surgery Additional Past Surgical History / Comment(s): right ankle Past Anesthesia/Blood Transfusion Reactions: No Reported Reaction Past Psychological History: Anxiety, Bipolar, Depression Smoking Status: Former smoker Past Alcohol Use History: None Reported Past Drug Use History: None Reported, Heroin, Methamphetamine, Prescription Drug Abuse - Past Family History Mother Additional Family Medical History / Comment(s): No known medical history. Patient denies any family history of diabetes or hypertension General Exam General appearance: alert, in no apparent distress Head exam: Present: atraumatic, normocephalic, normal inspection Eye exam: Present: normal appearance, PERRL, EOMI. Absent: scleral icterus, conjunctival injection, periorbital swelling ENT exam: Present: normal exam, mucous membranes moist Neck exam: Present: normal inspection. Absent: tenderness, meningismus, lymphadenopathy Respiratory exam: Present: normal lung sounds bilaterally. Absent: respiratory distress, wheezes, rales, rhonchi, stridor Cardiovascular Exam: Present: regular rate, normal rhythm, normal heart sounds. Absent: systolic murmur, diastolic murmur, rubs, gallop, clicks GI/Abdominal exam: Present: soft, normal bowel sounds. Absent: distended, tenderness, guarding, rebound, rigid Extremities exam: Present: normal inspection, full ROM, normal capillary refill, other (R ankle pain). Absent: tenderness, pedal edema, joint swelling, calf tenderness Back exam: Present: normal inspection Neurological exam: Present: alert, oriented X3, CN II-XII intact Psychiatric exam: Present: normal affect, normal mood Skin exam: Present: warm, dry, intact, normal color. Absent: rash Course Vital Signs 05/19/21 05:26 Temperature 98.1 F Pulse Rate 58 L Respiratory 17 Rate Blood Pressure 144/85 O2 Sat by Pulse 100 Oximetry - Reevaluation(s) Reevaluation #1: medical record is reviewed Patient symptoms are improved here in the ER Patient is in no acute distress In for results and questions have been answered Medical Decision Making - Medical Decision Making 45 male to the ER for ankle pain. Patient has been of ankle put in Buzz wrap and can be discharged home Disposition Clinical Impression: Sprain and strain of ankle, Right ankle sprain Disposition: HOME SELF-CARE Condition: Good Instructions (If sedation given, give patient instructions): Ankle Sprain (ED) Is patient prescribed a controlled substance at d/c from ED?: No Referrals: [facility] [Primary Care Provider] - 1-2 days
--- NOTE | 2021-05-19 05:40 | XR ---
EXAMINATION TYPE: XR ankle complete RT DATE OF EXAM: 05/19/2021 Distal fibula. There is a single screw fixing the medial malleolus. COMPARISON: 02/16/2021 HISTORY: Ankle pain TECHNIQUE: 3 views FINDINGS: There is a plate fixing the distal fibula. There is a single screw fixing the medial malleo michael. Ankle mortise is anatomic. There is mild soft tissue swelling over the lateral malleolus. I see no focal bone destruction. IMPRESSION: Previous surgery. No acute bony abnormality. No adverse change compared to old exam.
== END 2021-05-19 06:22 | disposition home or self-care (01) ==
LOC: EC 05:18
DX: S93.401A Sprain of unspecified ligament of right ankle, initial encounter (principal); S96.911A Strain of unspecified muscle and tendon at ankle and foot level, right foot, initial encounter; E11.9 Type 2 diabetes mellitus without complications; I10 Essential (primary) hypertension; E78.5 Hyperlipidemia, unspecified; E03.9 Hypothyroidism, unspecified; F31.9 Bipolar disorder, unspecified; F41.9 Anxiety disorder, unspecified; G40.909 Epilepsy, unspecified, not intractable, without status epilepticus; Z79.1 Long term (current) use of non-steroidal anti-inflammatories (NSAID); Z79.84 Long term (current) use of oral hypoglycemic drugs; Z79.899 Other long term (current) drug therapy; Z79.890 Hormone replacement therapy; Z87.891 Personal history of nicotine dependence; Z88.8 Allergy status to other drugs, medicaments and biological substances; X50.1XXA Overexertion from prolonged static or awkward postures, initial encounter; Y92.009 Unspecified place in unspecified non-institutional (private) residence as the place of occurrence of the external cause
CPT/HCPCS: 99283

== ENCOUNTER 2021-06-03 15:57 | Emergency (ER) | payer OTHER ==
[2021-06-03 16:18] VITALS: BP 142/88; PULSE 106; TEMP 98.7
[2021-06-03] MEDS ORDERED: KETOROLAC 15 MG/ML 1 ML VIAL IM STA (16:37)
--- NOTE | 2021-06-03 17:12 | XR ---
EXAMINATION TYPE: XR finger RT DATE OF EXAM: 06/03/2021 COMPARISON: NONE HISTORY: Pain TECHNIQUE: 3 views FINDINGS: The There is intact. I see no fracture nor dislocation. There are no pathologic calcifications. IMPRESSION: Negative right index finger exam.
--- NOTE | 2021-06-03 17:16 | ED ---
Upper Extremity HPI - General Chief Complaint: Extremity Injury, Upper Stated Complaint: Finger injury Time Seen by Provider: 06/03/21 16:33 Source: patient, RN notes reviewed Mode of arrival: ambulatory Limitations: no limitations - History of Present Illness Initial Comments: Patient is a 45-year-old male that presents to the emergency department comp laining of right index finger. He notes that he was playing a game of baseball when he caught the baseball on the right index finger. He notes that it is painful to touch. He does have full range of motion was significant pain. He can emergency room to make sure that it was not broken. He denied any other issues or complaints at this time. He denied chest pain shortness breath headache nausea found diarrhea constipation fever fatigue chills. - Related Data Home Medications Medication Instructions Recorded Confirmed Cholecalciferol (Vitamin D3) 125 mcg PO DAILY 01/26/20 02/22/21 [Vitamin D3 (5000 Iu)] Paliperidone IM [Invega Sustenna] 156 mg IM Q28D 11/17/20 02/22/21 metFORMIN HCL [Glucophage] 1,000 mg PO BID 02/22/21 02/22/21 Previous Rx's Medication Instructions Recorded Chlorthalidone 25 mg PO DAILY 30 Days #30 tablet 11/08/20 Divalproex ER [Depakote ER] 1,000 mg PO HS 30 Days tab.er.24h 11/08/20 FLUoxetine HCL [PROzac] 30 mg PO DAILY 30 Days cap 11/08/20 Ferrous Sulfate [Iron (65 MG 325 mg PO TID-W/MEALS 30 Days tab 11/08/20 Elemental)] Glimepiride [Amaryl] 1 mg PO DAILY 30 Days #30 tab 11/08/20 Levothyroxine Sodium [Synthroid] 100 mcg PO DAILY 30 Days #30 tab 11/08/20 Montelukast [Singulair] 10 mg PO HS 30 Days tab 11/08/20 lisinopriL [Zestril] 20 mg PO DAILY 30 Days #30 tab 11/08/20 Ibuprofen [Motrin] 600 mg PO Q8HR PRN #20 tab 02/16/21 Allergies Allergy/AdvReac Type Severity Reaction Status Date / Time diphenhydramine Allergy Rash/Hives Verified 06/03/21 16:07 [From Benadryl] diphenhydramine HCl Allergy Rash/Hives Verified 06/03/21 16:07 [From Benadryl] Review of Systems ROS Statement: Those systems with pertinent positive or pertinent negative responses have been documented in the HPI. ROS Other: All systems not noted in ROS Statement are negative. Past Medical History Past Medical History: Diabetes Mellitus, Hypertension, Seizure Disorder, Thyroid Disorder Additional Past Medical History / Comment(s): angina, Hypothyroidism, vitamin D deficiency, dyslipidemia, ALLERGIES, cognitive impairment History of Any Multi-Drug Resistant Organisms: None Reported Past Surgical History: Orthopedic Surgery Additional Past Surgical History / Comment(s): right ankle Past Anesthesia/Blood Transfusion Reactions: No Reported Reaction Past Psychological History: Anxiety, Bipolar, Depression Smoking Status: Former smoker Past Alcohol Use History: None Reported Past Drug Use History: None Reported, Heroin, Methamphetamine, Prescription Drug Abuse - Past Family History Mother Additional Family Medical History / Comment(s): No known medical history. Patient denies any family history of diabetes or hypertension General Exam Limitations: no limitations General appearance: alert, in no apparent distress Head exam: Present: atraumatic, normocephalic, normal inspection Eye exam: Present: normal appearance, PERRL, EOMI. Absent: scleral icterus, conjunctival injection, periorbital swelling Neck exam: Present: normal inspection Respiratory exam: Present: normal lung sounds bilaterally. Absent: respiratory distress, wheezes, rales, rhonchi, stridor Cardiovascular Exam: Present: regular rate, normal rhythm, normal heart sounds. Absent: systolic murmur, diastolic murmur, rubs, gallop, clicks Right Hand Wrist exam: Present: normal inspection, full ROM, tenderness (Over the first phalanx of the index finger.). Absent: swelling, abrasion, laceration, ecchymosis, deformity, crepitus, dislocation Neurological exam: Present: alert, oriented X3, CN II-XII intact Psychiatric exam: Present: normal affect, normal mood Skin exam: Present: warm, dry, intact, normal color. Absent: rash Course Vital Signs 06/03/21 16:07 Temperature 98.7 F Pulse Rate 106 H Respiratory 16 Rate Blood Pressure 142/88 O2 Sat by Pulse 96 Oximetry Medical Decision Making - Medical Decision Making 45-year-old male complaining of right index finger pain after getting hit a baseball. 15 mg of Toradol, x-ray of the right fingers ordered. X-ray negative for any acute fractures. Given negative imaging patient most likely has a right index finger contusion. Case discussed with Dr. Padilla, patient can discharge home with follow-up primary care. - Radiology Data Radiology results: report reviewed, image reviewed Right finger x-ray: Negative right finger exam. No fracture. Disposition Clinical Impression: Contusion of right index finger Disposition: HOME SELF-CARE Condition: Stable Instructions (If sedation given, give patient instructions): Hand Sprain (ED) Additional Instructions: Please return to the Emergency Department if symptoms worsen or any other concerns. Follow-up with primary care as needed. Take Tylenol and Motrin as needed for pain. Is patient prescribed a controlled substance at d/c from ED?: No Referrals: [facility] [Primary Care Provider] - 1-2 days Time of Disposition: 17:15
[2021-06-03 17:39] VITALS: RESP 18
== END 2021-06-03 17:39 | disposition home or self-care (01) ==
LOC: EC 15:57
DX: S60.021A Contusion of right index finger without damage to nail, initial encounter (principal); E11.9 Type 2 diabetes mellitus without complications; I10 Essential (primary) hypertension; E03.9 Hypothyroidism, unspecified; G40.909 Epilepsy, unspecified, not intractable, without status epilepticus; Z79.84 Long term (current) use of oral hypoglycemic drugs; Z79.890 Hormone replacement therapy; Z79.1 Long term (current) use of non-steroidal anti-inflammatories (NSAID); Z79.899 Other long term (current) drug therapy; Z87.891 Personal history of nicotine dependence; W21.03XA Struck by baseball, initial encounter; Y93.64 Activity, baseball
CPT/HCPCS: 73140; 96372; 99283; J1885

== ENCOUNTER 2022-06-04 16:27 | Emergency (ER) | payer OTHER, MEDICARE ==
[2022-06-04 19:29] VITALS: RESP 18
[2022-06-04 20:07] LABS: Basophils % (A) 0 %; Eosinophils % (A) 1 %; HCT 44.3 % (39.0-53.0); HGB 14.4 gm/dL (13.0-17.5); Lymphocytes # (A) 1.8 k/uL (1.0-4.8); Lymphocytes % (A) 27 %; MCH 26.7 pg (25.0-35.0); MCHC 32.6 g/dL (31.0-37.0); Mean Platelet Volume 7.5; Monocytes # (A) 0.5 k/uL (0-1.0); Monocytes % (A) 7 %; Neutrophils # (A) 4.2 k/uL (1.3-7.7); Neutrophils % (A) 63 %; Platelet Count 341 k/uL (150-450); RDW 15.4 % (11.5-15.5); WBC 6.7 k/uL (3.8-10.6)
[2022-06-04 20:16] LABS: ALT 51 U/L (4-49); AST 32 U/L (17-59); African American GFR (CKD) >90 (>60 ml/min/1.73 sqM); Albumin 4.4 g/dL (3.5-5.0); Alkaline Phosphatase 121 U/L (38-126); Anion Gap 9 mmol/L; Blood Urea Nitrogen 26 mg/dL (9-20); Calcium 9.6 mg/dL (8.4-10.2); Carbon Dioxide 30 mmol/L (22-30); Chloride 96 mmol/L (98-107); Glucose 95 mg/dL (74-99); Non-African American GFR(CKD) 87 (>60 ml/min/1.73 sqM); Potassium 4.4 mmol/L (3.5-5.1); Sodium 135 mmol/L (137-145); Total Bilirubin 0.3 mg/dL (0.2-1.3); Total Protein 6.9 g/dL (6.3-8.2)
--- NOTE | 2022-06-04 20:20 | XR ---
EXAMINATION TYPE: XR knee complete RT DATE OF EXAM: 06/04/2022 8:02 PM INDICATION: Patient age:Male; 46 years old; Reason for study: pain swelling; COMPARISON: None. TECHNIQUE: The Right knee(s) was examined in 3 projections. Frontal, lateral and oblique. FINDINGS: Mild osteophyte formation of the tibial plateau and the patella. There is soft tissue swell ing of the prepatellar soft tissues. No evidence of any acute osseous pathology, joint space narrowi ng. There is a small joint effusion. IMPRESSION: 1. No acute osseous pathology. 2. Prepatellar soft tissue tissue edema. 3. Mild tricompartmental osteoarthritic changes.
[2022-06-04] MEDS ORDERED: methylPREDNISolone SOD SUCCI 125 MG/2 ML VIAL IV STA (20:45)
--- NOTE | 2022-06-04 20:48 | ED ---
Extremity Problem HPI - General Chief complaint: Extremity Problem,Nontraumatic Stated complaint: Knee Pain Time Seen by Provider: 06/04/22 18:44 Source: patient, RN notes reviewed Mode of arrival: wheelchair Limitations: no limitations - History of Present Illness Initial comments: Patient is a 46-year-old male who presents to the emergency room with his mother who is his legal guardian. He lives any shelter in their area. He presents to the emergency room with complaints of right knee pain ongoing for 4 days without improvement despite utilizing Motrin [id number] immobilizing and icing his knee. 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 His previous gout flares for on the dorsal aspect of his foot and dorsal aspect of his hand. He does report rolling out of bed but denies hitting his knee. He reports impaired range of motion due to swelling and pain but no weakness. He denies any other complaints or concerns including any fevers, chills, chest pain, shortness of breath, lethargy or fatigue. He has a past medical history significant for diabetes, hypertension, seizures, thyroid disorder along with developmental delay and bipolar disorder. - Related Data Home Medications Medication Instructions Recorded Confirmed Cholecalciferol (Vitamin D3) 125 mcg PO DAILY 01/26/20 02/22/21 [Vitamin D3 (5000 Iu)] Paliperidone IM [Invega Sustenna] 156 mg IM Q28D 11/17/20 02/22/21 metFORMIN HCL [Glucophage] 1,000 mg PO BID 02/22/21 02/22/21 Previous Rx's Medication Instructions Recorded Chlorthalidone 25 mg PO DAILY 30 Days #30 tablet 11/08/20 Divalproex ER [Depakote ER] 1,000 mg PO HS 30 Days tab.er.24h 11/08/20 FLUoxetine HCL [PROzac] 30 mg PO DAILY 30 Days cap 11/08/20 Ferrous Sulfate [Iron (65 MG 325 mg PO TID-W/MEALS 30 Days tab 11/08/20 Elemental)] Glimepiride [Amaryl] 1 mg PO DAILY 30 Days #30 tab 11/08/20 Levothyroxine Sodium [Synthroid] 100 mcg PO DAILY 30 Days #30 tab 11/08/20 Montelukast [Singulair] 10 mg PO HS 30 Days tab 11/08/20 lisinopriL [Zestril] 20 mg PO DAILY 30 Days #30 tab 11/08/20 Ibuprofen [Motrin] 600 mg PO Q8HR PRN #20 tab 02/16/21 predniSONE [Deltasone] 20 mg PO DIRECTED #16 tab 06/04/22 Allergies Allergy/AdvReac Type Severity Reaction Status Date / Time diphenhydramine Allergy Rash/Hives Verified 06/04/22 17:16 [From Benadryl] diphenhydramine HCl Allergy Rash/Hives Verified 06/04/22 17:16 [From Benadryl] Review of Systems ROS Statement: Those systems with pertinent positive or pertinent negative responses have been documented in the HPI. ROS Other: All systems not noted in ROS Statement are negative. Past Medical History Past Medical History: Diabetes Mellitus, Hypertension, Seizure Disorder, Thyroid Disorder Additional Past Medical History / Comment(s): angina, Hypothyroidism, vitamin D deficiency, dyslipidemia, ALLERGIES, cognitive impairment History of Any Multi-Drug Resistant Organisms: None Reported Past Surgical History: Orthopedic Surgery Additional Past Surgical History / Comment(s): right ankle Past Anesthesia/Blood Transfusion Reactions: No Reported Reaction Past Psychological History: Anxiety, Bipolar, Depression Smoking Status: Former smoker Past Alcohol Use History: None Reported Past Drug Use History: Cocaine - Past Family History Mother Additional Family Medical History / Comment(s): No known medical history. Patient denies any family history of diabetes or hypertension General Exam General appearance: alert, in no apparent distress Head exam: Present: atraumatic, normocephalic, normal inspection Eye exam: Present: normal appearance, PERRL, EOMI. Absent: scleral icterus, conjunctival injection, periorbital swelling ENT exam: Present: normal exam, mucous membranes moist Neck exam: Absent: lymphadenopathy Respiratory exam: Present: normal lung sounds bilaterally. Absent: respiratory distress, wheezes, rales, rhonchi, stridor, accessory muscle use Cardiovascular Exam: Present: regular rate, normal rhythm, normal heart sounds. Absent: systolic murmur, diastolic murmur, rubs, gallop, clicks Left Upper Leg exam: Present: normal inspection Knee exam: Present: tenderness, swelling, erythema, effusion. Absent: full ROM, abrasion, laceration, ecchymosis, deformity, crepitus, dislocation Lower Leg exam: Present: normal inspection Back exam: Present: normal inspection Neurological exam: Present: alert, oriented X3, other (Developmental delay) Psychiatric exam: Present: normal affect, normal mood, other (Childlike) Skin exam: Present: warm, dry, intact, erythema (Left knee mild) Course Vital Signs 06/04/22 06/04/22 06/04/22 17:12 19:20 21:28 Temperature 98.2 F 98.7 F 98.6 F Pulse Rate 89 67 75 Respiratory 16 18 18 Rate Blood Pressure 100/65 118/70 124/56 O2 Sat by Pulse 96 99 100 Oximetry Medical Decision Making - Medical Decision Making Acute onset with out injury or wound low probability for infection or fracture however will check x-ray of the left knee for further evaluation along with CBC and lactic acid to evaluate for leukocytosis/infectious process. High probability for gouty arthritis given previous gouty arthritis flares. Will check CMP to evaluate renal function and electrolytes. X-ray negative for dislocation or fracture. No osteomyelitis. Tricompartment effusion noted. Incidental bone spur and osteoarthritis noted. Due to developmental delay will defer off Arthocentisis and treat for gouty arthritis. Will give IV dose of steroid and start on oral steroid regimen. Low purine diet along with alternative etiologies discussed with patient and guardian. Discussed potential for agitation with steroids as well. Advised may continue to ambulate as tolerated. Case discussed with Dr. Denton. - Lab Data Result diagrams: 06/04/22 19:38 06/04/22 19:38 Lab Results 06/04/22 06/04/22 Range/Units 19:38 19:38 WBC 6.7 (3.8-10.6) k/uL RBC 5.40 (4.30-5.90) m/uL Hgb 14.4 (13.0-17.5) gm/dL Hct 44.3 (39.0-53.0) % MCV 82.0 (80.0-100.0) fL MCH 26.7 (25.0-35.0) pg MCHC 32.6 (31.0-37.0) g/dL RDW 15.4 (11.5-15.5) % Plt Count 341 (150-450) k/uL MPV 7.5 Neutrophils % 63 % Lymphocytes % 27 % Monocytes % 7 % Eosinophils % 1 % Basophils % 0 % Neutrophils # 4.2 (1.3-7.7) k/uL Lymphocytes # 1.8 (1.0-4.8) k/uL Monocytes # 0.5 (0-1.0) k/uL Eosinophils # 0.0 (0-0.7) k/uL Basophils # 0.0 (0-0.2) k/uL Sodium 135 L (137-145) mmol/L Potassium 4.4 (3.5-5.1) mmol/L Chloride 96 L (98-107) mmol/L Carbon Dioxide 30 (22-30) mmol/L Anion Gap 9 mmol/L BUN 26 H (9-20) mg/dL Creatinine 1.04 (0.66-1.25) mg/dL Est GFR (CKD-EPI)AfAm >90 (>60 ml/min/1.73 sqM) Est GFR (CKD-EPI)NonAf 87 (>60 ml/min/1.73 sqM) Glucose 95 (74-99) mg/dL Calcium 9.6 (8.4-10.2) mg/dL Total Bilirubin 0.3 (0.2-1.3) mg/dL AST 32 (17-59) U/L ALT 51 H (4-49) U/L Alkaline Phosphatase 121 (38-126) U/L Total Protein 6.9 (6.3-8.2) g/dL Albumin 4.4 (3.5-5.0) g/dL - Radiology Data Radiology results: report reviewed, image reviewed Disposition Clinical Impression: Effusion of right knee Disposition: HOME SELF-CARE Instructions (If sedation given, give patient instructions): Gout (ED) Additional Instructions: Please complete steroid course as prescribed. Range of motion as tolerated advised. May continue to utilize ice as needed for pain. Do not utilize ice for greater than 20 minutes. Avoid ketan, alcohol and seafoods; follow low purine diet when possible. Drink plenty of water. Avoid NSAIDs including Motrin while taking steroids. If any worsening symptoms or signs of infection please return to the emergency room this would include but is not limited to worsening of joint swelling, increased joint pain, worsening of redness, fevers or chills. Please return to the Emergency Department if symptoms worsen or any other concerns. Prescriptions: predniSONE [Deltasone] 20 mg PO DIRECTED #16 tab Is patient prescribed a controlled substance at d/c from ED?: No Referrals: [facility] [Primary Care Provider] - 1-2 days Time of Disposition: 20:47
[2022-06-04 21:30] VITALS: BP 124/56; PULSE 75; TEMP 98.6
== END 2022-06-04 21:34 | disposition home or self-care (01) ==
LOC: EC 16:27
DX: M25.461 Effusion, right knee (principal); E11.9 Type 2 diabetes mellitus without complications; I10 Essential (primary) hypertension; E07.9 Disorder of thyroid, unspecified; F41.9 Anxiety disorder, unspecified; F31.9 Bipolar disorder, unspecified; Z87.891 Personal history of nicotine dependence; Z88.8 Allergy status to other drugs, medicaments and biological substances; Z79.899 Other long term (current) drug therapy
CPT/HCPCS: 36415; 80053; 85025; 73562; 99283; 96374; J2930

== ENCOUNTER 2022-09-05 14:15 | Inpatient (IN) | payer MEDICARE, MEDICAID ==
[2022-09-05 15:27] LABS: Amphetamine Screen,Urine Not Detected (NotDetected); Barbiturate Screen,Urine Not Detected (NotDetected); Benzodiazepines Screen,Urine Not Detected (NotDetected); Cocaine Screen,Urine Not Detected (NotDetected); Methadone Screen, Urine Not Detected (NotDetected); Opiate Screen,Urine Not Detected (NotDetected); Oxycodone Screen, Urine Not Detected (NotDetected); Phencyclidine Screen,Urine Not Detected (NotDetected); Tricyclic Antidepressant,Urine Not Detected (NotDetected); Urn Cannabinoid Scrn Not Detected (NotDetected)
--- NOTE | 2022-09-05 16:37 | ED ---
Psych HPI - General Chief Complaint: Psychiatric Symptoms Stated Complaint: Mental health eval Time Seen by Provider: 09/05/22 14:30 Source: patient, RN notes reviewed Mode of arrival: ambulatory Limitations: no limitations - History of Present Illness Initial Comments: 46-year-old male presents emergency Department chief complaints depression, suicidal ideation Patient states that he started felt suicidal today. He has not tried to harm himself. Patient does have underlying depression, medications. Denies any illicit drug use no alcohol abuse no physical complaints. - Related Data Home Medications Medication Instructions Recorded Confirmed Cholecalciferol (Vitamin D3) 125 mcg PO DAILY 01/26/20 02/22/21 [Vitamin D3 (5000 Iu)] Paliperidone IM [Invega Sustenna] 156 mg IM Q28D 11/17/20 02/22/21 metFORMIN HCL [Glucophage] 1,000 mg PO BID 02/22/21 02/22/21 Previous Rx's Medication Instructions Recorded Chlorthalidone 25 mg PO DAILY 30 Days #30 tablet 11/08/20 Divalproex ER [Depakote ER] 1,000 mg PO HS 30 Days tab.er.24h 11/08/20 FLUoxetine HCL [PROzac] 30 mg PO DAILY 30 Days cap 11/08/20 Ferrous Sulfate [Iron (65 MG 325 mg PO TID-W/MEALS 30 Days tab 11/08/20 Elemental)] Glimepiride [Amaryl] 1 mg PO DAILY 30 Days #30 tab 11/08/20 Levothyroxine Sodium [Synthroid] 100 mcg PO DAILY 30 Days #30 tab 11/08/20 Montelukast [Singulair] 10 mg PO HS 30 Days tab 11/08/20 lisinopriL [Zestril] 20 mg PO DAILY 30 Days #30 tab 11/08/20 Ibuprofen [Motrin] 600 mg PO Q8HR PRN #20 tab 02/16/21 predniSONE [Deltasone] 20 mg PO DIRECTED #16 tab 06/04/22 Allergies Allergy/AdvReac Type Severity Reaction Status Date / Time diphenhydramine Allergy Rash/Hives Verified 09/05/22 14:32 [From Benadryl] diphenhydramine HCl Allergy Rash/Hives Verified 09/05/22 14:32 [From Benadryl] Review of Systems ROS Statement: Those systems with pertinent positive or pertinent negative responses have been documented in the HPI. ROS Other: All systems not noted in ROS Statement are negative. Past Medical History Past Medical History: Diabetes Mellitus, Hypertension, Seizure Disorder, Thyroid Disorder Additional Past Medical History / Comment(s): angina, Hypothyroidism, vitamin D deficiency, dyslipidemia, ALLERGIES, cognitive impairment History of Any Multi-Drug Resistant Organisms: None Reported Past Surgical History: Orthopedic Surgery Additional Past Surgical History / Comment(s): right ankle Past Anesthesia/Blood Transfusion Reactions: No Reported Reaction Past Psychological History: Anxiety, Bipolar, Depression Smoking Status: Former smoker Past Alcohol Use History: None Reported Past Drug Use History: Cocaine - Past Family History Mother Additional Family Medical History / Comment(s): No known medical history. Patient denies any family history of diabetes or hypertension General Exam Limitations: no limitations General appearance: alert, in no apparent distress Head exam: Present: atraumatic, normocephalic, normal inspection Eye exam: Present: normal appearance, PERRL, EOMI. Absent: scleral icterus, conjunctival injection, periorbital swelling ENT exam: Present: normal exam, mucous membranes moist Neck exam: Present: normal inspection. Absent: tenderness, meningismus, lymphadenopathy Respiratory exam: Present: normal lung sounds bilaterally. Absent: respiratory distress, wheezes, rales, rhonchi, stridor Cardiovascular Exam: Present: regular rate, normal rhythm, normal heart sounds. Absent: systolic murmur, diastolic murmur, rubs, gallop, clicks Neurological exam: Present: alert, oriented X3 Psychiatric exam: Present: depressed Course Vital Signs 09/05/22 14:29 Temperature 37 F L Pulse Rate 80 Respiratory 16 Rate Blood Pressure 121/81 O2 Sat by Pulse 99 Oximetry Medical Decision Making - Medical Decision Making Patient evaluated by EPS patient will be admitted for psychiatric treatment. - Lab Data Lab Results 09/05/22 Range/Units 14:45 Urine Opiates Screen Not Detected (NotDetected) Ur Oxycodone Screen Not Detected (NotDetected) Urine Methadone Screen Not Detected (NotDetected) Ur Propoxyphene Screen Not Detected (NotDetected) Ur Barbiturates Screen Not Detected (NotDetected) U Tricyclic Antidepress Not Detected (NotDetected) Ur Phencyclidine Scrn Not Detected (NotDetected) Ur Amphetamines Screen Not Detected (NotDetected) U Methamphetamines Scrn Not Detected (NotDetected) U Benzodiazepines Scrn Not Detected (NotDetected) Urine Cocaine Screen Not Detected (NotDetected) U Marijuana (THC) Screen Not Detected (NotDetected) Disposition Clinical Impression: Depression, Suicidal ideation Disposition: TRANSFER TO PSYCH HOSP/UNIT Referrals: [facility] [Primary Care Provider] - 1-2 days Time of Disposition: 16:37
[2022-09-05] MEDS ORDERED: MAGNESIUM HYDROXIDE 2,400 MG/10 ML CUP PO PRN (17:59)
[2022-09-05] MEDS ORDERED: MAG HYDROX/AL HYDROX/SIMETH 30 ML CUP PO PRN (17:59)
[2022-09-05] MEDS ORDERED: ACETAMINOPHEN TAB 325 MG TAB PO PRN (17:59)
[2022-09-05] MEDS ORDERED: LORazepam 1 MG/0.5 ML VIAL IM PRN (18:01)
[2022-09-05] MEDS ORDERED: HALOPERIDOL LACTATE 5 MG/ML 1 ML VIAL IM PRN (18:01)
[2022-09-05] MEDS ORDERED: LORazepam 1 MG TAB PO PRN (18:01)
[2022-09-05] MEDS ORDERED: haloperidoL 5 MG TAB PO PRN (18:01)
[2022-09-05] MEDS ORDERED: SIMETHICONE 80 MG CHEWABLE PO PRN (18:03)
[2022-09-05] MEDS ORDERED: IBUPROFEN 600 MG TAB PO PRN (18:06)
[2022-09-05] MEDS: metFORMIN 500 MG TAB PO SCH (20:40)
[2022-09-05] MEDS: traZODone HCL 50 MG TAB PO SCH (20:41)
[2022-09-05] MEDS: MONTELUKAST 10 MG TAB PO SCH (20:41)
[2022-09-05] MEDS: DICYCLOMINE 10 MG CAP PO SCH (20:41)
[2022-09-05] MEDS: DIVALPROEX ER 500 MG TAB.ER.24H PO SCH (20:41)
--- NOTE | 2022-09-06 00:58 | P.CONS ---
History of Present Illness - Reason for Consult Consult date: 09/05/22 - History of Present Illness The patient is a 46-year-old male with a PMH of seizure disorder home type II DM, celiac disease, hypertension, and hyperthyroidism who presented to the emergency room for depression and suicidal ideation. The patient was admitted to the [facility] where he was seen and evaluated. The patient reports that he had been undergoing a lot of stress recently as he has been mi ssing his brother who had a few years ago. He reported worsening depression at which point he contemplated slitting his neck with a knife. He denied any physical complaints at the time of interview. Denied experiencing chest discomfort, shortness of breath, fever, chills, cough, nausea, vomiting, abdominal pain, diarrhea. Reports compliance with all his medications at home. Review of systems: Pertinent positives and negatives as discussed in HPI, a complete review of systems was performed and all other systems are negative. Physical examination: General: non toxic, no distress, appears at stated age, morbidly obese Derm: no unusual rashes/lesions, no unusual ecchymoses, warm, dry Head: atraumatic, normocephalic, symmetric Eyes: EOMI, no lid lag, anicteric sclera ENT: Nose and ears atraumatic, no thrush, no pharyngeal erythema Neck: trachea midline, supple Mouth: no lip lesion, mucus membranes moist Cardiovascular: S1S2 reg, no murmur, no edema Lungs: CTA bilateral, no rhonchi, no rales , no accessory muscle use Abdominal: soft, nontender to palpation, no guarding Ext: no gross muscle atrophy, no contractures, Neuro: No gross focal neuro deficits noted Psych: Alert, oriented, appropriate affect Assessment/plan Chronic conditions: Type II DM, hypertension, hyperlipidemia, hypothyroidism, celiac disease -Continue with home meds Depression with suicidal ideation -As per psychiatry Thank you for allowing us to participate in the care of this patient. We will follow peripherally. Do not hesitate to contact us with questions. Someone can be reached from the [facility] hospitalist group at all hours of the day at [phone]. Past Medical History Past Medical History: Diabetes Mellitus, Hypertension, Seizure Disorder, Thyroid Disorder Additional Past Medical History / Comment(s): angina, Hypothyroidism, vitamin D deficiency, dyslipidemia, ALLERGIES, cognitive impairment History of Any Multi-Drug Resistant Organisms: None Reported Past Surgical History: Orthopedic Surgery Additional Past Surgical History / Comment(s): right ankle Past Anesthesia/Blood Transfusion Reactions: No Reported Reaction Past Psychological History: Anxiety, Bipolar, Depression Smoking Status: Former smoker Past Alcohol Use History: None Reported Past Drug Use History: Cocaine - Past Family History Mother Additional Family Medical History / Comment(s): No known medical history. Patient denies any family history of diabetes or hypertension Medications and Allergies Home Medications Medication Instructions Recorded Confirmed Type Chlorthalidone 25 mg PO DAILY 30 Days #30 tablet 11/08/20 09/05/22 Rx Divalproex ER [Depakote ER] 1,000 mg PO HS 30 Days tab.er.24h 11/08/20 09/05/22 Rx Glimepiride [Amaryl] 1 mg PO DAILY 30 Days #30 tab 11/08/20 09/05/22 Rx Levothyroxine Sodium [Synthroid] 100 mcg PO DAILY 30 Days #30 tab 11/08/20 09/05/22 Rx Montelukast [Singulair] 10 mg PO HS 30 Days tab 11/08/20 09/05/22 Rx lisinopriL [Zestril] 20 mg PO DAILY 30 Days #30 tab 11/08/20 09/05/22 Rx metFORMIN HCL [Glucophage] 1,000 mg PO BID 02/22/21 09/05/22 History FLUoxetine HCL [PROzac] 10 mg PO DAILY 09/05/22 09/05/22 History FLUoxetine HCL [PROzac] 20 mg PO DAILY 09/05/22 09/05/22 History Ferrous Sulfate [Iron (65 MG 325 mg PO DAILY 09/05/22 09/05/22 History Elemental)] Nystatin 100,000Unit/gm Cream 1 applic TOPICAL BID PRN 09/05/22 09/05/22 History [Mycostatin Cream] Paliperidone Palmitate [Invega 819 mg IM Q90D 09/05/22 09/05/22 History Trinza] Simethicone Chew [Mylicon Chew] 80 mg PO QID PRN 09/05/22 09/05/22 History traZODone HCL [Desyrel] 50 mg PO HS 09/05/22 09/05/22 History Allergies Allergy/AdvReac Type Severity Reaction Status Date / Time diphenhydramine Allergy Rash/Hives Verified 09/05/22 14:32 [From Benadryl] diphenhydramine HCl Allergy Rash/Hives Verified 09/05/22 14:32 [From Benadryl] Physical Exam Vitals: Vital Signs Temp Pulse Pulse Resp BP BP Pulse Ox 09/05/22 18:54 97.4 F L 64 20 126/70 97 09/05/22 16:45 97.8 F 09/05/22 14:29 37 F L 80 16 121/81 99 Intake and Output 09/05/22 09/05/22 09/06/22 14:59 22:59 06:59 Other: Weight 121.563 kg
[2022-09-06] MEDS: LEVOTHYROXINE 100 MCG TAB PO SCH (06:31)
[2022-09-06 06:50] VITALS: RESP 16
[2022-09-06 08:02] LABS: Glucose,Whole Blood 114 mg/dL (70-110)
[2022-09-06] MEDS: CHLORTHALIDONE 25 MG TAB PO SCH (08:09)
[2022-09-06] MEDS: CHOLECALCIFEROL 125 MCG (5000 IU) TABLET PO SCH (08:10)
[2022-09-06] MEDS: GLIMEPIRIDE 1 MG TAB PO SCH (08:10)
[2022-09-06] MEDS: DICYCLOMINE 10 MG CAP PO SCH ×3 (08:12→20:31)
[2022-09-06] MEDS: FERROUS SULFATE 325 MG TAB PO SCH (08:13)
[2022-09-06] MEDS: lisinopriL 20 MG TAB PO SCH (08:13)
[2022-09-06] MEDS: metFORMIN 500 MG TAB PO SCH ×2 (08:13→20:31)
[2022-09-06] MEDS: NICOTINE 14MG/24HR PATCH TRANSDERM SCH (08:14)
[2022-09-06] MEDS ORDERED: FLUoxetine HCL 10 MG CAP PO SCH (09:00)
[2022-09-06] MEDS ORDERED: FLUoxetine HCL 20 MG CAP PO SCH (09:00)
[2022-09-06] MEDS ORDERED: FLUoxetine HCL 10 MG CAP PO STA (11:37)
--- NOTE | 2022-09-06 11:55 | P.HP ---
Psychiatric H&P - . H&P Date: 09/06/22 History & Physical: Allergies Allergy/AdvReac Type Severity Reaction Status Date / Time diphenhydramine Allergy Rash/Hives Verified 09/05/22 14:32 From Benadryl diphenhydramine HCl Allergy Rash/Hives Verified 09/05/22 14:32 From Benadryl Vital Signs Temp 97.8 F 09/06/22 05:45 Pulse 53 L 09/06/22 05:45 Resp 16 09/06/22 05:45 BP 112/57 09/06/22 05:45 Pulse Ox 98 09/06/22 05:45 FiO2 Intake & Output 09/05/22 09/06/22 09/06/22 18:59 06:59 18:59 Weight 121.563 kg Laboratory Last Values POC Glucose (mg/dL) 114 mg/dL (70-110) H 09/06/22 08:00 POC Glu Environmental Program Manager ID Radha Tomlinson 09/06/22 08:00 Urine Opiates Screen Not Detected (NotDetected) 09/05/22 14:45 Ur Oxycodone Screen Not Detected (NotDetected) 09/05/22 14:45 Urine Methadone Screen Not Detected (NotDetected) 09/05/22 14:45 Ur Propoxyphene Screen Not Detected (NotDetected) 09/05/22 14:45 Ur Barbiturates Screen Not Detected (NotDetected) 09/05/22 14:45 Valproic Acid <10.0 ug/mL 09/05/22 18:45 U Tricyclic Antidepress Not Detected (NotDetected) 09/05/22 14:45 Ur Phencyclidine Scrn Not Detected (NotDetected) 09/05/22 14:45 Ur Amphetamines Screen Not Detected (NotDetected) 09/05/22 14:45 U Methamphetamines Scrn Not Detected (NotDetected) 09/05/22 14:45 U Benzodiazepines Scrn Not Detected (NotDetected) 09/05/22 14:45 Urine Cocaine Screen Not Detected (NotDetected) 09/05/22 14:45 U Marijuana (THC) Screen Not Detected (NotDetected) 09/05/22 14:45 Coronavirus (PCR) Not Detected (Not Detectd) 09/05/22 16:40 10/28/22 11:48 IDENTIFYING DATA: Patient is a 46-year-old male with intellectual disability and bipolar disorder, currently lives in a room and board. He collects SSI. HPI: Patient presented to the hospital yesterday was evaluated in the ER and was endorsing depression and suicidal ideations. Patient was admitted voluntarily mental health unit. He has history of previous psychiatric admissions and also following up with the nurse practitioner at [facility]. Patient claimed that he was brought in by his stain dipper kR to the hospital to get treatment. He claims that he is feeling depressed and "suicidal". He was fairly concrete however attending to cooperate. Limited insight. He states that the main trigger was thinking about his brother "Elvis" who in 2007. He states that the holidays coming up were reminding him of that. He states that he "wanted to join him". He is denying any other stressors at this time. He states that his mood is "a bit better" since coming into the hospital. He is denying any anxiety at this time. He claims that he has been taking his medications. Denying any problems with sleep or appetite at this time. Patient denies any suicidal or homicidal ideations intent or plan. At this time patient denies any auditory or visual hallucinations. Patient denies any flight of ideas racing thoughts and increased in goal directed behavior. Patient admits to using no recreational drugs or cigarettes PAST PSYCHIATRIC HISTORY: Patient states that bipolar disorder and also intellectual disability. Patient is currently on Depakote, Prozac and also recently given Invega Trinza 819 mg IM on 08/30 at [facility] by his nurse practitioner. Patient has been psychiatrically hospitalized several times in the past and the previous admission was in October 2020. He denies any history of suicide attempts PMH: As per ER note ALLERGIES: as per EMR CHEMICAL DEPENDENCY HISTORY: as per HPI FAMILY PSYCHIATRIC/SUBSTANCE USE HISTORY: denies SOCIAL HISTORY: Patient was born and raised in [place]. He states that he completed high school. He claims that he is currently unemployed and collects SSI. He stays at a room and board. He claims that he went to snf once in the past or being rude towards the social worker however cannot remember when. MENTAL STATUS EXAM: General Appearance: Patient appears to be tall, shaved head, stated age is alert, directable, and attempts to cooperate. Patient appears to have fair hygiene and grooming. Behavior: Patient is seated without any agitated behavior. Attempts to cooperate. Speech: Patient's speech is fluent and nonpressured. [place] Mood/Affect: Patient reports their mood is "a bit better now", affect is congruent and constricted. Suicidality/Homicidality: Patient denies having any homicidal ideation intent or plan. Denies any suicidal ideations intent or plan Perceptions: Patient denies any visual hallucinations and denies any auditory hallucinations Though content/process: Poverty of content. Not endorsing any delusions or paranoia. Logical. [place]. Memory and concentration: AOX3, grossly intact for the purposes of this session. Can spell "WORLD" backwards Judgment and insight: Limited chronically STRENGTHS/WEAKNESSES: strength is that patient is resilient. Weakness is that patient has limited judgment/insight and is impulsive INTELLECT: below average IMPRESSIONS: Bipolar disorder, current episode depressed Intellectual disability PLAN: -Patient is admitted under voluntary status to MHU for stabilization of psychiatric symptoms and safety. Patient has signed adult voluntary form and medication consent and is placed in patient's chart. -Medications : Will start patient on Prozac, increased to 3 mg daily for mood/anxiety. Continue Depakote 1000 mg daily at bedtime for mood stabilization/seizures. Patient received Invega Trinza 819 mg IM last on 08/30 through [facility] and is due every 3 months. trazodone 50 mg qhs for insomnia -Ativan and Haldol PRN for agitation/aggression -Patient was informed of the risks, benefits and side effects of the medication and patient verbally consented to taking the medications. Patient signed med consent form and was placed in chart. -Internal Medicine consult to perform medical evaluation and physical. -NRT - not needed as patient does not smoke. -SW on board for discharge planning. Encourage patient to participate in groups to work on coping skills. if patient continues to improve then likely discharge early next week back to room and board. 09/06/22 11:54
[2022-09-06 12:08] LABS: Basophils % (A) 0 %; Eosinophils % (A) 1 %; HCT 46.9 % (39.0-53.0); HGB 15.4 gm/dL (13.0-17.5); Hypochromasia Slight; Lymphocytes % (A) 42 %; MCH 27.4 pg (25.0-35.0); MCHC 32.8 g/dL (31.0-37.0); MCV 83.5 fL (80.0-100.0); Mean Platelet Volume 8.2; Monocytes # (A) 0.4 k/uL (0-1.0); Monocytes % (A) 5 %; Neutrophils # (A) 3.6 k/uL (1.3-7.7); Neutrophils % (A) 50 %; Platelet Count 240 k/uL (150-450); RBC 5.61 m/uL (4.30-5.90); RDW 15.2 % (11.5-15.5); WBC 7.1 k/uL (3.8-10.6)
[2022-09-06 12:23] LABS: ALT 46 U/L (4-49); AST 28 U/L (17-59); African American GFR (CKD) >90 (>60 ml/min/1.73 sqM); Albumin 4.8 g/dL (3.5-5.0); Alkaline Phosphatase 133 U/L (38-126); Anion Gap 17 mmol/L; Bilirubin, Delta 0.2 mg/dL (0.0-0.2); Bilirubin,Unconjugated 0.1 mg/dL (0.0-1.1); Blood Urea Nitrogen 15 mg/dL (9-20); Calcium 9.3 mg/dL (8.4-10.2); Carbon Dioxide 26 mmol/L (22-30); Chloride 95 mmol/L (98-107); Glucose 85 mg/dL (74-99); Non-African American GFR(CKD) >90 (>60 ml/min/1.73 sqM); Potassium 4.3 mmol/L (3.5-5.1); Sodium 138 mmol/L (137-145); Total Bilirubin 0.3 mg/dL (0.2-1.3); Total Protein 6.9 g/dL (6.3-8.2)
[2022-09-06 12:52] LABS: Glucose,Whole Blood 95 mg/dL (70-110)
[2022-09-06 17:39] LABS: Glucose,Whole Blood 115 mg/dL (70-110)
[2022-09-06 19:06] LABS: Chol/HDL Ratio 4.58 Ratio; LDL Cholesterol,Calculated 72.1 mg/dL (0.0-131.0)
[2022-09-06 19:54] LABS: Glucose,Whole Blood 136 mg/dL (70-110)
[2022-09-06] MEDS: DIVALPROEX ER 500 MG TAB.ER.24H PO SCH (20:31)
[2022-09-06] MEDS: MONTELUKAST 10 MG TAB PO SCH (20:31)
[2022-09-06] MEDS: traZODone HCL 50 MG TAB PO SCH (20:32)
[2022-09-07] MEDS: LEVOTHYROXINE 100 MCG TAB PO SCH (07:04)
[2022-09-07 07:37] LABS: Glucose,Whole Blood 95 mg/dL (70-110)
[2022-09-07] MEDS: GLIMEPIRIDE 1 MG TAB PO SCH (08:17)
[2022-09-07] MEDS: NICOTINE 14MG/24HR PATCH TRANSDERM SCH (08:17)
[2022-09-07] MEDS: CHOLECALCIFEROL 125 MCG (5000 IU) TABLET PO SCH (08:17)
[2022-09-07] MEDS: FLUoxetine HCL 20 MG CAP PO SCH (08:17)
[2022-09-07] MEDS: lisinopriL 20 MG TAB PO SCH (08:18)
[2022-09-07] MEDS: FERROUS SULFATE 325 MG TAB PO SCH (08:18)
[2022-09-07] MEDS: metFORMIN 500 MG TAB PO SCH ×2 (08:18→20:07)
[2022-09-07] MEDS: CHLORTHALIDONE 25 MG TAB PO SCH (08:18)
[2022-09-07] MEDS: DICYCLOMINE 10 MG CAP PO SCH ×3 (08:18→20:07)
--- NOTE | 2022-09-07 16:48 | P.PN ---
Subjective Progress Note Date: 09/07/22 IDENTIFYING DATA: Patient is a 46-year-old male Diagnosis: with intellectual disability and bipolar disorder, He currently lives in a room and board. He collects SSI. HPI: Patient came to the ER and was endorsing depression and suicidal ideations. Patient was admitted voluntarily to the mental health unit. He has history of previous psychiatric admissions and also following up with the nurse practitioner at [facility]. Patient claimed that he was brought in by his right of way appraiser Rk to the hospital to get treatment. Subjective he says he is feeling little better today but he was crying when his mother came to visit and then had to leave. He rents a house from his mother please see their on a regular basis he lives with 2 caregivers and 5 pets a CAT 2 dogs dog, a rat, a bird. He was fairly concrete however attending to cooperate. Limited insight. Affect is flat He was started on Prozac and increased to 40 mg and is tolerating it well At this time patient denies any auditory or visual hallucinations. Patient denies any flight of ideas racing thoughts and increased in goal directed behavior. Patient admits to using no recreational drugs or cigarettes PAST PSYCHIATRIC HISTORY: Patient states that bipolar disorder and also intellectual disability. Patient is currently on Depakote, Prozac and also recently given Invega Trinza 819 mg IM on 08/30 at [facility] by his nurse practitioner. Patient has been psychiatrically hospitalized several times in the past and the previous admission was in October 2020. He denies any history of suicide attempts Assessment a little bit better but he is concrete and overreacts. He does not have good balancing and coping skills. Hopefully the Prozac will help him react less strongly Plan no change in medication Objective - Vital Signs Vital signs: Vital Signs Temp 97.8 F 09/06/22 05:45 Pulse 53 L 09/06/22 05:45 Resp 16 09/06/22 05:45 BP 112/57 09/06/22 05:45 Pulse Ox 98 09/06/22 05:45 FiO2 - Labs CBC & Chem 7: 09/06/22 10:50 09/06/22 10:50 Labs: Abnormal Lab Results - Last 24 Hours (Table) 09/06/22 09/06/22 09/06/22 Range/Units 10:50 10:50 17:38 POC Glucose (mg/dL) 115 H (70-110) mg/dL Hemoglobin A1c 6.3 H (0.0-6.0) % Triglycerides 175.00 H (0.00-149.00) mg/dL HDL Cholesterol 29.90 L (40.00-60.00) mg/dL 09/06/22 Range/Units 19:53 POC Glucose (mg/dL) 136 H (70-110) mg/dL Hemoglobin A1c (0.0-6.0) % Triglycerides (0.00-149.00) mg/dL HDL Cholesterol (40.00-60.00) mg/dL
[2022-09-07 17:34] LABS: Glucose,Whole Blood 110 mg/dL (70-110)
[2022-09-07 19:57] LABS: Glucose,Whole Blood 125 mg/dL (70-110)
[2022-09-07] MEDS: MONTELUKAST 10 MG TAB PO SCH (20:07)
[2022-09-07] MEDS: DIVALPROEX ER 500 MG TAB.ER.24H PO SCH (20:07)
[2022-09-07] MEDS: traZODone HCL 50 MG TAB PO SCH (20:07)
[2022-09-08] MEDS: LEVOTHYROXINE 100 MCG TAB PO SCH (06:52)
--- NOTE | 2022-09-08 07:42 | P.PN ---
Subjective Progress Note Date: 09/08/22 Principal diagnosis: Intellectual disability Bipolar disorder IDENTIFYING: Patient is a 46-year-old male Diagnosis: with intellectual disability and bipolar disorder, He currently lives in a room and board. He collects SSI. HPI: Patient came to the ER and was endorsing depression and suicidal ideations. Patient was admitted voluntarily to the mental health unit. He has history of previous psychiatric admissions and also following up with the nurse practitioner at [facility]. Patient claimed that he was brought in by his wrapper hands sprayer Rk to the hospital to get treatment. Subjective he says he slept well and that he will do well after he leaves because he'll talk to his friends. When asked him why he was not talking to his friends before he said he tried and they would call back. When asked him how he would get them to call back, he didn't know. He was fairly concrete however trying to cooperate. He has Limited insight. Objective: Affect is flat , staff note him to be childlike. He came to 1 group but could not understand how to participate in another group he refused to go to yesterday. He is calm and cooperative somewhat decreased eye contact self-care is minimal but adequate no aggressiveness no evidence of responding to hallucinations. He was started on Prozac and increased to 40 mg and is tolerating it well At this time patient denies any auditory or visual hallucinations. Patient denies any flight of ideas racing thoughts and increased in goal directed behavior. Patient admits to using no recreational drugs or cigarettes Assessment a little bit better but he is concrete and overreacts. He does not have social and coping skills. Hopefully the Prozac will help him react less strongly Plan no change in medication Objective - Vital Signs Vital signs: Vital Signs Temp 96.6 F L 09/08/22 07:21 Pulse 66 09/08/22 07:21 Resp 16 09/06/22 05:45 BP 124/66 09/08/22 07:21 Pulse Ox 98 09/06/22 05:45 FiO2 - Labs CBC & Chem 7: 09/06/22 10:50 09/06/22 10:50 Labs: Abnormal Lab Results - Last 24 Hours (Table) 09/07/22 Range/Units 19:55 POC Glucose (mg/dL) 125 H (70-110) mg/dL
[2022-09-08 07:57] LABS: Glucose,Whole Blood 104 mg/dL (70-110)
[2022-09-08] MEDS: FLUoxetine HCL 20 MG CAP PO SCH ×2 (08:00→08:12)
[2022-09-08] MEDS: CHLORTHALIDONE 25 MG TAB PO SCH (08:12)
[2022-09-08] MEDS: metFORMIN 500 MG TAB PO SCH ×2 (08:12→19:37)
[2022-09-08] MEDS: CHOLECALCIFEROL 125 MCG (5000 IU) TABLET PO SCH (08:12)
[2022-09-08] MEDS: GLIMEPIRIDE 1 MG TAB PO SCH (08:12)
[2022-09-08] MEDS: FERROUS SULFATE 325 MG TAB PO SCH (08:12)
[2022-09-08] MEDS: lisinopriL 20 MG TAB PO SCH (08:13)
[2022-09-08] MEDS: DICYCLOMINE 10 MG CAP PO SCH ×3 (08:13→19:38)
[2022-09-08] MEDS: NICOTINE 14MG/24HR PATCH TRANSDERM SCH (08:14)
[2022-09-08 12:34] LABS: Glucose,Whole Blood 93 mg/dL (70-110)
[2022-09-08 17:46] LABS: Glucose,Whole Blood 120 mg/dL (70-110)
[2022-09-08] MEDS: traZODone HCL 50 MG TAB PO SCH (19:37)
[2022-09-08] MEDS: MONTELUKAST 10 MG TAB PO SCH (19:38)
[2022-09-08] MEDS: DIVALPROEX ER 500 MG TAB.ER.24H PO SCH (19:38)
[2022-09-08 19:51] LABS: Glucose,Whole Blood 118 mg/dL (70-110)
[2022-09-09] MEDS: LEVOTHYROXINE 100 MCG TAB PO SCH (06:07)
[2022-09-09 07:53] LABS: Glucose,Whole Blood 115 mg/dL (70-110)
[2022-09-09] MEDS: FERROUS SULFATE 325 MG TAB PO SCH (08:06)
[2022-09-09] MEDS: lisinopriL 20 MG TAB PO SCH (08:06)
[2022-09-09] MEDS: DICYCLOMINE 10 MG CAP PO SCH ×3 (08:06→20:56)
[2022-09-09] MEDS: metFORMIN 500 MG TAB PO SCH ×2 (08:06→20:55)
[2022-09-09] MEDS: FLUoxetine HCL 20 MG CAP PO SCH (08:07)
[2022-09-09] MEDS: CHLORTHALIDONE 25 MG TAB PO SCH (08:09)
[2022-09-09] MEDS: GLIMEPIRIDE 1 MG TAB PO SCH (08:09)
[2022-09-09] MEDS: CHOLECALCIFEROL 125 MCG (5000 IU) TABLET PO SCH (08:09)
[2022-09-09 08:56] LABS: Glucose,Whole Blood 90 mg/dL (70-110)
[2022-09-09] MEDS: NICOTINE 14MG/24HR PATCH TRANSDERM SCH (09:32)
--- NOTE | 2022-09-09 10:27 | P.PN ---
Progress Note - Text Progress Note Date: 09/09/22 Interval History: Patient was seen wandering the hallways and was directable and agreeable to mary solorzano with scenario writer in the office. Patient claims that he is gradually improving in terms of his mood and anxiety. He claims that he has been trying to go to groups and participate his best as he can. He spoke about being unsure about going home today and where she will go. He claims that he was able to sleep fairly last night. He claims he has been taking his medications and does not report any problems with them. At this time patient denies any suicidal or homical ideations, intent or plan. Patient denies any auditory, visual hallucinations and denies any paranoia or delusions. Patient denies any side effects from the medications and has been compliant with meds. Mental Status Exam: General Appearance: Patient appears to be tall, shaved head, stated age is alert, directable, and attempts to cooperate. Patient appears to have fair hygiene and grooming. Behavior: Patient is seated without any agitated behavior. Attempts to cooperate. Speech: Patient's speech is fluent and nonpressured. [place] Mood/Affect: Patient reports their mood is "a little better", affect is congruent and constricted. Suicidality/Homicidality: Patient denies having any homicidal ideation intent or plan. Denies any suicidal ideations intent or plan Perceptions: Patient denies any visual hallucinations and denies any auditory hallucinations Though content/process: Poverty of content. Not endorsing any delusions or paranoia. Logical. [place]. Memory and concentration: AOX3, grossly intact for the purposes of this session. Judgment and insight: Limited chronically IMPRESSIONS: Bipolar disorder, current episode depressed Intellectual disability Plan: -Patient continues to meet criteria for inpatient psychiatric admission for symptom stabilization and safety. Patient has signed adult voluntary form and medication consent and was placed in patient's chart. -Medications: Continue with Prozac 40 mg daily for mood/anxiety. Depakote 1000 mg daily at bedtime for mood stabilization/seizures, trazodone 50 mg daily at bedtime for insomnia/mood. Patient received Invega Trinza 819 mg IM last on 08/30 through [facility] and is due every 3 months. -When necessary Ativan and Haldol for agitation/aggression. -NRT - not needed as patient does not smoke. -SW on board for discharge planning. Encouraged the patient to participate in milieu. SW to coordinate with room and board and coordinate for potential discharge tomorrow.
[2022-09-09 12:55] LABS: Glucose,Whole Blood 105 mg/dL (70-110)
[2022-09-09 17:51] LABS: Glucose,Whole Blood 118 mg/dL (70-110)
[2022-09-09 19:53] LABS: Glucose,Whole Blood 117 mg/dL (70-110)
[2022-09-09] MEDS: DIVALPROEX ER 500 MG TAB.ER.24H PO SCH (20:55)
[2022-09-09] MEDS: MONTELUKAST 10 MG TAB PO SCH (20:56)
[2022-09-09] MEDS: traZODone HCL 50 MG TAB PO SCH (20:56)
[2022-09-10 06:09] VITALS: BP 111/55; PULSE 53; TEMP 97.2
[2022-09-10] MEDS: LEVOTHYROXINE 100 MCG TAB PO SCH (06:51)
[2022-09-10 07:40] LABS: Glucose,Whole Blood 129 mg/dL (70-110)
[2022-09-10] MEDS: FLUoxetine HCL 20 MG CAP PO SCH (07:49)
[2022-09-10] MEDS: CHOLECALCIFEROL 125 MCG (5000 IU) TABLET PO SCH (07:49)
[2022-09-10] MEDS: FERROUS SULFATE 325 MG TAB PO SCH (07:49)
[2022-09-10] MEDS: CHLORTHALIDONE 25 MG TAB PO SCH (07:49)
[2022-09-10] MEDS: GLIMEPIRIDE 1 MG TAB PO SCH (07:49)
[2022-09-10] MEDS: lisinopriL 20 MG TAB PO SCH (07:49)
[2022-09-10] MEDS: DICYCLOMINE 10 MG CAP PO SCH (07:49)
[2022-09-10] MEDS: metFORMIN 500 MG TAB PO SCH (07:49)
[2022-09-10] MEDS: NICOTINE 14MG/24HR PATCH TRANSDERM SCH (07:50)
--- NOTE | 2022-09-10 10:09 | P.DS ---
Providers Date of admission: 09/05/22 17:36 Expected date of discharge: 09/10/22 Attending physician: Milton Kee MD Consults: 09/05/22 17:59 Consult Physician Routine Consulting Provider: Debbie Physician Consult Reason/Comments: Medical H&P Do you want consulting provider notified?: Yes Primary care physician: [facility] - Discharge Diagnosis(es) (1) Bipolar disorder current episode depressed Current Visit: Yes Status: Acute Priority: High (2) Intellectual disability Current Visit: Yes Status: Acute Priority: Medium Hospital Course: Admission HPI: Admission note was completed by software writer "Patient is a 46-year-old male with intellectual disability and bipolar disorder, currently lives in a room and board. He collects SSI. Patient presented to the hospital yesterday was evaluated in the ER and was endorsing depression and suicidal ideations. Patient was admitted voluntarily mental health unit. He has history of previous psychiatric admissions and also following up with the nurse practitioner at [facility]. 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 He claims that he is feeling depressed and "suicidal". He was fairly concrete however attending to cooperate. Limited insight. He states that the main trigger was thinking about his brother "Elvis" who in [id number]. He states that the holidays coming up were reminding him of that. He states that he "wanted to join him". He is denying any other stressors at this time. He states that his mood is "a bit better" since coming into the hospital. He is denying any anxiety at this time. He claims that he has been taking his medications. Denying any problems with sleep or appetite at this time. Patient denies any suicidal or homicidal ideations intent or plan. At this time patient denies any auditory or visual hallucinations. Patient denies any flight of ideas racing thoughts and increased in goal directed behavior. Patient admits to using no recreational drugs or cigarettes" Hospital course: Upon admission to the unit patient was directable and agreeable to commence treatment and signed adult voluntary form. Patient got along well with other patients on the unit and followed unit protocol. Patient was compliant with the medications and denied any side effects throughout hospital course. Patient was started on Prozac and increase the dose of 40 mg daily for mood/anxiety, Depakote was resumed at 1000 mg daily at bedtime for mood stabilization/seizures, trazodone 50 mg daily at bedtime for insomnia/mood. Patient is currently receiving invega trinza 819 mg IM and last dose was given on 08/31 and will be due in 3 months and to be given at [facility]. Patient spoke of his stressors and engaged in therapy both group and individual. Patient was also seen by medical team for history and physical exam. Throughout the course of the hospitalization patient gradually improved with regards to mood, anxiety, sleep and became more future oriented with improved insight and judgment. On the day of discharge patient denied any suicidal or homicidal ideations intent or plan denied any auditory or visual hallucinations. Patient endorsed wanting to live for his life and his family. The patient denied any access to guns or weapons. Patient denied any paranoia and did not endorse any delusions. Patient does not have a significant history of substance abuse and was counseled on abstaining from all substances including alcohol and marijuana. Patient was also counseled on the medications and need for regular compliance and was encouraged to follow-up with their outpatient appointment for mental health and also for primary care. Prior to discharge a family meeting will be arranged by social service director to answer any questions and ensure safety upon discharge. Patient will be following up with [facility]. Mental status exam: General Appearance: Patient appears to be tall, shaved head, stated age is alert, pleasant, and cooperative. Patient is in no acute distress and has improved hygiene and grooming Behavior: Patient is calmly seated without any agitated behavior. Speech: Patient's speech is fluent and nonpressured. Mood/Affect: Patient reports their mood is "good", affect is congruent and euthymic. Suicidality/Homicidality: Patient denies having any suicidal or homicidal ideation intent or plan. Perceptions: Patient denies any auditory or visual hallucinations. Though content/process: There is no evidence of any delusional thought content and thought process is linear and goal-directed. Memory and concentration: AOX3, grossly intact for the purposes of this session. Can spell "WORLD" backwards correctly. Judgment and insight: Chronically Limited, improved with guarded prognosis Impression: Bipolar disorder, current episode depressed Intellectual disability Plan: -Continue with discharge today as patient has improved and stabilized psychiatrically and is not currently an imminent threat to himself and/or others. Patient will remain at chronically elevated risk for harm to self and/or others due to his impulsivity. -Continue medications: Prozac 40 mg daily for mood/his ID, Depakote 1000 mg daily at bedtime for mood stabilization/seizures, trazodone 50 mg daily at bedtime for insomnia/mood,invega trinza 819 mg IM and last dose was given on 08/31 and will be due in 3 months and to be given at [facility]. -Patient was counseled on the need for medication compliance and appropriate follow-up at mental health and also primary care for medical issues. Patient v erbalized understanding and agreed. -Social work to arrange for and conduct family meeting to ensure safety upon discharge and answer any questions/concerns. Social work also to arrange for patients follow up appointments with [facility] for psychiatric care along with follow up with primary care provider. -Patient counseled on abstaining from recreational drugs and marijuana and alcohol. Was informed/educated on the adverse effects on their physical and mental health. Patient verbally agreed and understood. -Patient was instructed to return to the hospital or seek immediate medical care if their psychiatric or medical symptoms do worsen or reoccur. Allergies Allergy/AdvReac Type Severity Reaction Status Date / Time diphenhydramine Allergy Rash/Hives Verified 09/05/22 14:32 [From Benadryl] diphenhydramine HCl Allergy Rash/Hives Verified 09/05/22 14:32 [From Benadryl] Laboratory Results WBC 7.1 k/uL (3.8-10.6) 09/06/22 10:50 RBC 5.61 m/uL (4.30-5.90) 09/06/22 10:50 Hgb 15.4 gm/dL (13.0-17.5) 09/06/22 10:50 Hct 46.9 % (39.0-53.0) 09/06/22 10:50 MCV 83.5 fL (80.0-100.0) 09/06/22 10:50 MCH 27.4 pg (25.0-35.0) 09/06/22 10:50 MCHC 32.8 g/dL (31.0-37.0) 09/06/22 10:50 RDW 15.2 % (11.5-15.5) 09/06/22 10:50 Plt Count 240 k/uL (150-450) 09/06/22 10:50 MPV 8.2 09/06/22 10:50 Neutrophils % 50 % 09/06/22 10:50 Lymphocytes % 42 % 09/06/22 10:50 Monocytes % 5 % 09/06/22 10:50 Eosinophils % 1 % 09/06/22 10:50 Basophils % 0 % 09/06/22 10:50 Neutrophils # 3.6 k/uL (1.3-7.7) 09/06/22 10:50 Lymphocytes # 3.0 k/uL (1.0-4.8) 09/06/22 10:50 Monocytes # 0.4 k/uL (0-1.0) 09/06/22 10:50 Eosinophils # 0.0 k/uL (0-0.7) 09/06/22 10:50 Basophils # 0.0 k/uL (0-0.2) 09/06/22 10:50 Hypochromasia Slight 09/06/22 10:50 Sodium 138 mmol/L (137-145) 09/06/22 10:50 Potassium 4.3 mmol/L (3.5-5.1) 09/06/22 10:50 Chloride 95 mmol/L (98-107) L 09/06/22 10:50 Carbon Dioxide 26 mmol/L (22-30) 09/06/22 10:50 Anion Gap 17 mmol/L 09/06/22 10:50 BUN 15 mg/dL (9-20) 09/06/22 10:50 Creatinine 0.72 mg/dL (0.66-1.25) 09/06/22 10:50 Est GFR (CKD-EPI)AfAm >90 (>60 ml/min/1.73 sqM) 09/06/22 10:50 Est GFR (CKD-EPI)NonAf >90 (>60 ml/min/1.73 sqM) 09/06/22 10:50 Glucose 85 mg/dL (74-99) 09/06/22 10:50 POC Glucose (mg/dL) 129 mg/dL (70-110) H 09/10/22 07:39 POC Glu Scraper Burrer ID Marisel Garner 09/10/22 07:[address] Glu mg/dL 134 09/06/22 10:50 Hemoglobin A1c 6.3 % (0.0-6.0) H 09/06/22 10:50 Calcium 9.3 mg/dL (8.4-10.2) 09/06/22 10:50 Total Bilirubin 0.3 mg/dL (0.2-1.3) 09/06/22 10:50 Conjugated Bilirubin 0.0 mg/dL (0.0-0.3) 09/06/22 10:50 Unconjugated Bilirubin 0.1 mg/dL (0.0-1.1) 09/06/22 10:50 Delta Bilirubin 0.2 mg/dL (0.0-0.2) 09/06/22 10:50 AST 28 U/L (17-59) 09/06/22 10:50 ALT 46 U/L (4-49) 09/06/22 10:50 Alkaline Phosphatase 133 U/L (38-126) H 09/06/22 10:50 Total Protein 6.9 g/dL (6.3-8.2) 09/06/22 10:50 Albumin 4.8 g/dL (3.5-5.0) 09/06/22 10:50 Triglycerides 175.00 mg/dL (0.00-149.00) H 09/06/22 10:50 Cholesterol 137.00 mg/dL (0.00-200.00) 09/06/22 10:50 LDL Cholesterol, Calc 72.1 mg/dL (0.0-131.0) 09/06/22 10:50 VLDL Cholesterol, Calc 35.00 mg/dL (5.00-40.00) 09/06/22 10:50 HDL Cholesterol 29.90 mg/dL (40.00-60.00) L 09/06/22 10:50 Cholesterol/HDL Ratio 4.58 Ratio 09/06/22 10:50 TSH 2.350 mIU/L (0.465-4.680) 09/06/22 10:50 Urine Opiates Screen Not Detected (NotDetected) 09/05/22 14:45 Ur Oxycodone Screen Not Detected (NotDetected) 09/05/22 14:45 Urine Methadone Screen Not Detected (NotDetected) 09/05/22 14:45 Ur Propoxyphene Screen Not Detected (NotDetected) 09/05/22 14:45 Ur Barbiturates Screen Not Detected (NotDetected) 09/05/22 14:45 Valproic Acid <10.0 ug/mL 09/05/22 18:45 U Tricyclic Antidepress Not Detected (NotDetected) 09/05/22 14:45 Ur Phencyclidine Scrn Not Detected (NotDetected) 09/05/22 14:45 Ur Amphetamines Screen Not Detected (NotDetected) 09/05/22 14:45 U Methamphetamines Scrn Not Detected (NotDetected) 09/05/22 14:45 U Benzodiazepines Scrn Not Detected (NotDetected) 09/05/22 14:45 Urine Cocaine Screen Not Detected (NotDetected) 09/05/22 14:45 U Marijuana (THC) Screen Not Detected (NotDetected) 09/05/22 14:45 Coronavirus (PCR) Not Detected (Not Detectd) 09/05/22 16:40 Vital Signs Temp 97.2 F L 09/10/22 06:05 Pulse 53 L 09/10/22 06:05 Resp 16 09/10/22 06:05 BP 111/55 09/10/22 06:05 Pulse Ox 96 09/10/22 06:05 FiO2 Patient Condition at Discharge: Stable Plan - Discharge Summary New Discharge Prescriptions: New Cholecalciferol [Vitamin D3 (125 Mcg = 5000 Iu)] 125 mcg PO DAILY tab Dicyclomine [Bentyl] 10 mg PO TID #0 cap Nicotine 14Mg/24Hr Patch [Habitrol] 1 patch TRANSDERM DAILY 14 Days patch FLUoxetine HCL [PROzac] 40 mg PO DAILY 30 Days cap Continue Glimepiride [Amaryl] 1 mg PO DAILY 30 Days #30 tab Chlorthalidone 25 mg PO DAILY 30 Days #30 tablet Montelukast [Singulair] 10 mg PO HS 30 Days tab Levothyroxine Sodium [Synthroid] 100 mcg PO DAILY 30 Days #30 tab lisinopriL [Zestril] 20 mg PO DAILY 30 Days #30 tab metFORMIN HCL [Glucophage] 1,000 mg PO BID Simethicone Chew [Mylicon Chew] 80 mg PO QID PRN PRN Reason: gi upset/gas Ferrous Sulfate [Iron (65 MG Elemental)] 325 mg PO DAILY Paliperidone Palmitate [Invega Trinza] 819 mg IM Q90D Divalproex ER [Depakote ER] 1,000 mg PO HS 30 Days tab traZODone HCL [Desyrel] 50 mg PO HS 30 Days tab Discontinued FLUoxetine HCL [PROzac] 20 mg PO DAILY FLUoxetine HCL [PROzac] 10 mg PO DAILY Nystatin 100,000Unit/gm Cream [Mycostatin Cream] 1 applic TOPICAL BID PRN PRN Reason: Rash Discharge Medication List Chlorthalidone 25 mg PO DAILY 30 Days #30 tablet 11/08/20 [Rx] Glimepiride [Amaryl] 1 mg PO DAILY 30 Days #30 tab 11/08/20 [Rx] Levothyroxine Sodium [Synthroid] 100 mcg PO DAILY 30 Days #30 tab 11/08/20 [Rx] Montelukast [Singulair] 10 mg PO HS 30 Days tab 11/08/20 [Rx] lisinopriL [Zestril] 20 mg PO DAILY 30 Days #30 tab 11/08/20 [Rx] metFORMIN HCL [Glucophage] 1,000 mg PO BID 02/22/21 [History] Ferrous Sulfate [Iron (65 MG Elemental)] 325 mg PO DAILY 09/05/22 [History] Paliperidone Palmitate [Invega Trinza] 819 mg IM Q90D 09/05/22 [History] Simethicone Chew [Mylicon Chew] 80 mg PO QID PRN 09/05/22 [History] Cholecalciferol [Vitamin D3 (125 Mcg = 5000 Iu)] 125 mcg PO DAILY tab 09/10/22 [Rx] Dicyclomine [Bentyl] 10 mg PO TID #0 cap 09/10/22 [Rx] Divalproex ER [Depakote ER] 1,000 mg PO HS 30 Days tab 09/10/22 [Rx] FLUoxetine HCL [PROzac] 40 mg PO DAILY 30 Days cap 09/10/22 [Rx] Nicotine 14Mg/24Hr Patch [Habitrol] 1 patch TRANSDERM DAILY 14 Days patch 09/10/22 [Rx] traZODone HCL [Desyrel] 50 mg PO HS 30 Days tab 09/10/22 [Rx] Follow up Appointment(s)/Referral(s): [facility] [Outside] - 09/13/22 11:00 am (09/13/2022 11:00AM - 12:00PM ELLIS BLANKENSHIP 09/25/2022 9:30AM - 10:00AM LEVON GROSS ) [facility] [Primary Care Provider] - 1-2 days Discharge Disposition: HOME SELF-CARE
== END 2022-09-10 12:28 | disposition home or self-care (01) | DRG 885 ==
LOC: EEVIPCON 14:15 → EC 14:15 → 3MHU 17:36
PROVIDERS: ADMIT Psychiatry & Neurology Psychiatry; ATTEND Psychiatry & Neurology Psychiatry
DX: F31.30 Bipolar disorder, current episode depressed, mild or moderate severity, unspecified (principal); R45.851 Suicidal ideations; E03.9 Hypothyroidism, unspecified; E11.9 Type 2 diabetes mellitus without complications; E78.5 Hyperlipidemia, unspecified; F41.9 Anxiety disorder, unspecified; F79 Unspecified intellectual disabilities; G40.909 Epilepsy, unspecified, not intractable, without status epilepticus; G47.00 Insomnia, unspecified; I10 Essential (primary) hypertension; K90.0 Celiac disease; Z79.84 Long term (current) use of oral hypoglycemic drugs; Z79.890 Hormone replacement therapy; Z79.899 Other long term (current) drug therapy; Z87.891 Personal history of nicotine dependence; Z20.822 Contact with and (suspected) exposure to COVID-19
CPT/HCPCS: 80053; 80061; 80164; 80306; 82075; 82248; 83036; 84443; 85025; 87635; 99285

== ENCOUNTER 2022-10-30 21:01 | Emergency (ER) | payer MEDICARE, MEDICAID ==
[2022-10-30 21:21] VITALS: BP 124/82; PULSE 91; RESP 16; TEMP 97.1
--- NOTE | 2022-10-30 22:45 | ED ---
General Adult HPI - General Chief complaint: Psychiatric Symptoms Stated complaint: Mental Health Time Seen by Provider: 10/30/22 21:14 Source: patient, RN notes reviewed - History of Present Illness Initial comments: 46-year-old male presents to the emergency Department with complaints of suicidal ideations. Patient states while he was at work earlier today he became frustrated and punched himself in the head. Also threatened to stab himself, though he did not inflict any other injury upon himself. Patient states he does see [facility] and has been taking his medications as prescribed. States he sees his therapist for all his regular scheduled appointments. No recent inpatient hospitalizations. Denies fever, chills, headache, dizziness, hearing changes, blurry vision, chest pain, shortness of breath, abdominal pain, nausea, vomiting, diarrhea or dysuria. - Related Data Home Medications Medication Instructions Recorded Confirmed metFORMIN HCL [Glucophage] 1,000 mg PO BID 02/22/21 09/05/22 Ferrous Sulfate [Iron (65 MG 325 mg PO DAILY 09/05/22 09/05/22 Elemental)] Paliperidone Palmitate [Invega 819 mg IM Q90D 09/05/22 09/05/22 Trinza] Simethicone Chew [Mylicon Chew] 80 mg PO QID PRN 09/05/22 09/05/22 Previous Rx's Medication Instructions Recorded Chlorthalidone 25 mg PO DAILY 30 Days #30 tablet 11/08/20 Glimepiride [Amaryl] 1 mg PO DAILY 30 Days #30 tab 11/08/20 Levothyroxine Sodium [Synthroid] 100 mcg PO DAILY 30 Days #30 tab 11/08/20 Montelukast [Singulair] 10 mg PO HS 30 Days tab 11/08/20 lisinopriL [Zestril] 20 mg PO DAILY 30 Days #30 tab 11/08/20 Cholecalciferol [Vitamin D3 (125 125 mcg PO DAILY tab 09/10/22 Mcg = 5000 Iu)] Dicyclomine [Bentyl] 10 mg PO TID #0 cap 09/10/22 Divalproex ER [Depakote ER] 1,000 mg PO HS 30 Days tab 09/10/22 FLUoxetine HCL [PROzac] 40 mg PO DAILY 30 Days cap 09/10/22 Nicotine 14Mg/24Hr Patch [Habitrol] 1 patch TRANSDERM DAILY 14 Days 09/10/22 patch traZODone HCL [Desyrel] 50 mg PO HS 30 Days tab 09/10/22 Allergies Allergy/AdvReac Type Severity Reaction Status Date / Time diphenhydramine Allergy Rash/Hives Verified 10/30/22 21:10 [From Benadryl] diphenhydramine HCl Allergy Rash/Hives Verified 10/30/22 21:10 [From Benadryl] Review of Systems ROS Statement: Those systems with pertinent positive or pertinent negative responses have been documented in the HPI. ROS Other: All systems not noted in ROS Statement are negative. Past Medical History Past Medical History: Diabetes Mellitus, Hypertension, Seizure Disorder, Thyroid Disorder Additional Past Medical History / Comment(s): angina, Hypothyroidism, vitamin D deficiency, dyslipidemia, ALLERGIES, cognitive impairment History of Any Multi-Drug Resistant Organisms: None Reported Past Surgical History: Orthopedic Surgery Additional Past Surgical History / Comment(s): right ankle Past Anesthesia/Blood Transfusion Reactions: No Reported Reaction Past Psychological History: Anxiety, Bipolar, Depression Smoking Status: Former smoker Past Alcohol Use History: None Reported Past Drug Use History: Cocaine - Past Family History Mother Additional Family Medical History / Comment(s): No known medical history. Patient denies any family history of diabetes or hypertension General Exam Limitations: no limitations General appearance: alert, in no apparent distress Head exam: Present: atraumatic, normocephalic, normal inspection, other (No abrasions, contusions, or hematoma.) Eye exam: Present: normal appearance, PERRL, EOMI. Absent: scleral icterus, conjunctival injection, periorbital swelling, periorbital tenderness Neck exam: Present: normal inspection, full ROM. Absent: tenderness, lymphadenopathy Respiratory exam: Present: normal lung sounds bilaterally. Absent: respiratory distress, wheezes, rales, rhonchi, stridor Cardiovascular Exam: Present: regular rate, normal rhythm, normal heart sounds. Absent: systolic murmur, diastolic murmur, rubs, gallop, clicks GI/Abdominal exam: Present: soft, normal bowel sounds. Absent: distended, tenderness, guarding, rebound, rigid Neurological exam: Present: alert, oriented X3, normal gait Psychiatric exam: Present: flat affect Course Vital Signs 10/30/22 21:06 Temperature 97.1 F L Pulse Rate 91 Respiratory 16 Rate Blood Pressure 124/82 O2 Sat by Pulse 94 L Oximetry Medical Decision Making - Medical Decision Making This is a 46-year-old male with a past medical history of mental illness who presents to the emergency department for evaluation by EPS. Patient states he became frustrated and punched himself in the head, then threatened to inflict additional self-harm. There is no evidence of physical injury. Patient has been taking his medications as prescribed and compliant with his therapy. EPS evaluated patient and spoke with guardian. Patient is willing to safety contract therefore will be discharged home to continue medications as prescribed and follow up with his mental health provider. Return parameters were discussed in detail. Reiterated importance of returning to the emergency department with any homicidal or suicidal ideations. Patient verbalizes understanding and agrees with this plan. Attending:Cristina. - Lab Data Lab Results 10/30/22 Range/Units 22:01 Urine Opiates Screen Not Detected (NotDetected) Ur Oxycodone Screen Not Detected (NotDetected) Urine Methadone Screen Not Detected (NotDetected) Ur Propoxyphene Screen Not Detected (NotDetected) Ur Barbiturates Screen Not Detected (NotDetected) U Tricyclic Antidepress Not Detected (NotDetected) Ur Phencyclidine Scrn Not Detected (NotDetected) Ur Amphetamines Screen Not Detected (NotDetected) U Methamphetamines Scrn Not Detected (NotDetected) U Benzodiazepines Scrn Detected H (NotDetected) Urine Cocaine Screen Not Detected (NotDetected) U Marijuana (THC) Screen Not Detected (NotDetected) Disposition Clinical Impression: Chronic mental illness Disposition: HOME SELF-CARE Condition: Stable Instructions (If sedation given, give patient instructions): Suicide Prevention (ED) Additional Instructions: Continue taking your home medications as prescribed. Follow-up with your counselor as scheduled. Return to the emergency department with any new, worsening, or concerning symptoms. Is patient prescribed a controlled substance at d/c from ED?: No Referrals: [facility] [Primary Care Provider] - 1-2 days Time of Disposition: 00:36
[2022-10-30 22:49] LABS: Amphetamine Screen,Urine Not Detected (NotDetected); Barbiturate Screen,Urine Not Detected (NotDetected); Benzodiazepines Screen,Urine Detected (NotDetected); Cocaine Screen,Urine Not Detected (NotDetected); Methadone Screen, Urine Not Detected (NotDetected); Opiate Screen,Urine Not Detected (NotDetected); Oxycodone Screen, Urine Not Detected (NotDetected); Phencyclidine Screen,Urine Not Detected (NotDetected); Tricyclic Antidepressant,Urine Not Detected (NotDetected); Urn Cannabinoid Scrn Not Detected (NotDetected)
== END 2022-10-31 00:51 | disposition home or self-care (01) ==
LOC: EC 21:01
DX: F99 Mental disorder, not otherwise specified (principal); E11.9 Type 2 diabetes mellitus without complications; I10 Essential (primary) hypertension; F41.9 Anxiety disorder, unspecified; F31.9 Bipolar disorder, unspecified; Z87.891 Personal history of nicotine dependence; Z79.899 Other long term (current) drug therapy; Z88.8 Allergy status to other drugs, medicaments and biological substances
CPT/HCPCS: 80306; 82075; 99285

== ENCOUNTER 2022-12-01 21:02 | Inpatient (IN) | payer MEDICARE, MEDICAID ==
--- NOTE | 2022-12-01 21:26 | ED ---
Psych HPI - General Source: patient Mode of arrival: ambulatory <Marisa Covarrubias - Last Filed: 12/01/22 21:26> <Michael Pittman - Last Filed: 12/02/22 03:22> - General Chief Complaint: Psychiatric Symptoms Stated Complaint: Mental health, LE Petition Time Seen by Provider: 12/01/22 21:10 - History of Present Illness Initial Comments: Patient is a 47-year-old male who presents for psychiatric evaluation. Patient is petitioned. He has suicidal ideation with plan to cut his throat. Denies homicidal ideation. Denies visual and auditory hallucinations. Denies alcohol or drug use. Patient has history of bipolar and depression. Does not know the medications he takes. Patient has no other concerns at this time including fev er, chills, headache, shortness of breath, cough, chest pain, abdominal pain, nausea, vomiting, diarrhea, and burning with urination. (Marisa Covarrubias) - Related Data Home Medications Medication Instructions Recorded Confirmed metFORMIN HCL [Glucophage] 1,000 mg PO BID 02/22/21 09/05/22 Ferrous Sulfate [Iron (65 MG 325 mg PO DAILY 09/05/22 09/05/22 Elemental)] Paliperidone Palmitate [Invega 819 mg IM Q90D 09/05/22 09/05/22 Trinza] Simethicone Chew [Mylicon Chew] 80 mg PO QID PRN 09/05/22 09/05/22 Previous Rx's Medication Instructions Recorded Chlorthalidone 25 mg PO DAILY 30 Days #30 tablet 11/08/20 Glimepiride [Amaryl] 1 mg PO DAILY 30 Days #30 tab 11/08/20 Levothyroxine Sodium [Synthroid] 100 mcg PO DAILY 30 Days #30 tab 11/08/20 Montelukast [Singulair] 10 mg PO HS 30 Days tab 11/08/20 lisinopriL [Zestril] 20 mg PO DAILY 30 Days #30 tab 11/08/20 Cholecalciferol [Vitamin D3 (125 125 mcg PO DAILY tab 09/10/22 Mcg = 5000 Iu)] Dicyclomine [Bentyl] 10 mg PO TID #0 cap 09/10/22 Divalproex ER [Depakote ER] 1,000 mg PO HS 30 Days tab 09/10/22 FLUoxetine HCL [PROzac] 40 mg PO DAILY 30 Days cap 09/10/22 Nicotine 14Mg/24Hr Patch [Habitrol] 1 patch TRANSDERM DAILY 14 Days 09/10/22 patch traZODone HCL [Desyrel] 50 mg PO HS 30 Days tab 09/10/22 Allergies Allergy/AdvReac Type Severity Reaction Status Date / Time diphenhydramine Allergy Rash/Hives Verified 12/01/22 21:06 [From Benadryl] diphenhydramine HCl Allergy Rash/Hives Verified 12/01/22 21:06 [From Benadryl] Review of Systems ROS Other: All systems not noted in ROS Statement are negative. <Marisa Covarrubias - Last Filed: 12/01/22 21:26> ROS Other: All systems not noted in ROS Statement are negative. <Michael Pittman - Last Filed: 12/02/22 03:22> ROS Statement: Those systems with pertinent positive or pertinent negative responses have been documented in the HPI. Past Medical History Past Medical History: Diabetes Mellitus, Hypertension, Seizure Disorder, Thyroid Disorder Additional Past Medical History / Comment(s): angina, Hypothyroidism, vitamin D deficiency, dyslipidemia, ALLERGIES, cognitive impairment History of Any Multi-Drug Resistant Organisms: None Reported Past Surgical History: Orthopedic Surgery Additional Past Surgical History / Comment(s): right ankle Past Anesthesia/Blood Transfusion Reactions: No Reported Reaction Past Psychological History: Anxiety, Bipolar, Depression Smoking Status: Former smoker Past Alcohol Use History: None Reported Past Drug Use History: Cocaine - Past Family History Mother Additional Family Medical History / Comment(s): No known medical history. Patient denies any family history of diabetes or hypertension <Marisa Covarrubias - Last Filed: 12/01/22 21:26> General Exam Limitations: no limitations General appearance: alert, in no apparent distress Head exam: Present: atraumatic, normocephalic, normal inspection Respiratory exam: Present: normal lung sounds bilaterally. Absent: respiratory distress, wheezes, rales, rhonchi, stridor Cardiovascular Exam: Present: regular rate, normal rhythm, normal heart sounds. Absent: systolic murmur, diastolic murmur, rubs, gallop, clicks Neurological exam: Present: alert, oriented X3, CN II-XII intact Psychiatric exam: Present: suicidal ideation Skin exam: Present: warm, dry, intact, normal color. Absent: rash <Marisa Covarrubias - Last Filed: 12/01/22 21:26> Course Vital Signs 12/01/22 12/01/22 21:04 23:25 Temperature 98.3 F Pulse Rate 75 80 Respiratory 16 18 Rate Blood Pressure 125/84 124/74 O2 Sat by Pulse 95 99 Oximetry Medical Decision Making <Marisa Covarrubias - Last Filed: 12/01/22 21:26> - Medical Decision Making Was pt. sent in by a medical professional or institution (, F[employer]ENC[employer], [employer] SHELL REPRINTING UNIT OPERATOR, urgent care, hospital, or custodial...) When possible be specific @ -[No] Did you speak to anyone other than the patient for history (EMS, parent, family, police, friend...)? What history was obtained from this source @ -[No] Did you review nursing and triage notes (agree or disagree)? Why? @ -[I reviewed and agree with nursing and triage notes] Were old charts reviewed (outside hosp., previous admission, EMS record, old EKG, old radiological studies, urgent care reports/EKG's, custodial records)? Report findings @ -[No old charts were reviewed] Differential Diagnosis (chest pain, altered mental status, abdominal pain women, abdominal pain men, vaginal bleeding, weakness, fever, dyspnea, syncope, headache, dizziness, GI bleed, back pain, seizure, CVA, palpatations, mental health)? @ -[not applicable] EKG interpreted by me (3pts min.). @ -[As above] X-rays interpreted by me (1pt min.). @ -[None done] CT interpreted by me (1pt min.). @ -[None done] U/S interpreted by me (1pt. min.). @ -[None done] What testing was considered but not performed or refused? (CT, X-rays, U/S, labs)? Why? @ -[None] What meds were considered but not given or refused? Why? @ -[None] Did you discuss the management of the patient with other professionals (jimmy sanchez i.e. FIDENCIO Jiménez, [employer] REPRINTING UNIT OPERATOR, lab, RT, psych nurse, case management social worker, pediatric physical therapy assistant, teacher, sales and service officer, corrections caseworker)? Give summary @ -[No] Was smoking cessation discussed for >3mins.? @ -[No] Was critical care preformed (if so, how long)? @ -[No] Were there social determinants of health that impacted care today? How? (Homelessness, low income, unemployed, alcoholism, drug addiction, transportation, low edu. Level, literacy, decrease access to med. care, nursing home, rehab)? @ -[No] Was there de-escalation of care discussed even if they declined (Discuss DNR or withdrawal of care, Hospice)? DNR status @ -[No] What co-morbidities impacted this encounter? (DM, HTN, Smoking, COPD, CAD, Cancer, CVA, ARF, Chemo, Hep., AIDS, mental health diagnosis, sleep apnea, morbid obesity)? @ -[None] Was patient admitted / discharged? Hospital course, mention meds given and route, prescriptions, significant lab abnormalities, going to OR and other pertinent info. @ -[hospital course] Undiagnosed new problem with uncertain prognosis? @ -[No] Drug Therapy requiring intensive monitoring for toxicity (Heparin, Nitro, Insulin, Cardizem)? @ -[No] Were any procedures done? @ -[No] Diagnosis/symptom? @ -[default] Acute, or Chronic, or Acute on Chronic? @ -[default] Uncomplicated (without systemic symptoms) or Complicated (systemic symptoms)? @ -[default] Side effects of treatment? @ -[No] Exacerbation, Progression, or Severe Exacerbation? @ -[No] Poses a threat to life or bodily function? How? (Chest pain, [place], [place], pneumonia, PE, COPD, DKA, ARF, appy, cholecystitis, CVA, Diverticulitis, Homicidal, Suicidal, threat to staff... and all critical care pts) @ -[No] (Marisa Covarrubias) - Lab Data Lab Results 12/01/22 12/02/22 12/02/22 Range/Units 21:34 01:28 01:28 Urine Color Light Yellow Urine Appearance Clear (Clear) Urine pH 7.0 (5.0-8.0) Ur Specific [place] 1.012 (1.001-1.035) Urine Protein Negative (Negative) Urine Glucose (UA) Negative (Negative) Urine Ketones Negative (Negative) Urine Blood Negative (Negative) Urine Nitrite Negative (Negative) Urine Bilirubin Negative (Negative) Urine Urobilinogen <2.0 (<2.0) mg/dL Ur Leukocyte Esterase Negative (Negative) Urine Opiates Screen Not Detected (NotDetected) Ur Oxycodone Screen Not Detected (NotDetected) Urine Methadone Screen Not Detected (NotDetected) Ur Propoxyphene Screen Not Detected (NotDetected) Ur Barbiturates Screen Not Detected (NotDetected) Valproic Acid 16.7 ug/mL U Tricyclic Antidepress Not Detected (NotDetected) Ur Phencyclidine Scrn Not Detected (NotDetected) Ur Amphetamines Screen Not Detected (NotDetected) U Methamphetamines Scrn Not Detected (NotDetected) U Benzodiazepines Scrn Not Detected (NotDetected) Urine Cocaine Screen Not Detected (NotDetected) U Marijuana (THC) Screen Not Detected (NotDetected) Coronavirus (PCR) Not Detected (Not Detectd) Disposition <Marisa Covarrubias - Last Filed: 12/01/22 21:26> <Michael Pittman - Last Filed: 12/02/22 03:22> Clinical Impression: Mood disorder Disposition: ADMITTED IP TO THIS HOSP Condition: Fair
[2022-12-01 21:39] LABS: Appearance,Urine Clear (Clear); Bilirubin,Urine Negative (Negative); Blood,Urine Negative (Negative); Color,Urine Light Yellow; Glucose,Urine (UA) Negative (Negative); Ketones,Urine Negative (Negative); Leukocyte Esterase,Urine Negative (Negative); Nitrite,Urine Negative (Negative); Protein,Urine Negative (Negative); Specific Gravity,Urine 1.012 (1.001-1.035); Urobilinogen,Urine <2.0 mg/dL (<2.0)
[2022-12-01 21:56] LABS: Amphetamine Screen,Urine Not Detected (NotDetected); Barbiturate Screen,Urine Not Detected (NotDetected); Benzodiazepines Screen,Urine Not Detected (NotDetected); Cocaine Screen,Urine Not Detected (NotDetected); Methadone Screen, Urine Not Detected (NotDetected); Opiate Screen,Urine Not Detected (NotDetected); Oxycodone Screen, Urine Not Detected (NotDetected); Phencyclidine Screen,Urine Not Detected (NotDetected); Tricyclic Antidepressant,Urine Not Detected (NotDetected); Urn Cannabinoid Scrn Not Detected (NotDetected)
[2022-12-02] MEDS ORDERED: MAG HYDROX/AL HYDROX/SIMETH 30 ML CUP PO PRN (02:24)
[2022-12-02] MEDS ORDERED: MAGNESIUM HYDROXIDE 2,400 MG/10 ML CUP PO PRN (02:24)
[2022-12-02] MEDS ORDERED: ACETAMINOPHEN TAB 325 MG TAB PO PRN (02:24)
[2022-12-02] MEDS ORDERED: SIMETHICONE 80 MG CHEWABLE PO PRN (02:28)
[2022-12-02] MEDS ORDERED: haloperidoL 5 MG TAB PO PRN (02:33)
[2022-12-02] MEDS ORDERED: HALOPERIDOL LACTATE 5 MG/ML 1 ML VIAL IM PRN (02:33)
[2022-12-02] MEDS ORDERED: LORazepam 2 MG/ML INJ IM PRN (02:33)
[2022-12-02] MEDS ORDERED: LORazepam 1 MG TAB PO PRN (02:33)
[2022-12-02 08:18] LABS: Glucose,Whole Blood 105 mg/dL (70-110)
[2022-12-02] MEDS: lisinopriL 20 MG TAB PO SCH (08:27)
[2022-12-02] MEDS: FERROUS SULFATE 325 MG TAB PO SCH (08:27)
[2022-12-02] MEDS: LEVOTHYROXINE 100 MCG TAB PO SCH (08:27)
[2022-12-02] MEDS: FLUoxetine HCL 20 MG CAP PO SCH (08:27)
[2022-12-02] MEDS: metFORMIN 500 MG TAB PO SCH ×2 (08:27→20:30)
[2022-12-02] MEDS: CHOLECALCIFEROL 125 MCG (5000 IU) TABLET PO SCH (08:28)
[2022-12-02] MEDS: GLIMEPIRIDE 1 MG TAB PO SCH (08:28)
[2022-12-02] MEDS: CHLORTHALIDONE 25 MG TAB PO SCH (08:28)
[2022-12-02] MEDS ORDERED: NICOTINE 14MG/24HR PATCH TRANSDERM SCH (09:00)
--- NOTE | 2022-12-02 11:49 | P.HP ---
Psychiatric H&P - . H&P Date: 12/02/22 History & Physical: Allergies Allergy/AdvReac Type Severity Reaction Status Date / Time diphenhydramine Allergy Rash/Hives Verified 12/01/22 21:06 [From Benadryl] diphenhydramine HCl Allergy Rash/Hives Verified 12/01/22 21:06 [From Benadryl] Vital Signs Temp 97.1 F L 12/02/22 04:31 Pulse 88 12/02/22 04:31 Resp 18 12/02/22 04:31 BP 120/62 12/02/22 04:31 Pulse Ox 99 12/01/22 23:25 FiO2 Intake & Output 12/01/22 12/02/22 12/02/22 18:59 06:59 18:59 Weight 72.121 kg Laboratory Last Values POC Glucose (mg/dL) 105 mg/dL (70-110) 12/02/22 08:17 POC Glu Manager Hair ID Elida Francisco 12/02/22 08:17 Urine Color Light Yellow 12/01/22 21:34 Urine Appearance Clear (Clear) 12/01/22 21:34 Urine pH 7.0 (5.0-8.0) 12/01/22 21:34 Ur Specific [place] 1.012 (1.001-1.035) 12/01/22 21:34 Urine Protein Negative (Negative) 12/01/22 21:34 Urine Glucose (UA) Negative (Negative) 12/01/22 21:34 Urine Ketones Negative (Negative) 12/01/22 21:34 Urine Blood Negative (Negative) 12/01/22 21:34 Urine Nitrite Negative (Negative) 12/01/22 21:34 Urine Bilirubin Negative (Negative) 12/01/22 21:34 Urine Urobilinogen <2.0 mg/dL (<2.0) 12/01/22 21:34 Ur Leukocyte Esterase Negative (Negative) 12/01/22 21:34 Urine Opiates Screen Not Detected (NotDetected) 12/01/22 21:34 Ur Oxycodone Screen Not Detected (NotDetected) 12/01/22 21:34 Urine Methadone Screen Not Detected (NotDetected) 12/01/22 21:34 Ur Propoxyphene Screen Not Detected (NotDetected) 12/01/22 21:34 Ur Barbiturates Screen Not Detected (NotDetected) 12/01/22 21:34 Valproic Acid 16.7 ug/mL 12/02/22 01:28 U Tricyclic Antidepress Not Detected (NotDetected) 12/01/22 21:34 Ur Phencyclidine Scrn Not Detected (NotDetected) 12/01/22 21:34 Ur Amphetamines Screen Not Detected (NotDetected) 12/01/22 21:34 U Methamphetamines Scrn Not Detected (NotDetected) 12/01/22 21:34 U Benzodiazepines Scrn Not Detected (NotDetected) 12/01/22 21:34 Urine Cocaine Screen Not Detected (NotDetected) 12/01/22 21:34 U Marijuana (THC) Screen Not Detected (NotDetected) 12/01/22 21:34 Coronavirus (PCR) Not Detected (Not Detectd) 12/02/22 01:28 12/02/22 10:43 IDENTIFYING DATA: Patient is a 47-year-old male with intellectual disability and bipolar disorder, currently lives with his caregive and his caregivers . He collects SSI. HPI: Patient is a history of several inpatient psychiatric hospitalizations and currently follows up at [facility]. Patient sees a therapist and also the nurse practitioner at [facility] for his medications. Patient recently received invega trinza 819 mg IM from [facility] on 11/19 and is due for next shot on 02/14/23. Patient presented to the hospital yesterday in the ER was petitioned by the police for suicidal threats and ideations. Patient was admitted involuntarily to the mental health unit. He claims that "the police admitted me here" and states that he had more suicidal thoughts and plans to himself in the head. He claims that he also threatened to slit his throat and attempted to choke himself. He claims that he has been feeling depressed and frustrated lately. He has very limited and poor insight and judgment appears to be impulsive. He was fairly vague and evasive during conversation. He claims that he called 911 himself to come to the hospital. He claims that "people are telling me what to do" and states that the caregivers has not been doing her fair share of chores and he states that she has been nit picking at what he is doing around the house. He is denying any anxiety at this time. Denying any problems with sleep or appetite at this time. Patient denies any current suicidal or homicidal ideations intent or plan. At this time patient denies any auditory or visual hallucinations. Patient denies any flight of ideas racing thoughts and increased in goal directed behavior. Patient admits to using no recreational drugs or cigarettes PAST PSYCHIATRIC HISTORY: Patient states that bipolar disorder and also intellectual disability. Patient is currently on Depakote, Prozac and also recently given Invega Trinza 819 mg IM on 11/19/22 at [facility] by his nurse practitnicola goodman. Patient has been psychiatrically hospitalized several times in the past and the previous admission was in September 2022. He denies any history of suicide attempts PMH: As per ER note ALLERGIES: as per EMR CHEMICAL DEPENDENCY HISTORY: as per HPI FAMILY PSYCHIATRIC/SUBSTANCE USE HISTORY: denies SOCIAL HISTORY: Patient was born and raised in [facility]. He states that he completed high school. He claims that he is currently unemployed and collects [employer]. He stays with his caregive and his in a house. He claims that he went to [facility] once in the past or being rude towards the general pediatrician however cannot remember when. MENTAL STATUS EXAM: General Appearance: Patient appears to be tall, shaved head, stated age is alert, directable, and attempts to cooperate. Patient appears to have fair hygiene and grooming. Behavior: Patient is seated without any agitated behavior. Attempts to cooperate. constricted Speech: Patient's speech is fluent and nonpressured. [place], evasive. Mood/Affect: Patient reports their mood is "a bit better but depressed", affect is congruent and constricted. Suicidality/Homicidality: Patient denies having any homicidal ideation intent or plan. Denies any suicidal ideations intent or plan Perceptions: Patient denies any visual hallucinations and denies any auditory hallucinations Though content/process: Poverty of content. Not endorsing any delusions or paranoia. Logical. [place]. Memory and concentration: AOX3, grossly intact for the purposes of this session. Can spell "WORLD" backwards Judgment and insight: Limited chronically STRENGTHS/WEAKNESSES: strength is that patient is resilient. Weakness is that patient has limited judgment/insight and is impulsive INTELLECT: below average IMPRESSIONS: Bipolar disorder, current episode depressed Intellectual disability PLAN: -Patient is admitted under involuntary status to MHU for stabilization of psychiatric symptoms and safety. Patient has signed adult voluntary form and medication consent and is placed in patient's chart. a second cert will be completed today and faxed to the courts. -Medications : Continue Depakote 1000 mg daily at bedtime for mood stabilization/seizures. continue prozac 40 mg daily for mood/anxiety. Patient received Invega Trinza 819 mg IM last on 11/19/22 through [facility] and is due every 3 months. trazodone 50 mg qhs for insomnia -Ativan and Haldol PRN for agitation/aggression -Patient was informed of the risks, benefits and side effects of the medication and patient verbally consented to taking the medications. Patient signed med consent form and was placed in chart. -Internal Medicine consult to perform medical evaluation and physical. -NRT - not needed as patient does not smoke. -SW on board for discharge planning. Encourage patient to participate in groups to work on coping skills. will await deferral and court date. 12/02/22 11:52
[2022-12-02 12:27] LABS: Glucose,Whole Blood 113 mg/dL (70-110)
[2022-12-02 17:46] LABS: Glucose,Whole Blood 163 mg/dL (70-110)
[2022-12-02] MEDS: DIVALPROEX ER 500 MG TAB.ER.24H PO SCH (20:29)
[2022-12-02 20:30] LABS: Glucose,Whole Blood 141 mg/dL (70-110)
[2022-12-02] MEDS: traZODone HCL 50 MG TAB PO SCH (20:30)
[2022-12-02] MEDS: MONTELUKAST 10 MG TAB PO SCH (20:30)
[2022-12-02] MEDS: DICYCLOMINE 10 MG CAP PO PRN (20:31)
--- NOTE | 2022-12-02 23:38 | P.PN ---
Progress Note - Text Progress Note Date: 12/02/22 patient refused medical evaluation
[2022-12-03 07:46] LABS: Glucose,Whole Blood 106 mg/dL (70-110)
[2022-12-03 08:04] LABS: Basophils # (A) 0.1 k/uL (0-0.2); Basophils % (A) 1 %; Eosinophils # (A) 0.1 k/uL (0-0.7); Eosinophils % (A) 1 %; HCT 45.7 % (39.0-53.0); HGB 14.7 gm/dL (13.0-17.5); Lymphocytes # (A) 2.8 k/uL (1.0-4.8); Lymphocytes % (A) 44 %; MCHC 32.3 g/dL (31.0-37.0); MCV 83.7 fL (80.0-100.0); Mean Platelet Volume 7.5; Monocytes # (A) 0.4 k/uL (0-1.0); Monocytes % (A) 6 %; Neutrophils # (A) 2.9 k/uL (1.3-7.7); Neutrophils % (A) 46 %; Platelet Count 236 k/uL (150-450); RBC 5.46 m/uL (4.30-5.90); RDW 15.2 % (11.5-15.5); WBC 6.3 k/uL (3.8-10.6)
[2022-12-03 08:17] LABS: ALT 46 U/L (4-49); AST 23 U/L (17-59); African American GFR (CKD) >90 (>60 ml/min/1.73 sqM); Alkaline Phosphatase 103 U/L (38-126); Anion Gap 7 mmol/L; Blood Urea Nitrogen 16 mg/dL (9-20); Carbon Dioxide 32 mmol/L (22-30); Chloride 97 mmol/L (98-107); Glucose 104 mg/dL (74-99); Non-African American GFR(CKD) >90 (>60 ml/min/1.73 sqM); Potassium 4.3 mmol/L (3.5-5.1); Sodium 136 mmol/L (137-145); Total Bilirubin 0.4 mg/dL (0.2-1.3); Total Protein 6.1 g/dL (6.3-8.2)
[2022-12-03] MEDS: CHOLECALCIFEROL 125 MCG (5000 IU) TABLET PO SCH (08:20)
[2022-12-03] MEDS: CHLORTHALIDONE 25 MG TAB PO SCH (08:20)
[2022-12-03] MEDS: LEVOTHYROXINE 100 MCG TAB PO SCH (08:20)
[2022-12-03] MEDS: metFORMIN 500 MG TAB PO SCH ×2 (08:20→20:48)
[2022-12-03] MEDS: FERROUS SULFATE 325 MG TAB PO SCH (08:20)
[2022-12-03] MEDS: GLIMEPIRIDE 1 MG TAB PO SCH (08:20)
[2022-12-03] MEDS: FLUoxetine HCL 20 MG CAP PO SCH (08:20)
[2022-12-03] MEDS: lisinopriL 20 MG TAB PO SCH (08:20)
[2022-12-03] MEDS ORDERED: FLUoxetine HCL 20 MG CAP PO STA (10:56)
[2022-12-03 12:48] LABS: Glucose,Whole Blood 111 mg/dL (70-110)
--- NOTE | 2022-12-03 13:18 | P.PN ---
Progress Note - Text Progress Note Date: 12/03/22 Interval History: Patient was seen wandering the hallways and was directable and agreeable to mary solorzano with expert medical writer in the office. Patient continues to have a childlike demeanor today. He appears to be fairly sad and was tearful. He claims that he misses his mother and does not want to be on the psychiatric unit. He continues to have fairly limited insight and judgment. He has been taking his medications. He spoke about increasing his Prozac which she was okay with. He claimed that he has been trying to go to groups, states that he slept fairly last night. He claims to have a fair appetite at this time. At this time patient denies any suicidal or homical ideations, intent or plan. Patient denies any auditory, visual hallucinations and denies any paranoia or delusions. Patient denies any side effects from the medications and has been compliant with meds. Mental Status Exam: General Appearance: Patient appears to be tall, shaved head, stated age is alert, directable, and attempts to cooperate. Patient appears to have fair hygiene and grooming. Behavior: Patient is seated without any agitated behavior. Attempts to cooperate. Tearful today. Speech: Patient's speech is fluent and nonpressured. [place]. Childlike Mood/Affect: Patient reports their mood is "depressed and sad", affect is congruent Suicidality/Homicidality: Patient denies having any homicidal ideation intent or plan. Denies any suicidal ideations intent or plan Perceptions: Patient denies any visual hallucinations and denies any auditory hallucinations Though content/process: Poverty of content. Not endorsing any delusions or paranoia. Logical. [place]. Memory and concentration: AOX3, grossly intact for the purposes of this session Judgment and insight: Limited chronically IMPRESSIONS: Bipolar disorder, current episode depressed Intellectual disability Plan: -Patient continues to meet criteria for inpatient psychiatric admission for symptom stabilization and safety. Patient has not signed adult voluntary form and medication consent and was placed in patient's chart. -Medications: Continue Depakote 1000 mg daily at bedtime for mood stabilization/seizures. increase prozac 60 mg daily for mood/anxiety. Patient received Invega Trinza 819 mg IM last on 11/19/22 through [facility] and is due every 3 months. trazodone 50 mg qhs for insomnia -When necessary Ativan and Haldol for agitation/aggression. -NRT - not needed as patient does not smoke. -SW on board for discharge planning. Encouraged the patient to participate in milieu. Currently awaiting deferral with divorce attorney and court date.
[2022-12-03 17:49] LABS: Glucose,Whole Blood 119 mg/dL (70-110)
[2022-12-03 20:04] LABS: Glucose,Whole Blood 124 mg/dL (70-110)
[2022-12-03] MEDS: traZODone HCL 50 MG TAB PO SCH (20:48)
[2022-12-03] MEDS: MONTELUKAST 10 MG TAB PO SCH (20:48)
[2022-12-03] MEDS: DIVALPROEX ER 500 MG TAB.ER.24H PO SCH (20:48)
[2022-12-03] MEDS: DICYCLOMINE 10 MG CAP PO PRN (20:49)
[2022-12-04 07:50] LABS: Glucose,Whole Blood 104 mg/dL (70-110)
[2022-12-04] MEDS: FERROUS SULFATE 325 MG TAB PO SCH (08:04)
[2022-12-04] MEDS: FLUoxetine HCL 20 MG CAP PO SCH (08:04)
[2022-12-04] MEDS: LEVOTHYROXINE 100 MCG TAB PO SCH (08:04)
[2022-12-04] MEDS: CHOLECALCIFEROL 125 MCG (5000 IU) TABLET PO SCH (08:04)
[2022-12-04] MEDS: GLIMEPIRIDE 1 MG TAB PO SCH (08:04)
[2022-12-04] MEDS: metFORMIN 500 MG TAB PO SCH ×2 (08:04→21:00)
[2022-12-04] MEDS: lisinopriL 20 MG TAB PO SCH (08:04)
[2022-12-04] MEDS: CHLORTHALIDONE 25 MG TAB PO SCH (08:04)
[2022-12-04] MEDS: DICYCLOMINE 10 MG CAP PO PRN ×2 (08:05→21:00)
[2022-12-04 12:47] LABS: Glucose,Whole Blood 98 mg/dL (70-110)
--- NOTE | 2022-12-04 13:41 | P.PN ---
Progress Note - Text Progress Note Date: 12/04/22 Interval History: Patient was seen wandering the hallways and was directable and agreeable to mary solorzano with ad copy writer in the office. Patient was also noted to be in group earlier today. Patient continues to have a childlike demeanor today. States that he is doing a bit better since the Prozac was increased. He claims that his mood and anxiety (improving. He asked more about discharged today and claims that his mother "wants to know when I'm going home". He continues to have fairly limited insight and judgment. He has been taking his medications. He claimed that he has been trying to go to groups, states that he slept fairly last night. He claims to have a fair appetite at this time. At this time patient denies any suicidal or homical ideations, intent or plan. Patient denies any auditory, visual hallucinations and denies any paranoia or delusions. Patient denies any side effects from the medications and has been compliant with meds. Mental Status Exam: General Appearance: Patient appears to be tall, shaved head, stated age is alert, directable, and attempts to cooperate. Patient appears to have fair hygiene and grooming. Behavior: Patient is seated without any agitated behavior. Attempts to cooperate. Speech: Patient's speech is fluent and nonpressured. [place]. Childlike Mood/Affect: Patient reports their mood is "better", affect is congruent Suicidality/Homicidality: Patient denies having any homicidal ideation intent or plan. Denies any suicidal ideations intent or plan Perceptions: Patient denies any visual hallucinations and denies any auditory hallucinations Though content/process: Poverty of content. Not endorsing any delusions or paranoia. Logical. [place]. Memory and concentration: AOX3, grossly intact for the purposes of this session Judgment and insight: Limited chronically IMPRESSIONS: Bipolar disorder, current episode depressed Intellectual disability Plan: -Patient continues to meet criteria for inpatient psychiatric admission for symptom stabilization and safety. Patient has not signed adult voluntary form and medication consent and was placed in patient's chart. -Medications: Continue Depakote 1000 mg daily at bedtime for mood stabilization/seizures. prozac 60 mg daily for mood/anxiety. Patient received Invega Trinza 819 mg IM last on 11/19/22 through [facility] and is due every 3 months. trazodone 50 mg qhs for insomnia -When necessary Ativan and Haldol for agitation/aggression. -NRT - not needed as patient does not smoke. -SW on board for discharge planning. Encouraged the patient to participate in milieu. patient signed deferral with deputy prosecuting attorney. likely discharge home tomorrow.
[2022-12-04 17:37] LABS: Glucose,Whole Blood 97 mg/dL (70-110)
[2022-12-04 19:59] LABS: Glucose,Whole Blood 146 mg/dL (70-110)
[2022-12-04] MEDS: DIVALPROEX ER 500 MG TAB.ER.24H PO SCH (21:00)
[2022-12-04] MEDS: MONTELUKAST 10 MG TAB PO SCH (21:00)
[2022-12-04] MEDS: traZODone HCL 50 MG TAB PO SCH (21:00)
--- NOTE | 2022-12-05 03:25 | P.PN ---
Progress Note - Text Progress Note Date: 12/04/22 patient refused evaluation and wanted to continue sleeping
[2022-12-05 07:16] VITALS: BP 92/55; PULSE 54; RESP 14; TEMP 97.8
[2022-12-05 07:49] LABS: Glucose,Whole Blood 102 mg/dL (70-110)
[2022-12-05] MEDS: FLUoxetine HCL 20 MG CAP PO SCH (08:22)
[2022-12-05] MEDS: metFORMIN 500 MG TAB PO SCH (08:22)
[2022-12-05] MEDS: LEVOTHYROXINE 100 MCG TAB PO SCH (08:22)
[2022-12-05] MEDS: DICYCLOMINE 10 MG CAP PO PRN (08:22)
[2022-12-05] MEDS: FERROUS SULFATE 325 MG TAB PO SCH (08:22)
[2022-12-05] MEDS: lisinopriL 20 MG TAB PO SCH (08:22)
[2022-12-05] MEDS: GLIMEPIRIDE 1 MG TAB PO SCH (09:16)
[2022-12-05] MEDS: CHLORTHALIDONE 25 MG TAB PO SCH (09:16)
[2022-12-05] MEDS: CHOLECALCIFEROL 125 MCG (5000 IU) TABLET PO SCH (09:16)
--- NOTE | 2022-12-05 09:45 | P.DS ---
Providers Date of admission: 12/02/22 02:09 Expected date of discharge: 12/05/22 Attending physician: Milton Kee MD Consults: 12/02/22 02:37 Consult Physician Routine Consulting Provider: [facility] Consult Reason/Comments: H&P Do you want consulting provider notified?: Yes, Notify in am Primary care physician: [facility] - Discharge Diagnosis(es) (1) Bipolar disorder current episode depressed Current Visit: Yes Status: Acute Priority: High (2) Intellectual disability Current Visit: Yes Status: Acute Priority: Medium Hospital Course: Admission HPI: Admission note was completed by marine underwriter "Patient is a 47-year-old male with intellectual disability and bipolar disorder, currently lives with his caregive and his caregivers . He collects SSI. Patient is a history of several inpatient psychiatric hospitalizations and currently follows up at [facility]. Patient sees a therapist and also the nurse practitioner at [facility] for his medications. Patient recently received invega trinza 819 mg IM from [facility] on 11/19 and is due for next shot on 02/14/23. Patient presented to the hospital yesterday in the ER was petitioned by the police for suicidal threats and ideations. Patient was admitted involuntarily to the mental health unit. He claims that "the police admitted me here" and states that he had more suicidal thoughts and plans to himself in the head. He claims that he also threatened to slit his throat and attempted to choke himself. He claims that he has been feeling depressed and frustrated lately. He has very limited and poor insight and judgment appears to be impulsive. He was fairly vague and evasive during conversation. He claims that he called 911 himself to come to the hospital. He claims that "people are telling me what to do" and states that the caregivers has not been doing her fair share of chores and he states that she has been nit picking at what he is doing around the house. He is denying any anxiety at this time. Denying any problems with sleep or appetite at this time. Patient denies any current suicidal or homicidal ideations intent or plan. At this time patient denies any auditory or visual hallucinations. Patient denies any flight of ideas racing thoughts and increased in goal directed behavior. Patient admits to using no recreational drugs or cigarettes" Hospital course: Upon admission to the unit patient was admitted involuntarily on a petition and certificate and a second certificate was completed and faxed with the courts. Patient ended up signing a deferral with the senior trial attorney and agreeing to treatment. Patient got along well with other patients on the unit and followed unit protocol. Patient was compliant with the medications and denied any side effects throughout hospital course. Patient was started on Depakote 1000 mg daily at bedtime for mood stabilization/seizures, Prozac 60 mg daily for mood/anxiety, trazodone 50 mg daily at bedtime for insomnia/mood, patient is receiving Invega Trinza 819 mg IM [id number], last dose given was on 11/19/22. Patient spoke of his stressors and engaged in therapy both group and individual. Patient was also seen by medical team for history and physical exam. Throughout the course of the hospitalization patient gradually improved with regards to mood, anxiety, sleep and returned back to their baseline level of fu nctioning. On the day of discharge patient denied any suicidal or homicidal ideations intent or plan denied any auditory or visual hallucinations. Patient endorsed wanting to live for his health and family. The patient denied any access to guns or weapons. Patient denied any paranoia and did not endorse any delusions. Patient does not have a significant history of substance abuse and was counseled on abstaining from all substances including alcohol and marijuana. Patient was also counseled on the medications and need for regular compliance and was encouraged to follow-up with their outpatient appointment for mental health and also for primary care. Prior to discharge a family meeting will be arranged by social scientist to answer any questions and ensure safety upon discharge. Mental status exam: General Appearance: Patient appears to be bald, stated age is alert, pleasant, and cooperative. Patient is in no acute distress and has improved hygiene and grooming Behavior: Patient is calmly seated without any agitated behavior. pleasant Speech: Patient's speech is fluent and nonpressured. Mood/Affect: Patient reports their mood is "good", affect is congruent and euthymic. Suicidality/Homicidality: Patient denies having any suicidal or homicidal ideation intent or plan. Perceptions: Patient denies any auditory or visual hallucinations. Though content/process: There is no evidence of any delusional thought content and thought process is linear and goal-directed. Memory and concentration: AOX3, grossly intact for the purposes of this session. Can spell "WORLD" backwards correctly. Judgment and insight: chronically limited, however has improved with guarded prognosis Impression: Bipolar disorder, current episode depressed Intellectual disability Plan: -Continue with discharge today as patient has improved and stabilized psychiatrically and is not currently an imminent threat to himself and/or others. Patient will remain at chronically elevated risk for harm to self and/or others due to his chronically limited insight and judgment. -Continue medications: patient is receiving Invega Trinza 819 mg IM [id number], last dose given was on 11/19/22 through [facility]. Depakote 1000 mg daily at bedtime for mood stabilization/seizures, Prozac 60 mg daily or mood/anxiety, trazodone 50 mg daily at bedtime for insomnia/mood. -Patient was counseled on the need for medication compliance and appropriate follow-up at mental health and also primary care for medical issues. Patient verbalized understanding and agreed. -Social work to arrange for and conduct family meeting to ensure safety upon discharge and answer any questions/concerns. Social work also to arrange for patients follow up appointments with [facility] for psychiatric care along with follow up with primary care provider. -Patient counseled on abstaining from recreational drugs and marijuana and alcohol. Was informed/educated on the adverse effects on their physical and mental health. Patient verbally agreed and understood. -Patient was instructed to return to the hospital or seek immediate medical care if their psychiatric or medical symptoms do worsen or reoccur. Allergies Allergy/AdvReac Type Severity Reaction Status Date / Time diphenhydramine Allergy Rash/Hives Verified 12/01/22 21:06 [From Benadryl] diphenhydramine HCl Allergy Rash/Hives Verified 12/01/22 21:06 [From Benadryl] Laboratory Results WBC 6.3 k/uL (3.8-10.6) 12/03/22 07:24 RBC 5.46 m/uL (4.30-5.90) 12/03/22 07:24 Hgb 14.7 gm/dL (13.0-17.5) 12/03/22 07:24 Hct 45.7 % (39.0-53.0) 12/03/22 07:24 MCV 83.7 fL (80.0-100.0) 12/03/22 07:24 MCH 27.0 pg (25.0-35.0) 12/03/22 07:24 MCHC 32.3 g/dL (31.0-37.0) 12/03/22 07:24 RDW 15.2 % (11.5-15.5) 12/03/22 07:24 Plt Count 236 k/uL (150-450) 12/03/22 07:24 MPV 7.5 12/03/22 07:24 Neutrophils % 46 % 12/03/22 07:24 Lymphocytes % 44 % 12/03/22 07:24 Monocytes % 6 % 12/03/22 07:24 Eosinophils % 1 % 12/03/22 07: Basophils % 1 % 12/03/22 07:24 Neutrophils # 2.9 k/uL (1.3-7.7) 12/03/22 07:24 Lymphocytes # 2.8 k/uL (1.0-4.8) 12/03/22 07:24 Monocytes # 0.4 k/uL (0-1.0) 12/03/22 07:24 Eosinophils # 0.1 k/uL (0-0.7) 12/03/22 07:24 Basophils # 0.1 k/uL (0-0.2) 12/03/22 07:24 Sodium 136 mmol/L (137-145) L 12/03/22 07:24 Potassium 4.3 mmol/L (3.5-5.1) 12/03/22 07:24 Chloride 97 mmol/L (98-107) L 12/03/22 07:24 Carbon Dioxide 32 mmol/L (22-30) H 12/03/22 07:24 Anion Gap 7 mmol/L 12/03/22 07:24 BUN 16 mg/dL (9-20) 12/03/22 07:24 Creatinine 0.71 mg/dL (0.66-1.25) 12/03/22 07:24 Est GFR (CKD-EPI)AfAm >90 (>60 ml/min/1.73 sqM) 12/03/22 07:24 Est GFR (CKD-EPI)NonAf >90 (>60 ml/min/1.73 sqM) 12/03/22 07:24 Glucose 104 mg/dL (74-99) H 12/03/22 07:24 POC Glucose (mg/dL) 102 mg/dL (70-110) 12/05/22 07:46 POC Glu Elevator Operator Service ID 12/05/22 07:[address] Glu mg/dL 134 12/03/22 07:24 Hemoglobin A1c 6.3 % (0.0-6.0) H 12/03/22 07:24 Calcium 9.0 mg/dL (8.4-10.2) 12/03/22 07:24 Total Bilirubin 0.4 mg/dL (0.2-1.3) 12/03/22 07:24 AST 23 U/L (17-59) 12/03/22 07:24 ALT 46 U/L (4-49) 12/03/22 07:24 Alkaline Phosphatase 103 U/L (38-126) 12/03/22 07:24 Total Protein 6.1 g/dL (6.3-8.2) L 12/03/22 07:24 Albumin 4.0 g/dL (3.5-5.0) 12/03/22 07:24 TSH 1.050 mIU/L (0.465-4.680) 12/03/22 07:24 Urine Color Light Yellow 12/01/22 21:34 Urine Appearance Clear (Clear) 12/01/22 21:34 Urine pH 7.0 (5.0-8.0) 12/01/22 21:34 Ur Specific [employer] 1.012 (1.001-1.035) 12/01/22 21:34 Urine Protein Negative (Negative) 12/01/22 21:34 Urine Glucose (UA) Negative (Negative) 12/01/22 21:34 Urine Ketones Negative (Negative) 12/01/22 21:34 Urine Blood Negative (Negative) 12/01/22 21:34 Urine Nitrite Negative (Negative) 12/01/22 21:34 Urine Bilirubin Negative (Negative) 12/01/22 21:34 Urine Urobilinogen <2.0 mg/dL (<2.0) 12/01/22 21:34 Ur Leukocyte Esterase Negative (Negative) 12/01/22 21:34 Urine Opiates Screen Not Detected (NotDetected) 12/01/22 21:34 Ur Oxycodone Screen Not Detected (NotDetected) 12/01/22 21:34 Urine Methadone Screen Not Detected (NotDetected) 12/01/22 21:34 Ur Propoxyphene Screen Not Detected (NotDetected) 12/01/22 21:34 Ur Barbiturates Screen Not Detected (NotDetected) 12/01/22 21:34 Valproic Acid 16.7 ug/mL 12/02/22 01:28 U Tricyclic Antidepress Not Detected (NotDetected) 12/01/22 21:34 Ur Phencyclidine Scrn Not Detected (NotDetected) 12/01/22 21:34 Ur Amphetamines Screen Not Detected (NotDetected) 12/01/22 21:34 U Methamphetamines Scrn Not Detected (NotDetected) 12/01/22 21:34 U Benzodiazepines Scrn Not Detected (NotDetected) 12/01/22 21:34 Urine Cocaine Screen Not Detected (NotDetected) 12/01/22 21:34 U Marijuana (THC) Screen Not Detected (NotDetected) 12/01/22 21:34 Coronavirus (PCR) Not Detected (Not Detectd) 12/02/22 01:28 Vital Signs Temp 97.8 F 12/05/22 06:55 Pulse 54 L 12/05/22 06:55 Resp 14 12/05/22 06:55 BP 92/55 12/05/22 06:55 Pulse Ox 93 L 12/03/22 06:36 FiO2 Intake & Output 12/04/22 12/05/22 12/05/22 18:59 06:59 18:59 Weight 72.121 kg Patient Condition at Discharge: Stable Plan - Discharge Summary Discharge Rx Participant: No New Discharge Prescriptions: New FLUoxetine HCL [PROzac] 60 mg PO DAILY 30 Days #90 cap Continue Glimepiride [Amaryl] 1 mg PO DAILY 30 Days #30 tab Chlorthalidone 25 mg PO DAILY 30 Days #30 tablet Montelukast [Singulair] 10 mg PO HS 30 Days tab Levothyroxine Sodium [Synthroid] 100 mcg PO DAILY 30 Days #30 tab lisinopriL [Zestril] 20 mg PO DAILY 30 Days #30 tab metFORMIN HCL [Glucophage] 1,000 mg PO BID Simethicone Chew [Mylicon Chew] 80 mg PO QID PRN PRN Reason: gi upset/gas Ferrous Sulfate [Iron (65 MG Elemental)] 325 mg PO DAILY Cholecalciferol [Vitamin D3 (125 Mcg = 5000 Iu)] 125 mcg PO DAILY tab traZODone HCL [Desyrel] 50 mg PO HS 30 Days #30 tab Paliperidone Palmitate [Invega Trinza] 819 mg IM Q90D Dicyclomine [Bentyl] 10 mg PO TID #0 cap Divalproex ER [Depakote ER] 1,000 mg PO HS 30 Days #60 tab Discontinued Nicotine 14Mg/24Hr Patch [Habitrol] 1 patch TRANSDERM DAILY 14 Days patch FLUoxetine HCL [PROzac] 40 mg PO DAILY 30 Days cap Discharge Medication List Chlorthalidone 25 mg PO DAILY 30 Days #30 tablet 11/08/20 [Rx] Glimepiride [Amaryl] 1 mg PO DAILY 30 Days #30 tab 11/08/20 [Rx] Levothyroxine Sodium [Synthroid] 100 mcg PO DAILY 30 Days #30 tab 11/08/20 [Rx] Montelukast [Singulair] 10 mg PO HS 30 Days tab 11/08/20 [Rx] lisinopriL [Zestril] 20 mg PO DAILY 30 Days #30 tab 11/08/20 [Rx] metFORMIN HCL [Glucophage] 1,000 mg PO BID 02/22/21 [History] Ferrous Sulfate [Iron (65 MG Elemental)] 325 mg PO DAILY 09/05/22 [History] Paliperidone Palmitate [Invega Trinza] 819 mg IM Q90D 09/05/22 [History] Simethicone Chew [Mylicon Chew] 80 mg PO QID PRN 09/05/22 [History] Cholecalciferol [Vitamin D3 (125 Mcg = 5000 Iu)] 125 mcg PO DAILY tab 09/10/22 [Rx] Dicyclomine [Bentyl] 10 mg PO TID #0 cap 09/10/22 [Rx] Divalproex ER [Depakote ER] 1,000 mg PO HS 30 Days #60 tab 12/05/22 [Rx] FLUoxetine HCL [PROzac] 60 mg PO DAILY 30 Days #90 cap 12/05/22 [Rx] traZODone HCL [Desyrel] 50 mg PO HS 30 Days #30 tab 12/05/22 [Rx] Follow up Appointment(s)/Referral(s): [facility] [Outside] - 12/09/22 12:30 pm (12/09/2022 12:30PM - 1:30PM ELL[facility]ANKENSHIP 12/11/2022 2:00PM - 2:30PM LEVON GROSS) [facility] [Primary Care Provider] - 1-2 days Activity/Diet/Wound Care/Special Instructions: Avoid the use of street drugs and alcohol. Take all prescriptions as prescribed. When you are in need of refills on your medications, please contact your medical provider and/or outpatient psychiatrist to have this done. Please go to scheduled outpatient appointment for aftercare treatment. If symptoms return or become worse, call the crisis line at and/or go to the nearest emergency room for evaluation Discharge Disposition: HOME SELF-CARE
[2022-12-05 12:46] LABS: Glucose,Whole Blood 95 mg/dL (70-110)
== END 2022-12-05 15:50 | disposition home or self-care (01) | DRG 885 ==
LOC: EC 21:02 → 3MHU 12-02 02:09
PROVIDERS: ADMIT Psychiatry & Neurology Psychiatry; ATTEND Psychiatry & Neurology Psychiatry
DX: F31.9 Bipolar disorder, unspecified (principal); R45.851 Suicidal ideations; F41.9 Anxiety disorder, unspecified; E78.5 Hyperlipidemia, unspecified; F79 Unspecified intellectual disabilities; E03.9 Hypothyroidism, unspecified; E55.9 Vitamin D deficiency, unspecified; G40.909 Epilepsy, unspecified, not intractable, without status epilepticus; G47.00 Insomnia, unspecified; Z79.890 Hormone replacement therapy; Z79.899 Other long term (current) drug therapy; Z20.822 Contact with and (suspected) exposure to COVID-19; Z28.21 Immunization not carried out because of patient refusal; Z53.29 Procedure and treatment not carried out because of patient's decision for other reasons
CPT/HCPCS: 36415; 80053; 80164; 80306; 81003; 82075; 83036; 84443; 85025; 87635; 99285

== ENCOUNTER 2024-01-27 23:01 | Emergency (ER) | payer MEDICARE, OTHER ==
--- NOTE | 2024-01-27 23:06 | ED ---
General Adult HPI <Lisa Lovett - Last Filed: 01/28/24 03:23> <Daja Joshi - Last Filed: 01/28/24 10:10> - General Stated complaint: mental health Time Seen by Provider: 01/27/24 23:05 - History of Present Illness Initial comments: 48-year-old male with a history of mental illness who presents to the ER today after making suicidal statements. Patient states he is feeling upset because he does not have that many friends he is feeling really sad and lonely he told his mom that he was planning to cut his neck with a knife or tie a concrete block around his foot and jump into the river to drown himself. Patient reports he has a single episode of suicide attempt in 2018 in which he cut himself. No other recent suicide attempts. Patient lives at home with 2 friends and his mother lives in [place]. (Lisa Lovett) - Related Data Previous Rx's Medication Instructions Recorded Cholecalciferol [Vitamin D3 (125 125 mcg PO DAILY tab 01/01/23 Mcg = 5000 Iu)] Dicyclomine [Bentyl] 10 mg PO TID cap 01/01/23 Divalproex ER [Depakote ER] 1,000 mg PO HS tab 01/01/23 FLUoxetine HCL [PROzac] 40 mg PO DAILY 30 Days #30 cap 01/01/23 Ferrous Sulfate [Iron (65 MG 325 mg PO DAILY tab 01/01/23 Elemental)] Glimepiride [Amaryl] 1 mg PO DAILY tab 01/01/23 Levothyroxine Sodium [Synthroid] 100 mcg PO DAILY@0630 tab 01/01/23 Montelukast [Singulair] 10 mg PO HS tab 01/01/23 Paliperidone Palmitate [Invega 819 mg IM Q90D 44 Days #1 each 01/01/23 Trinza] lisinopriL [Zestril] 20 mg PO DAILY tab 01/01/23 metFORMIN HCL [Glucophage] 1,000 mg PO BID tab 01/01/23 traZODone HCL [Desyrel] 50 mg PO HS tab 01/01/23 Allergies Allergy/AdvReac Type Severity Reaction Status Date / Time diphenhydramine Allergy Rash/Hives Verified 12/29/22 21:23 [From Benadryl] diphenhydramine HCl Allergy Rash/Hives Verified 12/29/22 21:23 [From Benadryl] Review of Systems ROS Other: All systems not noted in ROS Statement are negative. <Lisa Lovett - Last Filed: 01/28/24 03:23> ROS Other: All systems not noted in ROS Statement are negative. <Daja Joshi - Last Filed: 01/28/24 10:10> ROS Statement: Those systems with pertinent positive or pertinent negative responses have been documented in the HPI. Past Medical History Past Medical History: Diabetes Mellitus, Hypertension, Seizure Disorder, Thyroid Disorder Additional Past Medical History / Comment(s): angina, Hypothyroidism, vitamin D deficiency, dyslipidemia, ALLERGIES, cognitive impairment History of Any Multi-Drug Resistant Organisms: None Reported Past Surgical History: Orthopedic Surgery Additional Past Surgical History / Comment(s): right ankle Past Anesthesia/Blood Transfusion Reactions: No Reported Reaction Past Psychological History: Anxiety, Bipolar, Depression Smoking Status: Former smoker Past Alcohol Use History: None Reported Past Drug Use History: Cocaine - Past Family History Mother Additional Family Medical History / Comment(s): No known medical history. Mandi ent denies any family history of diabetes or hypertension <Lisa Lovett - Last Filed: 01/28/24 03:23> General Exam <Lisa Lovett - Last Filed: 01/28/24 03:23> - General Exam Comments Initial Comments: Physical Exam GENERAL: Patient is well-developed and well-nourished. Patient is nontoxic and well-hydrated and is in no distress. HENT: Normocephalic, Atraumatic. EYES: PERRL, EOMI PULMONARY: Unlabored respirations. CARDIOVASCULAR: RRR Warm and well perfused extremities ABDOMEN: Non-distended SKIN: No rashes or bruising : Deferred NEUROLOGIC: Alert and oriented Normal speech Normal gait MUSCULOSKELETAL: Moving all extremities with no apparent injury PSYCHIATRIC: Depressed (Lisa Lovett) Course Vital Signs 01/27/24 01/28/24 23:08 08:12 Temperature 98.2 F 98 F Pulse Rate 72 58 L Respiratory 18 18 Rate Blood Pressure 121/74 115/70 O2 Sat by Pulse 96 98 Oximetry Medical Decision Making - Lab Data Result diagrams: 01/28/24 00:42 01/28/24 00:42 <LovettLisa hearn Wendy - Last Filed: 01/28/24 03:23> - Lab Data Result diagrams: 01/28/24 00:42 01/28/24 00:42 <Daja Joshi Mel - Last Filed: 01/28/24 10:10> - Medical Decision Making Was pt. sent in by a medical professional or institution (, PA, SOIL FERTILITY SPECIALIST, urgent care, hospital, or skilled nursing...) When possible be specific @ -No Did you speak to anyone other than the patient for history (EMS, parent, family, police, friend...)? What history was obtained from this source @ -No Did you review nursing and triage notes (agree or disagree)? Why? @ -I reviewed and agree with nursing and triage notes Were old charts reviewed (outside hosp., previous admission, EMS record, old EKG, old radiological studies, urgent care reports/EKG's, skilled nursing records)? Report findings @ -Previous visits were reviewed Differential Diagnosis (chest pain, altered mental status, abdominal pain women, abdominal pain men, vaginal bleeding, weakness, fever, dyspnea, syncope, headache, dizziness, GI bleed, back pain, seizure, CVA, palpatations, mental health)? @ -Differential Mental Health Depression, anxiety, bipolar, psychosis, schizophrenia, borderline personality, situational depression, adjustment disorder, behavioral disorder, brain tumor, malingering, substance abuse, encephalopathy, medication reaction, dementia, hypothyroidism, degenerative neurologic disorder, lupus.... This is not meant to be all-inclusive list EKG interpreted by me (3pts min.). @ -As above X-rays interpreted by me (1pt min.). @ -None done CT interpreted by me (1pt min.). @ -None done U/S interpreted by me (1pt. min.). @ -None done What testing was considered but not performed or refused? (CT, X-rays, U/S, labs)? Why? @ -None What meds were considered but not given or refused? Why? @ -None Did you discuss the management of the patient with other professionals (professionals i.e. , PA, SOIL FERTILITY SPECIALIST, lab, RT, psych nurse, dialysis social worker, drapery hemmer automatic, teacher, motor equipment commanding officer, watch caser)? Give summary @ -No Was smoking cessation discussed for >3mins.? @ -No Was critical care preformed (if so, how long)? @ -No Were there social determinants of health that impacted care today? How? (Homelessness, low income, unemployed, alcoholism, drug addiction, transportation, low edu. Level, literacy, decrease access to med. care, correction, rehab)? @ -No Was there de-escalation of care discussed even if they declined (Discuss DNR or withdrawal of care, Hospice)? DNR status @ -No What co-morbidities impacted this encounter? (DM, HTN, Smoking, COPD, CAD, Cancer, CVA, ARF, Chemo, Hep., AIDS, mental health diagnosis, sleep apnea, morbid obesity)? @ -None Was patient admitted / discharged? Hospital course, mention meds given and route, prescriptions, significant lab abnormalities, going to OR and other pertinent info. @ -Patient was seen and evaluated patient was cooperative and admitted to making suicidal statements. Patient is medically cleared for EPS and is pending evaluation at signout to the daytime doc. (Lisa Lovett) Was patient admitted / discharged? Hospital course, mention meds given and route, prescriptions, significant lab abnormalities, going to OR and other pertinent info. @ -Patient was evaluated by EPS and medically clear to be discharged home Undiagnosed new problem with uncertain prognosis? @ -No Drug Therapy requiring intensive monitoring for toxicity (Heparin, Nitro, Insulin, Cardizem)? @ -No Were any procedures done? @ -No Diagnosis/symptom? @ -Acute depression Acute, or Chronic, or Acute on Chronic? @ -Acute Uncomplicated (without systemic symptoms) or Complicated (systemic symptoms)? @ -Complicated Side effects of treatment? @ -No Exacerbation, Progression, or Severe Exacerbation? @ -No Poses a threat to life or bodily function? How? (Chest pain, [place], [place], pneumonia, PE, COPD, DKA, ARF, appy, cholecystitis, CVA, Diverticulitis, Homicidal, Suicidal, threat to staff... and all critical care pts) @ -No (Daja Joshi) - Lab Data Lab Results 01/28/24 01/28/24 01/28/24 Range/Units 00:42 00:42 00:42 WBC 7.7 (3.8-10.6) k/uL RBC 4.93 (4.30-5.90) m/uL Hgb 14.6 (13.0-17.5) gm/dL Hct 42.6 (39.0-53.0) % MCV 86.3 (80.0-100.0) fL MCH 29.6 (25.0-35.0) pg MCHC 34.2 (31.0-37.0) g/dL RDW 14.9 (11.5-15.5) % Plt Count 249 (150-450) k/uL MPV 7.7 Neutrophils % 50 % Lymphocytes % 40 % Monocytes % 6 % Eosinophils % 2 % Basophils % 1 % Neutrophils # 3.9 (1.3-7.7) k/uL Lymphocytes # 3.1 (1.0-4.8) k/uL Monocytes # 0.4 (0-1.0) k/uL Eosinophils # 0.1 (0-0.7) k/uL Basophils # 0.1 (0-0.2) k/uL Sodium 136 L (137-145) mmol/L Potassium 4.1 (3.5-5.1) mmol/L Chloride 103 (98-107) mmol/L Carbon Dioxide 24 (22-30) mmol/L Anion Gap 9 mmol/L BUN 13 (9-20) mg/dL Creatinine 0.66 (0.66-1.25) mg/dL Est GFR (CKD-EPI)AfAm >90 (>60 ml/min/1.73 sqM) Est GFR (CKD-EPI)NonAf >90 (>60 ml/min/1.73 sqM) Glucose 124 H (74-99) mg/dL Calcium 8.4 (8.4-10.2) mg/dL Total Bilirubin 0.3 (0.2-1.3) mg/dL AST 30 (17-59) U/L ALT 48 (4-49) U/L Alkaline Phosphatase 109 (38-126) U/L Total Protein 5.8 L (6.3-8.2) g/dL Albumin 3.6 (3.5-5.0) g/dL Salicylates <1.0 mg/dL Urine Opiates Screen Not Detected (NotDetected) Ur Oxycodone Screen Not Detected (NotDetected) Urine Methadone Screen Not Detected (NotDetected) Acetaminophen <10.0 ug/mL Ur Barbiturates Screen Not Detected (NotDetected) Valproic Acid 20.9 ug/mL U Tricyclic Antidepress Not Detected (NotDetected) Ur Phencyclidine Scrn Not Detected (NotDetected) Ur Amphetamines Screen Not Detected (NotDetected) U Methamphetamines Scrn Not Detected (NotDetected) U Benzodiazepines Scrn Detected H (NotDetected) Urine Cocaine Screen Not Detected (NotDetected) U Marijuana (THC) Screen Not Detected (NotDetected) Serum Alcohol <10 mg/dL Disposition <Lisa Lovett P - Last Filed: 01/28/24 03:23> Is patient prescribed a controlled substance at d/c from ED?: No Time of Disposition: 10:07 <Daja Joshi - Last Filed: 01/28/24 10:10> Clinical Impression: Depression Disposition: HOME SELF-CARE Condition: Stable Instructions (If sedation given, give patient instructions): Depression (ED) Referrals: None,Stated [Primary Care Provider] - 1-2 days
[2024-01-27 23:32] VITALS: RESP 18
[2024-01-28 00:48] LABS: Basophils # (A) 0.1 k/uL (0-0.2); Basophils % (A) 1 %; Eosinophils # (A) 0.1 k/uL (0-0.7); Eosinophils % (A) 2 %; HCT 42.6 % (39.0-53.0); HGB 14.6 gm/dL (13.0-17.5); Lymphocytes # (A) 3.1 k/uL (1.0-4.8); Lymphocytes % (A) 40 %; MCH 29.6 pg (25.0-35.0); MCHC 34.2 g/dL (31.0-37.0); MCV 86.3 fL (80.0-100.0); Mean Platelet Volume 7.7; Monocytes # (A) 0.4 k/uL (0-1.0); Monocytes % (A) 6 %; Neutrophils # (A) 3.9 k/uL (1.3-7.7); Neutrophils % (A) 50 %; Platelet Count 249 k/uL (150-450); RBC 4.93 m/uL (4.30-5.90); RDW 14.9 % (11.5-15.5); WBC 7.7 k/uL (3.8-10.6)
[2024-01-28 01:00] LABS: ALT 48 U/L (4-49); AST 30 U/L (17-59); Acetaminophen <10.0 ug/mL; African American GFR (CKD) >90 (>60 ml/min/1.73 sqM); Albumin 3.6 g/dL (3.5-5.0); Alcohol <10 mg/dL; Alkaline Phosphatase 109 U/L (38-126); Anion Gap 9 mmol/L; Blood Urea Nitrogen 13 mg/dL (9-20); Calcium 8.4 mg/dL (8.4-10.2); Carbon Dioxide 24 mmol/L (22-30); Chloride 103 mmol/L (98-107); Glucose 124 mg/dL (74-99); Non-African American GFR(CKD) >90 (>60 ml/min/1.73 sqM); Potassium 4.1 mmol/L (3.5-5.1); Salicylate <1.0 mg/dL; Sodium 136 mmol/L (137-145); Total Bilirubin 0.3 mg/dL (0.2-1.3); Total Protein 5.8 g/dL (6.3-8.2)
[2024-01-28 01:01] LABS: Amphetamine Screen,Urine Not Detected (NotDetected); Barbiturate Screen,Urine Not Detected (NotDetected); Benzodiazepines Screen,Urine Detected (NotDetected); Cocaine Screen,Urine Not Detected (NotDetected); Methadone Screen, Urine Not Detected (NotDetected); Opiate Screen,Urine Not Detected (NotDetected); Oxycodone Screen, Urine Not Detected (NotDetected); Phencyclidine Screen,Urine Not Detected (NotDetected); Tricyclic Antidepressant,Urine Not Detected (NotDetected); Urn Cannabinoid Scrn Not Detected (NotDetected)
[2024-01-28 01:06] LABS: Valproic Acid (Depakene) 20.9 ug/mL
[2024-01-28 11:01] VITALS: BP 152/81; PULSE 71; TEMP 97.1
== END 2024-01-28 10:33 | disposition home or self-care (01) ==
LOC: EC 23:01
DX: F32.A Depression, unspecified (principal); F14.90 Cocaine use, unspecified, uncomplicated; Z87.891 Personal history of nicotine dependence; Z88.8 Allergy status to other drugs, medicaments and biological substances
CPT/HCPCS: 82075; 36415; 80164; 80053; 85025; 80306; 80143; 80179; 99285; G0480; 80320

== ENCOUNTER 2024-01-31 14:48 | Emergency (ER) | payer MEDICARE, OTHER ==
[2024-01-31 15:39] VITALS: RESP 18; TEMP 98.1
[2024-01-31] MEDS: OXYMETAZOLINE 0.05% NASL SPRAY 1 SPRAY BOTTLE NASAL STA (15:52)
--- NOTE | 2024-01-31 16:43 | ED ---
General Adult HPI - General Chief complaint: ENT Stated complaint: bloody nose Time Seen by Provider: 01/31/24 15:31 Source: patient, RN notes reviewed, old records reviewed Mode of arrival: ambulatory Limitations: altered mental status - History of Present Illness Initial comments: Patient is a 48-year-old male who presents emergency department complaining of nosebleeds. Patient has had nosebleeds intermittently over the last 2 days. Presents for evaluation. States that when he gets a nosebleed he more or less just waits for it to stop bleeding. Does not hold pressure. Does not use any sort of packing. Currently has no nosebleed. Is not on blood thinners. Has no other acute complaints at this time. - Related Data Previous Rx's Medication Instructions Recorded Cholecalciferol [Vitamin D3 (125 125 mcg PO DAILY tab 01/01/23 Mcg = 5000 Iu)] Dicyclomine [Bentyl] 10 mg PO TID cap 01/01/23 Divalproex ER [Depakote ER] 1,000 mg PO HS tab 01/01/23 FLUoxetine HCL [PROzac] 40 mg PO DAILY 30 Days #30 cap 01/01/23 Ferrous Sulfate [Iron (65 MG 325 mg PO DAILY tab 01/01/23 Elemental)] Glimepiride [Amaryl] 1 mg PO DAILY tab 01/01/23 Levothyroxine Sodium [Synthroid] 100 mcg PO DAILY@0630 tab 01/01/23 Montelukast [Singulair] 10 mg PO HS tab 01/01/23 Paliperidone Palmitate [Invega 819 mg IM Q90D 44 Days #1 each 01/01/23 Trinza] lisinopriL [Zestril] 20 mg PO DAILY tab 01/01/23 metFORMIN HCL [Glucophage] 1,000 mg PO BID tab 01/01/23 traZODone HCL [Desyrel] 50 mg PO HS tab 01/01/23 Sodium Chloride [Saline Mist] 1 spray EA NOSTRIL TID #45 ml 01/31/24 Allergies Allergy/AdvReac Type Severity Reaction Status Date / Time diphenhydramine Allergy Rash/Hives Verified 01/31/24 15:17 [From Benadryl] diphenhydramine HCl Allergy Rash/Hives Verified 01/31/24 15:17 [From Benadryl] Review of Systems ROS Statement: Those systems with pertinent positive or pertinent negative responses have been documented in the HPI. Review of Systems: CONST: Denies fever EYES: Denies blurry vision ENT: Endorses resolved nosebleed C/V: Denies Chest pain RESP: Denies shortness of breath GI: Denies abdominal pain : Denies dysuria SKIN: Denies rash. MSK: Denies joint pain. NEURO: Denies headache ROS Other: All systems not noted in ROS Statement are negative. Past Medical History Past Medical History: Diabetes Mellitus, Hypertension, Seizure Disorder, Thyroid Disorder Additional Past Medical History / Comment(s): angina, Hypothyroidism, vitamin D deficiency, dyslipidemia, ALLERGIES, cognitive impairment History of Any Multi-Drug Resistant Organisms: None Reported Past Surgical History: Orthopedic Surgery Additional Past Surgical History / Comment(s): right ankle Past Anesthesia/Blood Transfusion Reactions: No Reported Reaction Past Psychological History: Anxiety, Bipolar, Depression Smoking Status: Former smoker Past Alcohol Use History: None Reported Past Drug Use History: Cocaine - Past Family History Mother Additional Family Medical History / Comment(s): No known medical history. Patient denies any family history of diabetes or hypertension General Exam - General Exam Comments Initial Comments: General: Appears in no acute distress. HEAD: Normal with no signs of head trauma. EYES: EOMI ENT: Hearing grossly intact, normal oropharynx.. No active nosebleed. No gross blood in the posterior oropharynx. RESPIRATORY: No respiratory distress C/V: regular rate and rhythm ABD: Nondistended EXT: No obvious deformity SKIN: No rashes or lesions observed on exposed skin. NEURO: Alert and oriented x 4. Limitations: altered mental status Course Vital Signs 01/31/24 01/31/24 15:15 16:45 Temperature 98.1 F Pulse Rate 90 68 Respiratory 18 18 Rate Blood Pressure 144/85 102/68 O2 Sat by Pulse 96 97 Oximetry Medical Decision Making - Medical Decision Making Was pt. sent in by a medical professional or institution (, PA, LUMBER STRAIGHTENED, urgent care, hospital, or care home...) When possible be specific @ -No Did you speak to anyone other than the patient for history (EMS, parent, family, police, friend...)? What history was obtained from this source @ -No Did you review nursing and triage notes (agree or disagree)? Why? @ -I reviewed and agree with nursing and triage notes Were old charts reviewed (outside hosp., previous admission, EMS record, old EKG, old radiological studies, urgent care reports/EKG's, care home records)? Report findings @ -No old charts were reviewed Differential Diagnosis (chest pain, altered mental status, abdominal pain women, abdominal pain men, vaginal bleeding, weakness, fever, dyspnea, syncope, headache, dizziness, GI bleed, back pain, seizure, CVA, palpatations, mental health, musculoskeletal)? @ -Nosebleed, nose trauma. This list is not all inclusive. EKG interpreted by me (3pts min.). @ -None done X-rays interpreted by me (1pt min.). @ -None done CT interpreted by me (1pt min.). @ -None done U/S interpreted by me (1pt. min.). @ -None done What testing was considered but not performed or refused? (CT, X-rays, U/S, labs)? Why? @ -None What meds were considered but not given or refused? Why? @ -None Did you discuss the management of the patient with other professionals (professionals i.e. , PA, LUMBER STRAIGHTENED, lab, RT, psych nurse, social media assistant, schedule manager, teacher, chief information security officer, patient case manager)? Give summary @ -No Was smoking cessation discussed for >3mins.? @ -No Was critical care preformed (if so, how long)? @ -No Were there social determinants of health that impacted care today? How? (Homelessness, low income, unemployed, alcoholism, drug addiction, transp ortation, low edu. Level, literacy, decrease access to med. care, custodial, rehab)? @ -No Was there de-escalation of care discussed even if they declined (Discuss DNR or withdrawal of care, Hospice)? DNR status @ -No What co-morbidities impacted this encounter? (DM, HTN, Smoking, COPD, CAD, Cancer, CVA, ARF, Chemo, Hep., AIDS, mental health diagnosis, sleep apnea, morbid obesity)? @ -None Was patient admitted / discharged? Hospital course, mention meds given and route, prescriptions, significant lab abnormalities, going to OR and other pertinent info. @ -Patient presents with epistaxis. Currently no active epistaxis. I did have him blow his nose and administered Afrin in both nares. We observed him for period of time in the ER. I did discuss with him proper management of nosebleeds at home including packing, holding pressure and he will be sent home with a nasal clamp. He expressed understanding. Vital signs are within acceptable limits. No nosebleed here in the department. He would like to go home which I believe is reasonable. I will provide the patient with a prescription for saline nasal spray. I instructed the patient to follow up with their PCP in the next 1-3 days.. I explained that the patient should return to the emergency department if they experience any worsening symptoms. Strict return precautions were discussed with the patient. The patient expressed understanding of these instructions. I answered all questions that the patient had. The patient was discharged home in good condition with their prescriptions and follow up information. Undiagnosed new problem with uncertain prognosis? @ -No Drug Therapy requiring intensive monitoring for toxicity (Heparin, Nitro, Insulin, Cardizem)? @ -No Were any procedures done? @ -No Diagnosis/symptom? @ -Epistaxis Acute, or Chronic, or Acute on Chronic? @ -Acute Uncomplicated (without systemic symptoms) or Complicated (systemic symptoms)? @ -Uncomplicated Side effects of treatment? @ -No Exacerbation, Progression, or Severe Exacerbation? @ -No Poses a threat to life or bodily function? How? (Chest pain, [place], [place], pneumonia, PE, COPD, DKA, ARF, appy, cholecystitis, CVA, Diverticulitis, Homicidal, S uicidal, threat to staff... and all critical care pts) @ -No Disposition Clinical Impression: Epistaxis Disposition: HOME SELF-CARE Condition: Good Instructions (If sedation given, give patient instructions): Nosebleed (ED) Prescriptions: Sodium Chloride [Saline Mist] 1 spray EA NOSTRIL TID #45 ml Is patient prescribed a controlled substance at d/c from ED?: No Referrals: [facility] [Primary Care Provider] - 1-2 days Time of Disposition: 16:42
[2024-01-31 17:17] VITALS: BP 102/68; PULSE 68
== END 2024-01-31 16:50 | disposition home or self-care (01) ==
LOC: EC 14:48
DX: R04.0 Epistaxis (principal); F14.90 Cocaine use, unspecified, uncomplicated; Z87.891 Personal history of nicotine dependence; Z88.8 Allergy status to other drugs, medicaments and biological substances
CPT/HCPCS: 99283

== ENCOUNTER 2024-04-17 20:04 | Emergency (ER) | payer MEDICARE, OTHER ==
[2024-04-17 20:12] VITALS: TEMP 98.1
[2024-04-17 20:31] LABS: Glucose,Whole Blood 159 mg/dL (70-110)
--- NOTE | 2024-04-17 21:45 | ED ---
General Adult HPI - General Source: patient, RN notes reviewed, old records reviewed Mode of arrival: ambulatory Limitations: no limitations <Amadou Denton - Last Filed: 04/18/24 16:45> <Daja Joshi - Last Filed: 04/18/24 22:29> - General Chief complaint: Psychiatric Symptoms Stated complaint: Petition Time Seen by Provider: 04/17/24 20:23 - History of Present Illness Initial comments: Patient is a 48-year-old male who presents emergency department suicidal ideations. Has a psychiatric history as well as seizure diabetic history. States he has been noncompliant with his Depakote. Endorses suicidal ideation as well as recent threats by holding a knife to his throat. Denies any attempts. Denies any homicidal ideations, intents, plans. Denies any hallucinations. Has no other acute complaints at this time. Presents for psychiatric evaluation. Called police. Police petitioned the patient. (Amadou Denton) - Related Data Previous Rx's Medication Instructions Recorded Cholecalciferol [Vitamin D3 (125 125 mcg PO DAILY tab 01/01/23 Mcg = 5000 Iu)] Dicyclomine [Bentyl] 10 mg PO TID cap 01/01/23 Divalproex ER [Depakote ER] 1,000 mg PO HS tab 01/01/23 FLUoxetine HCL [PROzac] 40 mg PO DAILY 30 Days #30 cap 01/01/23 Ferrous Sulfate [Iron (65 MG 325 mg PO DAILY tab 01/01/23 Elemental)] Glimepiride [Amaryl] 1 mg PO DAILY tab 01/01/23 Levothyroxine Sodium [Synthroid] 100 mcg PO DAILY@0630 tab 01/01/23 Montelukast [Singulair] 10 mg PO HS tab 01/01/23 Paliperidone Palmitate [Invega 819 mg IM Q90D 44 Days #1 each 01/01/23 Trinza] lisinopriL [Zestril] 20 mg PO DAILY tab 01/01/23 metFORMIN HCL [Glucophage] 1,000 mg PO BID tab 01/01/23 traZODone HCL [Desyrel] 50 mg PO HS tab 01/01/23 Sodium Chloride [Saline Mist] 1 spray EA NOSTRIL TID #45 ml 01/31/24 Allergies Allergy/AdvReac Type Severity Reaction Status Date / Time diphenhydramine Allergy Rash/Hives Verified 04/17/24 20:13 [From Benadryl] diphenhydramine HCl Allergy Rash/Hives Verified 04/17/24 20:13 [From Benadryl] Review of Systems ROS Other: All systems not noted in ROS Statement are negative. <Amadou Denton - Last Filed: 04/18/24 16:45> ROS Other: All systems not noted in ROS Statement are negative. <AdiDaja Mel - Last Filed: 04/18/24 22:29> ROS Statement: Those systems with pertinent positive or pertinent negative responses have been documented in the HPI. Review of Systems: CONST: Denies fever EYES: Denies blurry vision ENT: Denies nasal congestion C/V: Denies Chest pain RESP: Denies shortness of breath GI: Denies abdominal pain : Denies dysuria SKIN: Denies rash. MSK: Denies joint pain. NEURO: Denies headache (Amadou Denton) Past Medical History Past Medical History: Diabetes Mellitus, Hypertension, Seizure Disorder, Thyroid Disorder Additional Past Medical History / Comment(s): angina, Hypothyroidism, vitamin D deficiency, dyslipidemia, ALLERGIES, cognitive impairment History of Any Multi-Drug Resistant Organisms: None Reported Past Surgical History: Orthopedic Surgery Additional Past Surgical History / Comment(s): right ankle Past Anesthesia/Blood Transfusion Reactions: No Reported Reaction Past Psychological History: Anxiety, Bipolar, Depression Smoking Status: Former smoker Past Alcohol Use History: None Reported Past Drug Use History: Cocaine - Past Family History Mother Additional Family Medical History / Comment(s): No known medical history. Patient denies any family history of diabetes or hypertension <Amadou Denton - Last Filed: 04/18/24 16:45> General Exam Limitations: no limitations <Amadou Denton - Last Filed: 04/18/24 16:45> - General Exam Comments Initial Comments: General: Appears in no acute distress. HEAD: Normal with no signs of head trauma. EYES: EOMI. ENT: Hearing grossly intact. RESPIRATORY: No respiratory distress. C/V: Regular rate and rhythm. ABD: Abdomen is nondistended. EXT: No obvious deformity. SKIN: No rashes or lesions observed on exposed skin. NEURO: Alert and oriented. (Amadou Denton) Course Vital Signs 04/17/24 04/18/24 20:08 01:24 Temperature 98.1 F Pulse Rate 90 68 Respiratory 20 17 Rate Blood Pressure 155/83 143/84 O2 Sat by Pulse 99 97 Oximetry Medical Decision Making <Mathieu Dentonrey - Last Filed: 04/18/24 16:45> <Daja Joshi - Last Filed: 04/18/24 22:29> - Medical Decision Making Was pt. sent in by a medical professional or institution (, PA, PLATE STACKER, urgent care, hospital, or care home...) When possible be specific @ -No Did you speak to anyone other than the patient for history (EMS, parent, family, police, friend...)? What history was obtained from this source @ -No Did you review nursing and triage notes (agree or disagree)? Why? @ -I reviewed and agree with nursing and triage notes Were old charts reviewed (outside hosp., previous admission, EMS record, old EKG, old radiological studies, urgent care reports/EKG's, care home records)? Report findings @ -No old charts were reviewed Differential Diagnosis (chest pain, altered mental status, abdominal pain women, abdominal pain men, vaginal bleeding, weakness, fever, dyspnea, syncope, headache, dizziness, GI bleed, back pain, seizure, CVA, palpatations, mental health, musculoskeletal)? @ -Differential Mental Health Depression, anxiety, bipolar, psychosis, schizophrenia, borderline personality, situational depression, adjustment disorder, behavioral disorder, brain tumor, malingering, substance abuse, encephalopathy, medication reaction, dementia, hypothyroidism, degenerative neurologic disorder, lupus.... This is not meant to be all-inclusive list EKG interpreted by me (3pts min.). @ -None done X-rays interpreted by me (1pt min.). @ -None done CT interpreted by me (1pt min.). @ -None done U/S interpreted by me (1pt. min.). @ -None done What testing was considered but not performed or refused? (CT, X-rays, U/S, labs)? Why? @ -None What meds were considered but not given or refused? Why? @ -None Did you discuss the management of the patient with other professionals (professionals i.e. , PA, PLATE STACKER, lab, RT, psych nurse, social media developer, steel rule die maker apprentice, teacher, environmental health officer, home health care case manager)? Give summary @ -EPS notified of the consult. Was smoking cessation discussed for >3mins.? @ -No Was critical care preformed (if so, how long)? @ -No Were there social determinants of health that impacted care today? How? (Homelessness, low income, unemployed, alcoholism, drug addiction, transportation, low edu. Level, literacy, decrease access to med. care, senior living, rehab)? @ -No Was there de-escalation of care discussed even if they declined (Discuss DNR or withdrawal of care, Hospice)? DNR status @ -No What co-morbidities impacted this encounter? (DM, HTN, Smoking, COPD, CAD, Cancer, CVA, ARF, Chemo, Hep., AIDS, mental health diagnosis, sleep apnea, morbi d obesity)? @ -None Was patient admitted / discharged? Hospital course, mention meds given and route, prescriptions, significant lab abnormalities, going to OR and other pertinent info. @ -Patient presents complaining of suicidal ideations. BAT is 0. UDS is pending. Accu-Chek within normal limits. Patient be given a dose of his home Depakote as he did not take it last night and will be held in the emergency department as he is petition for psychiatric evaluation. Vital signs within acceptable limits. Patient in agreement this plan. Suicide precautions ordered. Sitter ordered. At this time patient is medically cleared for evaluation by psychiatry. Disposition pending psychiatric evaluation. EPS notified of the consult. Undiagnosed new problem with uncertain prognosis? @ -No Drug Therapy requiring intensive monitoring for toxicity (Heparin, Nitro, Insulin, Cardizem)? @ -No Were any procedures done? @ -No Diagnosis/symptom? @ -Depression, intellectual disability Acute, or Chronic, or Acute on Chronic? @ -Acute on chronic Uncomplicated (without systemic symptoms) or Complicated (systemic symptoms)? @ -Uncomplicated Side effects of treatment? @ -None Exacerbation, Progression, or Severe Exacerbation] @ -No Poses a threat to life or bodily function? @ -Unlikely, as patient was able to be safety plan for discharge home. (Amadou Denton) Patient signed out to me pending EPS evaluation. Patient is found to be stable for discharge. Safety plan is filled out. Patient discharged in stable condition (Daja Joshi) - Lab Data Lab Results 04/17/24 04/17/24 Range/Units 20:29 21:50 POC Glucose (mg/dL) 159 H (70-110) mg/dL POC Glu Statistical Technician Vincent Love Urine Opiates Screen Not Detected (NotDetected) Ur Oxycodone Screen Not Detected (NotDetected) Urine Methadone Screen Not Detected (NotDetected) Ur Barbiturates Screen Not Detected (NotDetected) U Tricyclic Antidepress Not Detected (NotDetected) Ur Phencyclidine Scrn Not Detected (NotDetected) Ur Amphetamines Screen Not Detected (NotDetected) U Methamphetamines Scrn Not Detected (NotDetected) U Benzodiazepines Scrn Detected H (NotDetected) Urine Cocaine Screen Not Detected (NotDetected) U Marijuana (THC) Screen Not Detected (NotDetected) Disposition <Amadou Denton - Last Filed: 04/18/24 16:45> Is patient prescribed a controlled substance at d/c from ED?: No Time of Disposition: 00:50 <Daja Joshi - Last Filed: 04/18/24 22:29> Clinical Impression: Intellectual disability, Depression Disposition: HOME SELF-CARE Condition: Stable Instructions (If sedation given, give patient instructions): Depression (ED) Referrals: [facility] [Primary Care Provider] - 1-2 days
[2024-04-17] MEDS: DIVALPROEX ER 500 MG TAB.ER.24H PO STA (21:56)
[2024-04-17 22:29] LABS: Amphetamine Screen,Urine Not Detected (NotDetected); Barbiturate Screen,Urine Not Detected (NotDetected); Benzodiazepines Screen,Urine Detected (NotDetected); Cocaine Screen,Urine Not Detected (NotDetected); Methadone Screen, Urine Not Detected (NotDetected); Opiate Screen,Urine Not Detected (NotDetected); Oxycodone Screen, Urine Not Detected (NotDetected); Phencyclidine Screen,Urine Not Detected (NotDetected); Tricyclic Antidepressant,Urine Not Detected (NotDetected); Urn Cannabinoid Scrn Not Detected (NotDetected)
[2024-04-18 01:28] VITALS: BP 143/84; PULSE 68; RESP 17
== END 2024-04-18 01:28 | disposition home or self-care (01) ==
LOC: EC 20:04
DX: F32.A Depression, unspecified (principal); F79 Unspecified intellectual disabilities; Z87.891 Personal history of nicotine dependence; Z88.8 Allergy status to other drugs, medicaments and biological substances
CPT/HCPCS: 36415; 80306; 82075; 99285

== ENCOUNTER 2024-05-09 21:20 | Emergency (ER) | payer MEDICARE, OTHER ==
[2024-05-09 21:25] VITALS: RESP 18
--- NOTE | 2024-05-09 21:54 | ED ---
General Adult HPI - General Source: patient Mode of arrival: ambulatory Limitations: no limitations <Lola Arenas - Last Filed: 05/09/24 22:35> <Michael Pittman - Last Filed: 05/10/24 06:53> - General Chief complaint: Recheck/Abnormal Lab/Rx Stated complaint: Detox Time Seen by Provider: 05/09/24 21:38 - History of Present Illness Initial comments: This is a 48-year-old male presents emergency department chief complaint of intoxication. It is reported that patient took a considerable amount of edibles containing THC that resulted around 200 mg. Patient states that he took multiple edible Gummies and a drink with THC as well. Patient denies other illicit drug use or alcohol use. He is denying dyspnea, headaches, chest pain or chest pressure. (Lola Arenas) - Related Data Previous Rx's Medication Instructions Recorded Cholecalciferol [Vitamin D3 (125 125 mcg PO DAILY tab 01/01/23 Mcg = 5000 Iu)] Dicyclomine [Bentyl] 10 mg PO TID cap 01/01/23 Divalproex ER [Depakote ER] 1,000 mg PO HS tab 01/01/23 FLUoxetine HCL [PROzac] 40 mg PO DAILY 30 Days #30 cap 01/01/23 Ferrous Sulfate [Iron (65 MG 325 mg PO DAILY tab 01/01/23 Elemental)] Glimepiride [Amaryl] 1 mg PO DAILY tab 01/01/23 Levothyroxine Sodium [Synthroid] 100 mcg PO DAILY@0630 tab 01/01/23 Montelukast [Singulair] 10 mg PO HS tab 01/01/23 Paliperidone Palmitate [Invega 819 mg IM Q90D 44 Days #1 each 01/01/23 Trinza] lisinopriL [Zestril] 20 mg PO DAILY tab 01/01/23 metFORMIN HCL [Glucophage] 1,000 mg PO BID tab 01/01/23 traZODone HCL [Desyrel] 50 mg PO HS tab 01/01/23 Sodium Chloride [Saline Mist] 1 spray EA NOSTRIL TID #45 ml 01/31/24 Allergies Allergy/AdvReac Type Severity Reaction Status Date / Time diphenhydramine Allergy Rash/Hives Verified 05/09/24 21:23 [From Benadryl] diphenhydramine HCl Allergy Rash/Hives Verified 05/09/24 21:23 [From Benadryl] Review of Systems ROS Other: All systems not noted in ROS Statement are negative. <Lola Arenas - Last Filed: 05/09/24 22:35> ROS Other: All systems not noted in ROS Statement are negative. <MichaelMichael armstrong - Last Filed: 05/10/24 06:53> ROS Statement: Those systems with pertinent positive or pertinent negative responses have been documented in the HPI. Past Medical History Past Medical History: Diabetes Mellitus, Hypertension, Seizure Disorder, Thyroid Disorder Additional Past Medical History / Comment(s): angina, Hypothyroidism, vitamin D deficiency, dyslipidemia, ALLERGIES, cognitive impairment History of Any Multi-Drug Resistant Organisms: None Reported Past Surgical History: Orthopedic Surgery Additional Past Surgical History / Comment(s): right ankle Past Anesthesia/Blood Transfusion Reactions: No Reported Reaction Past Psychological History: Anxiety, Bipolar, Depression Smoking Status: Former smoker Past Alcohol Use History: None Reported Past Drug Use History: Cocaine - Past Family History Mother Additional Family Medical History / Comment(s): No known medical history. Patient denies any family history of diabetes or hypertension <OzzynovaLola campos - Last Filed: 05/09/24 22:35> General Exam Limitations: no limitations General appearance: alert, appears intoxicated Head exam: Present: atraumatic, normocephalic, normal inspection Eye exam: Present: normal appearance, PERRL, EOMI. Absent: scleral icterus, conjunctival injection, periorbital swelling ENT exam: Present: normal exam, mucous membranes moist Neck exam: Present: normal inspection. Absent: tenderness, meningismus, lymphadenopathy Respiratory exam: Present: normal lung sounds bilaterally. Absent: respiratory distress, wheezes, rales, rhonchi, stridor Cardiovascular Exam: Present: regular rate, normal rhythm, normal heart sounds. Absent: systolic murmur, diastolic murmur, rubs, gallop, clicks GI/Abdominal exam: Present: soft, normal bowel sounds. Absent: distended, tenderness, guarding, rebound, rigid Extremities exam: Present: normal inspection, full ROM, normal capillary refill. Absent: tenderness, pedal edema, joint swelling, calf tenderness Back exam: Present: normal inspection Neurological exam: Present: alert, oriented X3, CN II-XII intact Psychiatric exam: Present: flat affect Skin exam: Present: warm, dry, intact, normal color. Absent: rash <Lola Arenas - Last Filed: 05/09/24 22:35> Course Vital Signs 05/09/24 21:21 Temperature 97.5 F L Pulse Rate 98 Respiratory 18 Rate Blood Pressure 146/85 O2 Sat by Pulse 100 Oximetry Procedures - Restraint - Face to Face Restraint Occurrence 1 Patient's Immediate Situation: Endangers self safety, Violent behavior Patient's Reaction to the Intervention: Uncooperative, Angry, Hostile, Aggressive, Combative, Resistive to care Patient's Medical & Behavioral Condition: Awake, Alert, Other (see comment) (intoxicated) Need to Continue or Terminate Restraint or Seclusion: Continue Face to Face Eval of Restraint Date: 05/09/24 Face to Face Eval of Restraint Time: 21:44 <Lola Arenas - Last Filed: 05/09/24 22:35> - Restraint - Face to Face Restraint Occurrence 2 Patient's Immediate Situation: Endangers self safety, Endangers staff safety, Violent behavior Patient's Reaction to the Intervention: Angry, Belligerent, Suspicious, Aggressive Patient's Medical & Behavioral Condition: Agitated Need to Continue or Terminate Restraint or Seclusion: Continue Face to Face Eval of Restraint Date: 05/10/24 Face to Face Eval of Restraint Time: 01:45 <Michael Pittman - Last Filed: 05/10/24 06:53> - Restraint - Face to Face Restraint Occurrence 1 Patient's Immediate Situation - Comment: Patient was unattended in his room when it was noted that he was hitting the wall and hitting himself (Lola Arenas) Medical Decision Making <Lola Arenas - Last Filed: 05/09/24 22:35> - Medical Decision Making Was pt. sent in by a medical professional or institution (, PA, COFFEE SUPERVISOR, urgent care, hospital, or fdc...) When possible be specific @ -[No] Did you speak to anyone other than the patient for history (EMS, parent, family, police, friend...)? What history was obtained from this source @ -[No] Did you review nursing and triage notes (agree or disagree)? Why? @ -[I reviewed and agree with nursing and triage notes] Were old charts reviewed (outside hosp., previous admission, EMS record, old EKG, old radiological studies, urgent care reports/EKG's, fdc records)? Report findings @ -I reviewed the patient's emergency department visit from 04/17/2024 where he reported with suicidal ideations and was discharged home with a safety plan Differential Diagnosis (chest pain, altered mental status, abdominal pain women, abdominal pain men, vaginal bleeding, weakness, fever, dyspnea, syncope, headache, dizziness, GI bleed, back pain, seizure, CVA, palpatations, mental health, musculoskeletal)? @ -Differential Mental Health Depression, anxiety, bipolar, psychosis, schizophrenia, borderline personality, situational depression, adjustment disorder, behavioral disorder, brain tumor, malingering, substance abuse, encephalopathy, medication reaction, dementia, hypothyroidism, degenerative neurologic disorder, lupus.... This is not meant to be all-inclusive list EKG interpreted by me (3pts min.). @ -None X-rays interpreted by me (1pt min.). @ -[None done] CT interpreted by me (1pt min.). @ -[None done] U/S interpreted by me (1pt. min.). @ -[None done] What testing was considered but not performed or refused? (CT, X-rays, U/S, labs)? Why? @ -[None] What meds were considered but not given or refused? Why? @ -[None] Did you discuss the management of the patient with other professionals (professionals i.e. , PA, COFFEE SUPERVISOR, lab, RT, psych nurse, social science teacher, produce associate, teacher, security officers and guards, rehabilitation caseworker)? Give summary @ -[No] Was smoking cessation discussed for >3mins.? @ -[No] Was critical care preformed (if so, how long)? @ -[No] Were there social determinants of health that impacted care today? How? (Homelessness, low income, unemployed, alcoholism, drug addiction, transportation, low edu. Level, literacy, decrease access to med. care, penitentiary, rehab)? @ -[No] Was there de-escalation of care discussed even if they declined (Discuss DNR or withdrawal of care, Hospice)? DNR status @ -[No] What co-morbidities impacted this encounter? (DM, HTN, Smoking, COPD, CAD, Cancer, CVA, ARF, Chemo, Hep., AIDS, mental health diagnosis, sleep apnea, morbid obesity)? @ -[None] Was patient admitted / discharged? Hospital course, mention meds given and route, prescriptions, significant lab abnormalities, going to OR and other pertinent info. @ -[id number] male with HCV abuse. On discussion with the patient he appears intoxicated. He denies use of alcohol or other illicit drugs at this time. Patient is agreeable to leaving a urine drug screen and taking breathalyzer test. It was noted by nursing staff that patient became severely aggressive while he was in the room by himself and was found to be hitting the wall and hitting himself. Patient did not respond to verbal redirection and due to him being a harm to himself and verbally aggressive to staff he was placed in 4- point restraints at 2141. Patient was also given a dose of Ativan. On reevaluation, patient is still found to be extremely hostile thrashing in restraints and cursing at staff therefore he is given a dose of IM Haldol. Medically cleared and EPS will be contacted at this time for further evaluation. Patient was signed out to my attending Dr. Pittman pending further psychiatric evaluation and result of UDS and EtOH breath. Undiagnosed new problem with uncertain prognosis? @ -[No] Drug Therapy requiring intensive monitoring for toxicity (Heparin, Nitro, Insulin, Cardizem)? @ -[No] Were any procedures done? @ -[No] Diagnosis/symptom? @ -[default] Acute, or Chronic, or Acute on Chronic? @ -[default] Uncomplicated (without systemic symptoms) or Complicated (systemic symptoms)? @ -[default] Side effects of treatment? @ -[No] Exacerbation, Progression, or Severe Exacerbation? @ -[No] Poses a threat to life or bodily function? How? (Chest pain, [place], [place], pneumonia, PE, COPD, DKA, ARF, appy, cholecystitis, CVA, Diverticulitis, Homicidal, Suicidal, threat to staff... and all critical care pts) @ -[No] (Lola Arenas) Disposition <Lola Arenas - Last Filed: 05/09/24 22:35> Is patient prescribed a controlled substance at d/c from ED?: No <Michael Pittman - Last Filed: 05/10/24 06:53> Clinical Impression: Cannabis abuse Disposition: HOME SELF-CARE Condition: Good Instructions (If sedation given, give patient instructions): Cannabis Abuse (ED) Referrals: None,Stated [Primary Care Provider] - 1-2 days
[2024-05-09] MEDS: LORazepam 2 MG/ML INJ IM STA (21:57)
[2024-05-09] MEDS: HALOPERIDOL LACTATE 5 MG/ML 1 ML VIAL IM STA (22:32)
[2024-05-09] MEDS: ZIPRASIDONE 20 MG VIAL IM STA (23:10)
[2024-05-10 09:27] VITALS: BP 128/71; PULSE 67; TEMP 98.3
== END 2024-05-10 09:30 | disposition home or self-care (01) ==
LOC: EC 21:20
DX: F12.10 Cannabis abuse, uncomplicated (principal); F14.90 Cocaine use, unspecified, uncomplicated; Z87.891 Personal history of nicotine dependence; Z88.8 Allergy status to other drugs, medicaments and biological substances; Z88.1 Allergy status to other antibiotic agents
CPT/HCPCS: 82075; 99283; 96372; J2060; J1630; J3486

== ENCOUNTER 2024-10-07 19:31 | Emergency (ER) | payer OTHER, MEDICARE ==
[2024-10-07 19:37] VITALS: RESP 18; TEMP 97.4
--- NOTE | 2024-10-07 19:43 | ED ---
Psych HPI - General Chief Complaint: Psychiatric Symptoms Stated Complaint: Suicidal Time Seen by Provider: 10/07/24 19:42 Source: patient, RN notes reviewed, old records reviewed Mode of arrival: ambulatory - History of Present Illness Initial Comments: This is a 48-year-old male to the ER for evaluation of psychiatric illness. Patient presents for suicidal thoughts and suicidal ideation MD Complaint: suicidal ideation -: unknown Associated Psychiatric Symptoms: depression, suicidal ideation History of same: Yes Quality: constant Improves With: none Context: significant life stressor Associated Symptoms: denies other symptoms Treatments Prior to Arrival: placed on mental health hold If Self Harm: admits thoughts of self harm - Related Data Previous Rx's Medication Instructions Recorded Cholecalciferol [Vitamin D3 (125 125 mcg PO DAILY tab 01/01/23 Mcg = 5000 Iu)] Dicyclomine [Bentyl] 10 mg PO TID cap 01/01/23 Divalproex ER [Depakote ER] 1,000 mg PO HS tab 01/01/23 FLUoxetine HCL [PROzac] 40 mg PO DAILY 30 Days #30 cap 01/01/23 Ferrous Sulfate [Iron (65 MG 325 mg PO DAILY tab 01/01/23 Elemental)] Glimepiride [Amaryl] 1 mg PO DAILY tab 01/01/23 Levothyroxine Sodium [Synthroid] 100 mcg PO DAILY@0630 tab 01/01/23 Montelukast [Singulair] 10 mg PO HS tab 01/01/23 Paliperidone Palmitate [Invega 819 mg IM Q90D 44 Days #1 each 01/01/23 Trinza] lisinopriL [Zestril] 20 mg PO DAILY tab 01/01/23 metFORMIN HCL [Glucophage] 1,000 mg PO BID tab 01/01/23 traZODone HCL [Desyrel] 50 mg PO HS tab 01/01/23 Sodium Chloride [Saline Mist] 1 spray EA NOSTRIL TID #45 ml 01/31/24 Allergies Allergy/AdvReac Type Severity Reaction Status Date / Time diphenhydramine Allergy Rash/Hives Verified 10/07/24 19:37 [From Benadryl] diphenhydramine HCl Allergy Rash/Hives Verified 10/07/24 19:37 [From Benadryl] Review of Systems ROS Statement: Those systems with pertinent positive or pertinent negative responses have been documented in the HPI. ROS Other: All systems not noted in ROS Statement are negative. Past Medical History Past Medical History: Diabetes Mellitus, Hypertension, Seizure Disorder, Thyroid Disorder Additional Past Medical History / Comment(s): angina, Hypothyroidism, vitamin D deficiency, dyslipidemia, ALLERGIES, cognitive impairment History of Any Multi-Drug Resistant Organisms: None Reported Past Surgical History: Orthopedic Surgery Additional Past Surgical History / Comment(s): right ankle Past Anesthesia/Blood Transfusion Reactions: No Reported Reaction Past Psychological History: Anxiety, Bipolar, Depression Smoking Status: Former smoker Past Alcohol Use History: None Reported Past Drug Use History: Cocaine - Past Family History Mother Additional Family Medical History / Comment(s): No known medical history. Patient denies any family history of diabetes or hypertension General Exam General appearance: alert, in no apparent distress Head exam: Present: atraumatic, normocephalic, normal inspection Eye exam: Present: normal appearance, PERRL, EOMI. Absent: scleral icterus, conjunctival injection, periorbital swelling ENT exam: Present: normal exam, mucous membranes moist Neck exam: Present: normal inspection. Absent: tenderness, meningismus, lymphadenopathy Respiratory exam: Present: normal lung sounds bilaterally. Absent: respiratory distress, wheezes, rales, rhonchi, stridor Cardiovascular Exam: Present: regular rate, normal rhythm, normal heart sounds. Absent: systolic murmur, diastolic murmur, rubs, gallop, clicks GI/Abdominal exam: Present: soft, normal bowel sounds. Absent: distended, tenderness, guarding, rebound, rigid Extremities exam: Present: normal inspection, full ROM, normal capillary refill. Absent: tenderness, pedal edema, joint swelling, calf tenderness Back exam: Present: normal inspection Neurological exam: Present: alert, oriented X3, CN II-XII intact Psychiatric exam: Present: normal affect, normal mood Skin exam: Present: warm, dry, intact, normal color. Absent: rash Course Vital Signs 10/07/24 19:34 Temperature 97.4 F L Pulse Rate 104 H Respiratory 18 Rate Blood Pressure 160/86 O2 Sat by Pulse 96 Oximetry - Reevaluation(s) Reevaluation #1: 10/07/24 21:38 Records reviewed Reevaluation #2: 10/07/24 21:38 Patient is medically clear for psychiatric evaluation Reevaluation #3: Was pt. sent in by a medical professional or institution (FIDENCIO Jiménez, HARNESS PREPARER, urgent care, hospital, or penitentiary...) When possible be specific @ -no Did you speak to anyone other than the patient for history (EMS, parent, family, police, friend...)? What history was obtained from this source @ -no Did you review nursing and triage notes (agree or disagree)? Why? @ -agree Are old charts reviewed (outside hosp., previous admission, EMS record, old EKG, old radiological studies, urgent care reports/EKG's, penitentiary records)? Report findings @ -yes Differential Diagnosis (chest pain, altered mental status, abdominal pain women, abdominal pain men, vaginal bleeding, weakness, fever, dyspnea, syncope, headache, dizziness, GI bleed, back pain, seizure, CVA, palpatations, mental health, musculoskeletal)? @ -prior EKG interpreted by me (3pts min.). @ -yes X-rays interpreted by me (1pt min.). @ -yes negative for acute disease CT interpreted by me (1pt min.). @ -no U/S interpreted by me (1pt. min.). @ -no What testing was considered but not performed or refused? (CT, X-rays, U/S, labs)? Why? @ -none What meds were considered but not given or refused? Why? @ -none Did you discuss the management of the patient with other professionals (professionals i.e. FIDENCIO Jiménez, HARNESS PREPARER, lab, RT, psych nurse, social problems specialist, vp ad products and planning, teacher, evp and chief operating officer, telehealth case manager)? Give summary @ -no Was smoking cessation discussed for >3mins.? @ -no Was critical care preformed (if so, how long)? @ -no Were there social determinants of health that impacted care today? How? (Homelessness, low income, unemployed, alcoholism, drug addiction, transportation, low edu. Level, literacy, decrease access to med. care, longterm, rehab)? @ -none Was there de-escalation of care discussed even if they declined (Discuss DNR or withdrawal of care, Hospice)? DNR status @ -no What co-morbidities impacted this encounter? (DM, HTN, Smoking, COPD, CAD, Cancer, CVA, ARF, Chemo, Hep., AIDS, mental health diagnosis, sleep apnea, morbid obesity)? @ -none Was patient admitted / discharged? Hospital course, mention meds given and route, prescriptions, significant lab abnormalities, going to OR and other pertinent info. @ - Undiagnosed new problem with uncertain prognosis? @ -no Drug Therapy requiring intensive monitoring for toxicity (Heparin, Nitro, Insulin, Cardizem)? @ -no Were any procedures done? @ -no Diagnosis/symptom? @ - Acute, or Chronic, or Acute on Chronic? @ -Acute Uncomplicated (without systemic symptoms) or Complicated (systemic symptoms)? @ -Complicated Side effects of treatment? @ -no Exacerbation, Progression, or Severe Exacerbation? @ -exacerbation Poses a threat to life or bodily function? How? (Chest pain, [place], [place], pneumonia, PE, COPD, DKA, ARF, appy, cholecystitis, CVA, Diverticulitis, Homicidal, Suicida l, threat to staff... and all critical care pts) @ -yes Reevaluation #4: Differential Mental Health Depression, anxiety, bipolar, psychosis, schizophrenia, borderline personality, situational depression, adjustment disorder, behavioral disorder, brain tumor, malingering, substance abuse, encephalopathy, medication reaction, dementia, hypothyroidism, degenerative neurologic disorder, lupus.... This is not meant to be all-inclusive list Disposition Clinical Impression: Neurocognitive disorder, Intellectual disability, Mood disorder Disposition: HOME SELF-CARE Condition: Fair Instructions (If sedation given, give patient instructions): Mood Disorders (ED) Is patient prescribed a controlled substance at d/c from ED?: No Referrals: None,Stated [REFERRING] - 1-2 days
[2024-10-07 22:07] VITALS: BP 129/75; PULSE 73
== END 2024-10-07 22:11 | disposition home or self-care (01) ==
LOC: EC 19:31
DX: F79 Unspecified intellectual disabilities (principal); F06.71 Mild neurocognitive disorder due to known physiological condition with behavioral disturbance; F39 Unspecified mood [affective] disorder; Z87.891 Personal history of nicotine dependence; Z88.8 Allergy status to other drugs, medicaments and biological substances
CPT/HCPCS: 82075; 99284

== ENCOUNTER 2024-10-17 13:50 | Emergency (ER) | payer MEDICARE, OTHER ==
--- NOTE | 2024-10-17 14:49 | ED ---
Animal Bite HPI - General Chief Complaint: Wound/Laceration Stated Complaint: dog bite to nose Time Seen by Provider: 10/17/24 13:55 Source: patient, RN notes reviewed Mode of arrival: ambulatory Limitations: no limitations - History of Present Illness Initial Comments: This is a 48-year-old male who presents to the emergency department for a dog bite to his nose. He was petting his friend's dog and it jumped up and nipped the tip of his nose. States that pain and bleeding are fairly well-controlled. He is concerned about getting an infection from the injury. Unsure when his last tetanus vaccine was. Also unsure if the dog is up-to-date on his immunizations. MD Complaint: animal bite - Related Data Previous Rx's Medication Instructions Recorded Cholecalciferol [Vitamin D3 (125 125 mcg PO DAILY tab 01/01/23 Mcg = 5000 Iu)] Dicyclomine [Bentyl] 10 mg PO TID cap 01/01/23 Divalproex ER [Depakote ER] 1,000 mg PO HS tab 01/01/23 FLUoxetine HCL [PROzac] 40 mg PO DAILY 30 Days #30 cap 01/01/23 Ferrous Sulfate [Iron (65 MG 325 mg PO DAILY tab 01/01/23 Elemental)] Glimepiride [Amaryl] 1 mg PO DAILY tab 01/01/23 Levothyroxine Sodium [Synthroid] 100 mcg PO DAILY@0630 tab 01/01/23 Montelukast [Singulair] 10 mg PO HS tab 01/01/23 Paliperidone Palmitate [Invega 819 mg IM Q90D 44 Days #1 each 01/01/23 Trinza] lisinopriL [Zestril] 20 mg PO DAILY tab 01/01/23 metFORMIN HCL [Glucophage] 1,000 mg PO BID tab 01/01/23 traZODone HCL [Desyrel] 50 mg PO HS tab 01/01/23 Sodium Chloride [Saline Mist] 1 spray EA NOSTRIL TID #45 ml 01/31/24 Amoxic-Pot Clav 875-125Mg 1 tab PO Q12HR 7 Days #14 tab 10/17/24 [Augmentin 875-125] Allergies Allergy/AdvReac Type Severity Reaction Status Date / Time diphenhydramine Allergy Rash/Hives Verified 10/17/24 13:54 [From Benadryl] diphenhydramine HCl Allergy Rash/Hives Verified 10/17/24 13:54 [From Benadryl] Review of Systems ROS Statement: Those systems with pertinent positive or pertinent negative responses have been documented in the HPI. ROS Other: All systems not noted in ROS Statement are negative. Past Medical History Past Medical History: Diabetes Mellitus, Hypertension, Seizure Disorder, Thyroid Disorder Additional Past Medical History / Comment(s): angina, Hypothyroidism, vitamin D deficiency, dyslipidemia, ALLERGIES, cognitive impairment History of Any Multi-Drug Resistant Organisms: None Reported Past Surgical History: Orthopedic Surgery Additional Past Surgical History / Comment(s): right ankle Past Anesthesia/Blood Transfusion Reactions: No Reported Reaction Past Psychological History: Anxiety, Bipolar, Depression Smoking Status: Former smoker Past Alcohol Use History: None Reported Past Drug Use History: Cocaine - Past Family History Mother Additional Family Medical History / Comment(s): No known medical history. Mandi ent denies any family history of diabetes or hypertension General Exam Limitations: no limitations General appearance: alert, in no apparent distress Head exam: Present: atraumatic, normocephalic, normal inspection ENT exam: Present: other (Superficial laceration to the tip of the left nostril. No active bleeding) Respiratory exam: Present: normal lung sounds bilaterally. Absent: respiratory distress, wheezes, rales, rhonchi, stridor Cardiovascular Exam: Present: regular rate, normal rhythm, normal heart sounds. Absent: systolic murmur, diastolic murmur, rubs, gallop, clicks Neurological exam: Present: alert, oriented X3, CN II-XII intact Psychiatric exam: Present: normal affect, normal mood Course Vital Signs 10/17/24 10/17/24 13:52 15:03 Temperature 97.6 F 98.0 F Pulse Rate 99 89 Respiratory 16 18 Rate Blood Pressure 125/77 120/72 O2 Sat by Pulse 100 99 Oximetry Medical Decision Making - Medical Decision Making This is a 48-year-old male who presents to the emergency department for a dog bite to the nose. Was pt. sent in by a medical professional or institution? @ -No Did you speak to anyone other than the patient for history? @ -No Did you review nursing and triage notes? @ -Yes, and I agree, it is accurate with regards to the patient's symptoms. Were old charts reviewed? @ -No Differential Diagnosis? @ -Laceration, abrasion, bite, this is not meant to be an all-inclusive list. EKG interpreted by me (3pts min.)? @ -Not obtained X-rays interpreted by me (1pt min.)? @ -Not obtained CT interpreted by me (1pt min.)? @ -Not obtained U/S interpreted by me (1pt. min.)? @ -Not obtained What testing was considered but not performed? (CT, X-rays, U/S, labs)? Why? @ -None What meds were considered but not given? Why? @ -None Did you discuss the management of the patient with other professionals? @ -No Did you reconcile home meds? @ -No Was smoking cessation discussed for >3mins.? @ -No Was critical care preformed (if so, how long)? @ -No Were there social determinants of health that impacted care today? How? (Homelessness, low income, unemployed, alcoholism, drug addiction, transportation, low edu. Level, literacy, decrease access to med. care, custodial, rehab)? @ -No Was there de-escalation of care discussed even if they declined? (Discuss DNR or withdrawal of care, Hospice)? @ -No What co-morbidities impacted this encounter? (DM, HTN, Smoking, COPD, CAD, Cancer, CVA, Hep., AIDS, mental health diagnosis, sleep apnea, morbid obesity)? @ -None Was patient admitted / discharged? @ -Discharged. Patient had a small superficial laceration to the tip of the left nostril which he reported being from a dog. Advised that with how superficial this is, antibiotics are not necessarily required, however he requested to proceed. Prescription for Augmentin subsequently provided. Tetanus vaccine updated as well. Advised he discuss with his friend his dog's vaccine status and return for a rabies vaccine if needed. Patient discharged home in stable condition. Case discussed with ED attending Dr. Mejía. Return precautions reviewed in depth, the patient is instructed to return to the emergency department with any new, worsening, or concerning symptoms. Patient verbalized understanding. Undiagnosed new problem with uncertain prognosis? @ -None Drug Therapy requiring intensive monitoring for toxicity (Heparin, Nitro, Insulin, Cardizem)? @ -None Were any procedures done? @ -None Diagnosis/symptom? @ -Dog bite Acute, or Chronic, or Acute on Chronic? @ -Acute Uncomplicated (without systemic symptoms) or Complicated (systemic symptoms)? @ -Uncomplicated Side effects of treatment? @ -None Exacerbation, Progression, or Severe Exacerbation] @ -Not applicable Poses a threat to life or bodily function? @ -No Disposition Clinical Impression: Dog bite Disposition: HOME SELF-CARE Instructions (If sedation given, give patient instructions): Animal Bite (ED) Additional Instructions: Return to the emergency department with any new, worsening, or concerning symptoms. Take the antibiotic as prescribed for 7 days. Follow up with your primary care provider in 1-2 days. Prescriptions: Amoxic-Pot Clav 875-125Mg [Augmentin 875-125] 1 tab PO Q12HR 7 Days #14 tab Is patient prescribed a controlled substance at d/c from ED?: No Referrals: Rosalia Adkins MD [Primary Care Provider] - 1-2 days Time of Disposition: 14:49
[2024-10-17] MEDS: DIPH,PERTUS(ACELL)TETVAC-LF 0.5 ML VIAL IM ONE (14:59)
[2024-10-17] MEDS: AMOXIC-POT CLAV 875-125MG 1 EACH TAB PO STA (15:01)
[2024-10-17 15:04] VITALS: BP 120/72; PULSE 89; RESP 18; TEMP 98
== END 2024-10-17 15:04 | disposition home or self-care (01) ==
LOC: EEVIPCON 13:50 → EC 13:50
DX: S01.21XA Laceration without foreign body of nose, initial encounter (principal); Z87.891 Personal history of nicotine dependence; Z88.8 Allergy status to other drugs, medicaments and biological substances; Z23 Encounter for immunization; W54.0XXA Bitten by dog, initial encounter
CPT/HCPCS: 90471; 90715; 99283

== ENCOUNTER 2024-10-20 13:06 | Emergency (ER) | payer MEDICARE ==
[2024-10-20 13:22] VITALS: RESP 18
--- NOTE | 2024-10-20 13:46 | XR ---
EXAMINATION TYPE: XR ankle complete RT DATE OF EXAM: 10/20/2024 1:39 PM COMPARISON: 05/19/2021 CLINICAL INDICATION: Male, 48 years old with history of pain/swelling, TECHNIQUE: 3 view(s) obtained. FINDINGS: Plate and screws are present from old right fibular fracture. Screws present within the medial malleo michael tibia. Ankle mortise is intact. No acute fracture or dislocation evident. Soft tissues appear normal. Small Achilles tendon calcaneal heel spur is present Follow up exams can be performed 7-10 days from acute trauma for continued pain. IMPRESSION: 1. No acute osseous abnormality right ankle. 2. Old fracture repair [facility], , 10/20/2024 1:43 PM
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
--- NOTE | 2024-10-20 14:14 | XR ---
EXAMINATION TYPE: XR foot complete RT DATE OF EXAM: 10/20/2024 2:03 PM COMPARISON: 05/11/2019 CLINICAL INDICATION: Male, 48 years old with history of pain/trauma, TECHNIQUE: 3 view(s) obtained. FINDINGS: There is a plate and screws within the distal ankle. There is a transverse fracture of the base of the fifth metatarsal. No additional fractures evident. This joint spaces are otherwise preserved. Soft tissues are normal. IMPRESSION: 1. Fracture avulsion at the base of the fifth metatarsal appears nondisplaced. 2. No additional acute osseous abnormality. [facility], , 10/20/2024 2:12 PM
[2024-10-20 14:54] VITALS: BP 100/58; PULSE 92; TEMP 97.8
== END 2024-10-20 14:30 | disposition home or self-care (01) ==
LOC: EC 13:06
DX: S92.351A Displaced fracture of fifth metatarsal bone, right foot, initial encounter for closed fracture (principal); Z88.8 Allergy status to other drugs, medicaments and biological substances; Z87.891 Personal history of nicotine dependence; V23.41XA Electric (assisted) bicycle driver injured in collision with car, pick-up truck or van in traffic accident, initial encounter; Y92.410 Unspecified street and highway as the place of occurrence of the external cause; Y93.55 Activity, bike riding
CPT/HCPCS: 29515; 99283

== ENCOUNTER 2024-10-31 17:37 | Emergency (ER) | payer MEDICARE ==
[2024-10-31 18:10] VITALS: BP 144/94; TEMP 98.1
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
[2024-10-31] MEDS: ACETAMINOPHEN TAB 500 MG TAB PO STA (18:42)
[2024-10-31 19:14] LABS: Amphetamine Screen,Urine Not Detected (NotDetected); Barbiturate Screen,Urine Not Detected (NotDetected); Benzodiazepines Screen,Urine Not Detected (NotDetected); Cocaine Screen,Urine Not Detected (NotDetected); Methadone Screen, Urine Not Detected (NotDetected); Opiate Screen,Urine Not Detected (NotDetected); Oxycodone Screen, Urine Not Detected (NotDetected); Phencyclidine Screen,Urine Not Detected (NotDetected); Tricyclic Antidepressant,Urine Not Detected (NotDetected); Urn Cannabinoid Scrn Not Detected (NotDetected)
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
[2024-10-31 20:46] VITALS: PULSE 75; RESP 15
== END 2024-10-31 20:46 | disposition home or self-care (01) ==
LOC: EC 17:37
DX: S69.91XA Unspecified injury of right wrist, hand and finger(s), initial encounter (principal); R45.4 Irritability and anger; R45.851 Suicidal ideations; F17.290 Nicotine dependence, other tobacco product, uncomplicated; Z88.8 Allergy status to other drugs, medicaments and biological substances; Z91.018 Allergy to other foods; Y93.01 Activity, walking, marching and hiking
CPT/HCPCS: 80306; 82075; 99285

== ENCOUNTER → 2024-11-23 | Outpatient (CLI) | payer MEDICARE ==
--- NOTE | 2024-11-23 16:23 | XR ---
EXAMINATION TYPE: XR Hip Complete LT DATE OF EXAM: 11/23/2024 4:06 PM COMPARISON: None. CLINICAL INDICATION: Male, 49 years old with history of Z18.10, pain TECHNIQUE: 2 view(s) obtained. FINDINGS: Femoral head articulates with the acetabulum. No acute fracture or dislocation evident. IMPRESSION: 1. No acute fracture left hip [facility], , 11/23/2024 4:20 PM
--- NOTE | 2024-11-23 16:25 | XR ---
EXAMINATION TYPE: XR femur LT DATE OF EXAM: 11/23/2024 4:05 PM COMPARISON: None. CLINICAL INDICATION: Male, 49 years old with history of Z18.10, pain TECHNIQUE: 2 view(s) obtained. FINDINGS: No acute fractures evident. Joint spaces appear preserved. Soft tissues are unremarkable. No metallic foreign body is within the [id number]. IMPRESSION: 1. No acute osseous abnormality left femur. 2. No suspicious metallic foreign body within the [id number] to contraindicate MRI. [facility], , 11/23/2024 4:22 PM
== END | disposition home or self-care (01) ==
LOC: RADXRMAIN 15:35
PROVIDERS: ATTEND Psychiatry & Neurology Neurology
DX: Z18.10 Retained metal fragments, unspecified (principal)
CPT/HCPCS: 73502

== ENCOUNTER 2025-01-21 07:08 | Emergency (ER) | payer MEDICARE, OTHER ==
[2025-01-21 07:12] VITALS: RESP 18
--- NOTE | 2025-01-21 07:53 | ED ---
General Adult HPI - General Chief complaint: Extremity Problem,Nontraumatic Stated complaint: Left foot pain Time Seen by Provider: 01/21/25 07:40 Source: patient, RN notes reviewed, old records reviewed Mode of arrival: ambulatory Limitations: no limitations - History of Present Illness Initial comments: Patient is a 49-year-old male who presents emergency department complaining of left foot pain. Atraumatic. States is a squeezing tight sensation over the lateral aspect of the left foot. Has a history of non-insulin controlled diabetes and thyroid disease. Presents for further evaluation at this time. Denies any other acute symptoms. Denies fevers or chills. Presents for further evaluation at this time. - Related Data Home Medications Medication Instructions Recorded Confirmed Chlorthalidone [Hygroton] 25 mg PO DAILY 10/31/24 10/31/24 Cholecalciferol (Vitamin D3) 50 mcg PO DAILY 10/31/24 10/31/24 [Vitamin D3 (50 Mcg = 2000 Iu)] Dicyclomine [Bentyl] 10 mg PO TID PRN 10/31/24 10/31/24 Divalproex ER [Depakote ER] 500 mg PO HS 10/31/24 10/31/24 FLUoxetine HCL 40 mg PO DAILY 10/31/24 10/31/24 FLUoxetine HCL [PROzac] 20 mg PO DAILY 10/31/24 10/31/24 Ferrous Sulfate [Iron (65 MG 325 mg PO MOWEFR 10/31/24 10/31/24 Elemental)] Glimepiride [Amaryl] 1 mg PO AC-BRKFST 10/31/24 10/31/24 Levothyroxine Sodium [Synthroid] 100 mcg PO DAILY 10/31/24 10/31/24 Cuervo-3/Dha/Epa/Fish Oil [Fish Oil 1 cap PO DAILY 10/31/24 10/31/24 1,000 mg Softgel] Paliperidone Palmitate [Invega 819 mg IM Q84D 10/31/24 10/31/24 Trinza] metFORMIN HCL [Glucophage] 1,000 mg PO BID 10/31/24 10/31/24 Previous Rx's Medication Instructions Recorded Montelukast [Singulair] 10 mg PO HS tab 01/01/23 lisinopriL [Zestril] 20 mg PO DAILY tab 01/01/23 traZODone HCL [Desyrel] 50 mg PO HS tab 01/01/23 Allergies Allergy/AdvReac Type Severity Reaction Status Date / Time diphenhydramine Allergy Rash/Hives Verified 01/21/25 07:10 [From Benadryl] diphenhydramine HCl Allergy Rash/Hives Verified 01/21/25 07:10 [From Benadryl] Mushroom AdvReac Swelling Verified 01/21/25 07:10 Review of Systems ROS Statement: Those systems with pertinent positive or pertinent negative responses have been documented in the HPI. Review of Systems: CONST: Denies fever EYES: Denies blurry vision ENT: Denies nasal congestion C/V: Denies Chest pain RESP: Denies shortness of breath GI: Denies abdominal pain : Denies dysuria SKIN: Denies rash. MSK: Endorses foot pain NEURO: Denies headache ROS Other: All systems not noted in ROS Statement are negative. Past Medical History Past Medical History: Chest Pain / Angina, Diabetes Mellitus, Hypertension, Seizure Disorder, Thyroid Disorder Additional Past Medical History / Comment(s): angina, Hypothyroidism, vitamin D deficiency, dyslipidemia, ALLERGIES, cognitive impairment History of Any Multi-Drug Resistant Organisms: None Reported Past Surgical History: Orthopedic Surgery Additional Past Surgical History / Comment(s): right ankle fracture October 2024 Past Anesthesia/Blood Transfusion Reactions: No Reported Reaction Past Psychological History: Anxiety, Bipolar, Depression Smoking Status: Former smoker, Vaper Past Alcohol Use History: None Reported Past Drug Use History: Marijuana - Past Family History Mother Additional Family Medical History / Comment(s): No known medical history. Patient denies any family history of diabetes or hypertension General Exam - General Exam Comments Initial Comments: General: Appears mild distress secondary to pain. HEAD: Normal with no signs of head trauma. EYES: EOMI. ENT: Hearing grossly intact. RESPIRATORY: No respiratory distress. C/V: Regular rate and rhythm. ABD: Abdomen is nondistended. EXT: No obvious deformity. No skin changes. Neurovascular intact in the left lower extremity. Tenderness to palpation over the lateral metatarsal with no obvious injury. No ankle tenderness palpation. Normal range of motion of the foot and ankle. No obvious injury. No obvious acute process ongoing in the left foot. SKIN: No rashes or lesions observed on exposed skin. NEURO: Alert and oriented. Limitations: no limitations Course Vital Signs 01/21/25 01/21/25 07:10 09:07 Temperature 97.6 F 98 F Pulse Rate 102 H 90 Respiratory 18 18 Rate Blood Pressure 162/108 145/90 O2 Sat by Pulse 97 98 Oximetry Medical Decision Making - Medical Decision Making Was pt. sent in by a medical professional or institution (FIDENCIO Jiménez, SALES REPRESENTATIVE SUPERVISOR, urgent care, hospital, or [facility]...) When possible be specific @ -No Did you speak to anyone other than the patient for history (EMS, parent, family, police, friend...)? What history was obtained from this source @ -No Did you review nursing and triage notes (agree or disagree)? Why? @ -I reviewed and agree with nursing and triage notes Were old charts reviewed (outside hosp., previous admission, EMS record, old EKG, old radiological studies, urgent care reports/EKG's, [facility] records)? Report findings @ -No old charts were reviewed Differential Diagnosis (chest pain, altered mental status, abdominal pain women, abdominal pain men, vaginal bleeding, weakness, fever, dyspnea, syncope, h eadache, dizziness, GI bleed, back pain, seizure, CVA, palpatations, mental health, musculoskeletal)? @ -Foot sprain, foot fracture, muscle spasm. This list is not all inclusive. EKG interpreted by me (3pts min.). @ -None done X-rays interpreted by me (1pt min.). @ -Foot x-ray showed no obvious acute injury or process. Patient does have chronic arthritis present. CT interpreted by me (1pt min.). @ -None done U/S interpreted by me (1pt. min.). @ -None done What testing was considered but not performed or refused? (CT, X-rays, U/S, labs)? Why? @ -None What meds were considered but not given or refused? Why? @ -None Did you discuss the management of the patient with other professionals (professionals i.e. FIDENCIO Jiménez, SALES REPRESENTATIVE SUPERVISOR, lab, RT, psych nurse, social media assistant, refractory specialist, teacher, commercial account officer, case management specialist)? Give summary @ -No Was smoking cessation discussed for >3mins.? @ -No Was critical care preformed (if so, how long)? @ -No Were there social determinants of health that impacted care today? How? (Homelessness, low income, unemployed, alcoholism, drug addiction, transportation, low edu. Level, literacy, decrease access to med. care, [facility], rehab)? @ -No Was there de-escalation of care discussed even if they declined (Discuss DNR or withdrawal of care, Hospice)? DNR status @ -No What co-morbidities impacted this encounter? (DM, HTN, Smoking, COPD, CAD, Cancer, CVA, ARF, Chemo, Hep., AIDS, mental health diagnosis, sleep apnea, morbid obesity)? @ -None Was patient admitted / discharged? Hospital course, mention meds given and route, prescriptions, significant lab abnormalities, going to OR and other pertinent info. @ -Patient presents for lateral left foot pain. No other issues. Exam is unremarkable. Vital signs within acceptable limits. We will obtain x-ray and patient will be given oral analgesia medications. He was in agreement this plan. Foot x-ray returned negative for any obvious acute process but patient does have arthritis. I obtained the patient. He was in agreement. Patient will be discharged home at this time. Strict return precautions discussed. I instructed the patient to follow up with their PCP in the next 1-3 days. I explained that the patient should return to the emergency department if they experience any worsening symptoms. Strict return precautions were discussed with the patient. The patient expressed understanding of these instructions. I answered all questions that the patient had. The patient was discharged home in good condition with their prescriptions and follow up information. Undiagnosed new problem with uncertain prognosis? @ -No Drug Therapy requiring intensive monitoring for toxicity (Heparin, Nitro, Insulin, Cardizem)? @ -No Were any procedures done? @ -No Diagnosis/symptom? @ -Left foot pain, arthritis Acute, or Chronic, or Acute on Chronic? @ -Acute Uncomplicated (without systemic symptoms) or Complicated (systemic symptoms)? @ -Uncomplicated Side effects of treatment? @ -None Exacerbation, Progression, or Severe Exacerbation] @ -No Poses a threat to life or bodily function? @ -Unlikely at this time Disposition Clinical Impression: Arthritis, Foot pain, left Disposition: HOME SELF-CARE Condition: Good Additional Instructions: X-ray today showed no obvious injury but you do have arthritis of the left foot with degeneration of the bones and joints. Follow-up with your PCP for further monitoring. Return to the ER for any worsening symptoms. Use [id number] pain medications as needed for pain control. Follow-up with your PCP in the next 1 to 3 days. Is patient prescribed a controlled substance at d/c from ED?: No Referrals: Rosalia Adkins MD [Primary Care Provider] - 1-2 days Time of Disposition: 09:00
[2025-01-21] MEDS: HYDROcodone/APAP 5-325MG 1 EACH TAB PO STA (07:58)
[2025-01-21] MEDS: IBUPROFEN 800 MG TAB PO STA (07:59)
--- NOTE | 2025-01-21 08:27 | XR ---
EXAMINATION TYPE: XR foot complete LT DATE OF EXAM: 01/21/2025 8:21 AM COMPARISON: None CLINICAL INDICATION: Male, 49 years old with history of atraumatic lateral foot pain; PHH, pain TECHNIQUE: XR foot complete LT examined in the AP, oblique, and lateral projections. FINDINGS: No evidence of any acute osseous pathology. Calcaneal Achilles enthesophyte. Enlarged posterior proce ss of the talus. Multifocal degeneration changes throughout the joints of the foot with osteophyte fo rmation and joint space narrowing. IMPRESSION: 1. No evidence of acute fracture. 2. Multifocal degeneration changes throughout the joints of the foot worse at the ankle tibiotalar j oint. [facility], , 01/21/2025 8:25 AM
[2025-01-21 09:09] VITALS: BP 145/90; PULSE 90; TEMP 98
== END 2025-01-21 09:08 | disposition home or self-care (01) ==
LOC: EC 07:08
DX: M19.072 Primary osteoarthritis, left ankle and foot (principal); F17.290 Nicotine dependence, other tobacco product, uncomplicated; Z91.018 Allergy to other foods; Z88.8 Allergy status to other drugs, medicaments and biological substances
CPT/HCPCS: 99283

== ENCOUNTER → 2025-04-29 | Outpatient (CLI) | payer MEDICARE, OTHER ==
[2025-04-29 20:44] LABS: ALT 50 U/L (10-49); AST 25 U/L (14-35)
== END | disposition home or self-care (01) ==
LOC: LABWHC1 12:02
PROVIDERS: ATTEND Psychiatry & Neurology Neurology
DX: G40.109 Localization-related (focal) (partial) symptomatic epilepsy and epileptic syndromes with simple partial seizures, not intractable, without status epilepticus (principal); R74.8 Abnormal levels of other serum enzymes
CPT/HCPCS: 36415; 84450; 84460

== ENCOUNTER 2025-05-09 19:19 | Emergency (ER) | payer MEDICARE, OTHER ==
--- NOTE | 2025-05-09 19:46 | ED ---
Extremity Problem HPI - General Source: patient Mode of arrival: ambulatory Limitations: no limitations <Shanelle Nichols - Last Filed: 05/09/25 19:46> - General Source: patient, RN notes reviewed, old records reviewed Mode of arrival: ambulatory Limitations: no limitations <Janee Santos - Last Filed: 05/09/25 23:32> - General Chief complaint: Extremity Problem,Nontraumatic Stated complaint: Left Toe Swollen Time Seen by Provider: 05/09/25 19:46 - History of Present Illness Initial comments: Quick note: 49-year-old male presented with chief complaint of left big toe pain after hitting on his bed frame yesterday. States it is now swollen and painful. (Shanelle Nichols) 49-year-old male presented the ER for evaluation of left great toe pain. Patient states he believes he hit it in the middle of the night on his bed frame. He is reporting pain to left great toe along with redness and warmth. Patient does admit to a history of gout and diabetes. Patient reports that is mildly painful to walk. He has not taken anything for symptoms at this time. He denies any fevers, chills, nausea, vomiting or other complaints. (Janee Santos) - Related Data Home Medications Medication Instructions Recorded Confirmed Chlorthalidone [Hygroton] 25 mg PO DAILY 10/31/24 10/31/24 Cholecalciferol (Vitamin D3) 50 mcg PO DAILY 10/31/24 10/31/24 [Vitamin D3 (50 Mcg = 2000 Iu)] Dicyclomine [Bentyl] 10 mg PO TID PRN 10/31/24 10/31/24 Divalproex ER [Depakote ER] 500 mg PO HS 10/31/24 10/31/24 FLUoxetine HCL 40 mg PO DAILY 10/31/24 10/31/24 FLUoxetine HCL [PROzac] 20 mg PO DAILY 10/31/24 10/31/24 Ferrous Sulfate [Iron (65 MG 325 mg PO MOWEFR 10/31/24 10/31/24 Elemental)] Glimepiride [Amaryl] 1 mg PO AC-BRKFST 10/31/24 10/31/24 Levothyroxine Sodium [Synthroid] 100 mcg PO DAILY 10/31/24 10/31/24 [place]-3/Dha/Epa/Fish Oil [Fish Oil 1 cap PO DAILY 10/31/24 10/31/24 1,000 mg Softgel] Paliperidone Palmitate [Invega 819 mg IM Q84D 10/31/24 10/31/24 Trinza] metFORMIN HCL [Glucophage] 1,000 mg PO BID 10/31/24 10/31/24 Previous Rx's Medication Instructions Recorded Montelukast [Singulair] 10 mg PO HS tab 01/01/23 lisinopriL [Zestril] 20 mg PO DAILY tab 01/01/23 traZODone HCL [Desyrel] 50 mg PO HS tab 01/01/23 Indomethacin [Indocin] 50 mg PO TID 5 Days #15 capsule 05/09/25 Allergies Allergy/AdvReac Type Severity Reaction Status Date / Time diphenhydramine Allergy Rash/Hives Verified 05/09/25 19:33 [From Benadryl] diphenhydramine HCl Allergy Rash/Hives Verified 05/09/25 19:33 [From Benadryl] Mushroom AdvReac Swelling Verified 05/09/25 19:33 Review of Systems ROS Other: All systems not noted in ROS Statement are negative. <Shanelle Nichols - Last Filed: 05/09/25 19:46> ROS Other: All systems not noted in ROS Statement are negative. <Janee Santos - Last Filed: 05/09/25 23:32> ROS Statement: Those systems with pertinent positive or pertinent negative responses have been documented in the HPI. Past Medical History Past Medical History: Chest Pain / Angina, Diabetes Mellitus, Hypertension, Seizure Disorder, Thyroid Disorder Additional Past Medical History / Comment(s): angina, Hypothyroidism, vitamin D deficiency, dyslipidemia, ALLERGIES, cognitive impairment History of Any Multi-Drug Resistant Organisms: None Reported Past Surgical History: Orthopedic Surgery Additional Past Surgical History / Comment(s): right ankle fracture October 2024 Past Anesthesia/Blood Transfusion Reactions: No Reported Reaction Past Psychological History: Anxiety, Bipolar, Depression Smoking Status: Former smoker, Vaper Past Alcohol Use History: None Reported Past Drug Use History: Marijuana - Past Family History Mother Additional Family Medical History / Comment(s): No known medical history. Patient denies any family history of diabetes or hypertension <Shanelle Nichols - Last Filed: 05/09/25 19:46> General Exam Limitations: no limitations <Shanelle Nichols - Last Filed: 05/09/25 19:46> Limitations: no limitations General appearance: alert, in no apparent distress Respiratory exam: Present: normal lung sounds bilaterally. Absent: respiratory distress, wheezes, rales, rhonchi, stridor Cardiovascular Exam: Present: regular rate, normal rhythm, normal heart sounds. Absent: systolic murmur, diastolic murmur, rubs, gallop, clicks Extremities exam: Present: tenderness (Left first MTP joint and left first toe PIP joint. There is overlying erythema and warmth.), normal capillary refill (2+ left DP/PT pulse) Neurological exam: Present: alert, oriented X3, CN II-XII intact Skin exam: Present: warm, dry, intact, normal color. Absent: rash <Janee Santos - Last Filed: 05/09/25 23:32> - General Exam Comments Initial Comments: Visual Physical Exam Vital signs reviewed General: Well-appearing, nontoxic, no acute distress. Head: Normocephalic, atraumatic Eyes: PERRLA, EOMI ENT: Airway patent Chest: Nonlabored breathing Skin: No visual rash, normal skin tone Neuro: Alert and oriented 3 Musculoskeletal: No gross abnormalities (Shanelle Nichols) Course Vital Signs 05/09/25 19:29 Temperature 98.8 F Pulse Rate 90 Respiratory 18 Rate Blood Pressure 148/93 O2 Sat by Pulse 95 Oximetry Medical Decision Making <Shanelle Nichols - Last Filed: 05/09/25 19:46> - Lab Data Result diagrams: 05/09/25 22:20 05/09/25 22:20 - Radiology Data Radiology results: report reviewed, image reviewed <Janee Santos - Last Filed: 05/09/25 23:32> - Medical Decision Making I performed the quick note portion of this visit, electronically signed Shanelle Nichols PA-C (Shanelle Nichols) Was pt. sent in by a medical professional or institution ([facility], [facility], urgent care, hospital, or snf...) When possible be specific @ -No Did you speak to anyone other than the patient for history (EMS, parent, family, police, friend...)? What history was obtained from this source @ -No Did you review nursing and triage notes (agree or disagree)? Why? @ -I reviewed and agree with nursing and triage notes Were old charts reviewed (outside hosp., previous admission, EMS record, old EKG, old radiological studies, urgent care reports/EKG's, snf records)? Report findings @ -No old charts were reviewed Differential Diagnosis (chest pain, altered mental status, abdominal pain women, abdominal pain men, vaginal bleeding, weakness, fever, dyspnea, syncope, headache, dizziness, GI bleed, back pain, seizure, CVA, palpatations, mental health, musculoskeletal)? @ -Differential Musculoskeletal: Muscular strain, contusion, ligament sprain, fracture, arthritis, septic arthritis, bursitis, cellulitis, muscle spasm, nerve compression, DVT, arterial occlusion, herpes zoster, electrolyte abnormality, tumor.... This is not meant to be in all inclusive list EKG interpreted by me (3pts min.). @ -None done X-rays interpreted by me (1pt min.). @ -Left toe x-ray interpreted by me negative for acute fractures or dislocatio ns. CT interpreted by me (1pt min.). @ -None done U/S interpreted by me (1pt. min.). @ -None done What testing was considered but not performed or refused? (CT, X-rays, U/S, labs)? Why? @ -None What meds were considered but not given or refused? Why? @ -None Did you discuss the management of the patient with other professionals (professionals i.e. , PA, [facility], lab, RT, psych nurse, group social worker, transcript evaluator, teacher, special skills officer, case packer and sealer)? Give summary @ -No Was smoking cessation discussed for >3mins.? @ -No Was critical care preformed (if so, how long)? @ -No Were there social determinants of health that impacted care today? How? (Homelessness, low income, unemployed, alcoholism, drug addiction, transportation, low edu. Level, literacy, decrease access to med. care, fdc, rehab)? @ -Patient has guardian. Was there de-escalation of care discussed even if they declined (Discuss DNR or withdrawal of care, Hospice)? DNR status @ -No What co-morbidities impacted this encounter? (DM, HTN, Smoking, COPD, CAD, Cancer, CVA, ARF, Chemo, Hep., AIDS, mental health diagnosis, sleep apnea, morbid obesity)? @ -Diabetes mellitus, hypertension, hx gout Was patient admitted / discharged? Hospital course, mention meds given and route, prescriptions, significant lab abnormalities, going to OR and other pertinent info. @ Discharge. 49-year-old male presented the ER for evaluation of left great toe pain. Vital signs stable. Exam remarkable for tenderness, edema and maggie thema to left first MTP joint extending to PIP joint. Patient is neurovascularly intact. Given patient's medical history and concern for gout, laboratory studies were obtained. CBC unremarkable. Elevated uric acid at 9.8. CRP elevated at 4.1. Left toe xray negative for acute fracture or dislocations. Patient provided with p.o. ibuprofen for pain control. Workup consistent with gout for which patient will be prescribed indomethacin. Upon reevaluation, patient reported improvement of pain. Results discussed with patient, all questions answered. I advised to hold diuretic use and consume plenty of water. Strict return parameters discussed. Patient discharged stable condition advised follow-up with PCP, contact information provided. Patient verbally expressed understanding agree with care plan. Case discussed with ED attending, Dr. Ambriz. Undiagnosed new problem with uncertain prognosis? @ -No Drug Therapy requiring intensive monitoring for toxicity (Heparin, Nitro, Insulin, Cardizem)? @ -No Were any procedures done? @ -No Diagnosis/symptom? @ -Gout Acute, or Chronic, or Acute on Chronic? @ -Acute Uncomplicated (without systemic symptoms) or Complicated (systemic symptoms)? @ -Uncomplicated Side effects of treatment? @ -No Exacerbation, Progression, or Severe Exacerbation? @ -No Poses a threat to life or bodily function? How? (Chest pain, [place], NE, pneumonia, PE, COPD, DKA, ARF, appy, cholecystitis, CVA, Diverticulitis, Homicidal, Suicidal, threat to staff... and all critical care pts) @ -No (Janee Santos) - Lab Data Lab Results 05/09/25 05/09/25 Range/Units 22:20 22:20 WBC 8.00 (4.50-10.00) 10*3/uL RBC 5.19 (4.40-5.60) 10*6/uL Hgb 14.4 (13.0-17.0) g/dL Hct 42.8 (39.6-50.0) % MCV 82.5 (80.0-97.0) fL MCH 27.7 (27.0-32.0) pg MCHC 33.6 (32.0-37.0) g/dL Plt Count 278 (140-440) 10*3/uL MPV 9.6 (9.5-12.2) fL Immature Gran % (Auto) 0.1 % Neutrophils % 55.9 % Lymphocytes % 34.9 % Monocytes % 7.6 % Eosinophils % 1.0 % Basophils % 0.5 % Immature Gran # 0.01 (0.00-0.04) 10*3/uL Neutrophils # 4.47 (1.80-7.70) 10*3/uL Lymphocytes # 2.79 (0.90-5.00) 10*3/uL Monocytes # 0.61 (0.20-1.00) 10*3/uL Eosinophils # 0.08 (0.04-0.35) 10*3/uL Basophils # 0.04 (0.00-0.10) 10*3/uL Sodium 138 (137-145) mmol/L Potassium 4.3 (3.5-5.1) mmol/L Chloride 97 L (98-107) mmol/L Carbon Dioxide 29 (22-30) mmol/L Anion Gap 12 mmol/L BUN 10 (9-20) mg/dL Creatinine 0.64 L (0.66-1.25) mg/dL Est GFR (CKD-EPI)AfAm >90 (>60 ml/min/1.73 sqM) Est GFR (CKD-EPI)NonAf >90 (>60 ml/min/1.73 sqM) Glucose 125 H (74-99) mg/dL Uric Acid 9.8 H (3.5-8.5) mg/dL Calcium 10.0 (8.4-10.2) mg/dL Total Bilirubin 0.7 (0.2-1.3) mg/dL AST 22 (17-59) U/L ALT 37 (4-49) U/L Alkaline Phosphatase 147 H (38-126) U/L C-Reactive Protein 4.1 H (<1.0) mg/dL Total Protein 6.6 (6.3-8.2) g/dL Albumin 4.4 (3.5-5.0) g/dL Disposition <Shanelle Nichols - Last Filed: 05/09/25 19:46> Is patient prescribed a controlled substance at d/c from ED?: No Time of Disposition: 23:08 <Janee Santos - Last Filed: 05/09/25 23:32> Clinical Impression: Gout Disposition: HOME SELF-CARE Condition: Stable Instructions (If sedation given, give patient instructions): Low Purine Diet (ED), Gout (ED) Additional Instructions: Take indomethacin as prescribed. Follow-up closely with PCP. Return to the ER for any new or worsening concerns. Prescriptions: Indomethacin [Indocin] 50 mg PO TID 5 Days #15 capsule Referrals: None,Stated [Primary Care Provider] - 1-2 days [facility] [NON-STAFF] - 1-2 days [facility] [NON-STAFF] - 1-2 days Forms: Area PCPs
[2025-05-09 22:36] LABS: Basophils # (A) 0.04 10*3/uL (0.00-0.10); Basophils % (A) 0.5 %; Eosinophils # (A) 0.08 10*3/uL (0.04-0.35); HCT 42.8 % (39.6-50.0); HGB 14.4 g/dL (13.0-17.0); Lymphocytes # (A) 2.79 10*3/uL (0.90-5.00); Lymphocytes % (A) 34.9 %; MCH 27.7 pg (27.0-32.0); MCHC 33.6 g/dL (32.0-37.0); MCV 82.5 fL (80.0-97.0); Mean Platelet Volume 9.6 fL (9.5-12.2); Monocytes # (A) 0.61 10*3/uL (0.20-1.00); Monocytes % (A) 7.6 %; Neutrophils # (A) 4.47 10*3/uL (1.80-7.70); Neutrophils % (A) 55.9 %; Platelet Count 278 10*3/uL (140-440); RBC 5.19 10*6/uL (4.40-5.60)
--- NOTE | 2025-05-09 22:38 | XR ---
EXAMINATION TYPE: XR toes LT DATE OF EXAM: 05/09/2025 8:31 PM CLINICAL INDICATION:Male, 49 years old with history of 1st toe injury; PHH, pain COMPARISON: None TECHNIQUE: XR toes LT examined in the AP, oblique, and lateral projections. FINDINGS: No evidence of any acute osseous pathology. Minimal soft tissue swelling of the first digit. No radi opaque foreign bodies. IMPRESSION: No evidence of acute fracture. Mild soft tissue swelling of the first digit. [facility], , 05/09/2025 10:36 PM
[2025-05-09 22:56] LABS: ALT 37 U/L (4-49); AST 22 U/L (17-59); African American GFR (CKD) >90 (>60 ml/min/1.73 sqM); Albumin 4.4 g/dL (3.5-5.0); Alkaline Phosphatase 147 U/L (38-126); Anion Gap 12 mmol/L; Blood Urea Nitrogen 10 mg/dL (9-20); C Reactive Protein 4.1 mg/dL (<1.0); Carbon Dioxide 29 mmol/L (22-30); Chloride 97 mmol/L (98-107); Glucose 125 mg/dL (74-99); Non-African American GFR(CKD) >90 (>60 ml/min/1.73 sqM); Potassium 4.3 mmol/L (3.5-5.1); Sodium 138 mmol/L (137-145); Total Bilirubin 0.7 mg/dL (0.2-1.3); Total Protein 6.6 g/dL (6.3-8.2); Uric Acid 9.8 mg/dL (3.5-8.5)
[2025-05-09 23:54] VITALS: BP 142/92; PULSE 89; RESP 20; TEMP 98
[2025-05-09] MEDS: IBUPROFEN 600 MG TAB PO STA (23:54)
== END 2025-05-09 23:57 | disposition home or self-care (01) ==
LOC: EC 19:19
DX: M10.9 Gout, unspecified (principal); E11.9 Type 2 diabetes mellitus without complications; I10 Essential (primary) hypertension; Z88.8 Allergy status to other drugs, medicaments and biological substances; Z91.018 Allergy to other foods; W22.03XA Walked into furniture, initial encounter
CPT/HCPCS: 36415; 80053; 83605; 84550; 85025; 86140; 99283